=== PATIENT | male | born 1960 | race Caucasian/White ===

== ENCOUNTER 2016-05-25 21:46 | Emergency (ER) | payer BC, OTHER ==
[~2016-05-25] VITALS: Ht 172.7 cm; Wt 70.0 kg
[~2016-05-25 21:46] MED LIST: AMLO5TAB2 PO; ESCI20TA PO
[2016-05-25 21:53] VITALS: BP 169/102; PULSE 87; RESP 18; TEMP 98; O2SAT 95
--- NOTE | 2016-05-25 22:02 | PD ---
HPI Chief Complaint: Alcohol/Drug Intoxication Time Seen by Provider: 21:59 Travel History International Travel<30 days: No Contact w/Intl Traveler<30days: No Traveled to known affect area: No History of Present Illness HPI 56-year-old male with a history of hypertension and alcohol abuse presents to the emergency department under Cuevas's act for alcohol intoxication. The precinct police captain reports that he was called by bystanders as the patient was very intoxicated, no evidence of trauma, ambulating on his own. The patient admits to drinking alcohol today. He denies any recent injuries or falls. He denies any complaints at this time. He denies drug use. Denies any fever, chills, nausea, vomiting, chest pain, shortness of breath, abdominal pain, headache, lightheadedness, dizziness. No other complaints. PFSH Past Medical History Asthma: No Blood Disorders: No Anxiety: Yes Depression: Yes Heart Rhythm Problems: No Cancer: No Cardiac Catheterization: No Cardiovascular Problems: Yes High Cholesterol: Yes Chemotherapy: No Chest Pain: Yes Congestive Heart Failure: No COPD: No Cerebrovascular Accident: No Diabetes: No Diminished Hearing: No Endocrine: No Gastrointestinal Disorders: Yes GERD: No Genitourinary: No Headaches: No Hiatal Hernia: Yes Heparin Induced Thrombocytopen: No Hypertension: Yes Immune Disorder: No Implanted Vascular Access Dvce: No Musculoskeletal: Yes (RIGHT HIP PAIN) Neurologic: No Psychiatric: Yes Reproductive: No Respiratory: No Immunizations Current: Yes Migraines: No Radiation Therapy: No Seizures: No Sleep Apnea: No Thyroid Disease: No Ulcer: No Influenza Vaccination: No Past Surgical History Abdominal Surgery: Yes (HERNIA REPAIR ) Cardiac Surgery: No Coronary Artery Bypass Graft: No Ear Surgery: No Endocrine Surgery: No Eye Surgery: No Genitourinary Surgery: No Gynecologic Surgery: No Neurologic Surgery: No Oral Surgery: No Thoracic Surgery: No Other Surgery: Yes (HERNIA REPAIR) Social History Alcohol Use: Yes (BINGE DRINKER) Tobacco Use: Yes (1 PPD) Substance Use: No Allergies-Medications (Allergen,Severity, Reaction): Coded Allergies: Lisinopril (Verified Allergy, Severe, Wheezing, 05/25/16) Reported Meds & Prescriptions Reported Meds & Active Scripts Active Amlodipine (Amlodipine Besylate) 5 Mg Tab 5 Mg PO DAILY Escitalopram (Escitalopram Oxalate) 20 Mg Tab 20 Mg PO DAILY Review of Systems Except as stated in HPI: all other systems reviewed are Neg Physical Exam Narrative GENERAL: Well-nourished and well-developed male patient in no acute distress who does appear intoxicated, smells of EtOH. SKIN: Warm and dry. HEAD: Normocephalic and atraumatic. EYES: No injection, drainage, or hyphema noted. PERRLA. EOMI. ENT: No nasal drainage noted. Oropharynx is clear. NECK: Supple and the trachea is midline. CARDIOVASCULAR: Regular rate and rhythm. RESPIRATORY: Breath sounds are equal bilaterally with no accessory muscle use, wheezing, rhonchi, or crackles. GASTROINTESTINAL: Abdomen is soft, non-tender, and nondistended. MUSCULOSKELETAL: No obvious deformities, swelling, cyanosis, or ecchymosis is present throughout the upper and lower extremities. Patient has full range of motion without any signs of neurovascular compromise. Strength 5/5 upper and lower extremities equal bilaterally. NEUROLOGICAL: Awake, alert, and oriented. Normal speech and gait. Cranial nerves are grossly intact. Data Data Last Documented VS Vital Signs Date Time Temp Pulse Resp B/P Pulse Ox O2 Delivery O2 Flow Rate FiO2 05/25/16 21:53 98.0 87 18 169/102 95 MDM Medical Decision Making Medical Screen Exam Complete: Yes Emergency Medical Condition: Yes Differential Diagnosis Alcohol intoxication versus alcohol abuse versus medical clearance Narrative Course 56-year-old male presents to the emergency department under Cuevas's act for alcohol intoxication. Patient is afebrile, vital signs are stable. Physical exam is unremarkable. Patient does appear to be intoxicated but he is awake, alert and answering questions appropriately. No evidence of any injury and the patient has no complaints. The patient has been to our facility multiple times in the past for alcohol intoxication. He'll be monitored here in the emergency department now at sleep off the alcohol. Once he is found to be clinically sober he can be discharged. Diagnosis Primary Impression: Alcohol intoxication Qualified Code: F10.120 - Alcohol intoxication, uncomplicated Referrals: [facility] Patient Instructions: Alcohol Intoxication (ED), General Instructions Additional Instructions: Decrease your alcohol intake. Follow-up with your Primary Care Physician. Return to the ED for any acute worsening of symptoms. Med/Other Pt SpecificInfo: No Change to Meds Disposition: 01 DISCHARGE HOME Condition: Stable Leslie Michelle May 25, 2016 22:02
== END 2016-05-26 06:24 | disposition home or self-care (01) ==
LOC: NEPA 21:46
DX: F10.120 Alcohol abuse with intoxication, uncomplicated (principal); I10 Essential (primary) hypertension; E78.00 Pure hypercholesterolemia, unspecified; F17.200 Nicotine dependence, unspecified, uncomplicated; Z86.79 Personal history of other diseases of the circulatory system; Z87.19 Personal history of other diseases of the digestive system; Z87.39 Personal history of other diseases of the musculoskeletal system and connective tissue; Z86.59 Personal history of other mental and behavioral disorders
CPT/HCPCS: 99284

== ENCOUNTER 2016-06-01 07:59 | Inpatient (IN) | payer SELFPAY ==
[~2016-06-01] VITALS: Ht 180.3 cm; Wt 88.1 kg
[2016-06-01] VITALS (14 sets, daily range): BP systolic 104–173; BP diastolic 72–102; PULSE 102–147; RESP 18–22; TEMP 97.8–98; O2SAT 93–98
[2016-06-01] MEDS ORDERED: LORazepam 2 MG/ML VIAL ONE (08:07)
--- NOTE | 2016-06-01 08:09 | PD ---
HPI Chief Complaint: Cardiac Complaint Time Seen by Provider: 08:06 Travel History International Travel<30 days: No Contact w/Intl Traveler<30days: No Traveled to known affect area: No History of Present Illness HPI This is a 56-year-old male who presents to the emergency department with a history of alcoholism who stopped drinking 2 days ago and comes in this morning with severe shaking, anxiety, and feeling like he is in withdrawals. His symptoms have been constant and getting worse this morning. He also reports that he has epigastric abdominal pain that started 2 days ago prompting him to stop drinking associated with some dry heaving, moderate severity, worse with eating and drinking. He also says he fell 2 days ago and thinks he may have a concussion. PFSH Past Medical History Asthma: No Blood Disorders: No Anxiety: Yes Depression: Yes Heart Rhythm Problems: No Cancer: No Cardiac Catheterization: No Cardiovascular Problems: Yes High Cholesterol: Yes Chemotherapy: No Chest Pain: Yes Congestive Heart Failure: No COPD: No Cerebrovascular Accident: No Diabetes: No Diminished Hearing: No Endocrine: No Gastrointestinal Disorders: Yes GERD: No Genitourinary: No Headaches: No Hiatal Hernia: Yes Heparin Induced Thrombocytopen: No Hypertension: Yes Immune Disorder: No Implanted Vascular Access Dvce: No Musculoskeletal: Yes (RIGHT HIP PAIN) Neurologic: No Psychiatric: Yes Reproductive: No Respiratory: No Immunizations Current: Yes Migraines: No Radiation Therapy: No Seizures: No Sleep Apnea: No Thyroid Disease: No Ulcer: No Past Surgical History Abdominal Surgery: Yes (HERNIA REPAIR ) Cardiac Surgery: No Coronary Artery Bypass Graft: No Ear Surgery: No Endocrine Surgery: No Eye Surgery: No Genitourinary Surgery: No Gynecologic Surgery: No Neurologic Surgery: No Oral Surgery: No Thoracic Surgery: No Other Surgery: Yes (HERNIA REPAIR) Social History Alcohol Use: Yes (BINGE DRINKER) Tobacco Use: Yes (1 PPD) Substance Use: No Allergies-Medications (Allergen,Severity, Reaction): Coded Allergies: Lisinopril (Verified Allergy, Severe, Wheezing, 06/01/16) Reported Meds & Prescriptions Reported Meds & Active Scripts Active Amlodipine (Amlodipine Besylate) 5 Mg Tab 5 Mg PO DAILY Review of Systems Except as stated in HPI: all other systems reviewed are Neg Physical Exam Narrative GENERAL: Unwell-appearing, anxious SKIN: Diaphoretic HEAD: Atraumatic. Normocephalic. EYES: Pupils equal and round. No injection or drainage. ENT: Moist mucous membranes NECK: Trachea midline. CARDIOVASCULAR: Tachycardic. No murmur appreciated. RESPIRATORY: Clear to auscultation. Breath sounds equal bilaterally. GASTROINTESTINAL: Abdomen soft, tender to palpation in the epigastrium with guarding. MUSCULOSKELETAL: No obvious deformities. NEUROLOGICAL: Awake and alert. No obvious cranial nerve deficits. Moving all extremities. Tremulous. PSYCHIATRIC: Appropriate mood and affect; insight and judgment normal. Data Data Last Documented VS Vital Signs Date Time Temp Pulse Resp B/P Pulse Ox O2 Delivery O2 Flow Rate FiO2 06/01/16 09:13 140 20 151/85 93 Nasal Cannula 2 06/01/16 08:03 97.8 Orders Electrocardiogram (06/01/16 08:06) Complete Blood Count With Diff (06/01/16 08:06) Comprehensive Metabolic Panel (06/01/16 08:06) Troponin I (06/01/16 08:06) Chest, Single Ap (06/01/16 08:06) Ecg Monitoring (06/01/16 08:06) Bilateral Bp Monitoring (06/01/16 08:06) Iv Access Insert/Monitor (06/01/16 08:06) Oximetry (06/01/16 08:06) Oxygen Administration (06/01/16 08:06) Sodium Chloride 0.9% Flush (Ns Flush) (06/01/16 08:15) Ct Brain W/O Iv Contrast(Rout) (06/01/16 ) Lorazepam Inj (Ativan Inj) (06/01/16 08:15) Lorazepam Inj (Ativan Inj) (06/01/16 08:07) Diltiazem Inj (Cardizem Inj) (06/01/16 08:30) Lipase (06/01/16 08:19) Diltiazem Inj (Cardizem Inj) (06/01/16 08:45) Vital Signs (Adult) Q15MX4,Q4H (06/01/16 08:35) Plant Maintenance Manager / Telemetry IZZY.Q8H (06/01/16 08:35) Cardiac Rhythm IZZY.Q8H (06/01/16 08:35) ^ Notify Dr: Other (06/01/16 08:35) Diltiazem Inj (Cardizem Inj) (06/01/16 08:45) Admit To Inpatient (06/01/16 ) Vital Signs (Adult) Q4H (06/01/16 09:38) Activity Oob Ad Leena (06/01/16 09:38) Bedside Glucose IZZY.AC&HS (06/01/16 09:38) Intake + Output IZZY.QSHIFT (06/01/16 09:38) Neuro Checks Q4H (06/01/16 09:38) Alcohol Withdrawal Asmt-Ciwa Q4HX18 (06/01/16 09:38) ^ Seizure Precautions (06/01/16 09:38) Plant Maintenance Manager / Telemetry IZZY.Q8H (06/01/16 09:38) Diet Regular Basic (06/01/16 Breakfast) Sodium Chloride 0.9% Flush (Ns Flush) (06/01/16 09:45) Sodium Chloride 0.9% Flush (Ns Flush) (06/01/16 21:00) Folic Acid (Folate) (06/02/16 09:00) Thiamine (Vit B1) (Vitamin B1) (06/02/16 09:00) Multivitamins-Minerals Therap (Theragran (06/02/16 09:00) Ondansetron Inj (Zofran Inj) (06/01/16 09:45) Pantoprazole (Protonix) (06/02/16 09:00) Clonidine (Catapres) (06/01/16 14:00) Clonidine (Catapres) (06/01/16 09:45) Consult Cm-Etoh Abuse Dc Plan (06/01/16 ) Flumazenil Inj (Romazicon Inj) (06/01/16 09:45) Lorazepam (Ativan) (06/01/16 09:45) Lorazepam Inj (Ativan Inj) (06/01/16 09:45) Lorazepam (Ativan) (06/01/16 09:45) Lorazepam Inj (Ativan Inj) (06/01/16 09:45) Lorazepam Inj (Ativan Inj) (06/01/16 09:45) Lorazepam Inj (Ativan Inj) (06/01/16 09:45) Scd Bilateral/Knee High IZZY.BID (06/01/16 09:38) Inpatient Certification (06/01/16 ) Echo 2d Comp W/Dopp(Routine) (06/01/16 ) Vital Signs (Adult) Q15MX4,Q4H (06/01/16 09:38) Cardiac Rhythm IZZY.Q8H (06/01/16 09:38) ^ Notify Dr: Other (06/01/16 09:38) Diltiazem Inj (Cardizem Inj) (06/01/16 11:00) Al-Mag Hy-Si 40-40-4 Mg/Ml Liq (Mag-Al P (06/01/16 09:45) Admit Order (Ed Use Only) (06/01/16 09:51) Enoxaparin Inj (Lovenox Inj) (06/01/16 11:00) Labs Laboratory Tests Test 06/01/16 08:23 White Blood Count 10.3 TH/MM3 Red Blood Count 4.52 MIL/MM3 Hemoglobin 14.7 GM/DL Hematocrit 41.7 % Mean Corpuscular Volume 92.1 FL Mean Corpuscular Hemoglobin 32.6 PG Mean Corpuscular Hemoglobin 35.4 % Concent Red Cell Distribution Width 14.9 % Platelet Count 170 TH/MM3 Mean Platelet Volume 9.0 FL Neutrophils (%) (Auto) 85.1 % Lymphocytes (%) (Auto) 8.8 % Monocytes (%) (Auto) 6.0 % Eosinophils (%) (Auto) 0.0 % Basophils (%) (Auto) 0.1 % Neutrophils # (Auto) 8.7 TH/MM3 Lymphocytes # (Auto) 0.9 TH/MM3 Monocytes # (Auto) 0.6 TH/MM3 Eosinophils # (Auto) 0.0 TH/MM3 Basophils # (Auto) 0.0 TH/MM3 CBC Comment DIFF FINAL Differential Comment Sodium Level 131 MEQ/L Potassium Level 3.7 MEQ/L Chloride Level 86 MEQ/L Carbon Dioxide Level 27.6 MEQ/L Anion Gap 17 MEQ/L Blood Urea Nitrogen 16 MG/DL Creatinine 1.19 MG/DL Estimat Glomerular Filtration 64 ML/MIN Rate Random Glucose 168 MG/DL Calcium Level 9.3 MG/DL Total Bilirubin 1.9 MG/DL Aspartate Amino Transf 110 U/L (AST/SGOT) Alanine Aminotransferase 63 U/L (ALT/SGPT) Alkaline Phosphatase 57 U/L Troponin I 0.04 NG/ML Total Protein 7.9 GM/DL Albumin 4.5 GM/DL Lipase 95 U/L MDM Medical Decision Making Medical Screen Exam Complete: Yes Emergency Medical Condition: Yes Interpretation(s) Afebrile, tachycardic, normotensive No leukocytosis Hypokalemia Troponin is 0.04 Lipase is 95 EKG: Atrial fibrillation with rapid ventricular Differential Diagnosis Acute alcohol withdrawal, delirium tremens, atrial fibrillation with RVR, intracranial hemorrhage, electrolyte abnormality Narrative Course This is a 56-year-old male who presents to the emergency department with signs and symptoms of acute alcohol withdrawal. He is in atrial fibrillation with RVR upon arrival. He was placed on a monitor and an IV was established. He was given 2 boluses of IV diltiazem and started on a diltiazem infusion. He was also given 4 mg of IV Ativan for acute alcohol withdrawal. Labs are obtained which were all reassuring. CT of the head demonstrates no intracranial hemorrhage. I think the patient can be admitted for continued rate control and treatment of acute alcohol withdrawal. Critical Care Narrative Aggregate critical care time was 40 minutes. Time to perform other separately billable procedures was not included in the critical care time. My time did not include minutes spent treating any other patients simultaneously or on activities that did not directly contribute to the patient's treatment. The services I provided to this patient were to treat and/or prevent clinically significant deterioration that could result in: Disability, I provided critical care services requiring my management, as noted below: Chart data review, documentation time, medication orders and management, vital sign assessments/reviewing monitor data, ordering and reviewing lab tests, ordering and interpreting/reviewing x-rays and diagnostic studies, care of the patient and discussion of the patient with the admitting physicians. Physician Communication Physician Communication Discussed with Dr. Saldana Diagnosis Primary Impression: Alcohol withdrawal Qualified Code: F10.230 - Alcohol withdrawal, uncomplicated Additional Impression: Atrial fibrillation with RVR Admitting Information Admitting Physician Requests: Admit Marissa Doe MD Jun 01, 2016 08:09
[2016-06-01] MEDS ORDERED: SODIUM CHLORIDE 0.9% FLUSH 5 ML FLUSH IVF PRN (08:15)
[2016-06-01] MEDS ORDERED: LORazepam 2 MG/ML VIAL IV PUSH ONE (08:15)
--- NOTE | 2016-06-01 08:21 | RADRPT ---
EXAM DATE/TIME: 06/01/2016 08:17 [facility] COMPARISON: CHEST SINGLE AP, March 24, 2016, 11:11. INDICATIONS : Chest pain. MEDICAL HISTORY : Hypertension. SURGICAL HISTORY : None. ENCOUNTER: Subsequent ACUITY: 1 day PAIN SCORE: 6/10 LOCATION: Bilateral chest FINDINGS: A single view of the chest demonstrates the lungs to be symmetrically aerated without evidence of mas s, infiltrate or effusion. The cardiomediastinal contours are unremarkable. Osseous structures are intact. CONCLUSION: No acute disease. Ras Ortiz MD on June 01, 2016 at 8:19 Board Certified Radiologist. This report was verified electronically.
[2016-06-01] MEDS ORDERED: DILTIAZEM HCL 25 MG/5 ML VIAL IV ONE ×2 (08:30→08:45)
[2016-06-01 08:37] LABS: AUTOMATED NEUTROPHIL # 8.7 TH/MM3 (1.8-7.7); BASOPHIL % 0.1 % (0.0-2.0); HEMATOCRIT 41.7 % (39.0-51.0); HEMO FLAGS DIFF FINAL; LYMPH % 8.8 % (9.0-44.0); LYMPHOCYTE # 0.9 TH/MM3 (1.0-4.8); MEAN CELL VOLUME 92.1 FL (80.0-100.0); MEAN CORPUSCULAR HEMOGLOBIN 32.6 PG (27.0-34.0); MEAN CORPUSCULAR HGB CONC 35.4 % (32.0-36.0); NEUT % 85.1 % (16.0-70.0); PLATELET COUNT 170 TH/MM3 (150-450); RED BLOOD COUNT 4.52 MIL/MM3 (4.50-5.90); RED CELL DISTRIBUTION WIDTH 14.9 % (11.6-17.2); WHITE BLOOD COUNT 10.3 TH/MM3 (4.0-11.0)
[2016-06-01] MEDS ORDERED: DILTIAZEM INJ 125 MG in SODIUM CHLORIDE 0.9% INJ 100 ML IV SCH (08:45)
[2016-06-01 08:57] LABS: ANION GAP 17 MEQ/L (5-15); AST (GOT) 110 U/L (15-37); BICARBONATE 27.6 MEQ/L (21.0-32.0); BLOOD UREA NITROGEN 16 MG/DL (7-18); CHLORIDE 86 MEQ/L (98-107); GLOMERULAR FILTRATION RATE 64 ML/MIN (>89); POTASSIUM 3.7 MEQ/L (3.5-5.1); SODIUM (NA) 131 MEQ/L (136-145)
[2016-06-01 09:01] LABS: ALKALINE PHOSPHATASE 57 U/L (45-117); ALT (GPT) 63 U/L (12-78); TOTAL BILIRUBIN ADULT 1.9 MG/DL (0.2-1.0)
--- NOTE | 2016-06-01 09:06 | RADRPT ---
EXAM DATE/TIME: 06/01/2016 08:41 [facility] COMPARISON: CT BRAIN W/O CONTRAST, July 27, 2015, 7:42. INDICATIONS : Trauma, fall two days ago. RADIATION DOSE: 38.95 CTDIvol (mGy) MEDICAL HISTORY : Hypertension. Cardiovascular disease SURGICAL HISTORY : None. ENCOUNTER: Initial ACUITY: 1 day PAIN SCALE: 0/10 LOCATION: cranial TECHNIQUE: Multiple contiguous axial images were obtained of the head. Using automated exposure control and adj ustment of the mA and/or kV according to patient size, radiation dose was kept as low as reasonably a chievable to obtain optimal diagnostic quality images. FINDINGS: CEREBRUM: The ventricles are normal for age. Chronic ischemic changes left frontal periventricular white matter . No evidence of midline shift, mass lesion, hemorrhage or acute infarction. No extra-axial fluid c ollections are seen. POSTERIOR FOSSA: The cerebellum and brainstem are intact. The 4th ventricle is midline. The cerebellopontine angle i s unremarkable. EXTRACRANIAL: The visualized portion of the orbits is intact. SKULL: The calvaria is intact. No evidence of skull fracture. CONCLUSION: No acute intracranial disease. Ras Ortiz MD on June 01, 2016 at 9:03 Board Certified Radiologist. This report was verified electronically.
[2016-06-01] MEDS ORDERED: cloNIDine HCL 0.1 MG TAB PO PRN (09:45)
[2016-06-01] MEDS ORDERED: LORazepam 2 MG TAB PO PRN (09:45)
[2016-06-01] MEDS ORDERED: LORazepam 2 MG/ML VIAL IV PUSH PRN ×4 (09:45)
[2016-06-01] MEDS ORDERED: FLUMAZENIL 0.5 MG/5 ML VIAL IV PUSH PRN (09:45)
[2016-06-01] MEDS ORDERED: SODIUM CHLORIDE 0.9% FLUSH 5 ML FLUSH IV FLUSH PRN (09:45)
[2016-06-01] MEDS ORDERED: ALUMINUM/MAGNESIUM/SIMETH 30 ML CUP PO PRN (09:45)
[2016-06-01] MEDS ORDERED: ONDANSETRON HCL 4 MG/2 ML VIAL IV PRN (09:45)
[2016-06-01] MEDS ORDERED: ENOXAPARIN SODIUM 80 MG/0.8 ML SYRINGE SQ SCH (11:00)
[2016-06-01] MEDS ORDERED: cloNIDine HCL 0.1 MG TAB PO SCH ×2 (14:00→21:00)
--- NOTE | 2016-06-01 16:38 | HHI.HP ---
[facility] Service [facility] Primary Care Physician Adrianne Carrasquillo MD Admission Diagnosis atrial fibrillation with rvr, alcohol withdrawl Diagnoses: Chief Complaint: I don't feel well. I can't walk straight. Travel History International Travel<30 Days: No Contact w/Intl Traveler <30 Da: No Traveled to Known Affected Are: No History of Present Illness 56-year-old white male with a history of alcohol dependence came in the emergency room after he confessed to stop drinking 3 days ago. He states that he was walking down the street and fell extremely unsteady and continues to be nauseated and therefore came to emergency for evaluation. He reports having black stools yesterday. He reports a history of epigastric discomfort after he drinks alcohol and this was the reason he is trying to cut down and stop drinking. He reports some mild chest discomfort with some palpitations all however has not had any associated shortness of breath with these episodes. He reports he is currently chest pain-free. He denies any previous history of heart problems or arrhythmias. Review of Systems Constitutional: DENIES: Fatigue, Fever, Chills, Change in appetite Endocrine: DENIES: Heat/cold intolerance Eyes: DENIES: Blurred vision, Eye pain, Vision loss Ears, nose, mouth, throat: DENIES: Hearing loss, Nasal discharge, Throat pain, Ear Pain, Sinus Pain Respiratory: DENIES: Cough, Shortness of breath Cardiovascular: COMPLAINS OF: Chest pain, Palpitations, DENIES: Dyspnea on Exertion, Lower Extremity Edema Gastrointestinal: COMPLAINS OF: Black stools, Nausea, DENIES: Abdominal pain, Bloody stools, Constipation, Diarrhea, Vomiting Musculoskeletal: DENIES: Joint pain, Muscle aches, Stiffness Integumentary: DENIES: Rash Hematologic/lymphatic: DENIES: Bruising, Lymphadenopathy Immunologic/allergic: DENIES: Eczema Neurologic: DENIES: Headache, Localized weakness, Paresthesias Psychiatric: DENIES: Anxiety, Depression, Suicidal Ideation Past Family Social History Past Medical History Alcohol dependence Past Surgical History Right inguinal hernia repair Reported Medications He currently states that he is not taking any medications. Allergies: Coded Allergies: Lisinopril (Verified Allergy, Severe, Wheezing, 06/01/16) Family History His mother of lung cancer Social History Was drinking up to 1 gallon of vodka on a daily basis, stopped 2 days ago, smoked 1 pack cigarettes Physical Exam Vital Signs Vital Signs Date Time Temp Pulse Resp B/P Pulse Ox O2 Delivery O2 Flow Rate FiO2 06/01/16 15:46 119 20 104/72 Nasal Cannula 2 06/01/16 14:01 117 20 148/78 93 Room Air 06/01/16 12:33 113 20 129/77 Nasal Cannula 2 06/01/16 11:30 126 20 135/81 94 Nasal Cannula 2 06/01/16 10:03 120 19 135/90 95 Nasal Cannula 2 06/01/16 09:56 114 20 138/89 Nasal Cannula 2 06/01/16 09:13 140 20 151/85 93 Nasal Cannula 2 06/01/16 08:17 95 Nasal Cannula 2 06/01/16 08:17 20 95 Nasal Cannula 2 06/01/16 08:17 173/102 151/85 06/01/16 08:05 147 22 96 06/01/16 08:03 97.8 147 22 173/102 96 Physical Exam GENERAL: This is a well-nourished, well-developed patient, in no apparent distress. SKIN: No rashes, ecchymoses or lesions. Cool and dry. HEAD: Atraumatic. Normocephalic. No temporal or scalp tenderness. EYES: Pupils equal round and reactive. Extraocular motions intact. No scleral icterus. No injection or drainage. ENT: Nose without bleeding, purulent drainage or septal hematoma. Throat without erythema, tonsillar hypertrophy or exudate. Uvula midline. Airway patent. NECK: Trachea midline. No JVD or lymphadenopathy. Supple, nontender, no meningeal signs. CARDIOVASCULAR: Regular rate and rhythm without murmurs, gallops, or rubs. RESPIRATORY: Clear to auscultation. Breath sounds equal bilaterally. No wheezes , rales, or rhonchi. GASTROINTESTINAL: Abdomen soft, non-tender, nondistended. No hepato-splenomegaly , or palpable masses. No guarding. MUSCULOSKELETAL: Extremities without clubbing, cyanosis, or edema. No joint tenderness, effusion, or edema noted. No calf tenderness. Negative Homans sign bilaterally. NEUROLOGICAL: Awake and alert. Cranial nerves II through XII intact. Motor and sensory grossly within normal limits. Five out of 5 muscle strength in all muscle groups. Normal speech. Laboratory Laboratory Tests Test 06/01/16 08:23 White Blood Count 10.3 Red Blood Count 4.52 Hemoglobin 14.7 Hematocrit 41.7 Mean Corpuscular Volume 92.1 Mean Corpuscular Hemoglobin 32.6 Mean Corpuscular Hemoglobin 35.4 Concent Red Cell Distribution Width 14.9 Platelet Count 170 Mean Platelet Volume 9.0 Neutrophils (%) (Auto) 85.1 Lymphocytes (%) (Auto) 8.8 Monocytes (%) (Auto) 6.0 Eosinophils (%) (Auto) 0.0 Basophils (%) (Auto) 0.1 Neutrophils # (Auto) 8.7 Lymphocytes # (Auto) 0.9 Monocytes # (Auto) 0.6 Eosinophils # (Auto) 0.0 Basophils # (Auto) 0.0 CBC Comment DIFF FINAL Differential Comment Sodium Level 131 Potassium Level 3.7 Chloride Level 86 Carbon Dioxide Level 27.6 Anion Gap 17 Blood Urea Nitrogen 16 Creatinine 1.19 Estimat Glomerular Filtration 64 Rate Random Glucose 168 Calcium Level 9.3 Total Bilirubin 1.9 Aspartate Amino Transf 110 (AST/SGOT) Alanine Aminotransferase 63 (ALT/SGPT) Alkaline Phosphatase 57 Troponin I 0.04 Total Protein 7.9 Albumin 4.5 Lipase 95 Result Diagram: 06/01/16 0823 06/01/16 0823 Imaging Last Impressions Chest X-Ray 06/01/16 0806 Signed Impressions: Service Date/Time: May 08:17 - CONCLUSION: No acute disease. Ras Ortiz MD Head CT 06/01/16 0000 Signed Impressions: Service Date/Time: May 08:41 - CONCLUSION: No acute intracranial disease. Ras Ortiz MD Course EKG showed atrial fibrillation with rapid ventricular rate of 148 Assessment and Plan Problem List: (1) Atrial fibrillation with RVR ICD Code: I48.91 Status: Acute (2) Alcohol withdrawal ICD Code: F10.239 Status: Acute Assessment and Plan 1. New onset atrial fibrillation with rapid ventricular rate likely exacerbated by alcohol withdrawal symptoms. This time patient is currently on a IV Cardizem drip for rate control. Check a 2-D echo and serial enzymes. Patient did have a recent nuclear stress test Apr 2015 which was negative. Hold anticoagulation due to his history of tarry black stools. We'll also start metoprolol twice a day 2. Acute alcohol withdrawal with perceptual disturbance with a history alcohol dependence-[facility] protocol initiated; patient will need to have follow-up was to her treatment [facility] upon discharge. Continue on benzodiazepine. 3. History of black tarry stoolsstart PPI while ruling out underlying GI bleed , hemoglobin stable., Hemoccult stools 4. DVT prophylaxisbilateral SCDs, holding anticoagulation due to history of black stools Physician Certification 2 Midnight Certification Type: Admission for Inpatient Services Order for Inpatient Services The services are ordered in accordance with Medicare regulations or non- Medicare payer requirements, as applicable. In the case of services not specified as inpatient-only, they are appropriately provided as inpatient services in accordance with the 2-midnight benchmark. Estimated LOS (days): 3 days is the estimated time the patient will need to remain in the hospital, assuming treatment plan goals are met and no additional complications. Post-Hospital Plan: Home Problem Qualifiers (1) Alcohol withdrawal: Qualified Code: F10.232 - Alcohol withdrawal, with perceptual disturbance Margoth Saldana MD Jun 01, 2016 16:38
[2016-06-01 18:59] LABS: CKMB 13.1 NG/ML (0.5-3.6)
--- NOTE | 2016-06-01 19:03 | EC ---
Study Study Date:06/01/2016 STUDY CONCLUSIONS SUMMARY LEFT VENTRICLE: The cavity size was normal. Wall thickness was normal. Systolic function was normal. The estimated ejection fraction was in the range of 55% to 60%. Wall motion was normal; there were no regional wall motion abnormalities. If LV function is below 40, please consider prescribing an ACEI or ARB or document rationale for non-use. PROCEDURE DATA STUDY STATUS: Elective. Procedure: Transthoracic echocardiography. Image quality was good. Scanning was performed from the parasternal, apical, and subcostal acoustic windows. Study completion: The patient tolerated the procedure well. Transthoracic echocardiography. M-mode, complete 2D, complete spectral Doppler, and color Doppler. Patient status: Inpatient. CARDIAC ANATOMY LEFT VENTRICLE: The cavity size was normal. Wall thickness was normal. Systolic function was normal. The estimated ejection fraction was in the range of 55% to 60%. Wall motion was normal; there were no regional wall motion abnormalities. AORTIC VALVE: Trileaflet; normal thickness leaflets. Doppler: Transvalvular velocity was within the normal range. There was no stenosis. No regurgitation. AORTA: Aortic root: The aortic root was normal in size. MITRAL VALVE: Structurally normal valve. Doppler: Transvalvular velocity was within the normal range. There was no evidence for stenosis. No regurgitation. Peak gradient: 2mm Hg (D). LEFT ATRIUM: The atrium was normal in size. RIGHT VENTRICLE: The cavity size was normal. Wall thickness was normal. PULMONIC VALVE: Doppler: Transvalvular velocity was within the normal range. There was no evidence for stenosis. No regurgitation. TRICUSPID VALVE: Structurally normal valve. Doppler: Transvalvular velocity was within the normal range. No regurgitation. PULMONARY ARTERY: The main pulmonary artery was normal-sized. Systolic pressure was within the normal range. RIGHT ATRIUM: The atrium was normal in size. PERICARDIUM: There was no pericardial effusion. SYSTEMIC VEINS: Inferior vena cava: The vessel was normal in size. BASIC MEASUREMENTS ADULT Normal Left ventricle LV internal dimension, ED, chordal level, 51.1 mm 43-52 PLAX LV internal dimension, ES, chordal level, 36.5 mm 23-38 PLAX Fractional shortening, chordal level, PLAX *29 % >29 LV posterior wall thickness, ED 7.15 mm IVS/LVPW ratio, ED *1.85 <1.3 Ventricular septum Septal thickness, ED 13.2 mm Aortic valve Leaflet separation *28 mm 15-26 Left atrium Anterior-posterior dimension 37 mm Right ventricle RV internal dimension, ED, PLAX 28.1 mm 19-38 BASIC MEASUREMENTS ADULT Normal Aortic valve Leaflet separation *28 mm 15-26 Aorta Root diameter, ED *43 mm 20-37 DOPPLER MEASUREMENTS ADULT Normal Main pulmonary artery Pressure, S 23 mm Hg =30 Mitral valve Peak E-wave velocity 74 cm/s Peak gradient, D 2 mm Hg Tricuspid valve Regurgitant peak velocity 174 cm/s Peak RV-RA gradient, S 12 mm Hg Maximal regurgitant velocity 174 cm/s Systemic veins Estimated CVP 5 mm Hg Right ventricle RV pressure, S 23 mm Hg <30 LEGEND: Mean values are shown as u=mean value. Asterisk (*) mendez values outside specified normal range. Prepared and signed by Cosme Marroquin [id number]
[2016-06-01] MEDS ORDERED: METOPROLOL TARTRATE 25 MG TAB PO SCH (21:00)
[2016-06-01] MEDS: SODIUM CHLORIDE 0.9% FLUSH 5 ML FLUSH IV FLUSH SCH (21:00)
[2016-06-02] VITALS (29 sets, daily range): BP systolic 102–122; BP diastolic 64–73; PULSE 88–118; RESP 18–20; TEMP 98–98.6; O2SAT 96–98
[2016-06-02] MEDS: LORazepam 1 MG TAB PO PRN ×3 (01:21→12:30)
[2016-06-02 02:32] LABS: HEMATOCRIT 39.5 % (39.0-51.0)
[2016-06-02] MEDS: DILTIAZEM INJ 125 MG in SODIUM CHLORIDE 0.9% INJ 100 ML IV SCH (06:06)
--- NOTE | 2016-06-02 09:38 | HHI.PR ---
Subjective Remarks States that he is less anxious. No further abdominal pain. He denies any palpitations, chest pain nor any shortness of breath. Objective Vitals Vital Signs Date Time Temp Pulse Resp B/P Pulse Ox O2 Delivery O2 Flow Rate FiO2 06/02/16 08:00 114 06/02/16 08:00 98.5 107 20 122/73 97 06/02/16 07:00 114 06/02/16 06:00 110 06/02/16 05:00 114 06/02/16 05:00 98.4 95 18 105/67 98 06/02/16 04:00 112 06/02/16 03:00 106 06/02/16 02:00 104 06/02/16 01:00 104 06/02/16 00:20 98.0 95 18 105/64 97 06/02/16 00:00 88 06/01/16 23:00 102 06/01/16 22:00 106 06/01/16 21:00 110 06/01/16 20:35 98.0 118 18 119/87 98 06/01/16 19:13 115 20 122/74 98 Nasal Cannula 2 06/01/16 15:46 119 20 104/72 Nasal Cannula 2 06/01/16 14:01 117 20 148/78 93 Room Air 06/01/16 12:33 113 20 129/77 Nasal Cannula 2 06/01/16 11:30 126 20 135/81 94 Nasal Cannula 2 06/01/16 10:03 120 19 135/90 95 Nasal Cannula 2 06/01/16 09:56 114 20 138/89 Nasal Cannula 2 I/O 06/01/16 06/01/16 06/01/16 06/02/16 06/02/16 06/02/16 07:00 15:00 23:00 07:00 15:00 23:00 Intake Total 720 ml 100 ml Output Total 300 ml 200 ml Balance 420 ml -100 ml Intake Oral 720 ml 100 ml Output Urine Total 300 ml 200 ml # Voids 1 Result Diagram: 06/02/16 0151 06/01/16 0823 Other Results Item Value Date Time Total Creatine Kinase 1132 U/L H 06/02/16 0151 Total Creatine Kinase 1590 U/L H 06/01/16 1740 Troponin I 0.04 NG/ML 06/01/16 1740 Troponin I 0.02 NG/ML 06/02/16 0151 Objective Remarks GENERAL: This is a well-nourished, well-developed patient, in no apparent distress. CARDIOVASCULAR: Irregular rate and rhythm RESPIRATORY: Clear to auscultation. Breath sounds equal bilaterally. No wheezes , rales, or rhonchi. GASTROINTESTINAL: Abdomen soft, non-tender, nondistended. Normal active bowel sounds MUSCULOSKELETAL: Extremities without clubbing, cyanosis, or edema. NEURO: Alert & Oriented x 3 to person, place, time. Moves all ext x4 A/P Problem List: (1) Atrial fibrillation with RVR ICD Code: I48.91 Status: Acute (2) Alcohol withdrawal ICD Code: F10.239 Status: Acute Assessment and Plan 1. New onset atrial fibrillation with rapid ventricular rate likely exacerbated by alcohol withdrawal symptoms. Patient currently is on a IV Cardizem drip for rate control. 2-D echo shows normal EF and serial enzymes are negative. Patient did have a recent nuclear stress test Apr 2015 which was negative. Hold anticoagulation due to his history of tarry black stools, hemoglobin has remained stable overnight. Increase metoprolol dosing twice a day and attempt to wean off Cardizem drip. 2. Acute alcohol withdrawal with perceptual disturbance with a history alcohol dependence-responding well to [facility] withdrawal assessment protocol ; patient will need to have follow-up with [facility] upon discharge. Continue on benzodiazepine. Consult physical therapy to evaluate gait and balance 3. History of black tarry stoolsstart PPI while ruling out underlying GI bleed , hemoglobin stable., Hemoccult stools pending 4. DVT prophylaxisbilateral SCDs, holding anticoagulation due to history of black stools Discharge Planning Discharge to home when clinically stable with follow-up with outpatient alcohol rehabilitation Problem Qualifiers (1) Alcohol withdrawal: Qualified Code: F10.232 - Alcohol withdrawal, with perceptual disturbance Margoth Saldana MD Jun 02, 2016 09:38
[2016-06-02] MEDS: PANTOPRAZOLE SOD 40 MG DELAYED RELEASE TAB PO SCH (09:53)
[2016-06-02] MEDS: THIAMINE HCL 100 MG TAB PO SCH (09:53)
[2016-06-02] MEDS: SODIUM CHLORIDE 0.9% FLUSH 5 ML FLUSH IV FLUSH SCH ×2 (09:53→21:00)
[2016-06-02] MEDS: MULTIVITAMINS/MINERALS THERAPEUTIC TAB PO SCH (09:53)
[2016-06-02] MEDS: FOLIC ACID 1 MG TAB PO SCH (09:53)
--- NOTE | 2016-06-02 23:45 | EKG ---
Date Performed: 06/01/2016 Time Performed: 08:05:24 PTAGE: 56 years EKG: ATRIAL FIBRILLATION WITH RAPID VENTRICULAR RESPONSE ABNORMAL RHYTHM ECG INTERPRETATION BASE D ON A DEFAULT AGE OF 42 YEARS PREVIOUS TRACING : 03/24/2016 10.46 DOCTOR: Ria Brown Interpretating Date/Time 06/02/2016 23:42:51
[2016-06-02] MEDS: METOPROLOL TARTRATE 50 MG TAB PO SCH (23:54)
[2016-06-03] VITALS (27 sets, daily range): BP systolic 96–119; BP diastolic 50–75; PULSE 63–122; RESP 14–18; TEMP 97.6–97.9; O2SAT 93–97
[2016-06-03] MEDS: DILTIAZEM INJ 125 MG in SODIUM CHLORIDE 0.9% INJ 100 ML IV SCH ×3 (04:12→21:09)
--- NOTE | 2016-06-03 08:51 | HHI.PR ---
Subjective Remarks in no acute distress. denies chest pain or sob. however still feels weak. Objective Vitals Vital Signs Date Time Temp Pulse Resp B/P Pulse Ox O2 Delivery O2 Flow Rate FiO2 06/03/16 05:00 64 06/03/16 04:34 97.8 65 16 96/50 95 06/03/16 04:00 63 06/03/16 03:00 64 06/03/16 02:00 74 06/03/16 01:00 76 06/03/16 00:00 89 06/02/16 23:49 98.1 98 18 112/70 96 06/02/16 23:00 88 06/02/16 22:00 100 06/02/16 21:00 94 06/02/16 20:00 106 06/02/16 20:00 98.6 91 20 103/72 96 06/02/16 19:00 99 06/02/16 18:00 118 06/02/16 17:45 98.5 118 20 114/72 06/02/16 17:00 105 06/02/16 16:00 93 06/02/16 15:00 112 06/02/16 14:00 103 06/02/16 13:45 98.0 110 20 102/70 06/02/16 13:00 114 06/02/16 12:00 110 06/02/16 11:00 112 06/02/16 10:00 110 06/02/16 09:45 110 20 118/68 06/02/16 09:00 116 I/O 06/02/16 06/02/16 06/02/16 06/03/16 06/03/16 06/03/16 07:00 15:00 23:00 07:00 15:00 23:00 Intake Total 720 ml 1180 ml 675 ml Output Total 300 ml 200 ml Balance 420 ml 980 ml 675 ml Intake Oral 720 ml 1180 ml 480 ml IV Total 195 ml Output Urine Total 300 ml 200 ml # Voids 4 3 # Bowel Movements 1 0 Result Diagram: 06/02/16 0151 06/01/16 0823 Imaging Last Impressions Chest X-Ray 06/01/16 0806 Signed Impressions: Service Date/Time: May 08:17 - CONCLUSION: No acute disease. Ras Ortiz MD Head CT 06/01/16 0000 Signed Impressions: Service Date/Time: May 08:41 - CONCLUSION: No acute intracranial disease. Ras Ortiz MD Objective Remarks GENERAL: in no apparent distress. CARDIOVASCULAR:irregular rhythm without murmurs, gallops, or rubs. RESPIRATORY: Clear to auscultation. Breath sounds equal bilaterally. No wheezes , rales, or rhonchi. GASTROINTESTINAL: Abdomen soft, non-tender, nondistended. Normal, active bowel sounds MUSCULOSKELETAL: Extremities without clubbing, cyanosis, or edema. NEURO: Alert & Oriented x4 to person, place, time, situation. Moves all ext x4 Procedures none Medications and IVs Current Medications IV Flush (NS Flush) 2 ml UNSCH PRN IVF FLUSH AFTER USING IV ACCESS; Start at 08:15; Stop 06/01/16 at 10:13; Status DC Lorazepam (Ativan Inj) 4 mg ONCE ONCE IV PUSH Last administered on 06/01/16 08 :15; Start 06/01/16 at 08:15; Stop 06/01/16 at 08:16; Status DC Lorazepam (Ativan Inj) 4 mg STK-MED ONCE .ROUTE ; Start 06/01/16 at 08:07; Stop 06/01/16 at 08:08; Status DC Diltiazem HCl (Cardizem Inj) 15 mg ONCE ONCE IV Last administered on 06/01/16 08:27; Start 06/01/16 at 08:30; Stop 06/01/16 at 08:31; Status DC Diltiazem HCl 20 mg 20 mg ONCE ONCE IV Last administered on 06/01/16 09:09; Start 06/01/16 at 08:45; Stop 06/01/16 at 08:46; Status DC Diltiazem HCl/ Sodium Chloride (Cardizem Inj/NS Inj) 125 ml @ 0 mls/hr TITRATE IV Last administered on 06/01/16 09:10; Start 06/01/16 at 08:45; Stop 06/01/16 at 10:16; Status DC IV Flush (NS Flush) 2 ml UNSCH PRN IV FLUSH FLUSH AFTER USING IV ACCESS; Start 06/01/16 at 09:45 IV Flush (NS Flush) 2 ml BID IV FLUSH Last administered on 06/02/16 09:53; Start 06/01/16 at 21:00 Folic Acid (Folate) 1 mg DAILY PO Last administered on 06/02/16 09:53; Start at 09:00; Stop 06/07/16 at 08:59 Thiamine HCl (Vitamin B1) 100 mg DAILY PO Last administered on 06/02/16 09:53; Start 06/02/16 at 09:00 Multivitamins/ Minerals Therapeutic (Theragran M Tab) 1 tab DAILY PO Last administered on 06/02/16 09:53; Start 06/02/16 at 09:00; Stop 06/07/16 at 08:59 Ondansetron HCl (Zofran Inj) 4 mg Q6H PRN IV NAUSEA OR VOMITING; Start 06/01/16 at 09:45 Pantoprazole Sodium (Protonix) 40 mg DAILY PO Last administered on 06/02/16 09: 53; Start 06/02/16 at 09:00 Clonidine (Catapres) 0.1 mg Q8HR PO Last administered on 06/01/16 14:07; Start 06/01/16 at 14:00; Stop 06/01/16 at 16:24; Status DC Clonidine (Catapres) 0.1 mg Q6H PRN PO SEE LABEL COMMENTS; Start 06/01/16 at 09: 45 Flumazenil (Romazicon Inj) 0.2 mg Q1M PRN IV PUSH SEE LABEL COMMENTS; Start 06/01/16 at 09:45 Lorazepam (Ativan) 1 mg Q4H PRN PO CIWA 8 - 10 Last administered on 06/02/16 12 :30; Start 06/01/16 at 09:45 Lorazepam (Ativan Inj) 1 mg Q4H PRN IV PUSH CIWA 8 - 10; Start 06/01/16 at 09:45 Lorazepam (Ativan) 2 mg Q2H PRN PO CIWA 11-14; Start 06/01/16 at 09:45 Lorazepam (Ativan Inj) 2 mg Q2H PRN IV PUSH CIWA 11-14; Start 06/01/16 at 09:45 Lorazepam (Ativan Inj) 2 mg Q1H PRN IV PUSH CIWA 15-20; Start 06/01/16 at 09:45 Lorazepam (Ativan Inj) 2 mg Q15M PRN IV PUSH CIWA > 20; Start 06/01/16 at 09:45 Enoxaparin Sodium 80 mg 80 mg Q12H SQ Last administered on 06/01/16 12:35; Start 06/01/16 at 11:00; Stop 06/01/16 at 16:23; Status DC Diltiazem HCl/ Sodium Chloride (Cardizem Inj/NS Inj) 125 ml @ 0 mls/hr TITRATE IV Last administered on 06/03/16 04:12; Start 06/01/16 at 11:00 Al Hydrox/Mg Hydrox/Simethicone (Mag-Al Plus Susp Liq) 30 ml Q6H PRN PO DYSPEPSIA OR HEARTBURN; Start 06/01/16 at 09:45 Clonidine (Catapres) 0.1 mg BID PO ; Start 06/01/16 at 21:00; Status Hold Metoprolol Tartrate (Lopressor) 25 mg Q12HR PO Last administered on 06/01/16 21 :28; Start 06/01/16 at 21:00; Stop 06/02/16 at 09:21; Status DC Metoprolol Tartrate (Lopressor) 50 mg Q12HR PO Last administered on 06/02/16 23 :54; Start 06/02/16 at 21:00 A/P Assessment and Plan A/P 1. New onset atrial fibrillation with rapid ventricular rate likely exacerbated by alcohol withdrawal symptoms. Patient currently is on a IV Cardizem drip for rate control. 2-D echo shows normal EF and serial enzymes are negative. Patient did have a recent nuclear stress test Apr 2015 which was negative. Hold anticoagulation due to his history of tarry black stools,and history of alcohol abuse and falls. hemoglobin has remained stable overnight. continue metoprolol dosing twice a day and attempt to wean off Cardizem drip. 2. Acute alcohol withdrawal with perceptual disturbance with a history alcohol dependence-responding well to [facility] clinical [place] withdrawal assessment protocol ; patient will need to have follow-up with [facility] upon discharge. Continue on benzodiazepine. evaluated by PT who recommended rehab. 3. History of black tarry stoolscontinue PPI while ruling out underlying GI bleed, hemoglobin stable., Hemoccult stools pending 4.rhabdo- CPK trending down- will monitor the levels. Discharge Planning possible discharge in am if stable. case management consulted for dc planning- Isaiah Jernigan MD Jun 03, 2016 08:51
[2016-06-03] MEDS ORDERED: VITA100T2 PO (08:53)
[2016-06-03] MEDS ORDERED: METO-309 PO (08:53)
[2016-06-03] MEDS ORDERED: THERM PO (08:53)
[2016-06-03] MEDS ORDERED: PANT40TA3 PO (08:53)
[2016-06-03] MEDS ORDERED: FOLI1TAB4 PO (08:53)
[2016-06-03] MEDS: SODIUM CHLORIDE 0.9% FLUSH 5 ML FLUSH IV FLUSH SCH ×2 (09:00→21:09)
[2016-06-03] MEDS: THIAMINE HCL 100 MG TAB PO SCH (09:04)
[2016-06-03] MEDS: FOLIC ACID 1 MG TAB PO SCH (09:04)
[2016-06-03] MEDS: METOPROLOL TARTRATE 50 MG TAB PO SCH ×2 (09:05→21:08)
[2016-06-03] MEDS: PANTOPRAZOLE SOD 40 MG DELAYED RELEASE TAB PO SCH (09:05)
[2016-06-03] MEDS: MULTIVITAMINS/MINERALS THERAPEUTIC TAB PO SCH (09:05)
[2016-06-03 12:25] LABS: HEMATOCRIT 37.1 % (39.0-51.0)
[2016-06-03] MEDS: DILTIAZEM HCL 30 MG TAB PO SCH (21:09)
[2016-06-03] MEDS: LORazepam 1 MG TAB PO PRN (21:09)
[2016-06-04] VITALS (28 sets, daily range): BP systolic 84–129; BP diastolic 59–79; PULSE 58–108; RESP 12–18; TEMP 97.9–98.5; O2SAT 95–97
[2016-06-04 05:22] LABS: HEMATOCRIT 34.9 % (39.0-51.0)
--- NOTE | 2016-06-04 09:04 | HHI.PR ---
Subjective Remarks in no acute distress. denies chest pain or sob. says that he feels stronger today. d/w the RN. Objective Vitals Vital Signs Date Time Temp Pulse Resp B/P Pulse Ox O2 Delivery O2 Flow Rate FiO2 06/04/16 07:00 75 17 118/74 95 06/04/16 07:00 62 06/04/16 06:07 61 06/04/16 05:16 60 14 108/59 97 06/04/16 05:00 58 06/04/16 04:45 97.9 62 14 84/60 97 06/04/16 04:01 66 06/04/16 04:00 68 06/04/16 03:00 72 06/04/16 02:00 71 06/04/16 01:07 98.5 71 12 104/67 97 06/04/16 01:00 71 06/04/16 00:00 81 06/03/16 23:00 94 06/03/16 22:00 84 06/03/16 21:12 91 113/70 95 06/03/16 21:00 84 06/03/16 20:00 91 06/03/16 20:00 86 14 117/75 97 06/03/16 19:41 Room Air 06/03/16 19:00 112 06/03/16 18:00 122 06/03/16 17:00 119 06/03/16 16:26 97.9 101 16 119/69 97 06/03/16 16:00 114 06/03/16 15:00 101 06/03/16 14:00 85 06/03/16 13:00 88 06/03/16 12:00 74 06/03/16 11:00 77 06/03/16 11:00 97.9 87 18 112/74 93 06/03/16 10:00 76 06/03/16 10:00 Room Air I/O 06/03/16 06/03/16 06/03/16 06/04/16 06/04/16 06/04/16 07:00 15:00 23:00 07:00 15:00 23:00 Intake Total 675 ml 1968 ml 865 ml Output Total 200 ml 450 ml Balance 675 ml 1768 ml 415 ml Intake Oral 480 ml 1920 ml 720 ml IV Total 195 ml 48 ml 145 ml Output Urine Total 200 ml 450 ml # Voids 3 3 # Bowel Movements 0 3 0 Result Diagram: 06/04/16 0404 06/01/16 0823 Imaging Last Impressions Chest X-Ray 06/01/16 0806 Signed Impressions: Service Date/Time: May 08:17 - CONCLUSION: No acute disease. Ras Ortiz MD Head CT 06/01/16 0000 Signed Impressions: Service Date/Time: May 08:41 - CONCLUSION: No acute intracranial disease. Ras Ortiz MD Objective Remarks GENERAL: in no apparent distress. CARDIOVASCULAR:irregular rhythm without murmurs, gallops, or rubs. RESPIRATORY: Clear to auscultation. Breath sounds equal bilaterally. No wheezes , rales, or rhonchi. GASTROINTESTINAL: Abdomen soft, non-tender, nondistended. Normal, active bowel sounds MUSCULOSKELETAL: Extremities without clubbing, cyanosis, or edema. NEURO: Alert & Oriented x4 to person, place, time, situation. Moves all ext x4 Procedures none Medications and IVs Current Medications IV Flush (NS Flush) 2 ml UNSCH PRN IVF FLUSH AFTER USING IV ACCESS; Start at 08:15; Stop 06/01/16 at 10:13; Status DC Lorazepam (Ativan Inj) 4 mg ONCE ONCE IV PUSH Last administered on 06/01/16 08 :15; Start 06/01/16 at 08:15; Stop 06/01/16 at 08:16; Status DC Lorazepam (Ativan Inj) 4 mg STK-MED ONCE .ROUTE ; Start 06/01/16 at 08:07; Stop 06/01/16 at 08:08; Status DC Diltiazem HCl (Cardizem Inj) 15 mg ONCE ONCE IV Last administered on 06/01/16 08:27; Start 06/01/16 at 08:30; Stop 06/01/16 at 08:31; Status DC Diltiazem HCl 20 mg 20 mg ONCE ONCE IV Last administered on 06/01/16 09:09; Start 06/01/16 at 08:45; Stop 06/01/16 at 08:46; Status DC Diltiazem HCl/ Sodium Chloride (Cardizem Inj/NS Inj) 125 ml @ 0 mls/hr TITRATE IV Last administered on 06/01/16 09:10; Start 06/01/16 at 08:45; Stop 06/01/16 at 10:16; Status DC IV Flush (NS Flush) 2 ml UNSCH PRN IV FLUSH FLUSH AFTER USING IV ACCESS; Start 06/01/16 at 09:45 IV Flush (NS Flush) 2 ml BID IV FLUSH Last administered on 06/03/16 21:09; Start 06/01/16 at 21:00 Folic Acid (Folate) 1 mg DAILY PO Last administered on 06/03/16 09:04; Start at 09:00; Stop 06/07/16 at 08:59 Thiamine HCl (Vitamin B1) 100 mg DAILY PO Last administered on 06/03/16 09:04; Start 06/02/16 at 09:00 Multivitamins/ Minerals Therapeutic (Theragran M Tab) 1 tab DAILY PO Last administered on 06/03/16 09:05; Start 06/02/16 at 09:00; Stop 06/07/16 at 08:59 Ondansetron HCl (Zofran Inj) 4 mg Q6H PRN IV NAUSEA OR VOMITING; Start 06/01/16 at 09:45 Pantoprazole Sodium (Protonix) 40 mg DAILY PO Last administered on 06/03/16 09: 05; Start 06/02/16 at 09:00 Clonidine (Catapres) 0.1 mg Q8HR PO Last administered on 06/01/16 14:07; Start 06/01/16 at 14:00; Stop 06/01/16 at 16:24; Status DC Clonidine (Catapres) 0.1 mg Q6H PRN PO SEE LABEL COMMENTS; Start 06/01/16 at 09: 45 Flumazenil (Romazicon Inj) 0.2 mg Q1M PRN IV PUSH SEE LABEL COMMENTS; Start 06/01/16 at 09:45 Lorazepam (Ativan) 1 mg Q4H PRN PO CIWA 8 - 10 Last administered on 06/03/16 21 :09; Start 06/01/16 at 09:45 Lorazepam (Ativan Inj) 1 mg Q4H PRN IV PUSH CIWA 8 - 10; Start 06/01/16 at 09:45 Lorazepam (Ativan) 2 mg Q2H PRN PO CIWA 11-14; Start 06/01/16 at 09:45 Lorazepam (Ativan Inj) 2 mg Q2H PRN IV PUSH CIWA 11-14; Start 06/01/16 at 09:45 Lorazepam (Ativan Inj) 2 mg Q1H PRN IV PUSH CIWA 15-20; Start 06/01/16 at 09:45 Lorazepam (Ativan Inj) 2 mg Q15M PRN IV PUSH CIWA > 20; Start 06/01/16 at 09:45 Enoxaparin Sodium 80 mg 80 mg Q12H SQ Last administered on 06/01/16 12:35; Start 06/01/16 at 11:00; Stop 06/01/16 at 16:23; Status DC Diltiazem HCl/ Sodium Chloride (Cardizem Inj/NS Inj) 125 ml @ 0 mls/hr TITRATE IV Last administered on 06/03/16 21:09; Start 06/01/16 at 11:00 Al Hydrox/Mg Hydrox/Simethicone (Mag-Al Plus Susp Liq) 30 ml Q6H PRN PO DYSPEPSIA OR HEARTBURN; Start 06/01/16 at 09:45 Clonidine (Catapres) 0.1 mg BID PO ; Start 06/01/16 at 21:00; Status Hold Metoprolol Tartrate (Lopressor) 25 mg Q12HR PO Last administered on 06/01/16 21 :28; Start 06/01/16 at 21:00; Stop 06/02/16 at 09:21; Status DC Metoprolol Tartrate (Lopressor) 50 mg Q12HR PO Last administered on 06/03/16 21 :08; Start 06/02/16 at 21:00 Diltiazem HCl (Cardizem) 30 mg QID PO Last administered on 06/03/16 21:09; Start 06/03/16 at 21:00 A/P Assessment and Plan A/P 1. New onset atrial fibrillation with rapid ventricular rate likely exacerbated by alcohol withdrawal symptoms. Patient currently is on a IV Cardizem drip for rate control. 2-D echo shows normal EF and serial enzymes are negative. Patient did have a recent nuclear stress test Apr 2015 which was negative. Hold anticoagulation due to his history of tarry black stools, history of alcohol abuse and falls. continue metoprolol dosing twice a day- started on PO cardizem- will stop the Cardizem drip and monitor. will add aspirin if H/H remains stable. 2. Acute alcohol withdrawal with perceptual disturbance with a history alcohol dependence-responding well to [facility] clinical [place] withdrawal assessment protocol ; patient will need to have follow-up with [facility] upon discharge. Continue on benzodiazepine. evaluated by PT who recommended rehab. 3. History of black tarry stoolshowever stool negative for blood. continue PPI - hemoglobin stable. 4.rhabdo- CPK trending down- will monitor the levels. Discharge Planning possible discharge in am if stable. case management consulted for dc planning- Isaiah Jernigan MD Jun 04, 2016 09:04
[2016-06-04] MEDS: THIAMINE HCL 100 MG TAB PO SCH (09:28)
[2016-06-04] MEDS: MULTIVITAMINS/MINERALS THERAPEUTIC TAB PO SCH (09:28)
[2016-06-04] MEDS: PANTOPRAZOLE SOD 40 MG DELAYED RELEASE TAB PO SCH (09:28)
[2016-06-04] MEDS: FOLIC ACID 1 MG TAB PO SCH (09:28)
[2016-06-04] MEDS: METOPROLOL TARTRATE 50 MG TAB PO SCH ×2 (09:29→21:36)
[2016-06-04] MEDS: SODIUM CHLORIDE 0.9% FLUSH 5 ML FLUSH IV FLUSH SCH ×2 (09:29→21:36)
[2016-06-04] MEDS: DILTIAZEM HCL 30 MG TAB PO SCH ×4 (09:31→21:36)
[2016-06-05] VITALS (25 sets, daily range): BP systolic 97–147; BP diastolic 50–99; PULSE 74–130; RESP 12–18; TEMP 97.3–99; O2SAT 95–97
[2016-06-05 04:26] LABS: HEMATOCRIT 37.2 % (39.0-51.0)
[2016-06-05] MEDS: PANTOPRAZOLE SOD 40 MG DELAYED RELEASE TAB PO SCH (09:28)
[2016-06-05] MEDS: FOLIC ACID 1 MG TAB PO SCH (09:28)
[2016-06-05] MEDS: DILTIAZEM HCL 30 MG TAB PO SCH ×4 (09:28→21:11)
[2016-06-05] MEDS: MULTIVITAMINS/MINERALS THERAPEUTIC TAB PO SCH (09:28)
[2016-06-05] MEDS: THIAMINE HCL 100 MG TAB PO SCH (09:29)
[2016-06-05] MEDS: SODIUM CHLORIDE 0.9% FLUSH 5 ML FLUSH IV FLUSH SCH ×2 (09:29→21:12)
[2016-06-05] MEDS: METOPROLOL TARTRATE 50 MG TAB PO SCH ×2 (09:29→21:12)
--- NOTE | 2016-06-05 09:47 | HHI.PR ---
Subjective Remarks in no acute distress. no chest pain or sob. still tachycardic. d/w the RN and no acute issues over night. Objective Vitals Vital Signs Date Time Temp Pulse Resp B/P Pulse Ox O2 Delivery O2 Flow Rate FiO2 06/05/16 08:00 80 06/05/16 07:00 97.8 80 18 107/88 95 06/05/16 07:00 95 Room Air 06/05/16 07:00 118 06/05/16 05:00 84 06/05/16 04:59 97.6 85 14 106/79 95 06/05/16 04:00 87 06/05/16 03:00 82 06/05/16 02:00 94 06/05/16 01:00 96 06/05/16 00:50 89 12 97/57 96 06/05/16 00:00 99 06/04/16 23:00 108 06/04/16 22:00 88 06/04/16 21:00 90 06/04/16 20:00 98.3 102 14 129/79 95 06/04/16 20:00 89 06/04/16 19:32 76 06/04/16 19:32 95 Room Air 06/04/16 18:11 93 06/04/16 17:00 78 06/04/16 16:00 72 06/04/16 15:00 98.1 73 17 117/79 96 06/04/16 15:00 72 06/04/16 14:00 77 06/04/16 13:00 65 06/04/16 12:00 96 06/04/16 11:00 98.0 78 18 107/78 95 06/04/16 11:00 96 06/04/16 10:00 92 I/O 06/04/16 06/04/16 06/04/16 06/05/16 06/05/16 06/05/16 07:00 15:00 23:00 07:00 15:00 23:00 Intake Total 865 ml 900 ml 240 ml Output Total 450 ml Balance 415 ml 900 ml 240 ml Intake Oral 720 ml 900 ml 240 ml IV Total 145 ml 0 ml Output Urine Total 450 ml # Voids 7 3 # Bowel Movements 0 1 0 Result Diagram: 06/05/16 0338 06/01/16 0823 Imaging Last Impressions Chest X-Ray 06/01/16 0806 Signed Impressions: Service Date/Time: May 08:17 - CONCLUSION: No acute disease. Ras Ortiz MD Head CT 06/01/16 0000 Signed Impressions: Service Date/Time: May 08:41 - CONCLUSION: No acute intracranial disease. Ras Ortiz MD Objective Remarks GENERAL: in no apparent distress. CARDIOVASCULAR:irregular rhythm without murmurs, gallops, or rubs. RESPIRATORY: Clear to auscultation. Breath sounds equal bilaterally. No wheezes , rales, or rhonchi. GASTROINTESTINAL: Abdomen soft, non-tender, nondistended. Normal, active bowel sounds MUSCULOSKELETAL: Extremities without clubbing, cyanosis, or edema. NEURO: Alert & Oriented x4 to person, place, time, situation. Moves all ext x4 Procedures none Medications and IVs Current Medications IV Flush (NS Flush) 2 ml UNSCH PRN IVF FLUSH AFTER USING IV ACCESS; Start at 08:15; Stop 06/01/16 at 10:13; Status DC Lorazepam (Ativan Inj) 4 mg ONCE ONCE IV PUSH Last administered on 06/01/16 08 :15; Start 06/01/16 at 08:15; Stop 06/01/16 at 08:16; Status DC Lorazepam (Ativan Inj) 4 mg STK-MED ONCE .ROUTE ; Start 06/01/16 at 08:07; Stop 06/01/16 at 08:08; Status DC Diltiazem HCl (Cardizem Inj) 15 mg ONCE ONCE IV Last administered on 06/01/16 08:27; Start 06/01/16 at 08:30; Stop 06/01/16 at 08:31; Status DC Diltiazem HCl 20 mg 20 mg ONCE ONCE IV Last administered on 06/01/16 09:09; Start 06/01/16 at 08:45; Stop 06/01/16 at 08:46; Status DC Diltiazem HCl/ Sodium Chloride (Cardizem Inj/NS Inj) 125 ml @ 0 mls/hr TITRATE IV Last administered on 06/01/16 09:10; Start 06/01/16 at 08:45; Stop 06/01/16 at 10:16; Status DC IV Flush (NS Flush) 2 ml UNSCH PRN IV FLUSH FLUSH AFTER USING IV ACCESS; Start 06/01/16 at 09:45 IV Flush (NS Flush) 2 ml BID IV FLUSH Last administered on 06/04/16 21:36; Start 06/01/16 at 21:00 Folic Acid (Folate) 1 mg DAILY PO Last administered on 06/04/16 09:28; Start at 09:00; Stop 06/07/16 at 08:59 Thiamine HCl (Vitamin B1) 100 mg DAILY PO Last administered on 06/04/16 09:28; Start 06/02/16 at 09:00 Multivitamins/ Minerals Therapeutic (Theragran M Tab) 1 tab DAILY PO Last administered on 06/04/16 09:28; Start 06/02/16 at 09:00; Stop 06/07/16 at 08:59 Ondansetron HCl (Zofran Inj) 4 mg Q6H PRN IV NAUSEA OR VOMITING; Start 06/01/16 at 09:45 Pantoprazole Sodium (Protonix) 40 mg DAILY PO Last administered on 06/04/16 09: 28; Start 06/02/16 at 09:00 Clonidine (Catapres) 0.1 mg Q8HR PO Last administered on 06/01/16 14:07; Start 06/01/16 at 14:00; Stop 06/01/16 at 16:24; Status DC Clonidine (Catapres) 0.1 mg Q6H PRN PO SEE LABEL COMMENTS; Start 06/01/16 at 09: 45 Flumazenil (Romazicon Inj) 0.2 mg Q1M PRN IV PUSH SEE LABEL COMMENTS; Start 06/01/16 at 09:45 Lorazepam (Ativan) 1 mg Q4H PRN PO CIWA 8 - 10 Last administered on 06/03/16 21 :09; Start 06/01/16 at 09:45 Lorazepam (Ativan Inj) 1 mg Q4H PRN IV PUSH CIWA 8 - 10; Start 06/01/16 at 09:45 Lorazepam (Ativan) 2 mg Q2H PRN PO CIWA 11-14; Start 06/01/16 at 09:45 Lorazepam (Ativan Inj) 2 mg Q2H PRN IV PUSH CIWA 11-14; Start 06/01/16 at 09:45 Lorazepam (Ativan Inj) 2 mg Q1H PRN IV PUSH CIWA 15-20; Start 06/01/16 at 09:45 Lorazepam (Ativan Inj) 2 mg Q15M PRN IV PUSH CIWA > 20; Start 06/01/16 at 09:45 Enoxaparin Sodium 80 mg 80 mg Q12H SQ Last administered on 06/01/16 12:35; Start 06/01/16 at 11:00; Stop 06/01/16 at 16:23; Status DC Diltiazem HCl/ Sodium Chloride (Cardizem Inj/NS Inj) 125 ml @ 0 mls/hr TITRATE IV Last administered on 06/03/16 21:09; Start 06/01/16 at 11:00; Status Hold Al Hydrox/Mg Hydrox/Simethicone (Mag-Al Plus Susp Liq) 30 ml Q6H PRN PO DYSPEPSIA OR HEARTBURN; Start 06/01/16 at 09:45 Clonidine (Catapres) 0.1 mg BID PO ; Start 06/01/16 at 21:00; Status Hold Metoprolol Tartrate (Lopressor) 25 mg Q12HR PO Last administered on 06/01/16 21 :28; Start 06/01/16 at 21:00; Stop 06/02/16 at 09:21; Status DC Metoprolol Tartrate (Lopressor) 50 mg Q12HR PO Last administered on 06/04/16 21 :36; Start 06/02/16 at 21:00 Diltiazem HCl (Cardizem) 30 mg QID PO Last administered on 06/04/16 21:36; Start 06/03/16 at 21:00 A/P Assessment and Plan A/P 1. New onset atrial fibrillation with rapid ventricular rate likely exacerbated by alcohol withdrawal symptoms. still tachycardic. 2-D echo shows normal EF and serial enzymes are negative. Patient did have a recent nuclear stress test Apr 2015 which was negative. increase metoprolol- continue cardizem. no anticoagulation due to his history of tarry black stools, history of alcohol abuse and falls. 2. Acute alcohol withdrawal with perceptual disturbance with a history alcohol dependence-responding well to [facility] clinical [place] withdrawal assessment protocol ; patient will need to have follow-up with [facility] upon discharge. Continue on benzodiazepine. evaluated by PT who recommended rehab. 3. History of black tarry stoolshowever stool negative for blood. continue PPI - hemoglobin stable. 4.rhabdo- CPK trending down- will monitor the levels. Discharge Planning discharge in am if HR controlled. case management consulted for dc planning- Isaiah Jernigan MD Jun 05, 2016 09:47
[2016-06-05] MEDS ORDERED: PILL SPLITTER OTHER PRN (10:00)
[2016-06-05] MEDS ORDERED: TEMAZEPAM 7.5 MG CAP PO ONE (21:30)
[2016-06-06] VITALS (27 sets, daily range): BP systolic 103–120; BP diastolic 62–84; PULSE 80–140; RESP 16–18; TEMP 97.9–98.3; O2SAT 96–98
[2016-06-06] MEDS: DILTIAZEM HCL 30 MG TAB PO SCH ×4 (08:33→20:50)
[2016-06-06] MEDS: PANTOPRAZOLE SOD 40 MG DELAYED RELEASE TAB PO SCH (08:33)
[2016-06-06] MEDS: MULTIVITAMINS/MINERALS THERAPEUTIC TAB PO SCH (08:33)
[2016-06-06] MEDS: FOLIC ACID 1 MG TAB PO SCH (08:34)
[2016-06-06] MEDS: METOPROLOL TARTRATE 50 MG TAB PO SCH ×2 (08:34→20:50)
[2016-06-06] MEDS: SODIUM CHLORIDE 0.9% FLUSH 5 ML FLUSH IV FLUSH SCH ×2 (08:34→20:50)
[2016-06-06] MEDS: THIAMINE HCL 100 MG TAB PO SCH (08:36)
--- NOTE | 2016-06-06 09:07 | HHI.PR ---
Subjective Remarks in no acute distress. with no chest pain or sob. HR still in 120's at rest. d/w the RN. Objective Vitals Vital Signs Date Time Temp Pulse Resp B/P Pulse Ox O2 Delivery O2 Flow Rate FiO2 06/06/16 08:00 Room Air 06/06/16 08:00 89 06/06/16 07:30 81 17 120/77 98 06/06/16 07:00 80 06/06/16 06:03 92 06/06/16 05:05 99 06/06/16 04:04 82 06/06/16 03:01 98.3 96 18 119/72 97 06/06/16 03:01 82 06/06/16 02:00 81 06/06/16 01:00 82 06/06/16 00:01 85 06/05/16 23:01 85 06/05/16 23:01 99.0 85 18 136/78 97 06/05/16 22:02 92 06/05/16 21:20 99 06/05/16 20:01 97 06/05/16 19:16 97 Room Air 06/05/16 19:01 112 06/05/16 19:01 97.8 83 18 147/99 97 06/05/16 18:00 105 06/05/16 17:00 96 06/05/16 16:00 82 06/05/16 15:00 97.6 97 18 126/50 95 06/05/16 15:00 74 06/05/16 14:00 88 06/05/16 13:00 114 06/05/16 12:00 114 06/05/16 11:00 118 06/05/16 11:00 97.3 95 18 126/82 95 06/05/16 10:00 128 I/O 06/05/16 06/05/16 06/05/16 06/06/16 06/06/16 06/06/16 07:00 15:00 23:00 07:00 15:00 23:00 Intake Total 240 ml 1020 ml 240 ml Balance 240 ml 1020 ml 240 ml Intake Oral 240 ml 1020 ml 240 ml IV Total 0 ml # Voids 3 4 2 # Bowel Movements 0 2 0 Result Diagram: 06/05/16 0338 Imaging Last Impressions Chest X-Ray 06/01/16805 Signed Impressions: Service Date/Time: May 08:17 - CONCLUSION: No acute disease. Ras Ortiz MD Head CT 06/01/16 0000 Signed Impressions: Service Date/Time: May 08:41 - CONCLUSION: No acute intracranial disease. Ras Ortiz MD Objective Remarks GENERAL: in no apparent distress. CARDIOVASCULAR:irregular rhythm without murmurs, gallops, or rubs. RESPIRATORY: Clear to auscultation. Breath sounds equal bilaterally. No wheezes , rales, or rhonchi. GASTROINTESTINAL: Abdomen soft, non-tender, nondistended. Normal, active bowel sounds MUSCULOSKELETAL: Extremities without clubbing, cyanosis, or edema. NEURO: Alert & Oriented x4 to person, place, time, situation. Moves all ext x4 Procedures none Medications and IVs Current Medications IV Flush (NS Flush) 2 ml UNSCH PRN IVF FLUSH AFTER USING IV ACCESS; Start at 08:15; Stop 06/01/16 at 10:13; Status DC Lorazepam (Ativan Inj) 4 mg ONCE ONCE IV PUSH Last administered on 06/01/16 08 :15; Start 06/01/16 at 08:15; Stop 06/01/16 at 08:16; Status DC Lorazepam (Ativan Inj) 4 mg STK-MED ONCE .ROUTE ; Start 06/01/16 at 08:07; Stop 06/01/16 at 08:08; Status DC Diltiazem HCl (Cardizem Inj) 15 mg ONCE ONCE IV Last administered on 06/01/16 08:27; Start 06/01/16 at 08:30; Stop 06/01/16 at 08:31; Status DC Diltiazem HCl 20 mg 20 mg ONCE ONCE IV Last administered on 06/01/16 09:09; Start 06/01/16 at 08:45; Stop 06/01/16 at 08:46; Status DC Diltiazem HCl/ Sodium Chloride (Cardizem Inj/NS Inj) 125 ml @ 0 mls/hr TITRATE IV Last administered on 06/01/16 09:10; Start 06/01/16 at 08:45; Stop 06/01/16 at 10:16; Status DC IV Flush (NS Flush) 2 ml UNSCH PRN IV FLUSH FLUSH AFTER USING IV ACCESS; Start 06/01/16 at 09:45 IV Flush (NS Flush) 2 ml BID IV FLUSH Last administered on 06/06/16 08:34; Start 06/01/16 at 21:00 Folic Acid (Folate) 1 mg DAILY PO Last administered on 06/06/16 08:34; Start at 09:00; Stop 06/07/16 at 08:59 Thiamine HCl (Vitamin B1) 100 mg DAILY PO Last administered on 06/06/16 08:36; Start 06/02/16 at 09:00 Multivitamins/ Minerals Therapeutic (Theragran M Tab) 1 tab DAILY PO Last administered on 06/06/16 08:33; Start 06/02/16 at 09:00; Stop 06/07/16 at 08:59 Ondansetron HCl (Zofran Inj) 4 mg Q6H PRN IV NAUSEA OR VOMITING; Start 06/01/16 at 09:45 Pantoprazole Sodium (Protonix) 40 mg DAILY PO Last administered on 06/06/16 08: 33; Start 06/02/16 at 09:00 Clonidine (Catapres) 0.1 mg Q8HR PO Last administered on 06/01/16 14:07; Start 06/01/16 at 14:00; Stop 06/01/16 at 16:24; Status DC Clonidine (Catapres) 0.1 mg Q6H PRN PO SEE LABEL COMMENTS; Start 06/01/16 at 09: 45 Flumazenil (Romazicon Inj) 0.2 mg Q1M PRN IV PUSH SEE LABEL COMMENTS; Start 06/01/16 at 09:45 Lorazepam (Ativan) 1 mg Q4H PRN PO CIWA 8 - 10 Last administered on 06/03/16 21 :09; Start 06/01/16 at 09:45 Lorazepam (Ativan Inj) 1 mg Q4H PRN IV PUSH CIWA 8 - 10; Start 06/01/16 at 09:45 Lorazepam (Ativan) 2 mg Q2H PRN PO CIWA 11-14; Start 06/01/16 at 09:45 Lorazepam (Ativan Inj) 2 mg Q2H PRN IV PUSH CIWA 11-14; Start 06/01/16 at 09:45 Lorazepam (Ativan Inj) 2 mg Q1H PRN IV PUSH CIWA 15-20; Start 06/01/16 at 09:45 Lorazepam (Ativan Inj) 2 mg Q15M PRN IV PUSH CIWA > 20; Start 06/01/16 at 09:45 Enoxaparin Sodium 80 mg 80 mg Q12H SQ Last administered on 06/01/16 12:35; Start 06/01/16 at 11:00; Stop 06/01/16 at 16:23; Status DC Diltiazem HCl/ Sodium Chloride (Cardizem Inj/NS Inj) 125 ml @ 0 mls/hr TITRATE IV Last administered on 06/03/16 21:09; Start 06/01/16 at 11:00; Status Hold Al Hydrox/Mg Hydrox/Simethicone (Mag-Al Plus Susp Liq) 30 ml Q6H PRN PO DYSPEPSIA OR HEARTBURN; Start 06/01/16 at 09:45 Clonidine (Catapres) 0.1 mg BID PO ; Start 06/01/16 at 21:00; Status Hold Metoprolol Tartrate (Lopressor) 25 mg Q12HR PO Last administered on 06/01/16 21 :28; Start 06/01/16 at 21:00; Stop 06/02/16 at 09:21; Status DC Metoprolol Tartrate (Lopressor) 50 mg Q12HR PO Last administered on 06/05/16 09 :29; Start 06/02/16 at 21:00; Stop 06/05/16 at 09:46; Status DC Diltiazem HCl (Cardizem) 30 mg QID PO Last administered on 06/06/16 08:33; Start 06/03/16 at 21:00 Metoprolol Tartrate (Lopressor) 75 mg Q12HR PO Last administered on 06/06/16 08 :34; Start 06/05/16 at 21:00 Miscellaneous (Pill Splitter) 1 ea UNSCH PRN OTHER SEE LABEL COMMENTS; Start at 10:00 Temazepam (Restoril) 7.5 mg ONCE ONCE PO Last administered on 06/05/16 21:46; Start 06/05/16 at 21:30; Stop 06/05/16 at 21:31; Status DC A/P Assessment and Plan A/P 1. New onset atrial fibrillation with rapid ventricular rate likely exacerbated by alcohol withdrawal symptoms. still tachycardic. 2-D echo shows normal EF and serial enzymes are negative. Patient did have a recent nuclear stress test Apr 2015 which was negative. continue metoprolol and cardizem- will consult cardiology. no anticoagulation due to his history of tarry black stools, history of alcohol abuse and falls. 2. Acute alcohol withdrawal with perceptual disturbance with a history alcohol dependence-responding well to [facility] withdrawal assessment protocol ; patient will need to have follow-up with [facility] upon discharge. Continue on benzodiazepine. evaluated by PT who recommended rehab. 3. History of black tarry stoolshowever stool negative for blood. continue PPI - hemoglobin stable. 4.rhabdo- CPK trending down- will monitor the levels. Discharge Planning awaiting cardiology evaluation. Isaiah Jernigan MD Jun 06, 2016 09:07
[2016-06-06] MEDS ORDERED: METOPROLOL TARTRATE 25 MG TAB PO ONE (09:15)
--- NOTE | 2016-06-06 17:05 | MB ---
cc: MIRIAM GARZON DATE OF CONSULTATION 06/06/16 1960 REASON FOR CONSULTATION Atrial fibrillation with RVR HISTORY OF PRESENT ILLNESS 56-year-old male with past medical history significant for alcohol dependence and hypertension that presented to the emergency department for evaluation of unsteadiness and nausea. He was further admitted for alcohol withdrawal. On admission, he did report some mild chest discomfort on palpitation. He was found to be in atrial fibrillation. Cardiology has been consulted for further management and evaluation. He denies chest pain, shortness of breath, PND, palpitations, diaphoresis, orthopnea, leg edema, nausea, vomiting, diarrhea, fevers, chills or weight loss. PAST MEDICAL HISTORY Alcohol dependence. PAST SURGICAL HISTORY Right inguinal hernia MEDICATIONS Home none. ALLERGIES LISINOPRIL FAMILY HISTORY Mother of lung cancer. SOCIAL HISTORY He drinks vodka daily, stopped two days ago. He is also a smoker. REVIEW OF SYSTEMS Negative except for what is mentioned in HPI. PHYSICAL EXAMINATION Vital signs are respiratory rate 17, heart rate 97, blood pressure 110/84, O2 sat 98% on room air. GENERAL: He is awake, alert, oriented times three in no acute distress. NECK: No JVD, no carotid bruits. HEART: Irregularly irregular. No murmurs, rubs or gallops appreciated. LUNGS: Clear to auscultation bilaterally. EXTREMITIES: No cyanosis or edema. Pulses throughout. ABDOMEN: Soft, nontender, nondistended. Positive bowel sounds. LABORATORY DATA CBC - hemoglobin of 13, hematocrit 37, platelet count 170. Chemistries - sodium 131, potassium 3.7, BUN 16, creatinine 1.1, troponin 0.04, 0.04 and 0.02, lipase 95. IMAGING STUDIES Head CT unremarkable. Chest x-ray unremarkable. CARDIOLOGY STUDIES shelter monitor shows atrial fibrillation with adequate ventricular response. Echocardiogram showing a preserved LV systolic function with an estimated ejection fraction of 60% and no wall motion abnormalities. He also had a recent nuclear stress test done in April 2015 which was unremarkable. ASSESSMENT/PLAN 56-year-old male with cardiac risk factors that include tobacco abuse and hypertension, found to be in afib with RVR in the setting alcohol withdrawal. Currently on CIWA protocol, hemodynamically stable afebrile and chest pain free. Recent negative ischemic cardiac work up. Cardizem drip is off, now on Cardizem by mouth and beta-blockers. Oral anticoagulation on hold given history of black tarry stools. Hemoglobin has remained stable. His CHADS2 score is 1, thus Aspirin 325 mg of is recommended for oral anticoagulation if no contraindications. Recommendations: 1. Continue rate control with PO beta-blockers and calcium channel blockers. 2. Continue the CIWA per protocol. 3. Start Aspirin 325mg PO daily 4. Encourage ambulation, alcohol and smoking cessation. Thank you for the opportunity to participate in the care of this patient. We will be available on a p.r.n. basis for any further questions or concerns. Sign off MD AUSTIN Liang/ /3:30 PM /4:46 PM EM
[2016-06-07] VITALS (8 sets, daily range): BP systolic 122–137; BP diastolic 76–93; PULSE 84–105; RESP 16–17; TEMP 97.6–98.3; O2SAT 96–97
[2016-06-07] MEDS: PANTOPRAZOLE SOD 40 MG DELAYED RELEASE TAB PO SCH (08:06)
[2016-06-07] MEDS: THIAMINE HCL 100 MG TAB PO SCH (08:06)
[2016-06-07] MEDS: DILTIAZEM HCL 30 MG TAB PO SCH (08:10)
[2016-06-07] MEDS: METOPROLOL TARTRATE 50 MG TAB PO SCH (08:10)
[2016-06-07] MEDS: SODIUM CHLORIDE 0.9% FLUSH 5 ML FLUSH IV FLUSH SCH (08:10)
[2016-06-07] MEDS ORDERED: METO-309 PO (08:23)
[2016-06-07] MEDS ORDERED: CARD120C4 PO (08:23)
[2016-06-07] MEDS ORDERED: ASPI325T33 PO (08:23)
--- NOTE | 2016-06-07 08:24 | HHI.DCPOC ---
Discharge Care Plan Diagnosis: (1) Atrial fibrillation with RVR Additional Problems irregular heart beat. Goals to Promote Your Health * To prevent worsening of your condition and complications * To maintain your health at the optimal level Directions to Meet Your Goals Take your medications as prescribed Follow your dietary instruction Follow activity as directed Keep your appointments as scheduled Take your immunizations and boosters as scheduled If your symptoms worsen call your PCP, if no PCP go to Urgent Care Center or Emergency Room Smoking is Dangerous to Your Health. Avoid second hand smoke Call the 24-hour hour crisis hotline for domestic abuse at Isaiah Jernigan MD Jun 07, 2016 08:24
--- NOTE | 2016-06-07 08:32 | HHI.PR ---
Subjective Remarks resting comfortably with no distress. denies chest pain or sob. no new complaints and wants to go home. d/w the RN and no acute issues over night. Objective Vitals Vital Signs Date Time Temp Pulse Resp B/P Pulse Ox O2 Delivery O2 Flow Rate FiO2 06/07/16 07:00 102 06/07/16 06:00 85 06/07/16 04:00 98.3 90 16 137/93 97 06/07/16 04:00 90 06/07/16 02:00 86 06/07/16 00:00 98.1 97 16 122/76 97 06/07/16 00:00 92 06/06/16 22:00 85 06/06/16 20:00 98 Room Air 06/06/16 20:00 98.0 91 16 114/79 98 06/06/16 20:00 91 06/06/16 18:00 96 06/06/16 17:00 98 06/06/16 16:07 85 06/06/16 15:12 97.9 97 17 110/84 98 06/06/16 15:00 89 06/06/16 14:00 100 06/06/16 13:00 83 06/06/16 12:00 81 06/06/16 11:00 95 16 103/72 96 06/06/16 11:00 91 06/06/16 10:30 100 06/06/16 10:00 90 06/06/16 09:50 109/62 06/06/16 09:10 136 06/06/16 09:00 103 I/O 06/06/16 06/06/16 06/06/16 06/07/16 06/07/16 06/07/16 07:00 15:00 23:00 07:00 15:00 23:00 Intake Total 240 ml 800 ml 240 ml Balance 240 ml 800 ml 240 ml Intake Oral 240 ml 800 ml 240 ml # Voids 2 6 2 # Bowel Movements 0 1 0 Result Diagram: 06/05/16 0338 Imaging Last Impressions Chest X-Ray 06/01/16 0806 Signed Impressions: Service Date/Time: May 08:17 - CONCLUSION: No acute disease. Ras Ortiz MD Head CT 06/01/16 0000 Signed Impressions: Service Date/Time: May 08:41 - CONCLUSION: No acute intracranial disease. Ras Ortiz MD Objective Remarks GENERAL: in no apparent distress. CARDIOVASCULAR:irregular rhythm without murmurs, gallops, or rubs. RESPIRATORY: Clear to auscultation. Breath sounds equal bilaterally. No wheezes , rales, or rhonchi. GASTROINTESTINAL: Abdomen soft, non-tender, nondistended. Normal, active bowel sounds MUSCULOSKELETAL: Extremities without clubbing, cyanosis, or edema. NEURO: Alert & Oriented x4 to person, place, time, situation. Moves all ext x4 Procedures none Medications and IVs Current Medications IV Flush (NS Flush) 2 ml UNSCH PRN IVF FLUSH AFTER USING IV ACCESS; Start at 08:15; Stop 06/01/16 at 10:13; Status DC Lorazepam (Ativan Inj) 4 mg ONCE ONCE IV PUSH Last administered on 06/01/16 08 :15; Start 06/01/16 at 08:15; Stop 06/01/16 at 08:16; Status DC Lorazepam (Ativan Inj) 4 mg STK-MED ONCE .ROUTE ; Start 06/01/16 at 08:07; Stop 06/01/16 at 08:08; Status DC Diltiazem HCl (Cardizem Inj) 15 mg ONCE ONCE IV Last administered on 06/01/16 08:27; Start 06/01/16 at 08:30; Stop 06/01/16 at 08:31; Status DC Diltiazem HCl 20 mg 20 mg ONCE ONCE IV Last administered on 06/01/16 09:09; Start 06/01/16 at 08:45; Stop 06/01/16 at 08:46; Status DC Diltiazem HCl/ Sodium Chloride (Cardizem Inj/NS Inj) 125 ml @ 0 mls/hr TITRATE IV Last administered on 06/01/16 09:10; Start 06/01/16 at 08:45; Stop 06/01/16 at 10:16; Status DC IV Flush (NS Flush) 2 ml UNSCH PRN IV FLUSH FLUSH AFTER USING IV ACCESS; Start 06/01/16 at 09:45 IV Flush (NS Flush) 2 ml BID IV FLUSH Last administered on 06/07/16 08:10; Start 06/01/16 at 21:00 Folic Acid (Folate) 1 mg DAILY PO Last administered on 06/06/16 08:34; Start at 09:00; Stop 06/07/16 at 08:59 Thiamine HCl (Vitamin B1) 100 mg DAILY PO Last administered on 06/07/16 08:06; Start 06/02/16 at 09:00 Multivitamins/ Minerals Therapeutic (Theragran M Tab) 1 tab DAILY PO Last administered on 06/06/16 08:33; Start 06/02/16 at 09:00; Stop 06/07/16 at 08:59 Ondansetron HCl (Zofran Inj) 4 mg Q6H PRN IV NAUSEA OR VOMITING; Start 06/01/16 at 09:45 Pantoprazole Sodium (Protonix) 40 mg DAILY PO Last administered on 06/07/16 08: 06; Start 06/02/16 at 09:00 Clonidine (Catapres) 0.1 mg Q8HR PO Last administered on 06/01/16 14:07; Start 06/01/16 at 14:00; Stop 06/01/16 at 16:24; Status DC Clonidine (Catapres) 0.1 mg Q6H PRN PO SEE LABEL COMMENTS; Start 06/01/16 at 09: 45 Flumazenil (Romazicon Inj) 0.2 mg Q1M PRN IV PUSH SEE LABEL COMMENTS; Start 06/01/16 at 09:45 Lorazepam (Ativan) 1 mg Q4H PRN PO CIWA 8 - 10 Last administered on 06/03/16 21 :09; Start 06/01/16 at 09:45 Lorazepam (Ativan Inj) 1 mg Q4H PRN IV PUSH CIWA 8 - 10; Start 06/01/16 at 09:45 Lorazepam (Ativan) 2 mg Q2H PRN PO CIWA 11-14; Start 06/01/16 at 09:45 Lorazepam (Ativan Inj) 2 mg Q2H PRN IV PUSH CIWA 11-14; Start 06/01/16 at 09:45 Lorazepam (Ativan Inj) 2 mg Q1H PRN IV PUSH CIWA 15-20; Start 06/01/16 at 09:45 Lorazepam (Ativan Inj) 2 mg Q15M PRN IV PUSH CIWA > 20; Start 06/01/16 at 09:45 Enoxaparin Sodium 80 mg 80 mg Q12H SQ Last administered on 06/01/16 12:35; Start 06/01/16 at 11:00; Stop 06/01/16 at 16:23; Status DC Diltiazem HCl/ Sodium Chloride (Cardizem Inj/NS Inj) 125 ml @ 0 mls/hr TITRATE IV Last administered on 06/03/16 21:09; Start 06/01/16 at 11:00; Status Hold Al Hydrox/Mg Hydrox/Simethicone (Mag-Al Plus Susp Liq) 30 ml Q6H PRN PO DYSPEPSIA OR HEARTBURN; Start 06/01/16 at 09:45 Clonidine (Catapres) 0.1 mg BID PO ; Start 06/01/16 at 21:00; Status Hold Metoprolol Tartrate (Lopressor) 25 mg Q12HR PO Last administered on 06/01/16 21 :28; Start 06/01/16 at 21:00; Stop 06/02/16 at 09:21; Status DC Metoprolol Tartrate (Lopressor) 50 mg Q12HR PO Last administered on 06/05/16 09 :29; Start 06/02/16 at 21:00; Stop 06/05/16 at 09:46; Status DC Diltiazem HCl (Cardizem) 30 mg QID PO Last administered on 06/07/16 08:10; Start 06/03/16 at 21:00 Metoprolol Tartrate (Lopressor) 75 mg Q12HR PO Last administered on 06/07/16 08 :10; Start 06/05/16 at 21:00 Miscellaneous (Pill Splitter) 1 ea UNSCH PRN OTHER SEE LABEL COMMENTS; Start at 10:00 Temazepam (Restoril) 7.5 mg ONCE ONCE PO Last administered on 06/05/16 21:46; Start 06/05/16 at 21:30; Stop 06/05/16 at 21:31; Status DC Metoprolol Tartrate (Lopressor) 25 mg ONCE ONCE PO Last administered on 09:47; Start 06/06/16 at 09:15; Stop 06/06/16 at 09:19; Status DC A/P Assessment and Plan A/P 1. New onset atrial fibrillation with rapid ventricular rate likely exacerbated by alcohol withdrawal symptoms. HR controlled. 2-D echo shows normal EF and serial enzymes are negative. Patient did have a recent nuclear stress test Apr 2015 which was negative. continue metoprolol and cardizem- added aspirin- cardiology consult appreciated. no anticoagulation due to his history of tarry black stools, history of alcohol abuse and falls. 2. Acute alcohol withdrawal with perceptual disturbance with a history alcohol dependence; patient will need to have follow-up with [facility] upon discharge. evaluated by PT. 3. History of black tarry stoolshowever stool negative for blood. continue PPI - hemoglobin stable. 4.rhabdo- CPK trended down- Discharge Planning dc home today. see med list. advised to stop drinking. f/u with pcp. d/w the patient and RN. Isaiah Jernigan MD Jun 07, 2016 08:32
--- NOTE | 2016-06-07 08:33 | HHI.DS ---
Discharge Summary Admission Date Jun 01, 2016 at 09:53 Discharge Date: Jun 07, 2016 Admitting Diagnosis atrial fibrillation with rvr, alcohol withdrawl (1) Atrial fibrillation with RVR ICD Code: I48.91 Diagnosis: Principal (2) Alcohol withdrawal ICD Code: F10.239 Diagnosis: Principal Procedures none Brief History - From Admission 56-year-old white male with a history of alcohol dependence came in the emergency room after he confessed to stop drinking 3 days ago. He states that he was walking down the street and fell extremely unsteady and continues to be nauseated and therefore came to emergency for evaluation. He reports having black stools yesterday. He reports a history of epigastric discomfort after he drinks alcohol and this was the reason he is trying to cut down and stop drinking. He reports some mild chest discomfort with some palpitations all however has not had any associated shortness of breath with these episodes. He reports he is currently chest pain-free. He denies any previous history of heart problems or arrhythmias. CBC/BMP: 06/05/16 0338 Significant Findings Laboratory Tests Test 06/05/16 03:38 Hematocrit 37.2 % (39.0-51.0) Imaging Last Impressions Chest X-Ray 06/01/16 0806 Signed Impressions: Service Date/Time: May 08:17 - CONCLUSION: No acute disease. Ras Ortiz MD Head CT 06/01/16 0000 Signed Impressions: Service Date/Time: May 08:41 - CONCLUSION: No acute intracranial disease. Ras Ortiz MD PE at Discharge GENERAL: in no apparent distress. CARDIOVASCULAR:irregular rhythm without murmurs, gallops, or rubs. RESPIRATORY: Clear to auscultation. Breath sounds equal bilaterally. No wheezes , rales, or rhonchi. GASTROINTESTINAL: Abdomen soft, non-tender, nondistended. Normal, active bowel sounds MUSCULOSKELETAL: Extremities without clubbing, cyanosis, or edema. NEURO: Alert & Oriented x4 to person, place, time, situation. Moves all ext x4 Hospital Course 1. New onset atrial fibrillation with rapid ventricular rate likely exacerbated by alcohol withdrawal symptoms. HR controlled. 2-D echo shows normal EF and serial enzymes are negative. Patient did have a recent nuclear stress test Apr 2015 which was negative. continue metoprolol and cardizem- added aspirin- cardiology consult appreciated. no anticoagulation due to his history of tarry black stools, history of alcohol abuse and falls. 2. Acute alcohol withdrawal with perceptual disturbance with a history alcohol dependence; patient will need to have follow-up with [facility] upon discharge. evaluated by PT. 3. History of black tarry stoolshowever stool negative for blood. continue PPI - hemoglobin stable. 4.rhabdo- CPK trended down- Pt Condition on Discharge: Good Discharge Disposition: Discharge Home Discharge Time: <= 30 minutes Discharge Instructions DIET: Follow Instructions for: Heart Healthy Diet Activities you can perform: Regular-No Restrictions Follow up Referrals: PCP Follow-up New Medications: Aspirin DR (Aspirin EC) 325 Mg Tabdr 325 MG PO DAILY a-fib Days 30 Ref 0 TAB Diltiazem CD 24 HR (Cardizem CD 24 HR) 120 Mg Caper 120 MG PO DAILY a-fib Days 30 Ref 0 CAP Folic Acid (Folate) 1 Mg Tab 1 MG PO DAILY vitamin Days 30 Ref 0 TAB Metoprolol Tartrate (Lopressor) 50 Mg Tab 75 MG PO Q12HR a-fib Days 30 Ref 0 TAB Multiple Vitamins W/ Minerals (Thera M Plus) 1 Tab 1 TAB PO DAILY vitamin Days 30 Ref 0 TAB Pantoprazole (Pantoprazole) 40 Mg Tab 40 MG PO DAILY ppi Days 30 Ref 0 TAB Thiamine (Vitamin B-1) 100 Mg Tab 100 MG PO DAILY vitamin Days 30 Ref 0 TAB Discontinued Medications: Amlodipine (Amlodipine) 5 Mg Tab 5 MG PO DAILY Blood Pressure Management #30 Ref 0 TAB Isaiah Jernigan MD Jun 07, 2016 08:33
== END 2016-06-07 09:44 | disposition home or self-care (01) | DRG 897 ==
LOC: NEPE 07:59 → NEDA 09:53 → NEDH 16:44 → HCIN 20:37
PROVIDERS: ADMIT Internal Medicine; ATTEND Internal Medicine
DX: F10.232 Alcohol dependence with withdrawal with perceptual disturbance (principal); I48.91 Unspecified atrial fibrillation; I10 Essential (primary) hypertension; F17.210 Nicotine dependence, cigarettes, uncomplicated
CPT/HCPCS: 70450; 71010; 80053; 82272; 82550; 82552; 82948; 83690; 84484; 85014; 85018; 85025; 93005; 93306; 96365; 96375; 96376; J1650; J2060

== ENCOUNTER 2016-07-09 08:08 | Emergency (ER) | payer SELFPAY ==
[~2016-07-09] VITALS: Ht 180.3 cm; Wt 85.0 kg
[~2016-07-09 08:08] MED LIST changes: -AMLO5TAB2 PO; +ASPI325T33 PO; +CARD120C4 PO; -ESCI20TA PO; +FOLI1TAB4 PO; +METO-309 PO; +PANT40TA3 PO; +THERM PO; +VITA100T2 PO
[2016-07-09 08:16] VITALS: BP 149/87; PULSE 108; RESP 18; TEMP 98.1; O2SAT 96
[2016-07-09] MEDS: SODIUM CHLOR 0.9% 1000 ML INJ 1,000 ML IV ONE (08:45)
--- NOTE | 2016-07-09 08:50 | PD ---
HPI Chief Complaint: General Weakness Time Seen by Provider: 08:19 Travel History International Travel<30 days: No Contact w/Intl Traveler<30days: No Traveled to known affect area: No History of Present Illness HPI The patient was seen and examined in the presence of the nurse. This patient is brought in by paramedics. He is a alcoholic man who was kicked out of his house 5 days ago. He's been sleeping outside since. He can't really formulate a chief complaint. He denies alcohol use today. He denies drug use. He was drinking yesterday evening. He just doesn't feel well. He has some general malaise. When pressed for chief complaint, he relates that he has pain in his hands and feet. No acute injury. He denies acute neurologic change. He denies headache or head injury. He is taking aspirin a day for a recently discovered A. fib. PFSH Past Medical History Asthma: No Blood Disorders: No Anxiety: Yes Depression: Yes Heart Rhythm Problems: No Cancer: No Cardiac Catheterization: No Cardiovascular Problems: Yes High Cholesterol: Yes Chemotherapy: No Chest Pain: Yes Congestive Heart Failure: No COPD: No Cerebrovascular Accident: No Diabetes: No Diminished Hearing: No Endocrine: No Gastrointestinal Disorders: Yes GERD: No Genitourinary: No Headaches: No Hiatal Hernia: Yes Heparin Induced Thrombocytopen: No Hypertension: Yes Immune Disorder: No Implanted Vascular Access Dvce: No Musculoskeletal: Yes (RIGHT HIP PAIN) Neurologic: No Psychiatric: Yes Reproductive: No Respiratory: No Immunizations Current: Yes Migraines: No Radiation Therapy: No Seizures: Yes Sleep Apnea: No Thyroid Disease: No Ulcer: No Past Surgical History Abdominal Surgery: Yes (HERNIA REPAIR ) Cardiac Surgery: No Coronary Artery Bypass Graft: No Ear Surgery: No Endocrine Surgery: No Eye Surgery: No Genitourinary Surgery: No Gynecologic Surgery: No Neurologic Surgery: No Oral Surgery: No Thoracic Surgery: No Other Surgery: Yes (HERNIA REPAIR) Social History Alcohol Use: Yes Tobacco Use: Yes Substance Use: No Allergies-Medications (Allergen,Severity, Reaction): Coded Allergies: Lisinopril (Verified Allergy, Severe, Wheezing, 07/09/16) Reported Meds & Prescriptions Reported Meds & Active Scripts Active Cardizem CD 24 HR (Diltiazem CD 24 HR) 120 Mg Caper 120 Mg PO DAILY 30 Days Aspirin EC (Aspirin) 325 Mg Tabdr 325 Mg PO DAILY 30 Days Lopressor (Metoprolol Tartrate) 50 Mg Tab 75 Mg PO Q12HR 30 Days Vitamin B-1 (Thiamine HCl) 100 Mg Tab 100 Mg PO DAILY 30 Days Pantoprazole (Pantoprazole Sodium) 40 Mg Tab 40 Mg PO DAILY 30 Days Thera M Plus (Multivitamins/Minerals Therapeutic) 1 Tab 1 Tab PO DAILY 30 Days Folate (Folic Acid) 1 Mg Tab 1 Mg PO DAILY 30 Days Review of Systems General / Constitutional: No: Fever Eyes: No: Visual changes HENT: No: Headaches Cardiovascular: No: Chest Pain or Discomfort Respiratory: No: Shortness of Breath Gastrointestinal: No: Abdominal Pain Genitourinary: No: Dysuria Musculoskeletal: Positive: Weakness, Pain Skin: No Rash Neurologic: Positive: Weakness Psychiatric: Positive: Substance Abuse, No: Depression Endocrine: No: Polydipsia Hematologic/Lymphatic: No: Easy Bruising Physical Exam Narrative GENERAL: Disheveled well-developed patient in no apparent distress. SKIN: Focused skin assessment reveals no rash and nodules. Skin is Warm and dry. HEAD: Atraumatic. Normocephalic. EYES: Pupils equal and round. No scleral icterus. No injection or drainage. ENT: No nasal bleeding or discharge. Mucous membranes pink and moist. NECK: Trachea midline. No JVD. CARDIOVASCULAR: Regular rate and rhythm. No murmur appreciated. RESPIRATORY: No accessory muscle use. Clear to auscultation. Breath sounds equal bilaterally. GASTROINTESTINAL: Abdomen soft, non-tender, nondistended. Hepatic and splenic margins not palpable. MUSCULOSKELETAL: No obvious deformities. No clubbing. No cyanosis. No edema. NEUROLOGICAL: Awake and alert. No obvious cranial nerve deficits. Motor grossly within normal limits. Normal speech. PSYCHIATRIC: Appropriate mood and affect; insight and judgment poor. Data Data Last Documented VS Vital Signs Date Time Temp Pulse Resp B/P Pulse Ox O2 Delivery O2 Flow Rate FiO2 07/09/16 08:20 96 Room Air 07/09/16 08:16 98.1 108 18 149/87 Orders Electrocardiogram (07/09/16 ) Basic Metabolic Panel (Bmp) (07/09/16 08:41) Complete Blood Count With Diff (07/09/16 08:41) Ckmb (Isoenzyme) Profile (07/09/16 08:41) Troponin I (07/09/16 08:41) Ecg Monitoring (07/09/16 08:41) Iv Access Insert/Monitor (07/09/16 08:41) Oximetry (07/09/16 08:41) Sodium Chloride 0.9% Flush (Ns Flush) (07/09/16 08:45) Sodium Chlor 0.9% 1000 Ml Inj (Ns 1000 M (07/09/16 08:45) Chlordiazepoxide (Librium) (07/09/16 08:45) Alcohol (Ethanol) (07/09/16 08:41) CKMB (07/09/16 08:48) CKMB% (07/09/16 08:48) Labs Laboratory Tests Test 07/09/16 08:48 White Blood Count 12.7 TH/MM3 Red Blood Count 4.90 MIL/MM3 Hemoglobin 15.8 GM/DL Hematocrit 45.0 % Mean Corpuscular Volume 91.7 FL Mean Corpuscular Hemoglobin 32.1 PG Mean Corpuscular Hemoglobin 35.0 % Concent Red Cell Distribution Width 15.3 % Platelet Count 145 TH/MM3 Mean Platelet Volume 8.7 FL Neutrophils (%) (Auto) 88.2 % Lymphocytes (%) (Auto) 7.0 % Monocytes (%) (Auto) 4.2 % Eosinophils (%) (Auto) 0.1 % Basophils (%) (Auto) 0.5 % Neutrophils # (Auto) 11.2 TH/MM3 Lymphocytes # (Auto) 0.9 TH/MM3 Monocytes # (Auto) 0.5 TH/MM3 Eosinophils # (Auto) 0.0 TH/MM3 Basophils # (Auto) 0.1 TH/MM3 CBC Comment AUTO DIFF Differential Comment AUTO DIFF CONFIRMED Platelet Estimate LOW Platelet Morphology Comment NORMAL Sodium Level 133 MEQ/L Potassium Level 3.9 MEQ/L Chloride Level 92 MEQ/L Carbon Dioxide Level 28.1 MEQ/L Anion Gap 13 MEQ/L Blood Urea Nitrogen 14 MG/DL Creatinine 0.89 MG/DL Estimat Glomerular Filtration 89 ML/MIN Rate Random Glucose 111 MG/DL Calcium Level 8.9 MG/DL Total Creatine Kinase 315 U/L Creatine Kinase MB 5.0 NG/ML Creatine Kinase MB % 1.6 % Troponin I LESS THAN 0.02 NG/ML Ethyl Alcohol Level 243 MG/DL MDM Medical Decision Making Medical Screen Exam Complete: Yes Emergency Medical Condition: Yes Medical Record Reviewed: Yes Differential Diagnosis General malaise, malingering, alcohol withdrawal, dehydration Narrative Course I have reviewed the patient's electronic medical record. Reviewed his recent admission from May 2016 and [facility] weaver evaluation for new onset A. fib IV placed CBC shows only minor abnormalities Metabolic profile reasonably normal Alcohol is elevated at 243, acutely intoxicated I reviewed his EKG which shows sinus tachycardia at 108 without ectopy Extended cardiac monitoring reveals sinus rhythm without ectopy CK MB percent is normal Troponin is normal I gave him a dose of Librium. He is not in withdrawal but seems a bit anxious. Patient is acutely intoxicated. I believe his worse problem is his alcoholism. He continually ignores it minimizes that and I think until he addresses it he will not feel well. He is stable for outpatient family physician follow-up and I recommended he make use of [facility] alcohol rehabilitation services I don't see any evidence of emergent condition here. Diagnosis Primary Impression: Alcohol intoxication Qualified Code: F10.120 - Alcohol intoxication, uncomplicated Additional Impression: Generalized weakness Additional Instructions: Follow-up with family physician Use [facility] alcohol rehabilitation services Med/Other Pt SpecificInfo: Other Disposition: 01 DISCHARGE HOME Condition: Stable Agustín Dowell MD Jul 09, 2016 08:50
[2016-07-09 09:00] LABS: AUTOMATED NEUTROPHIL # 11.2 TH/MM3 (1.8-7.7); BASOPHIL # 0.1 TH/MM3 (0-0.2); BASOPHIL % 0.5 % (0.0-2.0); EOSINOPHIL % 0.1 % (0.0-4.0); LYMPHOCYTE # 0.9 TH/MM3 (1.0-4.8); MEAN CELL VOLUME 91.7 FL (80.0-100.0); MEAN CORPUSCULAR HEMOGLOBIN 32.1 PG (27.0-34.0); MONO % 4.2 % (0.0-8.0); NEUT % 88.2 % (16.0-70.0); PLATELET COUNT 145 TH/MM3 (150-450); RED CELL DISTRIBUTION WIDTH 15.3 % (11.6-17.2); WHITE BLOOD COUNT 12.7 TH/MM3 (4.0-11.0)
[2016-07-09 09:03] LABS: HEMO FLAGS AUTO DIFF
[2016-07-09] MEDS: SODIUM CHLORIDE 0.9% FLUSH 10 ML FLUSH IVF PRN (09:03)
[2016-07-09] MEDS: chlordiazePOXIDE 25 MG CAP PO PRN (09:04)
[2016-07-09 09:14] LABS: ANION GAP 13 MEQ/L (5-15); BICARBONATE 28.1 MEQ/L (21.0-32.0); BLOOD UREA NITROGEN 14 MG/DL (7-18); CHLORIDE 92 MEQ/L (98-107); GLOMERULAR FILTRATION RATE 89 ML/MIN (>89); POTASSIUM 3.9 MEQ/L (3.5-5.1); SODIUM (NA) 133 MEQ/L (136-145)
[2016-07-09 09:18] LABS: CREATINE KINASE 315 U/L (39-308)
[2016-07-09 09:33] LABS: PLATELET ESTIMATE SMEAR LOW (NORMAL); PLATELET MORPHOLOGY NORMAL (NORMAL); SCAN/DIFF AUTO DIFF CONFIRMED
[2016-07-09 09:42] VITALS: BP 154/95; PULSE 88; RESP 18; O2SAT 95; O2SAT 96
--- NOTE | 2016-07-10 14:21 | EKG ---
Date Performed: 07/09/2016 Time Performed: 08:39:03 PTAGE: 56 years EKG: SINUS TACHYCARDIA WITH SHORT RI INTERVAL POSSIBLE LEFT ATRIAL ENLARGEMENT SEPTAL MYOCARDIAL INFARCTION Since the prior tracing, the atrial fibrillation has resolved. ABNORMAL ECG PREVIOUS TRACING : 06/01/2016 08.05 DOCTOR: China Guillen Interpretating Date/Time 07/10/2016 14:21:05
== END 2016-07-09 10:05 | disposition home or self-care (01) ==
LOC: NEPE 08:08
DX: F10.120 Alcohol abuse with intoxication, uncomplicated (principal); R53.1 Weakness; I48.91 Unspecified atrial fibrillation; R00.0 Tachycardia, unspecified; I10 Essential (primary) hypertension; R56.9 Unspecified convulsions; F32.9 Major depressive disorder, single episode, unspecified; F41.9 Anxiety disorder, unspecified; Z72.0 Tobacco use
CPT/HCPCS: 80048; 80307; 82550; 82552; 84484; 85025; 93005; 96360; 99284; J7030

== ENCOUNTER 2016-07-17 21:57 | Emergency (ER) | payer SELFPAY ==
[~2016-07-17] VITALS: Ht 180.3 cm; Wt 85.0 kg
[2016-07-17 22:45] VITALS: BP 93/62; PULSE 104; RESP 16; TEMP 96.7; O2SAT 96
[2016-07-17 23:00] VITALS: BP 129/78; PULSE 99; RESP 16; O2SAT 95
[2016-07-17] MEDS ORDERED: SODIUM CHLOR 0.9% 1000 ML INJ 1,000 ML IV SCH (23:27)
[2016-07-17] MEDS ORDERED: SODIUM CHLORIDE 0.9% FLUSH 10 ML FLUSH IVF PRN (23:30)
[2016-07-17] MEDS ORDERED: SODIUM CHLOR 0.9% 1000 ML INJ 1,000 ML IV ONE (23:30)
[2016-07-18] VITALS: BP 136/79; PULSE 102; RESP 16; O2SAT 95
[2016-07-18 00:07] LABS: AUTOMATED NEUTROPHIL # 6.8 TH/MM3 (1.8-7.7); BASOPHIL % 0.3 % (0.0-2.0); HEMATOCRIT 35.4 % (39.0-51.0); LYMPH % 15.6 % (9.0-44.0); LYMPHOCYTE # 1.4 TH/MM3 (1.0-4.8); MEAN CELL VOLUME 92.1 FL (80.0-100.0); MEAN CORPUSCULAR HEMOGLOBIN 31.9 PG (27.0-34.0); MEAN CORPUSCULAR HGB CONC 34.6 % (32.0-36.0); MONO % 9.8 % (0.0-8.0); NEUT % 74.3 % (16.0-70.0); PLATELET COUNT 84 TH/MM3 (150-450); RED BLOOD COUNT 3.84 MIL/MM3 (4.50-5.90); RED CELL DISTRIBUTION WIDTH 15.9 % (11.6-17.2); WHITE BLOOD COUNT 9.2 TH/MM3 (4.0-11.0)
[2016-07-18 00:10] LABS: HEMO FLAGS AUTO DIFF
[2016-07-18 00:37] LABS: POTASSIUM 3.6 MEQ/L (3.5-5.1)
[2016-07-18 00:55] LABS: CKMB 10.3 NG/ML (0.5-3.6)
[2016-07-18 01:00] VITALS: BP 129/77; PULSE 100; RESP 16; O2SAT 95
--- NOTE | 2016-07-18 01:06 | PD ---
HPI Chief Complaint: Pain: Acute or Chronic Time Seen by Provider: 22:09 Travel History International Travel<30 days: No Contact w/Intl Traveler<30days: No Traveled to known affect area: No History of Present Illness HPI The patient's 56. He suffers of alcoholism. He was found outside of a [employer] restaurant. He offers various complaints that seem to evolve throughout the interview including total body pain, left arm paresthesias, rash in the groin, testicular pain, inability to walk, homelessness. He states he did not drink today. He states he has nowhere to go. EMS reports essentially the same history of present illness. PFSH Past Medical History Asthma: No Blood Disorders: No Anxiety: Yes Depression: Yes Heart Rhythm Problems: No Cancer: No Cardiac Catheterization: No Cardiovascular Problems: Yes High Cholesterol: Yes Chemotherapy: No Chest Pain: Yes Congestive Heart Failure: No COPD: No Cerebrovascular Accident: No Diabetes: No Diminished Hearing: No Endocrine: No Gastrointestinal Disorders: Yes GERD: No Genitourinary: No Headaches: No Hiatal Hernia: Yes Heparin Induced Thrombocytopen: No Hypertension: Yes Immune Disorder: No Implanted Vascular Access Dvce: No Musculoskeletal: Yes (RIGHT HIP PAIN) Neurologic: No Psychiatric: Yes Reproductive: No Respiratory: No Immunizations Current: Yes Migraines: No Radiation Therapy: No Seizures: Yes Sleep Apnea: No Thyroid Disease: No Ulcer: No Tetanus Vaccination: > 5 Years Influenza Vaccination: Yes Past Surgical History Abdominal Surgery: Yes (HERNIA REPAIR ) Cardiac Surgery: No Coronary Artery Bypass Graft: No Ear Surgery: No Endocrine Surgery: No Eye Surgery: No Genitourinary Surgery: No Gynecologic Surgery: No Neurologic Surgery: No Oral Surgery: No Thoracic Surgery: No Other Surgery: Yes (HERNIA REPAIR) Social History Alcohol Use: Yes Tobacco Use: Yes Substance Use: No Allergies-Medications (Allergen,Severity, Reaction): Coded Allergies: Lisinopril (Verified Allergy, Severe, Wheezing, 07/17/16) Reported Meds & Prescriptions Reported Meds & Active Scripts Active Cardizem CD 24 HR (Diltiazem CD 24 HR) 120 Mg Caper 120 Mg PO DAILY 30 Days Aspirin EC (Aspirin) 325 Mg Tabdr 325 Mg PO DAILY 30 Days Lopressor (Metoprolol Tartrate) 50 Mg Tab 75 Mg PO Q12HR 30 Days Vitamin B-1 (Thiamine HCl) 100 Mg Tab 100 Mg PO DAILY 30 Days Pantoprazole (Pantoprazole Sodium) 40 Mg Tab 40 Mg PO DAILY 30 Days Thera M Plus (Multivitamins/Minerals Therapeutic) 1 Tab 1 Tab PO DAILY 30 Days Folate (Folic Acid) 1 Mg Tab 1 Mg PO DAILY 30 Days Review of Systems Except as stated in HPI: all other systems reviewed are Neg Physical Exam Narrative GENERAL: 56-year-old male well-nourished well-developed quite disheveled odor of alcohol urine and stool SKIN: Focused skin assessment warm/dry. There is stool in the patient's groin as well as urine with a well-demarcated rash in the area. HEAD: Atraumatic. Normocephalic. EYES: Pupils equal and round. No scleral icterus. No injection or drainage. ENT: No nasal bleeding or discharge. Mucous membranes pink and moist. NECK: Trachea midline. No JVD. CARDIOVASCULAR: Regular rate and rhythm. No murmur appreciated. RESPIRATORY: No accessory muscle use. Clear to auscultation. Breath sounds equal bilaterally. GASTROINTESTINAL: Abdomen soft, non-tender, nondistended. Hepatic and splenic margins not palpable. MUSCULOSKELETAL: No obvious deformities. No clubbing. No cyanosis. No edema. The patient is ambulatory. NEUROLOGICAL: Awake and alert. No obvious cranial nerve deficits. Motor grossly within normal limits. Normal speech. PSYCHIATRIC: Appropriate mood and affect; insight and judgment normal. Data Data Last Documented VS Vital Signs Date Time Temp Pulse Resp B/P Pulse Ox O2 Delivery O2 Flow Rate FiO2 07/18/16 01:00 100 16 129/77 95 Room Air 07/17/16 22:45 96.7 Vital signs reviewed Orders Basic Metabolic Panel (Bmp) (07/17/16 23:27) Complete Blood Count With Diff (07/17/16 23:27) Blood Glucose (07/17/16 23:27) Ecg Monitoring (07/17/16 23:27) Iv Access Insert/Monitor (07/17/16 23:27) Oximetry (07/17/16 23:27) Sodium Chloride 0.9% Flush (Ns Flush) (07/17/16 23:30) Sodium Chlor 0.9% 1000 Ml Inj (Ns 1000 M (07/17/16 23:27) Drug Screen, Random Urine (07/17/16 23:27) Alcohol (Ethanol) (07/17/16 23:27) Creatine Kinase (Cpk) (07/17/16 23:27) Sodium Chlor 0.9% 1000 Ml Inj (Ns 1000 M (07/17/16 23:30) CKMB (07/17/16 23:40) CKMB% (07/17/16 23:40) Labs Laboratory Tests Test 07/17/16 23:40 White Blood Count 9.2 TH/MM3 Red Blood Count 3.84 MIL/MM3 Hemoglobin 12.3 GM/DL Hematocrit 35.4 % Mean Corpuscular Volume 92.1 FL Mean Corpuscular Hemoglobin 31.9 PG Mean Corpuscular Hemoglobin 34.6 % Concent Red Cell Distribution Width 15.9 % Platelet Count 84 TH/MM3 Mean Platelet Volume 8.9 FL Neutrophils (%) (Auto) 74.3 % Lymphocytes (%) (Auto) 15.6 % Monocytes (%) (Auto) 9.8 % Eosinophils (%) (Auto) 0.0 % Basophils (%) (Auto) 0.3 % Neutrophils # (Auto) 6.8 TH/MM3 Lymphocytes # (Auto) 1.4 TH/MM3 Monocytes # (Auto) 0.9 TH/MM3 Eosinophils # (Auto) 0.0 TH/MM3 Basophils # (Auto) 0.0 TH/MM3 CBC Comment AUTO DIFF Differential Comment AUTO DIFF CONFIRMED Platelet Estimate LOW Platelet Morphology Comment NORMAL Sodium Level 132 MEQ/L Potassium Level 3.6 MEQ/L Chloride Level 90 MEQ/L Carbon Dioxide Level 31.0 MEQ/L Anion Gap 11 MEQ/L Blood Urea Nitrogen 7 MG/DL Creatinine 0.67 MG/DL Estimat Glomerular Filtration 124 ML/MIN Rate Random Glucose 95 MG/DL Calcium Level 7.7 MG/DL Total Creatine Kinase 866 U/L Creatine Kinase MB 10.3 NG/ML Creatine Kinase MB % 1.2 % Ethyl Alcohol Level 296 MG/DL MDM Medical Decision Making Medical Screen Exam Complete: Yes Emergency Medical Condition: Yes Differential Diagnosis Alcohol intoxication, dermatitis, electrolyte imbalance, dehydration Narrative Course The patient arrives with a litany of complaints which evolved during the course of the history of present illness. The patient can walk which has been observed by the nurses and the examiner. In any case based on the workup tonight there is no indication for admission. The patient had no difficulty eating 8 serving of samoan fries and a quesadilla and drinking Gatorade. CBC & BMP Diagram 07/17/16 23:40 Alcohol level 200s He received 2 L of saline. Diagnosis Primary Impression: Rash Additional Impressions: Alcohol intoxication Qualified Code: F10.120 - Alcohol intoxication, uncomplicated Total body pain Referrals: [facility] days Additional Instructions: You have a choice when it comes to health care, and we are glad that you chose [facility]. Hopefully, we have met your expectations on today's visit. You are welcome to return to [facility] at any time, as we are committed to meeting the health care needs of our community. Med/Other Pt SpecificInfo: Med Stopped Disposition: DISCHARGE HOME Condition: Stable Phill Castaneda MD Jul 18, 2016 01:06
[2016-07-18 01:17] LABS: PLATELET ESTIMATE SMEAR LOW (NORMAL); PLATELET MORPHOLOGY NORMAL (NORMAL); SCAN/DIFF AUTO DIFF CONFIRMED
== END 2016-07-18 06:07 | disposition home or self-care (01) ==
LOC: NEPD 21:57
DX: R21 Rash and other nonspecific skin eruption (principal); F10.229 Alcohol dependence with intoxication, unspecified; R52 Pain, unspecified; I10 Essential (primary) hypertension; F41.8 Other specified anxiety disorders; Y90.8 Blood alcohol level of 240 mg/100 ml or more; Z59.0 Homelessness
CPT/HCPCS: 80048; 80307; 82550; 82552; 85025; 99283; J7030

== ENCOUNTER 2016-07-20 12:35 | Inpatient (IN) | payer SELFPAY ==
[~2016-07-20] VITALS: Ht 180.3 cm; Wt 91.1 kg
[2016-07-20 12:47] VITALS: BP 123/71; PULSE 92; RESP 16; TEMP 98.8; O2SAT 92
[2016-07-20 13:21] LABS: AUTOMATED NEUTROPHIL # 4.3 TH/MM3 (1.8-7.7); BASOPHIL % 0.4 % (0.0-2.0); EOSINOPHIL % 0.5 % (0.0-4.0); HEMATOCRIT 33.8 % (39.0-51.0); HEMO FLAGS DIFF FINAL; LYMPH % 16.6 % (9.0-44.0); LYMPHOCYTE # 0.9 TH/MM3 (1.0-4.8); MEAN CELL VOLUME 92.7 FL (80.0-100.0); MEAN CORPUSCULAR HEMOGLOBIN 32.4 PG (27.0-34.0); MONO % 7.6 % (0.0-8.0); NEUT % 74.9 % (16.0-70.0); PLATELET COUNT 110 TH/MM3 (150-450); RED BLOOD COUNT 3.64 MIL/MM3 (4.50-5.90); WHITE BLOOD COUNT 5.7 TH/MM3 (4.0-11.0)
[2016-07-20 13:26] LABS: APTT (PATIENT) 25.7 SEC (24.3-30.1); INTERNATIONAL NORMALIZED RATIO 0.9 RATIO; PROTHROMBIN TIME - PATIENT 10.1 SEC (9.8-11.6)
--- NOTE | 2016-07-20 13:27 | RADRPT ---
EXAM DATE/TIME: 07/20/2016 13:17 [facility] COMPARISON: CHEST SINGLE AP, June 01, 2016, 8:17. INDICATIONS : Chest pain. MEDICAL HISTORY : Hypertension. Smoker. SURGICAL HISTORY : None. ENCOUNTER: Initial ACUITY: 2 days PAIN SCORE: 10/10 LOCATION: Bilateral chest FINDINGS: The heart is stable. The pulmonary vascular pattern is normal. The lungs are clear. Degenerative c hanges and scoliosis of the thoracic spine are noted. CONCLUSION: 1. No acute cardiopulmonary disease. 2. Degenerative changes and scoliosis of the thoracic spine. Moises Mcintyre MD on July 20, 2016 at 13:22 Board Certified Radiologist. This report was verified electronically.
[2016-07-20] MEDS ORDERED: CLINDAMYCIN INJ 900 MG in SODIUM CHLORIDE 0.9% INJ 100 ML IV ONE (13:30)
[2016-07-20] MEDS ORDERED: SODIUM CHLORIDE 0.9% FLUSH 10 ML FLUSH IVF PRN (13:30)
[2016-07-20] MEDS ORDERED: SODIUM CHLOR 0.9% 1000 ML INJ 1,000 ML IV ONE ×3 (13:30→14:28)
[2016-07-20 13:42] LABS: BICARBONATE 28.5 MEQ/L (21.0-32.0); MAGNESIUM 1.4 MG/DL (1.5-2.5)
--- NOTE | 2016-07-20 13:43 | PD ---
HPI Chief Complaint: Chest Pain Time Seen by Provider: 13:42 Travel History International Travel<30 days: No Contact w/Intl Traveler<30days: No Traveled to known affect area: No History of Present Illness HPI 56-year-old male brought into the emergency department via EMS with complaints of chest pain, generalized body aches, and sores on the right hip. Patient has long-standing history of EtOH abuse and appears intoxicated. Patient states his last drink was 2 days ago. Patient denies fever, chills, but is very thirsty. Patient states he hasn't eaten in 10 days. Patient is allergic to lisinopril. PFSH Past Medical History Asthma: No Blood Disorders: No Anxiety: Yes Depression: Yes Heart Rhythm Problems: No Cancer: No Cardiac Catheterization: No Cardiovascular Problems: Yes High Cholesterol: Yes Chemotherapy: No Chest Pain: Yes Congestive Heart Failure: No COPD: No Cerebrovascular Accident: No Diabetes: No Diminished Hearing: No Endocrine: No Gastrointestinal Disorders: Yes GERD: No Genitourinary: No Headaches: No Hiatal Hernia: Yes Heparin Induced Thrombocytopen: No Hypertension: Yes Immune Disorder: No Implanted Vascular Access Dvce: No Musculoskeletal: Yes (RIGHT HIP PAIN) Neurologic: No Psychiatric: Yes Reproductive: No Respiratory: No Immunizations Current: Yes Migraines: No Radiation Therapy: No Seizures: Yes Sleep Apnea: No Thyroid Disease: No Ulcer: No Past Surgical History Abdominal Surgery: Yes (HERNIA REPAIR ) Cardiac Surgery: No Coronary Artery Bypass Graft: No Ear Surgery: No Endocrine Surgery: No Eye Surgery: No Genitourinary Surgery: No Gynecologic Surgery: No Neurologic Surgery: No Oral Surgery: No Thoracic Surgery: No Other Surgery: Yes (HERNIA REPAIR) Social History Alcohol Use: Yes Tobacco Use: Yes Substance Use: No Allergies-Medications (Allergen,Severity, Reaction): Coded Allergies: Lisinopril (Verified Allergy, Severe, Wheezing, 07/20/16) Reported Meds & Prescriptions Reported Meds & Active Scripts Active Cardizem CD 24 HR (Diltiazem CD 24 HR) 120 Mg Caper 120 Mg PO DAILY 30 Days Aspirin EC (Aspirin) 325 Mg Tabdr 325 Mg PO DAILY 30 Days Lopressor (Metoprolol Tartrate) 50 Mg Tab 75 Mg PO Q12HR 30 Days Vitamin B-1 (Thiamine HCl) 100 Mg Tab 100 Mg PO DAILY 30 Days Pantoprazole (Pantoprazole Sodium) 40 Mg Tab 40 Mg PO DAILY 30 Days Thera M Plus (Multivitamins/Minerals Therapeutic) 1 Tab 1 Tab PO DAILY 30 Days Folate (Folic Acid) 1 Mg Tab 1 Mg PO DAILY 30 Days Review of Systems Except as stated in HPI: all other systems reviewed are Neg General / Constitutional: No: Fever Eyes: No: Visual changes HENT: No: Headaches Cardiovascular: Positive: Chest Pain or Discomfort Respiratory: No: Shortness of Breath Gastrointestinal: Positive: Nausea, Abdominal Pain, No: Vomiting, Diarrhea Genitourinary: No: Dysuria Musculoskeletal: Positive: Myalgias, No: Pain Skin: Positive Lesions (see history present illness.), No Rash Neurologic: No: Weakness Psychiatric: No: Depression Endocrine: No: Polydipsia Hematologic/Lymphatic: No: Easy Bruising Physical Exam Narrative GENERAL: Patient appears in no acute distress. SKIN: Warm and dry. Normal color. Poor turgor with tenting present. Patient has a superficial pressure sore to the right lateral hip, as well as a superficial coccygeal pressure sore. Patient has generalized erythema to the perineum obvious sign of deep cellulitis or abscess. Wound culture is obtained from the right hip. HEAD: Atraumatic. Normocephalic. EYES: Pupils equal and round. No scleral icterus. No injection or drainage. ENT: No nasal bleeding or discharge. Mucous membranes pink and dry. Pharynx is normal. Airway is patent. NECK: Trachea midline. No JVD. No murmurs gallops or rubs. CARDIOVASCULAR: Regular rate and rhythm. RESPIRATORY: No accessory muscle use. Clear to auscultation. Breath sounds equal bilaterally. GASTROINTESTINAL: Abdomen soft, non-tender, nondistended. Hepatic and splenic margins not palpable. MUSCULOSKELETAL: Extremities without clubbing, cyanosis, or edema. No obvious deformities. NEUROLOGICAL: Awake and alert. No obvious cranial nerve deficits. Motor grossly within normal limits. Five out of 5 muscle strength in the arms and legs. Normal speech. PSYCHIATRIC: Appropriate mood and affect; insight and judgment normal. Data Data Last Documented VS Vital Signs Date Time Temp Pulse Resp B/P Pulse Ox O2 Delivery O2 Flow Rate FiO2 07/20/16 15:28 93 18 139/81 96 Room Air 07/20/16 12:47 98.8 Orders Electrocardiogram (07/20/16 12:49) Basic Metabolic Panel (Bmp) (07/20/16 12:49) Ckmb (Isoenzyme) Profile (07/20/16 12:49) Complete Blood Count With Diff (07/20/16 12:49) Magnesium (Mg) (07/20/16 12:49) Prothrombin Time / Inr (Pt) (07/20/16 12:49) Act Partial Throm Time (Ptt) (07/20/16 12:49) Troponin I (07/20/16 12:49) Lipase (07/20/16 12:49) Chest, Single Ap (07/20/16 12:49) Ecg Monitoring (07/20/16 12:49) Iv Access Insert/Monitor (07/20/16 12:49) Oximetry (07/20/16 12:49) Oxygen Administration (07/20/16 12:49) Blood Culture (07/20/16 13:28) Wound Culture And Gram Stain (07/20/16 13:28) Wound Care (07/20/16 13:28) Sodium Chloride 0.9% Flush (Ns Flush) (07/20/16 13:30) Clindamycin Inj (Cleocin Inj) (07/20/16 13:30) Lactic Acid (07/20/16 13:28) Sodium Chlor 0.9% 1000 Ml Inj (Ns 1000 M (07/20/16 13:30) Drug Screen, Random Urine (07/20/16 13:41) Alcohol (Ethanol) (07/20/16 13:41) CKMB (07/20/16 12:55) CKMB% (07/20/16 12:55) Protein Corrected Calcium(Pcc) (07/20/16 12:55) Aspirin Chew (Aspirin Chew) (07/20/16 14:00) Nitroglycerin 2% Oint (Nitroglycerin 2% (07/20/16 14:00) Piperacil-Tazo 4.5 Gm Premix (Zosyn 4.5 (07/20/16 14:30) Vancomycin Inj (Vancomycin Inj) (07/20/16 14:30) Sodium Chlor 0.9% 1000 Ml Inj (Ns 1000 M (07/20/16 14:28) Sodium Chlor 0.9% 1000 Ml Inj (Ns 1000 M (07/20/16 14:28) Sodium Chlor 0.9% 1000 Ml Inj (Ns 1000 M (07/20/16 14:28) Potassium Chloride (Kcl) (07/20/16 14:45) Diet Heart Healthy (07/20/16 Dinner) Vital Signs (Adult) IZZY.Q4H (07/20/16 15:32) Troponin I (07/20/16 19:00) Troponin I (07/21/16 01:00) Sodium Chlor 0.9% 1000 Ml Inj (Ns 1000 M (07/20/16 15:45) Complete Blood Count With Diff (07/21/16 06:00) Basic Metabolic Panel (Bmp) (07/21/16 06:00) Lactic Acid (07/20/16 19:00) Magnesium Oxide (Mag-Ox) (07/20/16 15:45) Potassium Chloride (Kcl) (07/20/16 15:45) Scd Bilateral/Knee High IZZY.QSHIFT (07/20/16 15:32) Aspirin Ec (Ecotrin Ec) (07/21/16 09:00) Diltiazem Cd (Cardizem Cd) (07/21/16 09:00) Folic Acid (Folate) (07/21/16 09:00) Metoprolol Tartrate (Lopressor) (07/20/16 21:00) Multivitamins-Minerals Therap (Theragran (07/21/16 09:00) Pantoprazole (Protonix) (07/21/16 09:00) (Nf) Thiamine (Vitamin B-1) (07/21/16 09:00) Labs Laboratory Tests Test 07/20/16 07/20/16 12:55 13:40 White Blood Count 5.7 TH/MM3 Red Blood Count 3.64 MIL/MM3 Hemoglobin 11.8 GM/DL Hematocrit 33.8 % Mean Corpuscular Volume 92.7 FL Mean Corpuscular Hemoglobin 32.4 PG Mean Corpuscular Hemoglobin 35.0 % Concent Red Cell Distribution Width 16.0 % Platelet Count 110 TH/MM3 Mean Platelet Volume 8.1 FL Neutrophils (%) (Auto) 74.9 % Lymphocytes (%) (Auto) 16.6 % Monocytes (%) (Auto) 7.6 % Eosinophils (%) (Auto) 0.5 % Basophils (%) (Auto) 0.4 % Neutrophils # (Auto) 4.3 TH/MM3 Lymphocytes # (Auto) 0.9 TH/MM3 Monocytes # (Auto) 0.4 TH/MM3 Eosinophils # (Auto) 0.0 TH/MM3 Basophils # (Auto) 0.0 TH/MM3 CBC Comment DIFF FINAL Differential Comment Prothrombin Time 10.1 SEC Prothromb Time International 0.9 RATIO Ratio Activated Partial 25.7 SEC Thromboplast Time Sodium Level 142 MEQ/L Potassium Level 3.0 MEQ/L Chloride Level 100 MEQ/L Carbon Dioxide Level 28.5 MEQ/L Anion Gap 14 MEQ/L Blood Urea Nitrogen 14 MG/DL Creatinine 0.65 MG/DL Estimat Glomerular Filtration 128 ML/MIN Rate Random Glucose 78 MG/DL Calcium Level 7.3 MG/DL Protein Corrected Calcium 8.0 MG/DL Magnesium Level 1.4 MG/DL Total Creatine Kinase 424 U/L Creatine Kinase MB 3.5 NG/ML Creatine Kinase MB % 0.8 % Troponin I 0.06 NG/ML Total Protein 5.8 GM/DL Lipase 146 U/L Ethyl Alcohol Level 323 MG/DL Lactic Acid Level 4.2 mmol/L [facility] Medical Decision Making Medical Screen Exam Complete: Yes Emergency Medical Condition: Yes Medical Record Reviewed: Yes Differential Diagnosis Chest pain. Cardiac syndrome. Dehydration. EtOH withdrawal. Skin with cellulitis. Narrative Course Patient appears in mild distress. Patient appears intoxicated. Labs ordered including CBC, CMP, cardiac panel, urine analysis, urine drug screen, serum EtOH. Lipase. EKG and chest x-ray are ordered. Chest x-ray shows no acute cardiopulmonary results. Patient is seen in the ambulance call and troponin is noted to be elevated at 0.06. Charge nurse is notified for medical bed placement. Patient is given 324 mg aspirin by mouth as well as 1 is 2% nitroglycerin topical paste. IV access is obtained patient is given normal saline bolus of 1000 mL's IV. CBC is unremarkable except mild anemia with a hemoglobin 11.8. CMP is positive for lactic acid of 4.2. Potassium 3.0. Calcium 7.3, corrected to 8.0. Magnesium 1.4. Total deepa kinases 424. Troponin is elevated 0.06. Serum alcohol is 323. Antibiotics orally including 4.5 g Zosyn IV as well as 1000 mg vancomycin IV. Patient is ordered 3 L normal saline bolus per sepsis protocol. Patient will be given 40 mEq potassium by mouth. Patient is still awaiting medical bed placement. Patient was moved to [place] [id number]. Call was placed to the hospitalist and the patient was discussed with Dr. Alvarado who agreed to admit the patient. Diagnosis Primary Impression: Elevated troponin Additional Impressions: Elevated lactic acid level Elevated ETOH level Qualified Code: Y90.8 - Blood alcohol level of 240 mg/100 ml or more Admitting Information Admitting Physician Requests: Admit Condition: Stable Dionte Pratt Jul 20, 2016 13:43
[2016-07-20] MEDS ORDERED: ASPIRIN 81 MG CHEW TAB CHEW ONE (14:00)
[2016-07-20] MEDS ORDERED: NITROGLYCERIN 2% OINT 1 GM PACKET TOPICAL ONE (14:00)
[2016-07-20 14:07] LABS: CKMB 3.5 NG/ML (0.5-3.6)
[2016-07-20] MEDS ORDERED: SODIUM CHLOR 0.9% 1000 ML INJ 400 ML IV ONE (14:28)
[2016-07-20] MEDS ORDERED: PIPERACIL-TAZO 4.5 GM PREMIX 100 ML IV ONE (14:30)
[2016-07-20] MEDS ORDERED: VANCOMYCIN INJ 1,000 MG in SODIUM CHLOR 0.9% 250 ML INJ 250 ML IV ONE (14:30)
[2016-07-20] MEDS ORDERED: POTASSIUM CHLORIDE 20 MEQ CONTROLLED RELEASE TAB PO ONE ×2 (14:45→16:00)
[2016-07-20 15:28] VITALS: BP 139/81; PULSE 93; PULSE 96; RESP 18; RESP 20; O2SAT 96; O2SAT 98
[2016-07-20] MEDS: SODIUM CHLOR 0.9% 1000 ML INJ 1,000 ML IV SCH (15:45)
[2016-07-20] MEDS ORDERED: FLUMAZENIL 0.5 MG/5 ML VIAL IV PUSH PRN (16:00)
[2016-07-20] MEDS ORDERED: LORazepam 2 MG TAB PO PRN (16:00)
[2016-07-20] MEDS ORDERED: LORazepam 2 MG/ML VIAL IV PUSH PRN ×4 (16:00)
--- NOTE | 2016-07-20 16:11 | HHI.HP ---
[facility] No Primary Care Physician Admission Diagnosis Elevated Lactic Acid/Elevated Troponin Diagnoses: (1) Total body pain Diagnosis: Principal Chief Complaint: ' my body aches'. Travel History International Travel<30 Days: No Contact w/Intl Traveler <30 Da: No Traveled to Known Affected Are: No History of Present Illness patient is a 56 y/o homeless male, who presented to ER with generalized bodyache. he says that he drinks a bottle of Vodka every week and the last drink was three days ago. he's complaining of generalized body ache. he says that he saw some blood in the urine. a rash noted was on the groin area and lower abdomen which he says that he probably noticed a few days ago but not sure how it happened.otherwise he's not a good historian. Review of Systems ROS Limitations: Poor Historian bodyache. Past Family Social History Past Medical History hypertension Past Surgical History hernia repair Reported Medications not compliant with medications and says that he's been off his meds for at least a few weeks. Allergies: Coded Allergies: Lisinopril (Verified Allergy, Severe, Wheezing, 07/20/16) Active Ordered Medications Current Medications Sodium Chloride 2 ml 2 ml UNSCH PRN IVF FLUSH AFTER USING IV ACCESS; Start at 13:30 Clindamycin Phosphate 900 mg/ Sodium Chloride 106 ml @ 200 mls/hr ONCE ONCE IV ; Start 07/20/16 at 13:30; Stop 07/20/16 at 14:32; Status DC Sodium Chloride (NS 1000 ml Inj) 1,000 ml @ 999 mls/hr BOLUS ONCE IV Last administered on 07/20/16 14:12; Start 07/20/16 at 13:30; Stop 07/20/16 at 14:30 ; Status DC Aspirin (Aspirin Chew) 324 mg ONCE ONCE CHEW Last administered on 07/20/16 14 :06; Start 07/20/16 at 14:00; Stop 07/20/16 at 14:01; Status DC Nitroglycerin 1 inch 1 inch ONCE ONCE TOPICAL Last administered on 4/20/17at 14:12; Start 07/20/16 at 14:00; Stop 07/20/16 at 14:01; Status DC Piperacillin Sod/ Tazobactam Sod 100 ml @ 200 mls/hr ONCE ONCE IV ; Start at 14:30; Stop 07/20/16 at 14:59; Status DC Vancomycin HCl 1000 mg/Sodium Chloride 250 ml @ 250 mls/hr ONCE ONCE IV ; Start 07/20/16 at 14:30; Stop 07/20/16 at 15:29; Status DC Sodium Chloride 1,000 ml @ 1,000 mls/hr Q1H ONCE IV ; Start 07/20/16 at 14:28; Stop 07/20/16 at 15:27; Status DC Sodium Chloride 1,000 ml @ 1,000 mls/hr Q1H ONCE IV ; Start 07/20/16 at 14:28; Stop 07/20/16 at 15:27; Status DC Sodium Chloride (NS 1000 ml Inj) 400 ml @ 1,000 mls/hr Q24M ONCE IV ; Start at 14:28; Stop 07/20/16 at 14:51; Status DC Potassium Chloride 40 meq 40 meq ONCE ONCE PO ; Start 07/20/16 at 14:45; Stop 07/20/16 at 14:46; Status DC Sodium Chloride (NS 1000 ml Inj) 1,000 ml @ 100 mls/hr Q10H IV ; Start at 15:45 Magnesium Oxide (Mag-Ox) 400 mg Q12HR PO ; Start 07/20/16 at 16:00 Potassium Chloride (KCl) 40 meq ONCE ONCE PO ; Start 07/20/16 at 16:00; Stop at 16:01 Aspirin (Ecotrin Ec) 325 mg DAILY PO ; Start 07/21/16 at 09:00 Diltiazem HCl (Cardizem Cd) 120 mg DAILY PO ; Start 07/21/16 at 09:00 Folic Acid (Folate) 1 mg DAILY PO ; Start 07/21/16 at 09:00 Metoprolol Tartrate (Lopressor) 75 mg Q12HR PO ; Start 07/20/16 at 21:00 Multivitamins/ Minerals Therapeutic (Theragran M Tab) 1 tab DAILY PO ; Start at 09:00 Pantoprazole Sodium (Protonix) 40 mg DAILY PO ; Start 07/21/16 at 09:00 Thiamine HCl (Vitamin B1) 100 mg DAILY PO ; Start 07/21/16 at 09:00 Social History smokes a pack a day- drinks a bottle of Vodka weekly. Physical Exam Vital Signs Vital Signs Date Time Temp Pulse Resp B/P Pulse Ox O2 Delivery O2 Flow Rate FiO2 07/20/16 15:28 93 18 139/81 96 Room Air 07/20/16 15:28 96 20 139/81 98 Room Air 07/20/16 15:28 98 Room Air 07/20/16 12:47 98.8 92 16 123/71 92 Physical Exam GENERAL: in no apparent distress. SKIN: erythema noted over the groins and lower abdomen HEAD: Atraumatic. Normocephalic. No temporal or scalp tenderness. EYES: Pupils equal round and reactive. Extraocular motions intact. No scleral icterus. No injection or drainage. ENT: Nose without bleeding, purulent drainage or septal hematoma. Throat without erythema, tonsillar hypertrophy or exudate. Uvula midline. Airway patent. NECK: Trachea midline. No JVD or lymphadenopathy. Supple, nontender, no meningeal signs. CARDIOVASCULAR: Regular rate and rhythm without murmurs, gallops, or rubs. RESPIRATORY: Clear to auscultation. Breath sounds equal bilaterally. No wheezes , rales, or rhonchi. GASTROINTESTINAL: Abdomen soft, non-tender, nondistended. No hepato-splenomegaly , or palpable masses. No guarding. MUSCULOSKELETAL: Extremities without clubbing, cyanosis, or edema. No joint tenderness, effusion, or edema noted. No calf tenderness. Negative Homans sign bilaterally. NEUROLOGICAL: Awake and alert. Cranial nerves II through XII intact. Motor and sensory grossly within normal limits. Five out of 5 muscle strength in all muscle groups. Normal speech. Laboratory Laboratory Tests Test 07/20/16 07/20/16 12:55 13:40 White Blood Count 5.7 Red Blood Count 3.64 Hemoglobin 11.8 Hematocrit 33.8 Mean Corpuscular Volume 92.7 Mean Corpuscular Hemoglobin 32.4 Mean Corpuscular Hemoglobin 35.0 Concent Red Cell Distribution Width 16.0 Platelet Count 110 Mean Platelet Volume 8.1 Neutrophils (%) (Auto) 74.9 Lymphocytes (%) (Auto) 16.6 Monocytes (%) (Auto) 7.6 Eosinophils (%) (Auto) 0.5 Basophils (%) (Auto) 0.4 Neutrophils # (Auto) 4.3 Lymphocytes # (Auto) 0.9 Monocytes # (Auto) 0.4 Eosinophils # (Auto) 0.0 Basophils # (Auto) 0.0 CBC Comment DIFF FINAL Differential Comment Prothrombin Time 10.1 Prothromb Time International 0.9 Ratio Activated Partial 25.7 Thromboplast Time Sodium Level 142 Potassium Level 3.0 Chloride Level 100 Carbon Dioxide Level 28.5 Anion Gap 14 Blood Urea Nitrogen 14 Creatinine 0.65 Estimat Glomerular Filtration 128 Rate Random Glucose 78 Calcium Level 7.3 Protein Corrected Calcium 8.0 Magnesium Level 1.4 Total Creatine Kinase 424 Creatine Kinase MB 3.5 Creatine Kinase MB % 0.8 Troponin I 0.06 Total Protein 5.8 Lipase 146 Ethyl Alcohol Level 323 Lactic Acid Level 4.2 Date/Time Procedure Status Source Growth 07/20/16 13:40 Aerobic Blood Culture Received Blood Peripheral Pending 07/20/16 13:40 Anaerobic Blood Culture Received Blood Peripheral Pending 07/20/16 13:33 Gram Stain - Final Resulted Wound Hip 07/20/16 13:33 Wound Culture Resulted Wound Hip Pending Result Diagram: 07/20/16 1255 07/20/16 1255 Imaging CXR; no acute disease EKG; sinus rhythm with no acute ST-T changes Assessment and Plan Assessment and Plan A/P - alcohol intoxication start supportive care with IV fluid- thiamine, multivitamins- watch for withdrawal -cellulitis of the lower abdomen/ groin continue with IV antibiotic and topical antifungals- and monitor the response -lactic acidosis- due to alcohol- will monitor- repeat the levels. -minimal elevation of troponin- EKG with no acute changes; continue aspirin and BB-trend the cardiac enzymes -reported hematuria; will check the UA -hypertension; not-compliant with meds- resumed his BP meds- will monitor and adjust the regimen as needed -hypokalemia/ hypomagnesemia; will replace and monitor -DVT prophylaxis with SCD's -case management will be consulted for dc planning/ needs. Discussed Condition With ER, the patient and RN. Physician Certification 2 Midnight Certification Type: Admission for Inpatient Services Order for Inpatient Services The services are ordered in accordance with Medicare regulations or non- Medicare payer requirements, as applicable. In the case of services not specified as inpatient-only, they are appropriately provided as inpatient services in accordance with the 2-midnight benchmark. Estimated LOS (days): 2 days is the estimated time the patient will need to remain in the hospital, assuming treatment plan goals are met and no additional complications. Post-Hospital Plan: Not yet determined Isaiah Jernigan MD Jul 20, 2016 16:11
[2016-07-20] MEDS: MAGNESIUM OXIDE 400 MG TAB PO SCH ×2 (16:33→22:06)
[2016-07-20 18:06] VITALS: BP 155/81; PULSE 108; RESP 20; TEMP 97.2; O2SAT 91
[2016-07-20 21:20] VITALS: BP 166/95; PULSE 108; RESP 18; TEMP 98.9; O2SAT 93
[2016-07-20] MEDS: CLOTRIMAZOLE 1% CREAM 15 GM TOPICAL SCH ×2 (22:00→22:23)
[2016-07-20] MEDS: CLINDAMYCIN INJ 600 MG in SODIUM CHLORIDE 0.9% INJ 100 ML IV SCH (22:07)
[2016-07-20] MEDS: METOPROLOL TARTRATE 50 MG TAB PO SCH (22:07)
[2016-07-21] VITALS (7 sets, daily range): BP systolic 144–165; BP diastolic 81–105; PULSE 76–95; RESP 16–20; TEMP 97.4–99; O2SAT 93–97
[2016-07-21] MEDS: SODIUM CHLOR 0.9% 1000 ML INJ 1,000 ML IV SCH ×3 (01:37→20:55)
[2016-07-21 02:15] LABS: POTASSIUM 3.7 MEQ/L (3.5-5.1)
[2016-07-21 02:29] LABS: CALCIUM-PROTEIN CORRECTED 8.5 MG/DL (8.5-10.1)
[2016-07-21] MEDS: CLINDAMYCIN INJ 600 MG in SODIUM CHLORIDE 0.9% INJ 100 ML IV SCH (03:47)
[2016-07-21] MEDS: CLOTRIMAZOLE 1% CREAM 15 GM TOPICAL SCH ×2 (05:26→15:10)
[2016-07-21 06:48] LABS: MAGNESIUM 1.1 MG/DL (1.5-2.5)
[2016-07-21] MEDS: MAGNESIUM OXIDE 400 MG TAB PO SCH ×2 (09:36→20:47)
[2016-07-21] MEDS: ASPIRIN EC 325 MG TABEC PO SCH (09:37)
[2016-07-21] MEDS: FOLIC ACID 1 MG TAB PO SCH (09:37)
[2016-07-21] MEDS: MULTIVITAMINS/MINERALS THERAPEUTIC TAB PO SCH (09:37)
[2016-07-21] MEDS: DILTIAZEM-CD 120 MG CAP ER PO SCH (09:37)
[2016-07-21] MEDS: METOPROLOL TARTRATE 50 MG TAB PO SCH ×2 (09:38→20:47)
[2016-07-21] MEDS: PANTOPRAZOLE SOD 40 MG DELAYED RELEASE TAB PO SCH (09:38)
[2016-07-21] MEDS: THIAMINE HCL 100 MG TAB PO SCH (09:38)
[2016-07-21 09:44] LABS: AUTOMATED NEUTROPHIL # 3.9 TH/MM3 (1.8-7.7); BASOPHIL % 0.2 % (0.0-2.0); EOSINOPHIL # 0.1 TH/MM3 (0-0.4); EOSINOPHIL % 1.1 % (0.0-4.0); HEMATOCRIT 32.5 % (39.0-51.0); HEMO FLAGS DIFF FINAL; LYMPH % 11.5 % (9.0-44.0); LYMPHOCYTE # 0.6 TH/MM3 (1.0-4.8); MEAN CELL VOLUME 92.6 FL (80.0-100.0); MEAN CORPUSCULAR HEMOGLOBIN 31.4 PG (27.0-34.0); MONO % 11.8 % (0.0-8.0); NEUT % 75.4 % (16.0-70.0); PLATELET COUNT 100 TH/MM3 (150-450); RED BLOOD COUNT 3.51 MIL/MM3 (4.50-5.90); WHITE BLOOD COUNT 5.2 TH/MM3 (4.0-11.0)
--- NOTE | 2016-07-21 12:03 | HHI.PR ---
Subjective Remarks resting comfortably with no distress. feels better today. still with some hand tremors. no fever. Objective Vitals Vital Signs Date Time Temp Pulse Resp B/P Pulse Ox O2 Delivery O2 Flow Rate FiO2 07/21/16 08:00 99.0 85 20 161/101 93 07/21/16 04:06 97.4 84 16 162/98 96 07/21/16 00:20 98.3 95 18 165/95 96 07/20/16 21:20 98.9 108 18 166/95 93 07/20/16 18:06 97.2 108 20 155/81 91 07/20/16 15:28 93 18 139/81 96 Room Air 07/20/16 15:28 96 20 139/81 98 Room Air 07/20/16 15:28 98 Room Air 07/20/16 12:47 98.8 92 16 123/71 92 I/O 07/20/16 07/20/16 07/20/16 07/21/16 07/21/16 07/21/16 07:00 15:00 23:00 07:00 15:00 23:00 # Voids 3 # Bowel Movements 2 Result Diagram: 07/21/16 0926 07/21/16 0112 Imaging Last Impressions Chest X-Ray 07/20/16 1249 Signed Impressions: Service Date/Time: July 13:17 - CONCLUSION: 1. No acute cardiopulmonary disease. 2. Degenerative changes and scoliosis of the thoracic spine. Moises Mcintyre MD Objective Remarks GENERAL: This is a well-nourished, well-developed patient, in no apparent distress. CARDIOVASCULAR: Regular rate and regular rhythm without murmurs, gallops, or rubs. RESPIRATORY: Clear to auscultation. Breath sounds equal bilaterally. No wheezes , rales, or rhonchi. GASTROINTESTINAL: Abdomen soft, non-tender, nondistended. Normal, active bowel sounds MUSCULOSKELETAL: Extremities without clubbing, cyanosis, or edema. NEURO: Alert & Oriented x4 to person, place, time, situation. Moves all ext x4 skin; rash noted on the lower abdomen and on the groins Medications and IVs Current Medications Sodium Chloride 2 ml 2 ml UNSCH PRN IVF FLUSH AFTER USING IV ACCESS; Start at 13:30 Clindamycin Phosphate 900 mg/ Sodium Chloride 106 ml @ 200 mls/hr ONCE ONCE IV ; Start 07/20/16 at 13:30; Stop 07/20/16 at 14:32; Status DC Sodium Chloride (NS 1000 ml Inj) 1,000 ml @ 999 mls/hr BOLUS ONCE IV Last administered on 07/20/16 14:12; Start 07/20/16 at 13:30; Stop 07/20/16 at 14:30 ; Status DC Aspirin (Aspirin Chew) 324 mg ONCE ONCE CHEW Last administered on 07/20/16 14 :06; Start 07/20/16 at 14:00; Stop 07/20/16 at 14:01; Status DC Nitroglycerin 1 inch 1 inch ONCE ONCE TOPICAL Last administered on 07/20/16 14:12; Start 07/20/16 at 14:00; Stop 07/20/16 at 14:01; Status DC Piperacillin Sod/ Tazobactam Sod 100 ml @ 200 mls/hr ONCE ONCE IV ; Start at 14:30; Stop 07/20/16 at 14:59; Status DC Vancomycin HCl 1000 mg/Sodium Chloride 250 ml @ 250 mls/hr ONCE ONCE IV Last administered on 07/20/16 16:17; Start 07/20/16 at 14:30; Stop 07/20/16 at 15:29 ; Status DC Sodium Chloride 1,000 ml @ 1,000 mls/hr Q1H ONCE IV Last administered on 16:15; Start 07/20/16 at 14:28; Stop 07/20/16 at 15:27; Status DC Sodium Chloride 1,000 ml @ 1,000 mls/hr Q1H ONCE IV Last administered on 16:15; Start 07/20/16 at 14:28; Stop 07/20/16 at 15:27; Status DC Sodium Chloride (NS 1000 ml Inj) 400 ml @ 1,000 mls/hr Q24M ONCE IV Last administered on 07/20/16 16:16; Start 07/20/16 at 14:28; Stop 07/20/16 at 14:51 ; Status DC Potassium Chloride 40 meq 40 meq ONCE ONCE PO Last administered on 07/20/16 16:32; Start 07/20/16 at 14:45; Stop 07/20/16 at 14:46; Status DC Sodium Chloride (NS 1000 ml Inj) 1,000 ml @ 100 mls/hr Q10H IV Last administered on 07/20/16 15:45; Start 07/20/16 at 15:45 Magnesium Oxide (Mag-Ox) 400 mg Q12HR PO Last administered on 07/21/16 09:36; Start 07/20/16 at 16:00 Potassium Chloride (KCl) 40 meq ONCE ONCE PO ; Start 07/20/16 at 16:00; Stop at 16:01; Status DC Aspirin (Ecotrin Ec) 325 mg DAILY PO Last administered on 07/21/16 09:37; Start 07/21/16 at 09:00 Diltiazem HCl (Cardizem Cd) 120 mg DAILY PO Last administered on 07/21/16 09: 37; Start 07/21/16 at 09:00 Folic Acid (Folate) 1 mg DAILY PO Last administered on 07/21/16 09:37; Start 07/21/16 at 09:00 Metoprolol Tartrate (Lopressor) 75 mg Q12HR PO Last administered on 07/21/16 09:38; Start 07/20/16 at 21:00 Multivitamins/ Minerals Therapeutic (Theragran M Tab) 1 tab DAILY PO Last administered on 07/21/16 09:37; Start 07/21/16 at 09:00 Pantoprazole Sodium (Protonix) 40 mg DAILY PO Last administered on 07/21/16 09 :38; Start 07/21/16 at 09:00 Thiamine HCl (Vitamin B1) 100 mg DAILY PO Last administered on 07/21/16 09:38 ; Start 07/21/16 at 09:00 Flumazenil (Romazicon Inj) 0.2 mg Q1M PRN IV PUSH SEE LABEL COMMENTS; Start at 16:00 Lorazepam (Ativan) 1 mg Q4H PRN PO CIWA 8 - 10; Start 07/20/16 at 16:00 Lorazepam (Ativan Inj) 1 mg Q4H PRN IV PUSH CIWA 8 - 10 Last administered on 16:53; Start 07/20/16 at 16:00 Lorazepam (Ativan) 2 mg Q2H PRN PO CIWA 11-14; Start 07/20/16 at 16:00 Lorazepam (Ativan Inj) 2 mg Q2H PRN IV PUSH CIWA 11-14; Start 07/20/16 at 16:00 Lorazepam (Ativan Inj) 2 mg Q1H PRN IV PUSH CIWA 15-20; Start 07/20/16 at 16:00 Lorazepam 2 mg 2 mg Q15M PRN IV PUSH CIWA > 20; Start 07/20/16 at 16:00 Clindamycin Phosphate/Sodium Chloride (Cleocin Inj/NS Inj) 104 ml @ 208 mls/hr Q8H IV Last administered on 07/21/16 03:47; Start 07/20/16 at 20:00 Clotrimazole (Lotrimin 1% Cream) 1 applic Q8HR TOPICAL Last administered on 05:26; Start 07/20/16 at 17:00 A/P Assessment and Plan A/P - alcohol intoxication continue supportive care with IV fluid- thiamine, multivitamins- watch for withdrawal -cellulitis of the lower abdomen/ groin continue with IV antibiotic and topical antifungals- and monitor the response -lactic acidosis- due to alcohol-resolved. -minimal elevation of troponin with stable trend- and EKG with no acute changes ; continue aspirin and BB- -reported hematuria; UA pending. -hypertension; not-compliant with meds- resumed his BP meds- will monitor and adjust the regimen as needed -hypokalemia; replaced - hypomagnesemia; will replace and monitor -DVT prophylaxis with SCD's -case management consulted for dc planning/ needs. Isaiah Jernigan MD Jul 21, 2016 12:03
[2016-07-21] MEDS ORDERED: Vancomycin Consult Pharmacy 1 EA OTHER SCH (12:15)
[2016-07-21] MEDS ORDERED: MAGNESIUM SULFATE 1 GM PREMIX 100 ML IV ONE (12:15)
[2016-07-21] MEDS: VANCOMYCIN 1,000 MG/NS 250 ML IV SCH ×4 (15:07→20:47)
--- NOTE | 2016-07-21 19:59 | EKG ---
Date Performed: 07/20/2016 Time Performed: 12:55:06 PTAGE: 56 years EKG: Sinus rhythm Loss of R wave in V2, most likely due to lead placement Compared to prior tracing no significant dirk nge ABNORMAL ECG PREVIOUS TRACING : 07/09/2016 08.39 DOCTOR: Ty Larsen Interpretating Date/Time 07/21/2016 19:59:37
[2016-07-22 00:53] VITALS: BP 152/93; PULSE 76; RESP 17; TEMP 98.2; O2SAT 99
[2016-07-22] MEDS: CLOTRIMAZOLE 1% CREAM 15 GM TOPICAL SCH ×4 (02:09→20:41)
[2016-07-22 04:49] VITALS: BP 155/95; PULSE 69; RESP 17; TEMP 98.7; O2SAT 97
[2016-07-22] MEDS: VANCOMYCIN 1,000 MG/NS 250 ML IV SCH ×6 (04:50→20:40)
[2016-07-22] MEDS: LORazepam 1 MG TAB PO PRN (04:50)
[2016-07-22] MEDS: SODIUM CHLOR 0.9% 1000 ML INJ 1,000 ML IV SCH ×3 (07:45→17:45)
[2016-07-22 08:00] VITALS: BP 149/91; PULSE 69; RESP 16; TEMP 98.1; O2SAT 97
[2016-07-22] MEDS: MAGNESIUM OXIDE 400 MG TAB PO SCH ×2 (08:24→20:40)
[2016-07-22] MEDS: FOLIC ACID 1 MG TAB PO SCH (08:24)
[2016-07-22] MEDS: DILTIAZEM-CD 120 MG CAP ER PO SCH (08:24)
[2016-07-22] MEDS: METOPROLOL TARTRATE 50 MG TAB PO SCH ×2 (08:24→20:40)
[2016-07-22] MEDS: PANTOPRAZOLE SOD 40 MG DELAYED RELEASE TAB PO SCH (08:24)
[2016-07-22] MEDS: THIAMINE HCL 100 MG TAB PO SCH (08:24)
[2016-07-22] MEDS: ASPIRIN EC 325 MG TABEC PO SCH (08:24)
[2016-07-22] MEDS: MULTIVITAMINS/MINERALS THERAPEUTIC TAB PO SCH (08:24)
--- NOTE | 2016-07-22 10:29 | HHI.PR ---
Subjective Remarks resting comfortably with no distress. still with some hand tremors but it's improving. complaining of generalized weakness. Objective Vitals Vital Signs Date Time Temp Pulse Resp B/P Pulse Ox O2 Delivery O2 Flow Rate FiO2 07/22/16 08:00 98.1 69 16 149/91 97 07/22/16 04:49 98.7 69 17 155/95 97 07/22/16 00:53 98.2 76 17 152/93 99 07/21/16 21:00 97.8 85 17 165/105 97 07/21/16 18:43 81 20 144/81 07/21/16 16:00 98.8 78 20 156/100 95 07/21/16 12:41 98.6 76 20 146/89 95 I/O 07/21/16 07/21/16 07/21/16 07/22/16 07/22/16 07/22/16 07:00 15:00 23:00 07:00 15:00 23:00 Intake Total 480 ml 600 ml Output Total 800 ml 300 ml 1750 ml Balance -320 ml -300 ml -1150 ml Intake Oral 480 ml 600 ml Output Urine Total 800 ml 300 ml 1750 ml # Voids 4 # Bowel Movements 4 Result Diagram: 07/21/16 0926 07/21/16 0112 Imaging Last Impressions Chest X-Ray 07/20/16 1249 Signed Impressions: Service Date/Time: July 13:17 - CONCLUSION: 1. No acute cardiopulmonary disease. 2. Degenerative changes and scoliosis of the thoracic spine. Moises Mcintyre MD Objective Remarks GENERAL: This is a well-nourished, well-developed patient, in no apparent distress. CARDIOVASCULAR: Regular rate and regular rhythm without murmurs, gallops, or rubs. RESPIRATORY: Clear to auscultation. Breath sounds equal bilaterally. No wheezes , rales, or rhonchi. GASTROINTESTINAL: Abdomen soft, non-tender, nondistended. Normal, active bowel sounds MUSCULOSKELETAL: Extremities without clubbing, cyanosis, or edema. NEURO: Alert & Oriented x4 to person, place, time, situation. Moves all ext x4 skin; rash on the lower abdomen and on the groins is improving. Procedures none Medications and IVs Current Medications Sodium Chloride 2 ml 2 ml UNSCH PRN IVF FLUSH AFTER USING IV ACCESS; Start at 13:30 Clindamycin Phosphate 900 mg/ Sodium Chloride 106 ml @ 200 mls/hr ONCE ONCE IV ; Start 07/20/16 at 13:30; Stop 07/20/16 at 14:32; Status DC Sodium Chloride (NS 1000 ml Inj) 1,000 ml @ 999 mls/hr BOLUS ONCE IV Last administered on 07/20/16 14:12; Start 07/20/16 at 13:30; Stop 07/20/16 at 14:30 ; Status DC Aspirin (Aspirin Chew) 324 mg ONCE ONCE CHEW Last administered on 07/20/16 14 :06; Start 07/20/16 at 14:00; Stop 07/20/16 at 14:01; Status DC Nitroglycerin 1 inch 1 inch ONCE ONCE TOPICAL Last administered on 07/20/16 14:12; Start 07/20/16 at 14:00; Stop 07/20/16 at 14:01; Status DC Piperacillin Sod/ Tazobactam Sod 100 ml @ 200 mls/hr ONCE ONCE IV ; Start at 14:30; Stop 07/20/16 at 14:59; Status DC Vancomycin HCl 1000 mg/Sodium Chloride 250 ml @ 250 mls/hr ONCE ONCE IV Last administered on 07/20/16 16:17; Start 07/20/16 at 14:30; Stop 07/20/16 at 15:29 ; Status DC Sodium Chloride 1,000 ml @ 1,000 mls/hr Q1H ONCE IV Last administered on 16:15; Start 07/20/16 at 14:28; Stop 07/20/16 at 15:27; Status DC Sodium Chloride 1,000 ml @ 1,000 mls/hr Q1H ONCE IV Last administered on 16:15; Start 07/20/16 at 14:28; Stop 07/20/16 at 15:27; Status DC Sodium Chloride (NS 1000 ml Inj) 400 ml @ 1,000 mls/hr Q24M ONCE IV Last administered on 07/20/16 16:16; Start 07/20/16 at 14:28; Stop 07/20/16 at 14:51 ; Status DC Potassium Chloride 40 meq 40 meq ONCE ONCE PO Last administered on 07/20/16 16:32; Start 07/20/16 at 14:45; Stop 07/20/16 at 14:46; Status DC Sodium Chloride (NS 1000 ml Inj) 1,000 ml @ 100 mls/hr Q10H IV Last administered on 07/22/16 07:45; Start 07/20/16 at 15:45 Magnesium Oxide (Mag-Ox) 400 mg Q12HR PO Last administered on 07/21/16 09:36; Start 07/20/16 at 16:00; Stop 07/21/16 at 12:08; Status DC Potassium Chloride (KCl) 40 meq ONCE ONCE PO ; Start 07/20/16 at 16:00; Stop at 16:01; Status DC Aspirin (Ecotrin Ec) 325 mg DAILY PO Last administered on 07/22/16 08:24; Start 07/21/16 at 09:00 Diltiazem HCl (Cardizem Cd) 120 mg DAILY PO Last administered on 07/22/16 08: 24; Start 07/21/16 at 09:00 Folic Acid (Folate) 1 mg DAILY PO Last administered on 07/22/16 08:24; Start 07/21/16 at 09:00 Metoprolol Tartrate (Lopressor) 75 mg Q12HR PO Last administered on 07/22/16 08:24; Start 07/20/16 at 21:00 Multivitamins/ Minerals Therapeutic (Theragran M Tab) 1 tab DAILY PO Last administered on 07/22/16 08:24; Start 07/21/16 at 09:00 Pantoprazole Sodium (Protonix) 40 mg DAILY PO Last administered on 07/22/16 08 :24; Start 07/21/16 at 09:00 Thiamine HCl (Vitamin B1) 100 mg DAILY PO Last administered on 07/22/16 08:24 ; Start 07/21/16 at 09:00 Flumazenil (Romazicon Inj) 0.2 mg Q1M PRN IV PUSH SEE LABEL COMMENTS; Start at 16:00 Lorazepam (Ativan) 1 mg Q4H PRN PO CIWA 8 - 10 Last administered on 07/22/16 04:50; Start 07/20/16 at 16:00 Lorazepam (Ativan Inj) 1 mg Q4H PRN IV PUSH CIWA 8 - 10 Last administered on 16:53; Start 07/20/16 at 16:00 Lorazepam (Ativan) 2 mg Q2H PRN PO CIWA 11-14; Start 07/20/16 at 16:00 Lorazepam (Ativan Inj) 2 mg Q2H PRN IV PUSH CIWA 11-14; Start 07/20/16 at 16:00 Lorazepam (Ativan Inj) 2 mg Q1H PRN IV PUSH CIWA 15-20 Last administered on 02:12; Start 07/20/16 at 16:00 Lorazepam 2 mg 2 mg Q15M PRN IV PUSH CIWA > 20; Start 07/20/16 at 16:00 Clindamycin Phosphate/Sodium Chloride (Cleocin Inj/NS Inj) 104 ml @ 208 mls/hr Q8H IV Last administered on 07/21/16 03:47; Start 07/20/16 at 20:00; Stop at 12:06; Status DC Clotrimazole 1 applic 1 applic Q8HR TOPICAL Last administered on 07/22/16 05: 17; Start 07/20/16 at 17:00 Magnesium Sulfate/ Dextrose (Magnesium Sulfate 1 Gm Premix) 100 ml @ 100 mls/ hr ONCE ONCE IV Last administered on 07/21/16 13:07; Start 07/21/16 at 12:15 ; Stop 07/21/16 at 13:14; Status DC Magnesium Oxide 400 mg 400 mg Q12HR PO Last administered on 07/22/16 08:24; Start 07/21/16 at 21:00 Pharmacy Profile Note 0 ml @ 0 mls/hr UNSCH OTHER ; Start 07/21/16 at 12:15 Vancomycin HCl/ Sodium Chloride (Vancomycin Inj/ NS 250 ml Inj) 250 ml @ 250 mls/hr Q8H IV Last administered on 07/22/16 04:50; Start 07/21/16 at 13:00 Miscellaneous Information SPECIFIC LAB TO BE ... ONCE ONCE .XX ; Start 07/22 at 12:45; Stop 07/22/16 at 12:46 A/P Assessment and Plan A/P - alcohol intoxication-resolved continue supportive care with IV fluid- thiamine, multivitamins- watch for withdrawal -cellulitis of the lower abdomen/ groin- improving continue with IV antibiotic and topical antifungals-continue to monitor. -lactic acidosis- due to alcohol-resolved. -minimal elevation of troponin with stable trend- and EKG with no acute changes ; continue aspirin and BB- -reported hematuria; UA pending. -hypertension; not-compliant with meds- resumed his BP meds- will monitor and adjust the regimen as needed -hypokalemia; replaced - hypomagnesemia; will replace and monitor -DVT prophylaxis with SCD's -case management consulted for dc planning/ needs. Discharge Planning possible discharge within the next 24-48 hrs if stable. Isaiah Jernigan MD Jul 22, 2016 10:29
[2016-07-22] MEDS ORDERED: MAGNESIUM SULFATE 1 GM PREMIX 100 ML IV ONE (10:30)
[2016-07-22 12:00] VITALS: BP 161/99; PULSE 76; RESP 18; TEMP 96.9; O2SAT 96
[2016-07-22] MEDS ORDERED: PHARMACY ORDERED LAB ONE (12:45)
[2016-07-22 16:00] VITALS: BP 154/94; PULSE 68; RESP 16; TEMP 97.9; O2SAT 98
[2016-07-22 20:00] VITALS: BP 149/88; PULSE 65; RESP 18; TEMP 98.3; O2SAT 98
[2016-07-22] MEDS ORDERED: PILL SPLITTER OTHER PRN (22:45)
[2016-07-22] MEDS: diphenhydrAMINE HCL 50 MG CAP PO PRN (23:51)
[2016-07-23] VITALS: BP 144/88; PULSE 67; RESP 18; TEMP 98.2; O2SAT 95
[2016-07-23] MEDS: SODIUM CHLOR 0.9% 1000 ML INJ 1,000 ML IV SCH ×3 (03:45→23:45)
[2016-07-23 04:00] VITALS: BP 147/95; PULSE 62; RESP 18; TEMP 98; O2SAT 94
[2016-07-23] MEDS: CLOTRIMAZOLE 1% CREAM 15 GM TOPICAL SCH ×3 (06:00→21:33)
[2016-07-23] MEDS: VANCOMYCIN 1,000 MG/NS 250 ML IV SCH ×4 (06:32→18:41)
[2016-07-23 08:00] VITALS: BP 172/100; PULSE 63; RESP 18; TEMP 98.1; O2SAT 96
[2016-07-23] MEDS: DILTIAZEM-CD 120 MG CAP ER PO SCH (09:42)
[2016-07-23] MEDS: ASPIRIN EC 325 MG TABEC PO SCH (09:42)
[2016-07-23] MEDS: MAGNESIUM OXIDE 400 MG TAB PO SCH ×2 (09:43→21:33)
[2016-07-23] MEDS: FOLIC ACID 1 MG TAB PO SCH (09:43)
[2016-07-23] MEDS: METOPROLOL TARTRATE 50 MG TAB PO SCH (09:43)
[2016-07-23] MEDS: PANTOPRAZOLE SOD 40 MG DELAYED RELEASE TAB PO SCH (09:43)
[2016-07-23] MEDS: THIAMINE HCL 100 MG TAB PO SCH (09:43)
[2016-07-23] MEDS: MULTIVITAMINS/MINERALS THERAPEUTIC TAB PO SCH (09:43)
--- NOTE | 2016-07-23 09:56 | HHI.PR ---
Subjective Remarks resting comfortably with no distress. no fever. his ' shaking and tremors' is better. Objective Vitals Vital Signs Date Time Temp Pulse Resp B/P Pulse Ox O2 Delivery O2 Flow Rate FiO2 07/23/16 08:00 98.1 63 18 172/100 96 07/23/16 04:00 98.0 62 18 147/95 94 07/23/16 00:00 98.2 67 18 144/88 95 07/22/16 20:00 98.3 65 18 149/88 98 07/22/16 16:00 97.9 68 16 154/94 98 07/22/16 12:00 96.9 76 18 161/99 96 I/O 07/22/16 07/22/16 07/22/16 07/23/16 07/23/16 07/23/16 07:00 15:00 23:00 07:00 15:00 23:00 Intake Total 600 ml 480 ml 360 ml 360 ml Output Total 1750 ml 600 ml 200 ml 975 ml Balance -1150 ml -120 ml 160 ml -615 ml Intake Oral 600 ml 480 ml 360 ml 360 ml Output Urine Total 1750 ml 600 ml 200 ml 975 ml # Voids 3 Result Diagram: 07/21/16 0926 07/21/16 0112 Imaging Last Impressions Chest X-Ray 07/20/16 1249 Signed Impressions: Service Date/Time: July 13:17 - CONCLUSION: 1. No acute cardiopulmonary disease. 2. Degenerative changes and scoliosis of the thoracic spine. Moises Mcintyre MD Objective Remarks GENERAL: This is a well-nourished, well-developed patient, in no apparent distress. CARDIOVASCULAR: Regular rate and regular rhythm without murmurs, gallops, or rubs. RESPIRATORY: Clear to auscultation. Breath sounds equal bilaterally. No wheezes , rales, or rhonchi. GASTROINTESTINAL: Abdomen soft, non-tender, nondistended. Normal, active bowel sounds MUSCULOSKELETAL: Extremities without clubbing, cyanosis, or edema. NEURO: Alert & Oriented x4 to person, place, time, situation. Moves all ext x4 skin; rash on the lower abdomen and on the groins is improving. Procedures none Medications and IVs Current Medications Sodium Chloride 2 ml 2 ml UNSCH PRN IVF FLUSH AFTER USING IV ACCESS; Start at 13:30 Clindamycin Phosphate 900 mg/ Sodium Chloride 106 ml @ 200 mls/hr ONCE ONCE IV ; Start 07/20/16 at 13:30; Stop 07/20/16 at 14:32; Status DC Sodium Chloride (NS 1000 ml Inj) 1,000 ml @ 999 mls/hr BOLUS ONCE IV Last administered on 07/20/16 14:12; Start 07/20/16 at 13:30; Stop 07/20/16 at 14:30 ; Status DC Aspirin (Aspirin Chew) 324 mg ONCE ONCE CHEW Last administered on 07/20/16 14 :06; Start 07/20/16 at 14:00; Stop 07/20/16 at 14:01; Status DC Nitroglycerin 1 inch 1 inch ONCE ONCE TOPICAL Last administered on 07/20/16 14:12; Start 07/20/16 at 14:00; Stop 07/20/16 at 14:01; Status DC Piperacillin Sod/ Tazobactam Sod 100 ml @ 200 mls/hr ONCE ONCE IV ; Start at 14:30; Stop 07/20/16 at 14:59; Status DC Vancomycin HCl 1000 mg/Sodium Chloride 250 ml @ 250 mls/hr ONCE ONCE IV Last administered on 07/20/16 16:17; Start 07/20/16 at 14:30; Stop 07/20/16 at 15:29 ; Status DC Sodium Chloride 1,000 ml @ 1,000 mls/hr Q1H ONCE IV Last administered on 16:15; Start 07/20/16 at 14:28; Stop 07/20/16 at 15:27; Status DC Sodium Chloride 1,000 ml @ 1,000 mls/hr Q1H ONCE IV Last administered on 16:15; Start 07/20/16 at 14:28; Stop 07/20/16 at 15:27; Status DC Sodium Chloride (NS 1000 ml Inj) 400 ml @ 1,000 mls/hr Q24M ONCE IV Last administered on 07/20/16 16:16; Start 07/20/16 at 14:28; Stop 07/20/16 at 14:51 ; Status DC Potassium Chloride 40 meq 40 meq ONCE ONCE PO Last administered on 07/20/16 16:32; Start 07/20/16 at 14:45; Stop 07/20/16 at 14:46; Status DC Sodium Chloride (NS 1000 ml Inj) 1,000 ml @ 100 mls/hr Q10H IV Last administered on 07/23/16 03:45; Start 07/20/16 at 15:45 Magnesium Oxide (Mag-Ox) 400 mg Q12HR PO Last administered on 07/21/16 09:36; Start 07/20/16 at 16:00; Stop 07/21/16 at 12:08; Status DC Potassium Chloride (KCl) 40 meq ONCE ONCE PO ; Start 07/20/16 at 16:00; Stop at 16:01; Status DC Aspirin (Ecotrin Ec) 325 mg DAILY PO Last administered on 07/23/16 09:42; Start 07/21/16 at 09:00 Diltiazem HCl (Cardizem Cd) 120 mg DAILY PO Last administered on 07/23/16 09: 42; Start 07/21/16 at 09:00 Folic Acid (Folate) 1 mg DAILY PO Last administered on 07/23/16 09:43; Start 07/21/16 at 09:00 Metoprolol Tartrate (Lopressor) 75 mg Q12HR PO Last administered on 07/23/16 09:43; Start 07/20/16 at 21:00 Multivitamins/ Minerals Therapeutic (Theragran M Tab) 1 tab DAILY PO Last administered on 07/23/16 09:43; Start 07/21/16 at 09:00 Pantoprazole Sodium (Protonix) 40 mg DAILY PO Last administered on 07/23/16 09 :43; Start 07/21/16 at 09:00 Thiamine HCl (Vitamin B1) 100 mg DAILY PO Last administered on 07/23/16 09:43 ; Start 07/21/16 at 09:00 Flumazenil (Romazicon Inj) 0.2 mg Q1M PRN IV PUSH SEE LABEL COMMENTS; Start at 16:00 Lorazepam (Ativan) 1 mg Q4H PRN PO CIWA 8 - 10 Last administered on 07/22/16 04:50; Start 07/20/16 at 16:00 Lorazepam (Ativan Inj) 1 mg Q4H PRN IV PUSH CIWA 8 - 10 Last administered on 16:53; Start 07/20/16 at 16:00 Lorazepam (Ativan) 2 mg Q2H PRN PO CIWA 11-14; Start 07/20/16 at 16:00 Lorazepam (Ativan Inj) 2 mg Q2H PRN IV PUSH CIWA 11-14; Start 07/20/16 at 16:00 Lorazepam (Ativan Inj) 2 mg Q1H PRN IV PUSH CIWA 15-20 Last administered on 02:12; Start 07/20/16 at 16:00 Lorazepam 2 mg 2 mg Q15M PRN IV PUSH CIWA > 20; Start 07/20/16 at 16:00 Clindamycin Phosphate/Sodium Chloride (Cleocin Inj/NS Inj) 104 ml @ 208 mls/hr Q8H IV Last administered on 07/21/16 03:47; Start 07/20/16 at 20:00; Stop at 12:06; Status DC Clotrimazole 1 applic 1 applic Q8HR TOPICAL Last administered on 07/23/16 06: 00; Start 07/20/16 at 17:00 Magnesium Sulfate/ Dextrose (Magnesium Sulfate 1 Gm Premix) 100 ml @ 100 mls/ hr ONCE ONCE IV Last administered on 07/21/16 13:07; Start 07/21/16 at 12:15 ; Stop 07/21/16 at 13:14; Status DC Magnesium Oxide 400 mg 400 mg Q12HR PO Last administered on 07/23/16 09:43; Start 07/21/16 at 21:00 Pharmacy Profile Note 0 ml @ 0 mls/hr UNSCH OTHER ; Start 07/21/16 at 12:15 Vancomycin HCl/ Sodium Chloride (Vancomycin Inj/ NS 250 ml Inj) 250 ml @ 250 mls/hr Q8H IV Last administered on 07/23/16 06:32; Start 07/21/16 at 13:00 Miscellaneous Information SPECIFIC LAB TO BE ... ONCE ONCE .XX Last administered on 07/22/16 12:45; Start 07/22/16 at 12:45; Stop 07/22/16 at 12:46 ; Status DC Magnesium Sulfate/ Dextrose (Magnesium Sulfate 1 Gm Premix) 100 ml @ 100 mls/ hr ONCE ONCE IV Last administered on 07/22/16 11:31; Start 07/22/16 at 10:30 ; Stop 07/22/16 at 11:29; Status DC Miscellaneous Information SPECIFIC LAB TO BE ... ONCE ONCE .XX ; Start 07/23 at 12:45; Stop 07/23/16 at 12:46 Diphenhydramine HCl (Benadryl) 50 mg HS PRN PO INSOMNIA Last administered on 23:51; Start 07/22/16 at 22:45 Miscellaneous (Pill Splitter) 1 ea UNSCH PRN OTHER SEE LABEL COMMENTS; Start at 22:45 A/P Problem List: (1) Total body pain ICD Code: R52 Status: Acute Assessment and Plan A/P - alcohol intoxication-resolved continue supportive care with IV fluid- thiamine, multivitamins- watch for withdrawal -cellulitis of the lower abdomen/ groin- improving continue with IV antibiotic and topical antifungals-continue to monitor. -lactic acidosis- due to alcohol-resolved. -minimal elevation of troponin with stable trend- and EKG with no acute changes ; continue aspirin and BB-stress test tomorrow. -hypertension;not optimally controlled- not-compliant with meds- resumed his BP meds- one dose of procardia today.will monitor and adjust the regimen as needed -hypokalemia; replaced - hypomagnesemia; will replace and monitor -DVT prophylaxis with SCD's -case management consulted for dc planning/ needs. Discharge Planning dc tomorrow if stress test is negative. Isaiah Jernigan MD Jul 23, 2016 09:56
[2016-07-23] MEDS ORDERED: CLIN1CAP6 PO (09:57)
[2016-07-23] MEDS ORDERED: METO-309 PO (09:57)
[2016-07-23] MEDS ORDERED: VITA100T2 PO (09:57)
[2016-07-23] MEDS ORDERED: ASPI325T33 PO (09:57)
[2016-07-23] MEDS ORDERED: CARD120C4 PO (09:57)
[2016-07-23] MEDS ORDERED: PANT40TA3 PO (09:57)
[2016-07-23] MEDS ORDERED: THERM PO (09:57)
[2016-07-23] MEDS ORDERED: FOLI1TAB4 PO (09:57)
[2016-07-23] MEDS ORDERED: ASPI81CH CHEW (09:58)
[2016-07-23] MEDS ORDERED: ASPI81TA11 PO (10:00)
[2016-07-23] MEDS ORDERED: NIFEdipine 30 MG SUSTAINED RELEASE TAB PO ONE (10:15)
[2016-07-23 12:00] VITALS: BP 170/98; PULSE 59; RESP 20; TEMP 98.1; O2SAT 96
[2016-07-23] MEDS: MAGNESIUM SULFATE 1 GM PREMIX 100 ML IV SCH ×2 (12:20→12:33)
[2016-07-23] MEDS ORDERED: PHARMACY ORDERED LAB ONE (12:45)
[2016-07-23 16:00] VITALS: BP 154/90; PULSE 63; RESP 18; TEMP 97.9; O2SAT 98
[2016-07-23 16:57] LABS: MAGNESIUM 1.5 MG/DL (1.5-2.5); VANCOMYCIN TROUGH 7.9 MCG/ML (5.0-10.0)
[2016-07-23 20:00] VITALS: BP 136/90; PULSE 82; RESP 18; TEMP 98.6; O2SAT 95
[2016-07-23] MEDS ORDERED: ZOLPIDEM TARTRATE 5 MG TAB PO ONE (21:15)
[2016-07-24] VITALS: BP 130/73; PULSE 63; RESP 18; TEMP 97.8; O2SAT 97
[2016-07-24 04:00] VITALS: BP 143/73; PULSE 72; RESP 18; TEMP 97.5; O2SAT 95
[2016-07-24] MEDS: CLOTRIMAZOLE 1% CREAM 15 GM TOPICAL SCH ×3 (04:09→21:45)
[2016-07-24] MEDS: LORazepam 1 MG TAB PO PRN (04:09)
[2016-07-24] MEDS: VANCOMYCIN 1,000 MG/NS 250 ML IV SCH ×4 (04:09→12:00)
[2016-07-24 09:11] VITALS: BP 155/91; PULSE 66; RESP 18; TEMP 97.6; O2SAT 92
[2016-07-24] MEDS: SODIUM CHLOR 0.9% 1000 ML INJ 1,000 ML IV SCH ×2 (09:45→19:45)
--- NOTE | 2016-07-24 10:43 | HHI.DCPOC ---
Discharge Care Plan Diagnosis: (1) Total body pain (2) Alcohol abuse Your Health Problems Are: Anxiety Chest Pain Goals to Promote Your Health * To prevent worsening of your condition and complications * To maintain your health at the optimal level Directions to Meet Your Goals Take your medications as prescribed Follow your dietary instruction Follow activity as directed Keep your appointments as scheduled Take your immunizations and boosters as scheduled If your symptoms worsen call your PCP, if no PCP go to Urgent Care Center or Emergency Room Smoking is Dangerous to Your Health. Avoid second hand smoke Call the 24-hour hour crisis hotline for domestic abuse at Isaiah Jernigan MD Jul 24, 2016 10:43
--- NOTE | 2016-07-24 10:43 | HHI.PR ---
Subjective Remarks resting comfortably with no distress. no fever. awaiting stress test. Objective Vitals Vital Signs Date Time Temp Pulse Resp B/P Pulse Ox O2 Delivery O2 Flow Rate FiO2 07/24/16 09:11 97.6 66 18 155/91 92 07/24/16 04:00 97.5 72 18 143/73 95 07/24/16 00:00 97.8 63 18 130/73 97 07/23/16 20:00 98.6 82 18 136/90 95 07/23/16 16:00 97.9 63 18 154/90 98 07/23/16 12:00 98.1 59 20 170/98 96 I/O 07/23/16 07/23/16 07/23/16 07/24/16 07/24/16 07/24/16 07:00 15:00 23:00 07:00 15:00 23:00 Intake Total 360 ml 480 ml 600 ml 600 ml Output Total 975 ml 750 ml 250 ml 4100 ml Balance -615 ml -270 ml 350 ml -3500 ml Intake Oral 360 ml 480 ml 600 ml 600 ml Output Urine Total 975 ml 750 ml 250 ml 4100 ml Result Diagram: 07/21/16 0926 07/21/16 0112 Imaging Last Impressions Chest X-Ray 07/20/16 1249 Signed Impressions: Service Date/Time: July 13:17 - CONCLUSION: 1. No acute cardiopulmonary disease. 2. Degenerative changes and scoliosis of the thoracic spine. Moises Mcintyre MD Objective Remarks GENERAL: This is a well-nourished, well-developed patient, in no apparent distress. CARDIOVASCULAR: Regular rate and regular rhythm without murmurs, gallops, or rubs. RESPIRATORY: Clear to auscultation. Breath sounds equal bilaterally. No wheezes , rales, or rhonchi. GASTROINTESTINAL: Abdomen soft, non-tender, nondistended. Normal, active bowel sounds MUSCULOSKELETAL: Extremities without clubbing, cyanosis, or edema. NEURO: Alert & Oriented x4 to person, place, time, situation. Moves all ext x4 skin; rash on the lower abdomen and on the groins is improving. Procedures none Medications and IVs Current Medications Sodium Chloride 2 ml 2 ml UNSCH PRN IVF FLUSH AFTER USING IV ACCESS; Start at 13:30 Clindamycin Phosphate 900 mg/ Sodium Chloride 106 ml @ 200 mls/hr ONCE ONCE IV ; Start 07/20/16 at 13:30; Stop 07/20/16 at 14:32; Status DC Sodium Chloride (NS 1000 ml Inj) 1,000 ml @ 999 mls/hr BOLUS ONCE IV Last administered on 07/20/16 14:12; Start 07/20/16 at 13:30; Stop 07/20/16 at 14:30 ; Status DC Aspirin (Aspirin Chew) 324 mg ONCE ONCE CHEW Last administered on 07/20/16 14 :06; Start 07/20/16 at 14:00; Stop 07/20/16 at 14:01; Status DC Nitroglycerin 1 inch 1 inch ONCE ONCE TOPICAL Last administered on 07/20/16 14:12; Start 07/20/16 at 14:00; Stop 07/20/16 at 14:01; Status DC Piperacillin Sod/ Tazobactam Sod 100 ml @ 200 mls/hr ONCE ONCE IV ; Start at 14:30; Stop 07/20/16 at 14:59; Status DC Vancomycin HCl 1000 mg/Sodium Chloride 250 ml @ 250 mls/hr ONCE ONCE IV Last administered on 07/20/16 16:17; Start 07/20/16 at 14:30; Stop 07/20/16 at 15:29 ; Status DC Sodium Chloride 1,000 ml @ 1,000 mls/hr Q1H ONCE IV Last administered on 16:15; Start 07/20/16 at 14:28; Stop 07/20/16 at 15:27; Status DC Sodium Chloride 1,000 ml @ 1,000 mls/hr Q1H ONCE IV Last administered on 16:15; Start 07/20/16 at 14:28; Stop 07/20/16 at 15:27; Status DC Sodium Chloride (NS 1000 ml Inj) 400 ml @ 1,000 mls/hr Q24M ONCE IV Last administered on 07/20/16 16:16; Start 07/20/16 at 14:28; Stop 07/20/16 at 14:51 ; Status DC Potassium Chloride 40 meq 40 meq ONCE ONCE PO Last administered on 07/20/16 16:32; Start 07/20/16 at 14:45; Stop 07/20/16 at 14:46; Status DC Sodium Chloride (NS 1000 ml Inj) 1,000 ml @ 100 mls/hr Q10H IV Last administered on 07/23/16 12:23; Start 07/20/16 at 15:45 Magnesium Oxide (Mag-Ox) 400 mg Q12HR PO Last administered on 07/21/16 09:36; Start 07/20/16 at 16:00; Stop 07/21/16 at 12:08; Status DC Potassium Chloride (KCl) 40 meq ONCE ONCE PO ; Start 07/20/16 at 16:00; Stop at 16:01; Status DC Aspirin (Ecotrin Ec) 325 mg DAILY PO Last administered on 07/23/16 09:42; Start 07/21/16 at 09:00 Diltiazem HCl (Cardizem Cd) 120 mg DAILY PO Last administered on 07/23/16 09: 42; Start 07/21/16 at 09:00 Folic Acid (Folate) 1 mg DAILY PO Last administered on 07/23/16 09:43; Start 07/21/16 at 09:00 Metoprolol Tartrate (Lopressor) 75 mg Q12HR PO Last administered on 07/23/16 09:43; Start 07/20/16 at 21:00; Status Hold Multivitamins/ Minerals Therapeutic (Theragran M Tab) 1 tab DAILY PO Last administered on 07/23/16 09:43; Start 07/21/16 at 09:00 Pantoprazole Sodium (Protonix) 40 mg DAILY PO Last administered on 07/23/16 09 :43; Start 07/21/16 at 09:00 Thiamine HCl (Vitamin B1) 100 mg DAILY PO Last administered on 07/23/16 09:43 ; Start 07/21/16 at 09:00 Flumazenil (Romazicon Inj) 0.2 mg Q1M PRN IV PUSH SEE LABEL COMMENTS; Start at 16:00 Lorazepam (Ativan) 1 mg Q4H PRN PO CIWA 8 - 10 Last administered on 07/24/16 04:09; Start 07/20/16 at 16:00 Lorazepam (Ativan Inj) 1 mg Q4H PRN IV PUSH CIWA 8 - 10 Last administered on 16:53; Start 07/20/16 at 16:00 Lorazepam (Ativan) 2 mg Q2H PRN PO CIWA 11-14; Start 07/20/16 at 16:00 Lorazepam (Ativan Inj) 2 mg Q2H PRN IV PUSH CIWA 11-14; Start 07/20/16 at 16:00 Lorazepam (Ativan Inj) 2 mg Q1H PRN IV PUSH CIWA 15-20 Last administered on 02:12; Start 07/20/16 at 16:00 Lorazepam 2 mg 2 mg Q15M PRN IV PUSH CIWA > 20; Start 07/20/16 at 16:00 Clindamycin Phosphate/Sodium Chloride (Cleocin Inj/NS Inj) 104 ml @ 208 mls/hr Q8H IV Last administered on 07/21/16 03:47; Start 07/20/16 at 20:00; Stop at 12:06; Status DC Clotrimazole 1 applic 1 applic Q8HR TOPICAL Last administered on 07/24/16 04: 09; Start 07/20/16 at 17:00 Magnesium Sulfate/ Dextrose (Magnesium Sulfate 1 Gm Premix) 100 ml @ 100 mls/ hr ONCE ONCE IV Last administered on 07/21/16 13:07; Start 07/21/16 at 12:15 ; Stop 07/21/16 at 13:14; Status DC Magnesium Oxide 400 mg 400 mg Q12HR PO Last administered on 07/23/16 21:33; Start 07/21/16 at 21:00 Pharmacy Profile Note 0 ml @ 0 mls/hr UNSCH OTHER ; Start 07/21/16 at 12:15 Vancomycin HCl/ Sodium Chloride (Vancomycin Inj/ NS 250 ml Inj) 250 ml @ 250 mls/hr Q8H IV Last administered on 07/23/16 18:41; Start 07/21/16 at 13:00; Stop 07/23/16 at 18:50; Status DC Miscellaneous Information SPECIFIC LAB TO BE PATRICIA... ONCE ONCE .XX Last administered on 07/22/16 12:45; Start 07/22/16 at 12:45; Stop 07/22/16 at 12:46 ; Status DC Magnesium Sulfate/ Dextrose (Magnesium Sulfate 1 Gm Premix) 100 ml @ 100 mls/ hr ONCE ONCE IV Last administered on 07/22/16 11:31; Start 07/22/16 at 10:30 ; Stop 07/22/16 at 11:29; Status DC Miscellaneous Information SPECIFIC LAB TO BE PATRICIA... ONCE ONCE .XX ; Start 07/23 at 12:45; Stop 07/23/16 at 12:46; Status DC Diphenhydramine HCl (Benadryl) 50 mg HS PRN PO INSOMNIA Last administered on 23:51; Start 07/22/16 at 22:45 Miscellaneous 1 ea 1 ea UNSCH PRN OTHER SEE LABEL COMMENTS; Start 07/22/16 at 22:45 Magnesium Sulfate/ Dextrose (Magnesium Sulfate 1 Gm Premix) 100 ml @ 100 mls/ hr Q1H IV Last administered on 07/23/16 12:33; Start 07/23/16 at 10:00; Stop 07/23/16 at 11:59; Status DC Nifedipine 30 mg 30 mg ONCE ONCE PO Last administered on 07/23/16 12:19; Start 07/23/16 at 10:15; Stop 07/23/16 at 10:16; Status DC Vancomycin HCl/ Sodium Chloride (Vancomycin Inj/ NS 250 ml Inj) 250 ml @ 250 mls/hr Q8H IV Last administered on 07/24/16 04:09; Start 07/24/16 at 04:00 Miscellaneous Information SPECIFIC LAB TO BE PATRICIA... ONCE ONCE .XX ; Start 07/24 at 19:45; Stop 07/24/16 at 19:46 Zolpidem Tartrate (Ambien) 5 mg NOW ONCE PO Last administered on 07/23/16 21: 33; Start 07/23/16 at 21:15; Stop 07/23/16 at 21:16; Status DC A/P Assessment and Plan A/P - alcohol intoxication-resolved continue supportive care; - thiamine, multivitamins- watch for withdrawal -cellulitis of the lower abdomen/ groin-much improved will switch to po antibiotics upon discharge--continue to monitor. -lactic acidosis- due to alcohol-resolved. -minimal elevation of troponin with stable trend- and EKG with no acute changes ; continue aspirin and BB-stress test today. -hypertension;overall better controlled- not-compliant with meds- resumed his BP meds-f/u as outpatient. -hypokalemia; replaced - hypomagnesemia; replaced. -DVT prophylaxis with SCD's -case management consulted for dc planning/ needs. Discharge Planning dc home later today if stress test is negative. see med list. counselled on drinking cessation. d/w the patient and RN. Isaiah Jernigan MD Jul 24, 2016 10:43
--- NOTE | 2016-07-24 10:52 | HHI.DS ---
Discharge Summary Admission Date Jul 20, 2016 at 15:39 Discharge Date: Jul 24, 2016 Admitting Diagnosis Elevated Lactic Acid/Elevated Troponin (1) Total body pain ICD Code: R52 Diagnosis: Principal (2) Alcohol abuse ICD Code: F10.10 Diagnosis: Principal (3) Elevated troponin ICD Code: R74.8 Diagnosis: Principal (4) Cellulitis ICD Code: L03.90 Diagnosis: Principal Procedures none Brief History - From Admission patient is a 56 y/o homeless male, who presented to ER with generalized bodyache. he says that he drinks a bottle of Vodka every week and the last drink was three days ago. he's complaining of generalized body ache. he says that he saw some blood in the urine. a rash noted was on the groin area and lower abdomen which he says that he probably noticed a few days ago but not sure how it happened.otherwise he's not a good historian. CBC/BMP: 07/21/16 0926 07/24/16 0945 Significant Findings Laboratory Tests Test 07/22/16 07/23/16 07/24/16 07:32 05:34 09:45 Magnesium Level 1.3 MG/DL 1.2 MG/DL (1.5-2.5) (1.5-2.5) Creatinine 0.50 MG/DL (0.60-1.30) Imaging Last Impressions Chest X-Ray 07/20/16 1249 Signed Impressions: Service Date/Time: July 13:17 - CONCLUSION: 1. No acute cardiopulmonary disease. 2. Degenerative changes and scoliosis of the thoracic spine. Moises Mcintyre MD PE at Discharge GENERAL: This is a well-nourished, well-developed patient, in no apparent distress. CARDIOVASCULAR: Regular rate and regular rhythm without murmurs, gallops, or rubs. RESPIRATORY: Clear to auscultation. Breath sounds equal bilaterally. No wheezes , rales, or rhonchi. GASTROINTESTINAL: Abdomen soft, non-tender, nondistended. Normal, active bowel sounds MUSCULOSKELETAL: Extremities without clubbing, cyanosis, or edema. NEURO: Alert & Oriented x4 to person, place, time, situation. Moves all ext x4 skin; rash on the lower abdomen and on the groins is improving. Hospital Course - alcohol intoxication-resolved continue supportive care; - thiamine, multivitamins- watch for withdrawal -cellulitis of the lower abdomen/ groin-much improved will switch to po antibiotics upon discharge--continue to monitor. -lactic acidosis- due to alcohol-resolved. -minimal elevation of troponin with stable trend- and EKG with no acute changes ; continue aspirin and BB-stress test today. -hypertension;overall better controlled- not-compliant with meds- resumed his BP meds-f/u as outpatient. -hypokalemia; replaced - hypomagnesemia; replaced. -DVT prophylaxis with SCD's -case management consulted for dc planning/ needs. Pt Condition on Discharge: Good Discharge Disposition: Discharge Home Discharge Time: <= 30 minutes Discharge Instructions DIET: Follow Instructions for: Heart Healthy Diet Activities you can perform: Regular-No Restrictions Follow up Referrals: PCP Follow-up New Medications: Aspirin DR (Aspirin EC) 81 Mg Tabdr 162 MG PO DAILY antiplatelet Days 30 Ref 0 TAB Clindamycin (Clindamycin) 300 Mg Cap 300 MG PO Q6H Infection Days 7 Ref 0 CAP Continued Medications: Diltiazem CD 24 HR (Cardizem CD 24 HR) 120 Mg Caper 120 MG PO DAILY a-fib Days 30 Ref 0 CAP (This prescription has been renewed) Folic Acid (Folate) 1 Mg Tab 1 MG PO DAILY vitamin Days 30 Ref 0 TAB (This prescription has been renewed) Metoprolol Tartrate (Lopressor) 50 Mg Tab 75 MG PO Q12HR a-fib Days 30 Ref 0 TAB (This prescription has been renewed) Multiple Vitamins W/ Minerals (Thera M Plus) 1 Tab 1 TAB PO DAILY vitamin Days 30 Ref 0 TAB (This prescription has been renewed) Pantoprazole (Pantoprazole) 40 Mg Tab 40 MG PO DAILY ppi Days 30 Ref 0 TAB (This prescription has been renewed) Thiamine (Vitamin B-1) 100 Mg Tab 100 MG PO DAILY vitamin Days 30 Ref 0 TAB (This prescription has been renewed) Isaiah Jernigan MD Jul 24, 2016 10:52
[2016-07-24] MEDS ORDERED: REGADENOSON INJ 0.4 MG/5 ML SYR ONE (11:36)
[2016-07-24] MEDS: MAGNESIUM OXIDE 400 MG TAB PO SCH ×2 (12:51→21:45)
[2016-07-24] MEDS: THIAMINE HCL 100 MG TAB PO SCH (12:51)
[2016-07-24] MEDS: ASPIRIN EC 325 MG TABEC PO SCH (12:51)
[2016-07-24] MEDS: MULTIVITAMINS/MINERALS THERAPEUTIC TAB PO SCH (12:51)
[2016-07-24] MEDS: PANTOPRAZOLE SOD 40 MG DELAYED RELEASE TAB PO SCH (12:51)
[2016-07-24] MEDS: DILTIAZEM-CD 120 MG CAP ER PO SCH (12:52)
[2016-07-24] MEDS: FOLIC ACID 1 MG TAB PO SCH (12:52)
--- NOTE | 2016-07-24 13:30 | RADRPT ---
EXAM DATE/TIME: 07/24/2016 11:05 [facility] COMPARISON: MYOCARDIAL PERF PHARM SPECT, GATED W/EF, April 11, 2015, 12:29. INDICATIONS : Angina. DOSE: 27.3 mCi Tc99m Myoview at stress. 8.4 mCi Tc99m Myoview at rest. 0.4 mg Lexiscan STRESS SYMPTOMS: Dizziness and tired. EJECTION FRACTION: 54% MEDICAL HISTORY : Hypercholesterolemia. Hypertension. SURGICAL HISTORY : Inguinal hernia repair. ENCOUNTER: Initial ACUITY: 1 day PAIN SCALE: 3/10 LOCATION: Bilateral chest TECHNIQUE: The patient underwent pharmacologic stress with infusion of prescribed dose. Continuous ECG tracing was monitored during stress. Gated SPECT imaging was performed after stress and conventional SPECT i maging was performed at rest. The examination was performed on a SPECT/CT scanner, both attenuation and non-corrected datasets were reviewed. FINDINGS: DISTRIBUTION: The maximum perfused segment at stress is in the anterolateral wall. PERFUSION STUDY: The pattern of perfusion at stress shows fixed diminished perfusion to the apex with no reversibility . GATED STUDY: There is intact wall motion and thickening without hypokinetic or dyskinetic segments. CONCLUSION: 1. 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 2. No ischemia. 3. Preserved wall motion throughout with estimated ejection fraction of 54%. RISK CATEGORY: Low (<1% Annual Mortality Rate) Jose Luis Orellana MD on July 24, 2016 at 13:26 Board Certified Radiologist. This report was verified electronically.
[2016-07-24 13:34] VITALS: BP 165/88; PULSE 71; RESP 17; TEMP 96.4; O2SAT 98
[2016-07-24 16:58] VITALS: BP 145/79; PULSE 68; RESP 18; TEMP 97; O2SAT 93
[2016-07-24] MEDS ORDERED: PHARMACY ORDERED LAB ONE (19:45)
[2016-07-24 21:23] VITALS: BP 156/92; PULSE 82; RESP 20; TEMP 97.1; O2SAT 97
[2016-07-24] MEDS: diphenhydrAMINE HCL 50 MG CAP PO PRN (21:56)
[2016-07-25 01:07] VITALS: BP 153/75; PULSE 66; RESP 22; TEMP 98.3; O2SAT 96
[2016-07-25] MEDS: CLINDAMYCIN 150 MG CAP PO SCH ×2 (01:36→06:01)
[2016-07-25] MEDS: SODIUM CHLOR 0.9% 1000 ML INJ 1,000 ML IV SCH (04:43)
[2016-07-25 05:50] VITALS: BP 140/87; PULSE 65; RESP 21; TEMP 97.5; O2SAT 97
[2016-07-25] MEDS: CLOTRIMAZOLE 1% CREAM 15 GM TOPICAL SCH (06:02)
--- NOTE | 2016-07-25 08:04 | HHI.PR ---
Subjective Remarks is ready to be discharged. no new complaints. Objective Vitals Vital Signs Date Time Temp Pulse Resp B/P Pulse Ox O2 Delivery O2 Flow Rate FiO2 07/25/16 05:50 97.5 65 21 140/87 97 07/25/16 01:07 98.3 66 22 153/75 96 07/24/16 21:23 97.1 82 20 156/92 97 07/24/16 16:58 97.0 68 18 145/79 93 07/24/16 13:34 96.4 71 17 165/88 98 07/24/16 09:11 97.6 66 18 155/91 92 I/O 07/24/16 07/24/16 07/24/16 07/25/16 07/25/16 07/25/16 07:00 15:00 23:00 07:00 15:00 23:00 Intake Total 600 ml 480 ml Output Total 4100 ml 300 ml Balance -3500 ml -300 ml 480 ml Intake Oral 600 ml 480 ml Output Urine Total 4100 ml 300 ml # Voids 2 Result Diagram: 07/21/16 0926 07/24/16 0945 Imaging Last Impressions Myocardial Perfusion Scan Nuc Med 07/24/16 0600 Signed Impressions: Service Date/Time: Sunday, July 24, 2016 11:05 - CONCLUSION: 1. 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 2. No ischemia. 3. Preserved wall motion throughout with estimated ejection fraction of 54%%. RISK CATEGORY : Low (<1%% Annual Mortality Rate) Jose Luis Orellana MD Chest X-Ray 07/20/16 1249 Signed Impressions: Service Date/Time: July 13:17 - CONCLUSION: 1. No acute cardiopulmonary disease. 2. Degenerative changes and scoliosis of the thoracic spine. Moises Mcintyre MD Objective Remarks GENERAL: This is a well-nourished, well-developed patient, in no apparent distress. CARDIOVASCULAR: Regular rate and regular rhythm without murmurs, gallops, or rubs. RESPIRATORY: Clear to auscultation. Breath sounds equal bilaterally. No wheezes , rales, or rhonchi. GASTROINTESTINAL: Abdomen soft, non-tender, nondistended. Normal, active bowel sounds MUSCULOSKELETAL: Extremities without clubbing, cyanosis, or edema. NEURO: Alert & Oriented x4 to person, place, time, situation. Moves all ext x4 skin; rash on the lower abdomen and on the groins has almost resolved. Procedures none Medications and IVs Current Medications Sodium Chloride 2 ml 2 ml UNSCH PRN IVF FLUSH AFTER USING IV ACCESS; Start at 13:30 Clindamycin Phosphate 900 mg/ Sodium Chloride 106 ml @ 200 mls/hr ONCE ONCE IV ; Start 07/20/16 at 13:30; Stop 07/20/16 at 14:32; Status DC Sodium Chloride (NS 1000 ml Inj) 1,000 ml @ 999 mls/hr BOLUS ONCE IV Last administered on 07/20/16 14:12; Start 07/20/16 at 13:30; Stop 07/20/16 at 14:30 ; Status DC Aspirin (Aspirin Chew) 324 mg ONCE ONCE CHEW Last administered on 07/20/16 14 :06; Start 07/20/16 at 14:00; Stop 07/20/16 at 14:01; Status DC Nitroglycerin 1 inch 1 inch ONCE ONCE TOPICAL Last administered on 07/20/16 14:12; Start 07/20/16 at 14:00; Stop 07/20/16 at 14:01; Status DC Piperacillin Sod/ Tazobactam Sod 100 ml @ 200 mls/hr ONCE ONCE IV ; Start at 14:30; Stop 07/20/16 at 14:59; Status DC Vancomycin HCl 1000 mg/Sodium Chloride 250 ml @ 250 mls/hr ONCE ONCE IV Last administered on 07/20/16 16:17; Start 07/20/16 at 14:30; Stop 07/20/16 at 15:29 ; Status DC Sodium Chloride 1,000 ml @ 1,000 mls/hr Q1H ONCE IV Last administered on 16:15; Start 07/20/16 at 14:28; Stop 07/20/16 at 15:27; Status DC Sodium Chloride 1,000 ml @ 1,000 mls/hr Q1H ONCE IV Last administered on 16:15; Start 07/20/16 at 14:28; Stop 07/20/16 at 15:27; Status DC Sodium Chloride (NS 1000 ml Inj) 400 ml @ 1,000 mls/hr Q24M ONCE IV Last administered on 07/20/16 16:16; Start 07/20/16 at 14:28; Stop 07/20/16 at 14:51 ; Status DC Potassium Chloride 40 meq 40 meq ONCE ONCE PO Last administered on 07/20/16 16:32; Start 07/20/16 at 14:45; Stop 07/20/16 at 14:46; Status DC Sodium Chloride (NS 1000 ml Inj) 1,000 ml @ 100 mls/hr Q10H IV Last administered on 07/24/16 19:45; Start 07/20/16 at 15:45 Magnesium Oxide (Mag-Ox) 400 mg Q12HR PO Last administered on 07/21/16 09:36; Start 07/20/16 at 16:00; Stop 07/21/16 at 12:08; Status DC Potassium Chloride (KCl) 40 meq ONCE ONCE PO ; Start 07/20/16 at 16:00; Stop at 16:01; Status DC Aspirin (Ecotrin Ec) 325 mg DAILY PO Last administered on 07/24/16 12:51; Start 07/21/16 at 09:00 Diltiazem HCl (Cardizem Cd) 120 mg DAILY PO Last administered on 07/24/16 12: 52; Start 07/21/16 at 09:00 Folic Acid (Folate) 1 mg DAILY PO Last administered on 07/24/16 12:52; Start 07/21/16 at 09:00 Metoprolol Tartrate (Lopressor) 75 mg Q12HR PO Last administered on 07/23/16 09:43; Start 07/20/16 at 21:00; Status Hold Multivitamins/ Minerals Therapeutic (Theragran M Tab) 1 tab DAILY PO Last administered on 07/24/16 12:51; Start 07/21/16 at 09:00 Pantoprazole Sodium (Protonix) 40 mg DAILY PO Last administered on 07/24/16 12 :51; Start 07/21/16 at 09:00 Thiamine HCl (Vitamin B1) 100 mg DAILY PO Last administered on 07/24/16 12:51 ; Start 07/21/16 at 09:00 Flumazenil (Romazicon Inj) 0.2 mg Q1M PRN IV PUSH SEE LABEL COMMENTS; Start at 16:00 Lorazepam (Ativan) 1 mg Q4H PRN PO CIWA 8 - 10 Last administered on 07/24/16 04:09; Start 07/20/16 at 16:00 Lorazepam (Ativan Inj) 1 mg Q4H PRN IV PUSH CIWA 8 - 10 Last administered on 16:53; Start 07/20/16 at 16:00 Lorazepam (Ativan) 2 mg Q2H PRN PO CIWA 11-14; Start 07/20/16 at 16:00 Lorazepam (Ativan Inj) 2 mg Q2H PRN IV PUSH CIWA 11-14; Start 07/20/16 at 16:00 Lorazepam (Ativan Inj) 2 mg Q1H PRN IV PUSH CIWA 15-20 Last administered on 02:12; Start 07/20/16 at 16:00 Lorazepam 2 mg 2 mg Q15M PRN IV PUSH CIWA > 20; Start 07/20/16 at 16:00 Clindamycin Phosphate/Sodium Chloride (Cleocin Inj/NS Inj) 104 ml @ 208 mls/hr Q8H IV Last administered on 07/21/16 03:47; Start 07/20/16 at 20:00; Stop at 12:06; Status DC Clotrimazole 1 applic 1 applic Q8HR TOPICAL Last administered on 07/25/16 06: 02; Start 07/20/16 at 17:00 Magnesium Sulfate/ Dextrose (Magnesium Sulfate 1 Gm Premix) 100 ml @ 100 mls/ hr ONCE ONCE IV Last administered on 07/21/16 13:07; Start 07/21/16 at 12:15 ; Stop 07/21/16 at 13:14; Status DC Magnesium Oxide 400 mg 400 mg Q12HR PO Last administered on 07/24/16 21:45; Start 07/21/16 at 21:00 Pharmacy Profile Note 0 ml @ 0 mls/hr UNSCH OTHER ; Start 07/21/16 at 12:15; Stop 07/24/16 at 21:12; Status DC Vancomycin HCl/ Sodium Chloride (Vancomycin Inj/ NS 250 ml Inj) 250 ml @ 250 mls/hr Q8H IV Last administered on 07/23/16 18:41; Start 07/21/16 at 13:00; Stop 07/23/16 at 18:50; Status DC Miscellaneous Information SPECIFIC LAB TO BE PATRICIA... ONCE ONCE .XX Last administered on 07/22/16 12:45; Start 07/22/16 at 12:45; Stop 07/22/16 at 12:46 ; Status DC Magnesium Sulfate/ Dextrose (Magnesium Sulfate 1 Gm Premix) 100 ml @ 100 mls/ hr ONCE ONCE IV Last administered on 07/22/16 11:31; Start 07/22/16 at 10:30 ; Stop 07/22/16 at 11:29; Status DC Miscellaneous Information SPECIFIC LAB TO BE PATRICIA... ONCE ONCE .XX ; Start 07/23 at 12:45; Stop 07/23/16 at 12:46; Status DC Diphenhydramine HCl (Benadryl) 50 mg HS PRN PO INSOMNIA Last administered on 21:56; Start 07/22/16 at 22:45 Miscellaneous 1 ea 1 ea UNSCH PRN OTHER SEE LABEL COMMENTS; Start 07/22/16 at 22:45 Magnesium Sulfate/ Dextrose (Magnesium Sulfate 1 Gm Premix) 100 ml @ 100 mls/ hr Q1H IV Last administered on 07/23/16 12:33; Start 07/23/16 at 10:00; Stop 07/23/16 at 11:59; Status DC Nifedipine 30 mg 30 mg ONCE ONCE PO Last administered on 07/23/16 12:19; Start 07/23/16 at 10:15; Stop 07/23/16 at 10:16; Status DC Vancomycin HCl/ Sodium Chloride (Vancomycin Inj/ NS 250 ml Inj) 250 ml @ 250 mls/hr Q8H IV Last administered on 07/24/16 04:09; Start 07/24/16 at 04:00; Stop 07/24/16 at 21:13; Status DC Miscellaneous Information SPECIFIC LAB TO BE PATRICIA... ONCE ONCE .XX Last administered on 07/24/16 20:10; Start 07/24/16 at 19:45; Stop 07/24/16 at 19:46 ; Status DC Zolpidem Tartrate (Ambien) 5 mg NOW ONCE PO Last administered on 07/23/16 21: 33; Start 07/23/16 at 21:15; Stop 07/23/16 at 21:16; Status DC Regadenoson (Lexiscan Inj) 0.4 mg STK-MED ONCE .ROUTE Last administered on 07/24 11:36; Start 07/24/16 at 11:36; Stop 07/24/16 at 11:37; Status DC Clindamycin HCl (Cleocin) 300 mg Q6HR PO Last administered on 07/25/16 06:01; Start 07/25/16 at 00:00 A/P Assessment and Plan A/P - alcohol intoxication-resolved continue supportive care; - thiamine, multivitamins- -cellulitis of the lower abdomen/ groin-much improved switched to po antibiotics upon discharge- -lactic acidosis- due to alcohol-resolved. -minimal elevation of troponin with stable trend- and EKG with no acute changes ; continue aspirin and BB- stress test with no ischemia. -hypertension;overall better controlled- not-compliant with meds- resumed his BP meds-f/u as outpatient. -hypokalemia; replaced - hypomagnesemia; replaced. -DVT prophylaxis with SCD's -case management consulted for dc planning/ needs. Discharge Planning dc home today. see med list. counselled on drinking cessation. d/w the patient. Isaiah Jernigan MD Jul 25, 2016 08:04
[2016-07-25] MEDS: THIAMINE HCL 100 MG TAB PO SCH (08:32)
[2016-07-25] MEDS: MULTIVITAMINS/MINERALS THERAPEUTIC TAB PO SCH (08:33)
[2016-07-25] MEDS: FOLIC ACID 1 MG TAB PO SCH (08:33)
[2016-07-25] MEDS: ASPIRIN EC 325 MG TABEC PO SCH (08:33)
[2016-07-25] MEDS: DILTIAZEM-CD 120 MG CAP ER PO SCH (08:33)
[2016-07-25] MEDS: MAGNESIUM OXIDE 400 MG TAB PO SCH (08:33)
[2016-07-25] MEDS: PANTOPRAZOLE SOD 40 MG DELAYED RELEASE TAB PO SCH (08:33)
== END 2016-07-25 09:35 | disposition home or self-care (01) | DRG 897 ==
LOC: NEPE 12:35 → NEDA 15:39 → N05A 17:56
PROVIDERS: ADMIT Internal Medicine; ATTEND Internal Medicine
DX: F10.129 Alcohol abuse with intoxication, unspecified (principal); E87.2 Acidosis; L03.311 Cellulitis of abdominal wall; R74.8 Abnormal levels of other serum enzymes; I10 Essential (primary) hypertension; D64.9 Anemia, unspecified; Y90.8 Blood alcohol level of 240 mg/100 ml or more; K44.9 Diaphragmatic hernia without obstruction or gangrene; E78.00 Pure hypercholesterolemia, unspecified; F41.9 Anxiety disorder, unspecified; F32.9 Major depressive disorder, single episode, unspecified; Z88.8 Allergy status to other drugs, medicaments and biological substances; R21 Rash and other nonspecific skin eruption; Z91.14 Patient's other noncompliance with medication regimen; F17.210 Nicotine dependence, cigarettes, uncomplicated; Z59.0 Homelessness; R31.9 Hematuria, unspecified; E83.42 Hypomagnesemia; E87.6 Hypokalemia; R25.1 Tremor, unspecified
CPT/HCPCS: 71010; 78452; 80048; 80202; 80307; 82550; 82552; 82565; 83605; 83690; 83735; 84155; 84484; 85025; 85610; 85730; 86403; 87040; 87070; 93005; 93017; 96360; A9502; J2060; J2785; J3370; J3475; J7030; J7050; Q0163

== ENCOUNTER 2016-09-01 13:32 | Inpatient (IN) | payer SELFPAY ==
[~2016-09-01] VITALS: Ht 180.3 cm; Wt 82.9 kg
[~2016-09-01 13:32] MED LIST changes: -ASPI325T33 PO; +ASPI81TA11 PO; +CLIN1CAP6 PO
[2016-09-01 13:39] VITALS: BP 113/69; PULSE 96; RESP 18; TEMP 97.5; O2SAT 100
[2016-09-01] MEDS ORDERED: SODIUM CHLOR 0.9% 1000 ML INJ 1,000 ML IV SCH ×2 (13:53→14:43)
--- NOTE | 2016-09-01 13:56 | PD ---
HPI Chief Complaint: Chest Pain Time Seen by Provider: 13:56 Travel History International Travel<30 days: No Contact w/Intl Traveler<30days: No Traveled to known affect area: No History of Present Illness HPI 56-year-old male with a history of alcohol abuse, hypertension is brought to the emergency department by EMS for evaluation of chest pain. Per EMS report the patient's landlord knocked on his door to try to get reddened pain from the patient today. When the patient did not answer a called the police department for a little person check. When they found the patient in his apartment he was noted to be on the floor covered in feces and urine. Unknown down time. The patient seems intoxicated and is a poor historian. The patient admits to drinking alcohol "like a fish." He states that he smoked crack cocaine a few days ago for the first time. He denies any IV drug use, denies any history of IV drug use. He states that he was having chest pain earlier. He also complains of some intermittent abdominal pain. He denies any nausea, vomiting, shortness of breath, difficulty breathing, lightheadedness, dizziness. He complains of generalized weakness. No other complaints. PFSH Past Medical History Asthma: No Blood Disorders: No Anxiety: Yes Depression: Yes Heart Rhythm Problems: No Cancer: No Cardiac Catheterization: No Cardiovascular Problems: Yes High Cholesterol: Yes Chemotherapy: No Chest Pain: Yes Congestive Heart Failure: No COPD: No Cerebrovascular Accident: No Diabetes: No Diminished Hearing: No Endocrine: No Gastrointestinal Disorders: Yes GERD: No Genitourinary: No Headaches: No Hiatal Hernia: Yes Heparin Induced Thrombocytopen: No Hypertension: Yes Immune Disorder: No Implanted Vascular Access Dvce: No Musculoskeletal: Yes (RIGHT HIP PAIN) Neurologic: No Psychiatric: Yes Reproductive: No Respiratory: No Immunizations Current: Yes Migraines: No Radiation Therapy: No Seizures: Yes Sleep Apnea: No Thyroid Disease: No Ulcer: No Past Surgical History Abdominal Surgery: Yes (HERNIA REPAIR ) Cardiac Surgery: No Coronary Artery Bypass Graft: No Ear Surgery: No Endocrine Surgery: No Eye Surgery: No Genitourinary Surgery: No Gynecologic Surgery: No Neurologic Surgery: No Oral Surgery: No Thoracic Surgery: No Other Surgery: Yes (HERNIA REPAIR) Social History Alcohol Use: Yes Tobacco Use: Yes Substance Use: Yes Allergies-Medications (Allergen,Severity, Reaction): Coded Allergies: Lisinopril (Verified Allergy, Severe, Wheezing, 09/01/16) Reported Meds & Prescriptions Reported Meds & Active Scripts Active Aspirin EC (Aspirin) 81 Mg Tabdr 162 Mg PO DAILY 30 Days Clindamycin (Clindamycin HCl) 300 Mg Cap 300 Mg PO Q6H 7 Days Cardizem CD 24 HR (Diltiazem CD 24 HR) 120 Mg Caper 120 Mg PO DAILY 30 Days Lopressor (Metoprolol Tartrate) 50 Mg Tab 75 Mg PO Q12HR 30 Days Vitamin B-1 (Thiamine HCl) 100 Mg Tab 100 Mg PO DAILY 30 Days Pantoprazole (Pantoprazole Sodium) 40 Mg Tab 40 Mg PO DAILY 30 Days Thera M Plus (Multivitamins/Minerals Therapeutic) 1 Tab 1 Tab PO DAILY 30 Days Folate (Folic Acid) 1 Mg Tab 1 Mg PO DAILY 30 Days Review of Systems ROS Limitations: Poor Historian Except as stated in HPI: all other systems reviewed are Neg Physical Exam Exam Limitations: Poor Historian Narrative GENERAL: Well-nourished and well-developed male patient in no acute distress. Covered in light brown feces. SKIN: Warm and dry. HEAD: Normocephalic and atraumatic. No bony point tenderness or crepitus noted throughout the sinuses. EYES: No injection, drainage, or hyphema noted. PERRLA. EOMI. ENT: No nasal drainage noted. Oropharynx is clear. NECK: Supple and the trachea is midline. CARDIOVASCULAR: Regular rate and rhythm. RESPIRATORY: Breath sounds are equal bilaterally with no accessory muscle use, wheezing, rhonchi, or crackles. GASTROINTESTINAL: Abdomen is soft, non-tender, and nondistended. No rebound tenderness or guarding. MUSCULOSKELETAL: No obvious deformities, swelling, cyanosis, or ecchymosis is present throughout the upper and lower extremities. Patient has full range of motion without any signs of neurovascular compromise. NEUROLOGICAL: Awake, alert, and oriented. Normal speech. Cranial nerves are grossly intact. Data Data Last Documented VS Vital Signs Date Time Temp Pulse Resp B/P Pulse Ox O2 Delivery O2 Flow Rate FiO2 09/01/16 14:01 100 09/01/16 13:39 97.5 96 18 113/69 Orders Electrocardiogram (09/01/16 13:53) Complete Blood Count With Diff (09/01/16 13:53) Comprehensive Metabolic Panel (09/01/16 13:53) Creatine Kinase (Cpk) (09/01/16 13:53) Prothrombin Time / Inr (Pt) (09/01/16 13:53) Act Partial Throm Time (Ptt) (09/01/16 13:53) Troponin I (09/01/16 13:53) Urinalysis - C+S If Indicated (09/01/16 13:53) Lactic Acid Sepsis Protocol (09/01/16 13:53) Chest, Single Ap (09/01/16 13:53) Ct Brain W/O Iv Contrast(Rout) (09/01/16 13:53) Blood Glucose (09/01/16 13:53) Ecg Monitoring (09/01/16 13:53) Iv Access Insert/Monitor (09/01/16 13:53) Oximetry (09/01/16 13:53) Sodium Chloride 0.9% Flush (Ns Flush) (09/01/16 14:00) Sodium Chlor 0.9% 1000 Ml Inj (Ns 1000 M (09/01/16 13:53) Alcohol (Ethanol) (09/01/16 13:53) Drug Screen, Random Urine (09/01/16 13:53) Diet Regular Basic (09/01/16 Dinner) Sodium Chlor 0.9% 1000 Ml Inj (Ns 1000 M (09/01/16 14:43) CKMB (09/01/16 14:00) CKMB% (09/01/16 14:00) Potassium Chloride Eff (K-Lyte Cl Eff) (09/01/16 15:00) Admit Order (Ed Use Only) (09/01/16 16:17) Labs Laboratory Tests Test 09/01/16 14:00 White Blood Count 4.1 TH/MM3 Red Blood Count 3.56 MIL/MM3 Hemoglobin 11.7 GM/DL Hematocrit 33.2 % Mean Corpuscular Volume 93.2 FL Mean Corpuscular Hemoglobin 32.9 PG Mean Corpuscular Hemoglobin 35.2 % Concent Red Cell Distribution Width 18.9 % Platelet Count 97 TH/MM3 Mean Platelet Volume 8.6 FL Neutrophils (%) (Auto) 69.6 % Lymphocytes (%) (Auto) 15.0 % Monocytes (%) (Auto) 15.1 % Eosinophils (%) (Auto) 0.0 % Basophils (%) (Auto) 0.3 % Neutrophils # (Auto) 2.9 TH/MM3 Lymphocytes # (Auto) 0.6 TH/MM3 Monocytes # (Auto) 0.6 TH/MM3 Eosinophils # (Auto) 0.0 TH/MM3 Basophils # (Auto) 0.0 TH/MM3 CBC Comment AUTO DIFF Prothrombin Time 10.1 SEC Prothromb Time International 0.9 RATIO Ratio Activated Partial 25.9 SEC Thromboplast Time Sodium Level 131 MEQ/L Potassium Level 2.7 MEQ/L Chloride Level 87 MEQ/L Carbon Dioxide Level 33.0 MEQ/L Anion Gap 11 MEQ/L Blood Urea Nitrogen 8 MG/DL Creatinine 0.71 MG/DL Estimat Glomerular Filtration 116 ML/MIN Rate Random Glucose 127 MG/DL Lactic Acid Level 6.9 mmol/L Calcium Level 8.0 MG/DL Total Bilirubin 0.5 MG/DL Aspartate Amino Transf 219 U/L (AST/SGOT) Alanine Aminotransferase 137 U/L (ALT/SGPT) Alkaline Phosphatase 125 U/L Total Creatine Kinase 459 U/L Creatine Kinase MB 5.5 NG/ML Creatine Kinase MB % 1.2 % Troponin I LESS THAN 0.02 NG/ML Total Protein 5.9 GM/DL Albumin 2.9 GM/DL Ethyl Alcohol Level 375 MG/DL [facility] Medical Decision Making Medical Screen Exam Complete: Yes Emergency Medical Condition: Yes Differential Diagnosis Dehydration versus rhabdomyolysis versus electrolyte abnormality versus alcohol intoxication versus alcohol abuse versus other Narrative Course 56-year-old male with a history of alcohol abuse is brought to the emergency department for evaluation of chest pain after being found down in his apartment. Patient is afebrile, vital signs are stable. IV access is obtained , labs were drawn and sent. Patient is placed on cardiac telemetry and pulse oximetry monitoring. He is administered IV fluids. EKG shows sinus rhythm with no acute ST elevations or depressions. CBC shows mild anemia with a hemoglobin of 11.7, hematocrit 33.2. He also has low platelets of 97. This consistent with previous lab values. Likely secondary to alcohol abuse. CMP shows hyponatremia with a sodium of 131, hypokalemia with potassium of 2.7, elevated LFTs. CPK is 459. Troponin is less 0.02. Lactic acid is elevated at 6.9. EtOH is 375. Head CT is negative for any acute abnormalities. Labs show dehydration with hypokalemia and lactic acidosis. The patient's alcohol is also quite elevated at 375. He has remained slightly tachycardic but vitals have been stable. He is intoxicated but asking to eat food and drink water. I discussed the case with my attending physician and we agree he will need to be observed and given IV hydration with potassium repletion. I discussed the case with my attending physician Dr. Castaneda who is aware of the patients history, physical examination findings, and treatment plan. Physician Communication Physician Communication I spoke with Dr. Michelle [facility] who agrees to accept the patient under his service. Diagnosis Primary Impression: Lactic acidosis Additional Impressions: Hypokalemia Alcohol intoxication Qualified Code: F10.920 - Alcohol intoxication, uncomplicated Dehydration Admitting Information Admitting Physician Requests: Observation Leslie Michelle Sep 01, 2016 13:56
[2016-09-01] MEDS ORDERED: SODIUM CHLORIDE 0.9% FLUSH 5 ML FLUSH IV FLUSH PRN (14:00)
[2016-09-01 14:01] VITALS: O2SAT 100
[2016-09-01 14:30] LABS: AUTOMATED NEUTROPHIL # 2.9 TH/MM3 (1.8-7.7); BASOPHIL % 0.3 % (0.0-2.0); HEMATOCRIT 33.2 % (39.0-51.0); LYMPHOCYTE # 0.6 TH/MM3 (1.0-4.8); MEAN CELL VOLUME 93.2 FL (80.0-100.0); MEAN CORPUSCULAR HEMOGLOBIN 32.9 PG (27.0-34.0); MEAN CORPUSCULAR HGB CONC 35.2 % (32.0-36.0); MONO % 15.1 % (0.0-8.0); NEUT % 69.6 % (16.0-70.0); PLATELET COUNT 97 TH/MM3 (150-450); RED BLOOD COUNT 3.56 MIL/MM3 (4.50-5.90); RED CELL DISTRIBUTION WIDTH 18.9 % (11.6-17.2); WHITE BLOOD COUNT 4.1 TH/MM3 (4.0-11.0)
[2016-09-01 14:35] LABS: HEMO FLAGS AUTO DIFF
[2016-09-01 14:39] LABS: APTT (PATIENT) 25.9 SEC (24.3-30.1); INTERNATIONAL NORMALIZED RATIO 0.9 RATIO; PROTHROMBIN TIME - PATIENT 10.1 SEC (9.8-11.6)
[2016-09-01 14:43] LABS: ALKALINE PHOSPHATASE 125 U/L (45-117); ALT (GPT) 137 U/L (12-78); ANION GAP 11 MEQ/L (5-15); AST (GOT) 219 U/L (15-37); BLOOD UREA NITROGEN 8 MG/DL (7-18); CHLORIDE 87 MEQ/L (98-107); CREATINE KINASE 459 U/L (39-308); GLOMERULAR FILTRATION RATE 116 ML/MIN (>89); SODIUM (NA) 131 MEQ/L (136-145); TOTAL BILIRUBIN ADULT 0.5 MG/DL (0.2-1.0)
[2016-09-01 14:45] LABS: POTASSIUM 2.7 MEQ/L (3.5-5.1)
--- NOTE | 2016-09-01 14:49 | RADRPT ---
EXAM DATE/TIME: 09/01/2016 14:05 [facility] COMPARISON: CHEST SINGLE AP, July 20, 2016, 13:17. INDICATIONS : Syncope/ Cough. Pt is a 1 ppd smoker. MEDICAL HISTORY : Hypertension. SURGICAL HISTORY : None. ENCOUNTER: Initial ACUITY: 1 day PAIN SCORE: 0/10 LOCATION: Bilateral chest FINDINGS: Single AP view of the chest. The lungs are clear. Cardiomediastinal silhouette within normal limits. No evidence of pleural effusion or pneumothorax. CONCLUSION: No acute cardiopulmonary disease identified. Vick Mota MD on September 01, 2016 at 14:47 Board Certified Radiologist. This report was verified electronically.
[2016-09-01] MEDS ORDERED: POTASSIUM CHLORIDE 25 MEQ EFFERVESCENT TAB PO ONE (15:00)
[2016-09-01 15:10] LABS: CKMB 5.5 NG/ML (0.5-3.6)
--- NOTE | 2016-09-01 15:56 | RADRPT ---
EXAM DATE/TIME: 09/01/2016 15:36 [facility] COMPARISON: CT BRAIN W/O CONTRAST, June 01, 2016, 8:41. INDICATIONS : Altered mental status. RADIATION DOSE: 38.78 CTDIvol (mGy) MEDICAL HISTORY : Seizures. Cardiovascular disease Hypertension. SURGICAL HISTORY : None. ENCOUNTER: Initial ACUITY: 1 day PAIN SCALE: 6/10 LOCATION: Bilateral cranial TECHNIQUE: Multiple contiguous axial images were obtained of the head. Using automated exposure control and adj ustment of the mA and/or kV according to patient size, radiation dose was kept as low as reasonably a chievable to obtain optimal diagnostic quality images. FINDINGS: CEREBRUM: The ventricles are normal for age. No evidence of midline shift, mass lesion, hemorrhage or acute in farction. No extra-axial fluid collections are seen. POSTERIOR FOSSA: The cerebellum and brainstem are intact. The 4th ventricle is midline. The cerebellopontine angle i s unremarkable. EXTRACRANIAL: The visualized portion of the orbits is intact. SKULL: The calvaria is intact. No evidence of skull fracture. CONCLUSION: No acute disease. Wilson Batista MD FACR on September 01, 2016 at 15:50 Board Certified Radiologist. This report was verified electronically.
[2016-09-01 16:18] LABS: LACTIC ACID GHOST NOT REPORTABLE
[2016-09-01 16:24] LABS: PLATELET ESTIMATE SMEAR LOW (NORMAL); PLATELET MORPHOLOGY NORMAL (NORMAL); SCAN/DIFF AUTO DIFF CONFIRMED; TARGET CELLS 1+ (NORMAL)
[2016-09-01] MEDS ORDERED: BISACODYL 10 MG SUPP RECTAL PRN (16:30)
[2016-09-01] MEDS ORDERED: SENNOSIDES 8.6 MG TAB PO PRN (16:30)
[2016-09-01] MEDS ORDERED: ONDANSETRON HCL 4 MG/2 ML VIAL IVP PRN (16:30)
[2016-09-01] MEDS ORDERED: SODIUM CHLORIDE 0.9% FLUSH 10 ML FLUSH IV FLUSH PRN (16:30)
[2016-09-01] MEDS ORDERED: LACTULOSE SYRUP 20 GM/30 ML CUP PO PRN (16:30)
[2016-09-01] MEDS ORDERED: NALOXONE HCL 0.4 MG/ML AMP IV PRN (16:30)
[2016-09-01] MEDS ORDERED: MAGNESIUM HYDROXIDE SUSP 30 ML CUP PO PRN (16:30)
[2016-09-01] MEDS ORDERED: VITA100T54 PO (16:55)
[2016-09-01 16:57] LABS: BACTERIA, URINE FEW /hpf; BLOOD, URINE SMALL (NEG); COMMENT (UR) CATH-CULTURE IND; CULTURE IF INDICATED CATH CULTURE IND; GLUCOSE,URINE 150 mg/dL (NEG); KETONE, URINE NEG (NEG); MUCUS URINE FEW /lpf (OCC); NITRITE,URINE NEG (NEG); SQUAMOUS EPITHELIAL CELL URINE 1 /hpf (0-5); URINE COLOR YELLOW (YELLW/STRAW)
[2016-09-01 16:59] LABS: AMPHETAMINE, URINE NEG (NEG); BARBITURATES, URINE NEG (NEG); COCAINE, URINE NEG (NEG)
[2016-09-01] MEDS ORDERED: ENOXAPARIN SODIUM 40 MG/0.4 ML SYRINGE SQ SCH (17:00)
--- NOTE | 2016-09-01 17:01 | HHI.HP ---
[facility] Service [place] [facility] Primary Care Physician No Primary Care Physician Admission Diagnosis Lactic Acidosis, Hypokalemia, Alcohol Intoxication, Dehydration Diagnoses: (1) Dehydration Diagnosis: Principal (2) Lactic acidosis Diagnosis: Principal (3) Hypokalemia Diagnosis: Principal (4) Elevated troponin Diagnosis: Principal (5) Alcohol abuse Diagnosis: Principal Travel History International Travel<30 Days: No Contact w/Intl Traveler <30 Da: No Traveled to Known Affected Are: No History of Present Illness Mr. Funk is 56-year-old male. He was found unconscious by police. She is a known alcoholic and has been his hospital before. He admits to me that he took crack cocaine about 4-5 days ago and has been on a drinking binge since. He has not been drinking liquids. He is found to be severely dehydrated. Metabolic disturbances including hypokalemia, severe lactic acidosis, dehydration, and elevated LFTs. She has hypertension at baseline but does not take any treatments for this. She also admits to smoking. He has just finished eating and is not having nausea or vomiting. No other complaints. He does not complain of chest pain when I visited him. Presently he has alcohol intoxication and this limits history somewhat. Review of Systems Constitutional: DENIES: Fatigue, Fever, Chills Eyes: DENIES: Blurred vision, Diplopia Ears, nose, mouth, throat: DENIES: Hearing loss, Vertigo Respiratory: DENIES: Cough, Wheezing, Shortness of breath Cardiovascular: DENIES: Chest pain, Palpitations, Syncope Gastrointestinal: DENIES: Abdominal pain, Black stools, Bloody stools Genitourinary: DENIES: Urinary frequency Musculoskeletal: DENIES: Joint pain, Muscle aches Integumentary: DENIES: Abnormal pigmentation Hematologic/lymphatic: DENIES: Bruising Immunologic/allergic: DENIES: Eczema Neurologic: DENIES: Abnormal gait Psychiatric: DENIES: Anxiety Past Family Social History Past Medical History Hypertension Alcoholism Past Surgical History Hernia surgery Reported Medications Reported Meds & Active Scripts Active Aspirin EC (Aspirin) 81 Mg Tabdr 162 Mg PO DAILY 30 Days Clindamycin (Clindamycin HCl) 300 Mg Cap 300 Mg PO Q6H 7 Days Cardizem CD 24 HR (Diltiazem CD 24 HR) 120 Mg Caper 120 Mg PO DAILY 30 Days Lopressor (Metoprolol Tartrate) 50 Mg Tab 75 Mg PO Q12HR 30 Days Vitamin B-1 (Thiamine HCl) 100 Mg Tab 100 Mg PO DAILY 30 Days Pantoprazole (Pantoprazole Sodium) 40 Mg Tab 40 Mg PO DAILY 30 Days Thera M Plus (Multivitamins/Minerals Therapeutic) 1 Tab 1 Tab PO DAILY 30 Days Folate (Folic Acid) 1 Mg Tab 1 Mg PO DAILY 30 Days Allergies: Coded Allergies: Lisinopril (Verified Allergy, Severe, Wheezing, 09/01/16) Family History Multiple sclerosis and mother Lung cancer and mother Social History Nicotine dependence, 1 pack per day or more Alcohol abuse Drug abuse (recent crack cocaine) Patient is homeless Physical Exam Vital Signs Vital Signs Date Time Temp Pulse Resp B/P Pulse Ox O2 Delivery O2 Flow Rate FiO2 09/01/16 14:01 100 09/01/16 13:39 97.5 96 18 113/69 100 Physical Exam GENERAL: NAD, A&Ox3, patient disheveled and dirty SKIN: Warm and dry. Dry skin, dry mucous membranes. HEAD: Normocephalic. EYES: No scleral icterus. No injection or drainage. NECK: Supple, trachea midline. No JVD or lymphadenopathy. CARDIOVASCULAR: Regular rate and rhythm without murmurs, gallops, or rubs. RESPIRATORY: Breath sounds equal bilaterally. No accessory muscle use. GASTROINTESTINAL: Abdomen soft, non-tender, nondistended. MUSCULOSKELETAL: No cyanosis, or edema. Laboratory Laboratory Tests Test 09/01/16 14:00 White Blood Count 4.1 Red Blood Count 3.56 Hemoglobin 11.7 Hematocrit 33.2 Mean Corpuscular Volume 93.2 Mean Corpuscular Hemoglobin 32.9 Mean Corpuscular Hemoglobin 35.2 Concent Red Cell Distribution Width 18.9 Platelet Count 97 Mean Platelet Volume 8.6 Neutrophils (%) (Auto) 69.6 Lymphocytes (%) (Auto) 15.0 Monocytes (%) (Auto) 15.1 Eosinophils (%) (Auto) 0.0 Basophils (%) (Auto) 0.3 Neutrophils # (Auto) 2.9 Lymphocytes # (Auto) 0.6 Monocytes # (Auto) 0.6 Eosinophils # (Auto) 0.0 Basophils # (Auto) 0.0 CBC Comment AUTO DIFF Differential Comment AUTO DIFF CONFIRMED Platelet Estimate LOW Platelet Morphology Comment NORMAL Target Cells 1+ Prothrombin Time 10.1 Prothromb Time International 0.9 Ratio Activated Partial 25.9 Thromboplast Time Sodium Level 131 Potassium Level 2.7 Chloride Level 87 Carbon Dioxide Level 33.0 Anion Gap 11 Blood Urea Nitrogen 8 Creatinine 0.71 Estimat Glomerular Filtration 116 Rate Random Glucose 127 Lactic Acid Level 6.9 Calcium Level 8.0 Total Bilirubin 0.5 Aspartate Amino Transf 219 (AST/SGOT) Alanine Aminotransferase 137 (ALT/SGPT) Alkaline Phosphatase 125 Total Creatine Kinase 459 Creatine Kinase MB 5.5 Creatine Kinase MB % 1.2 Troponin I LESS THAN 0.02 Total Protein 5.9 Albumin 2.9 Ethyl Alcohol Level 375 Result Diagram: 09/01/16 1400 09/01/16 1400 Imaging Last Impressions Head CT 09/01/16 1353 Signed Impressions: Service Date/Time: Thursday, September 01, 2016 15:36 - CONCLUSION: No acute disease. Wilson Batista MD FACR Chest X-Ray 09/01/16 1353 Signed Impressions: Service Date/Time: Thursday, September 01, 2016 14:05 - CONCLUSION: No acute cardiopulmonary disease identified. Vick Mota MD Assessment and Plan Problem List: (1) Alcohol abuse ICD Code: F10.10 Status: Chronic (2) Elevated troponin ICD Code: R74.8 Status: Acute (3) Hypokalemia ICD Code: E87.6 Status: Acute (4) Lactic acidosis ICD Code: E87.2 Status: Acute (5) Dehydration ICD Code: E86.0 Status: Acute Assessment and Plan Assessment and plan 56-year-old male admitted with severe dehydration secondary to alcohol abuse and lost consciousness. Severe dehydration IV fluid replacement Follow clinically for improvement of dehydration Hypokalemia Replace potassium Monitor on telemetry Severe lactic acidosis This is related to alcohol abuse Monitor lactic acid level IV hydration Alcoholism Alcohol intoxication Avoid alcohol and future Monitor for delirium tremens Folic acid THIAMINE IV hydration Nicotine dependence NicoDerm next Hypertension This may worsen once fluid balance is reestablished When necessary clonidine Global weakness This is secondary to alcohol abuse We'll obtain physical therapy evaluation in a.m. next DVT prophylaxis Phill Macias MD Sep 01, 2016 5:01 pm
[2016-09-01] MEDS ORDERED: THIAMINE HCL 100 MG TAB PO ONE (17:30)
[2016-09-01] MEDS ORDERED: FOLIC ACID 1 MG TAB PO ONE (17:30)
[2016-09-01 17:42] VITALS: BP 138/85; PULSE 103; RESP 19; TEMP 98.1; O2SAT 93
[2016-09-01] MEDS: REMOVE OLD PATCH T-DERMAL SCH (18:31)
[2016-09-01] MEDS: NICOTINE 21 MG/24 HR PATCH T-DERMAL SCH (18:34)
[2016-09-01 19:29] VITALS: BP 150/89; PULSE 115; RESP 20; TEMP 98.6; O2SAT 91
[2016-09-01] MEDS ORDERED: FLUMAZENIL 0.5 MG/5 ML VIAL IV PUSH PRN (19:45)
[2016-09-01] MEDS ORDERED: LORazepam 2 MG/ML VIAL IV PUSH PRN ×3 (19:45)
[2016-09-01] MEDS ORDERED: ACETAMINOPHEN 325 MG TAB PO PRN (19:45)
[2016-09-01] MEDS ORDERED: HALOPERIDOL LACTATE 5 MG/ML AMP IM PRN (19:45)
[2016-09-01] MEDS: SODIUM CHLORIDE 0.9% FLUSH 10 ML FLUSH IV FLUSH SCH (20:13)
[2016-09-01] MEDS: DOCUSATE SODIUM 50 MG/SENNA 8.6 MG TAB PO SCH (20:13)
[2016-09-01 21:15] LABS: POTASSIUM 3.1 MEQ/L (3.5-5.1)
[2016-09-01 21:53] VITALS: BP 154/89; PULSE 125; RESP 18; O2SAT 97
[2016-09-01] MEDS: SODIUM CHLOR 0.9% 1000 ML INJ 1,000 ML IV SCH ×2 (21:59→23:40)
[2016-09-01] MEDS: LORazepam 1 MG TAB PO PRN ×2 (22:00→23:48)
[2016-09-02] VITALS (11 sets, daily range): BP systolic 137–188; BP diastolic 79–110; PULSE 60–120; RESP 18–20; TEMP 97.9–98.9; O2SAT 92–94
[2016-09-02 03:22] LABS: AUTOMATED NEUTROPHIL # 4.1 TH/MM3 (1.8-7.7); BASOPHIL % 0.5 % (0.0-2.0); LYMPH % 10.2 % (9.0-44.0); LYMPHOCYTE # 0.5 TH/MM3 (1.0-4.8); MEAN CELL VOLUME 93.8 FL (80.0-100.0); MEAN CORPUSCULAR HEMOGLOBIN 32.3 PG (27.0-34.0); MEAN CORPUSCULAR HGB CONC 34.4 % (32.0-36.0); NEUT % 80.3 % (16.0-70.0); PLATELET COUNT 76 TH/MM3 (150-450); RED BLOOD COUNT 3.41 MIL/MM3 (4.50-5.90); RED CELL DISTRIBUTION WIDTH 18.4 % (11.6-17.2); WHITE BLOOD COUNT 5.1 TH/MM3 (4.0-11.0)
[2016-09-02 03:23] LABS: HEMO FLAGS DIFF FINAL
[2016-09-02] MEDS: LORazepam 2 MG TAB PO PRN ×3 (03:29→07:58)
[2016-09-02 03:33] LABS: ALT (GPT) 141 U/L (12-78); ANION GAP 6 MEQ/L (5-15); AST (GOT) 279 U/L (15-37); BICARBONATE 35.7 MEQ/L (21.0-32.0); BLOOD UREA NITROGEN 10 MG/DL (7-18); CHLORIDE 88 MEQ/L (98-107); GLOMERULAR FILTRATION RATE 109 ML/MIN (>89); SODIUM (NA) 130 MEQ/L (136-145)
[2016-09-02 03:36] LABS: ALKALINE PHOSPHATASE 153 U/L (45-117); TOTAL BILIRUBIN ADULT 0.9 MG/DL (0.2-1.0)
[2016-09-02] MEDS: cloNIDine HCL 0.1 MG TAB PO PRN (05:30)
[2016-09-02] MEDS: SODIUM CHLOR 0.9% 1000 ML INJ 1,000 ML IV SCH ×3 (06:20→19:40)
[2016-09-02] MEDS ORDERED: POTASSIUM CHLORIDE 20 MEQ CONTROLLED RELEASE TAB PO ONE (07:30)
[2016-09-02] MEDS: FOLIC ACID 1 MG TAB PO SCH (07:58)
[2016-09-02] MEDS: THIAMINE HCL 100 MG TAB PO SCH (07:58)
[2016-09-02] MEDS: DOCUSATE SODIUM 50 MG/SENNA 8.6 MG TAB PO SCH ×2 (07:58→23:37)
[2016-09-02] MEDS: NICOTINE 21 MG/24 HR PATCH T-DERMAL SCH (07:59)
[2016-09-02] MEDS: SODIUM CHLORIDE 0.9% FLUSH 10 ML FLUSH IV FLUSH SCH ×2 (07:59→23:39)
[2016-09-02] MEDS: REMOVE OLD PATCH T-DERMAL SCH (07:59)
[2016-09-02] MEDS ORDERED: PILL SPLITTER OTHER PRN (10:15)
[2016-09-02] MEDS: MAGNESIUM SULFATE 1 GM PREMIX 100 ML IV SCH ×4 (10:27→15:33)
[2016-09-02] MEDS: METOPROLOL TARTRATE 50 MG TAB PO SCH ×2 (10:30→23:38)
--- NOTE | 2016-09-02 10:38 | HHI.PR ---
Subjective Remarks Follow-up for alcohol intoxication and dehydration. The patient states that today he is having problems walking and feels unsteady when he worked with PT today. He has numbness in all of his fingers, chronic. The patient has been on a drinking binge lately and has drank 2 bottles of liquor and 2 suitcases that beer. He has not really eaten anything recently. He states that he has been having diarrhea, for episodes per day. He states that he might have felt feverish overnight. He has not tried eating yet, but does want to try, although he is worried he will tolerate it. He denies any abdominal pain or vomiting. He verbalizes understanding that he knows these symptoms are ultimately caused by alcohol. Objective Vitals Vital Signs Date Time Temp Pulse Resp B/P Pulse Ox O2 Delivery O2 Flow Rate FiO2 09/02/16 09:26 91 09/02/16 07:44 98.4 112 20 177/110 94 09/02/16 04:53 97.9 112 20 188/109 92 09/02/16 04:30 120 09/02/16 00:34 97.9 115 20 166/85 93 09/01/16 21:53 125 18 154/89 97 09/01/16 19:29 98.6 115 20 150/89 91 09/01/16 17:42 98.1 103 19 138/85 93 09/01/16 14:01 100 09/01/16 13:39 97.5 96 18 113/69 100 Result Diagram: 09/02/16 0244 09/02/16 0248 Imaging Last Impressions Head CT 09/01/16 1353 Signed Impressions: Service Date/Time: Thursday, September 01, 2016 15:36 - CONCLUSION: No acute disease. Wilson Batista MD FACR Chest X-Ray 09/01/16 1355 Signed Impressions: Service Date/Time: Thursday, September 01, 2016 14:05 - CONCLUSION: No acute cardiopulmonary disease identified. Vick Mota MD Objective Remarks GENERAL: Well-developed well-nourished. In no acute distress. SKIN: Warm and dry. A few small well-healed scabs on the upper and lower extremities. HEENT: Normocephalic. Pupils equal and round. Mucous membranes pink and moist. CARDIOVASCULAR: Regular rate and rhythm. No murmur appreciated. RESPIRATORY: No accessory muscle use. Clear to auscultation. Breath sounds equal bilaterally. GASTROINTESTINAL: Abdomen soft, non-tender, nondistended. Bowel sounds x4. MUSCULOSKELETAL: No obvious deformities. No clubbing or cyanosis. No edema. NEUROLOGICAL: Awake and alert. No focal neurological deficits. Moves upper and lower extremities spontaneously. Normal speech. Mildly tremulous. A/P Problem List: (1) Alcohol abuse ICD Code: F10.10 Status: Chronic (2) Hypokalemia ICD Code: E87.6 Status: Acute (3) Lactic acidosis ICD Code: E87.2 Status: Acute (4) Dehydration ICD Code: E86.0 Status: Acute Assessment and Plan 56-year-old male admitted with severe dehydration secondary to alcohol abuse and lost consciousness. Severe dehydration with lactic acidosis: Secondary to alcohol abuse Reviewed: Lactic acid 4.9. Hyponatremia, hypochloremia, hypokalemia, hypomagnesemia. Elevated bicarbonate. IV fluid replacement Follow-up labs. 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
[2016-09-02] MEDS: LORazepam 2 MG/ML VIAL IV PUSH PRN (14:10)
--- NOTE | 2016-09-02 14:48 | EKG ---
Date Performed: 09/01/2016 Time Performed: 14:12:19 PTAGE: 56 years EKG: Sinus rhythm Poor initial anterior forces which may be of normal variant Otherwise within normal limits Compared to prior tracing no significant change ABNORMAL ECG PREVIOUS TRACING : 07/20/2016 12.55 DOCTOR: Alverto Wiggins Interpretating Date/Time 09/02/2016 14:47:01
[2016-09-02 15:10] LABS: C. DIFF EPI 027 PRESUMPTIVE NEGATIVE (NEGATIVE)
[2016-09-02 15:37] LABS: C. DIFF TOXIN PCR POSITIVE (NEGATIVE)
[2016-09-02 15:42] LABS: POTASSIUM 3.7 MEQ/L (3.5-5.1)
[2016-09-03] VITALS (8 sets, daily range): BP systolic 126–159; BP diastolic 79–98; PULSE 59–92; RESP 18–21; TEMP 97–98.6; O2SAT 93–96
[2016-09-03] MEDS ORDERED: MISCELLANEOUS NURSING INFORMATION ONE ×2 (01:45→10:00)
[2016-09-03] MEDS: SODIUM CHLOR 0.9% 1000 ML INJ 1,000 ML IV SCH ×3 (02:20→16:35)
[2016-09-03] MEDS: SODIUM CHLORIDE 0.9% FLUSH 10 ML FLUSH IV FLUSH SCH ×2 (07:54→21:22)
[2016-09-03] MEDS: THIAMINE HCL 100 MG TAB PO SCH (08:01)
[2016-09-03] MEDS: PANTOPRAZOLE SOD 40 MG DELAYED RELEASE TAB PO SCH (08:02)
[2016-09-03] MEDS: METOPROLOL TARTRATE 50 MG TAB PO SCH ×2 (08:02→21:22)
[2016-09-03] MEDS: FOLIC ACID 1 MG TAB PO SCH (08:02)
[2016-09-03] MEDS: DILTIAZEM-CD 120 MG CAP ER PO SCH (08:02)
[2016-09-03] MEDS: NICOTINE 21 MG/24 HR PATCH T-DERMAL SCH (08:03)
[2016-09-03] MEDS: DOCUSATE SODIUM 50 MG/SENNA 8.6 MG TAB PO SCH (08:03)
[2016-09-03] MEDS: REMOVE OLD PATCH T-DERMAL SCH (08:07)
[2016-09-03 08:53] LABS: BICARBONATE 34.2 MEQ/L (21.0-32.0); CALCIUM-PROTEIN CORRECTED 8.4 MG/DL (8.5-10.1); MAGNESIUM 1.4 MG/DL (1.5-2.5); POTASSIUM 3.3 MEQ/L (3.5-5.1); TOTAL BILIRUBIN ADULT 0.5 MG/DL (0.2-1.0)
[2016-09-03] MEDS: LORazepam 2 MG/ML VIAL IV PUSH PRN ×3 (10:00→17:51)
[2016-09-03] MEDS ORDERED: POTASSIUM CHLORIDE 20 MEQ CONTROLLED RELEASE TAB PO ONE (11:15)
[2016-09-03] MEDS ORDERED: POTASSIUM PHOSPHATE MONOBASIC 500 MG TAB PO ONE (11:15)
[2016-09-03] MEDS ORDERED: CALCIUM CARBONATE 500 MG CHEWABLE TAB CHEW ONE (11:15)
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
[2016-09-03] MEDS: LACTOBACILLUS ACIDOPHILUS TAB PO SCH ×2 (11:42→17:51)
[2016-09-03] MEDS: MAGNESIUM SULFATE 1 GM PREMIX 100 ML IV SCH ×2 (11:43→14:33)
[2016-09-03] MEDS: metroNIDAZOLE 500 MG TAB PO SCH ×2 (14:33→21:21)
[2016-09-03] MEDS: LORazepam 2 MG TAB PO PRN (21:21)
[2016-09-04] VITALS (8 sets, daily range): BP systolic 146–165; BP diastolic 89–104; PULSE 77–83; RESP 18–20; TEMP 97–98.4; O2SAT 92–98
[2016-09-04] MEDS: LORazepam 1 MG TAB PO PRN (00:06)
[2016-09-04] MEDS: metroNIDAZOLE 500 MG TAB PO SCH ×3 (05:50→21:01)
[2016-09-04] MEDS: SODIUM CHLOR 0.9% 1000 ML INJ 1,000 ML IV SCH ×2 (05:51→13:55)
[2016-09-04 06:56] LABS: AUTOMATED NEUTROPHIL # 3.4 TH/MM3 (1.8-7.7); BASOPHIL % 0.5 % (0.0-2.0); EOSINOPHIL # 0.1 TH/MM3 (0-0.4); EOSINOPHIL % 1.5 % (0.0-4.0); HEMATOCRIT 30.9 % (39.0-51.0); LYMPH % 16.4 % (9.0-44.0); LYMPHOCYTE # 0.8 TH/MM3 (1.0-4.8); MEAN CELL VOLUME 95.3 FL (80.0-100.0); MEAN CORPUSCULAR HEMOGLOBIN 33.1 PG (27.0-34.0); MEAN CORPUSCULAR HGB CONC 34.7 % (32.0-36.0); MONO % 9.1 % (0.0-8.0); NEUT % 72.5 % (16.0-70.0); PLATELET COUNT 90 TH/MM3 (150-450); RED BLOOD COUNT 3.24 MIL/MM3 (4.50-5.90); RED CELL DISTRIBUTION WIDTH 19.3 % (11.6-17.2); WHITE BLOOD COUNT 4.7 TH/MM3 (4.0-11.0)
[2016-09-04 07:03] LABS: HEMO FLAGS AUTO DIFF
[2016-09-04 07:14] LABS: ALT (GPT) 149 U/L (12-78); ANION GAP 7 MEQ/L (5-15); AST (GOT) 194 U/L (15-37); BICARBONATE 27.9 MEQ/L (21.0-32.0); BLOOD UREA NITROGEN 11 MG/DL (7-18); CHLORIDE 102 MEQ/L (98-107); GLOMERULAR FILTRATION RATE 107 ML/MIN (>89); MAGNESIUM 1.3 MG/DL (1.5-2.5); POTASSIUM 3.6 MEQ/L (3.5-5.1); SODIUM (NA) 137 MEQ/L (136-145)
[2016-09-04 07:16] LABS: ALKALINE PHOSPHATASE 117 U/L (45-117); TOTAL BILIRUBIN ADULT 0.3 MG/DL (0.2-1.0)
[2016-09-04 08:48] LABS: PLATELET ESTIMATE SMEAR LOW (NORMAL); PLATELET MORPHOLOGY NORMAL (NORMAL)
[2016-09-04 08:52] LABS: SCAN/DIFF AUTO DIFF CONFIRMED
[2016-09-04] MEDS: SODIUM CHLORIDE 0.9% FLUSH 10 ML FLUSH IV FLUSH SCH ×2 (09:00→21:00)
[2016-09-04] MEDS: NICOTINE 21 MG/24 HR PATCH T-DERMAL SCH (09:17)
[2016-09-04] MEDS: FOLIC ACID 1 MG TAB PO SCH (09:18)
[2016-09-04] MEDS: PANTOPRAZOLE SOD 40 MG DELAYED RELEASE TAB PO SCH (09:19)
[2016-09-04] MEDS: LACTOBACILLUS ACIDOPHILUS TAB PO SCH ×3 (09:19→18:11)
[2016-09-04] MEDS: DILTIAZEM-CD 120 MG CAP ER PO SCH (09:19)
[2016-09-04] MEDS: THIAMINE HCL 100 MG TAB PO SCH (09:19)
[2016-09-04] MEDS: METOPROLOL TARTRATE 50 MG TAB PO SCH ×2 (09:29→21:00)
[2016-09-04] MEDS: REMOVE OLD PATCH T-DERMAL SCH (09:33)
--- NOTE | 2016-09-04 14:05 | HHI.PR ---
Subjective Remarks Patient states he feels better, denies cp/sob states diarrhea is improving denies fevers or chills denies cough denies nausea, vomiting or abdominal pain. c/o numbness in hands and feet. Objective Vitals Vital Signs Date Time Temp Pulse Resp B/P Pulse Ox O2 Delivery O2 Flow Rate FiO2 09/04/16 12:00 97.4 83 20 165/104 98 09/04/16 08:00 98.2 83 20 153/102 92 09/04/16 04:00 98.4 77 20 155/98 95 09/04/16 00:00 97.0 79 20 146/89 96 09/03/16 20:15 92 09/03/16 20:00 97.5 87 21 153/95 95 09/03/16 16:00 97.0 80 20 153/85 94 I/O 09/03/16 09/03/16 09/03/16 09/04/16 09/04/16 09/04/16 07:00 15:00 23:00 07:00 15:00 23:00 Intake Total 680 ml 960 ml 3519 ml 1920 ml Output Total 250 ml 850 ml Balance 680 ml 960 ml 3269 ml 1070 ml Intake Oral 680 ml 960 ml 960 ml 720 ml IV Total 2559 ml 1200 ml Output Urine Total 250 ml 850 ml # Voids 2 2 2 1 # Bowel Movements 2 1 1 1 Result Diagram: 09/04/16 0614 09/04/16 0614 Imaging Last Impressions Head CT 09/01/16 1353 Signed Impressions: Service Date/Time: Thursday, September 01, 2016 15:36 - CONCLUSION: No acute disease. Wilson Batista MD FACR Chest X-Ray 09/01/16 0801 Signed Impressions: Service Date/Time: Thursday, September 01, 2016 14:05 - CONCLUSION: No acute cardiopulmonary disease identified. Vick Mota MD Objective Remarks GENERAL: Well-developed well-nourished. In no acute distress. SKIN: Warm and dry. A few small well-healed scabs on the upper and lower extremities. HEENT: Normocephalic. Pupils equal and round. Mucous membranes pink and moist. CARDIOVASCULAR: Regular rate and rhythm. No murmur appreciated. RESPIRATORY: No accessory muscle use. Clear to auscultation. Breath sounds equal bilaterally. GASTROINTESTINAL: Abdomen soft, non-tender, nondistended. Bowel sounds x4. MUSCULOSKELETAL: No obvious deformities. No clubbing or cyanosis. No edema. NEUROLOGICAL: Awake and alert. No focal neurological deficits. Moves upper and lower extremities spontaneously. Normal speech. Mildly tremulous. PSYCH: Patient is awake and alert to place and person. Moves all extremities. Medications and IVs Current Medications Medications (Trade) Dose Ordered Sig/Guillermo Route Start Time Stop Time Status Last Admin (NS 1000 ml Inj) 1,000 ml @ 100 mls/hr Q10H IV 09/01/16 17:00 09/04/16 05:51 (NS Flush) 2 ml UNSCH PRN IV FLUSH 09/01/16 16:30 (NS Flush) 2 ml BID IV FLUSH 09/01/16 21:00 09/02/16 23:39 (Zofran Inj) 4 mg Q6H PRN IVP 09/01/16 16:30 09/02/16 08:04 (Narcan Inj) 0.4 mg UNSCH PRN IV 09/01/16 16:30 (Milk Of Magnesia Liq) 30 ml Q12H PRN PO 09/01/16 16:30 (Senokot) 17.2 mg Q12H PRN PO 09/01/16 16:30 (Dulcolax Supp) 10 mg DAILY PRN RECTAL 09/01/16 16:30 (Lactulose Liq) 30 ml DAILY PRN PO 09/01/16 16:30 (Habitrol 21 Mg Patch.24 Hr) 1 patch DAILY T-DERMAL 09/01/16 17:00 09/04/16 09:17 Miscellaneous Information 1 DAILY T-DERMAL 09/01/16 17:00 09/04/16 09:33 (Folate) 1 mg DAILY PO 09/02/16 09:00 09/04/16 09:18 (Vitamin B1) 100 mg DAILY PO 09/02/16 09:00 09/04/16 09:19 (Catapres) 0.1 mg Q6H PRN PO 09/01/16 17:00 09/02/16 05:30 (Romazicon Inj) 0.2 mg Q1M PRN IV PUSH 09/01/16 19:45 (Ativan) 1 mg Q4H PRN PO 09/01/16 19:45 09/04/16 00:06 (Ativan Inj) 1 mg Q4H PRN IV PUSH 09/01/16 19:45 (Ativan) 2 mg Q2H PRN PO 09/01/16 19:45 09/04/16 14:11 (Ativan Inj) 2 mg Q2H PRN IV PUSH 09/01/16 19:45 09/03/16 17:51 (Ativan Inj) 2 mg Q1H PRN IV PUSH 09/01/16 19:45 09/01/16 20:31 (Ativan Inj) 2 mg Q15M PRN IV PUSH 09/01/16 19:45 (Haldol Inj) 2 mg Q15M PRN IM 09/01/16 19:45 (Tylenol) 650 mg Q4H PRN PO 09/01/16 19:45 (Cardizem Cd) 120 mg DAILY PO 09/03/16 09:00 09/04/16 09:19 (Lopressor) 75 mg Q12HR PO 09/02/16 11:00 09/04/16 09:29 (Protonix) 40 mg DAILY PO 09/03/16 09:00 09/04/16 09:19 (Pill Splitter) 1 ea UNSCH PRN OTHER 09/02/16 10:15 (Flagyl) 500 mg Q8HR PO 09/03/16 14:00 09/04/16 14:11 (Librium) 10 mg TID PO 09/03/16 13:00 09/04/16 14:11 (Lactinex) 1 tab TID PO 09/03/16 13:00 09/04/16 14:11 A/P Problem List: (1) Alcohol withdrawal ICD Code: F10.239 Status: Acute Plan: Patient still has some tremors. Patient still requiring IV Ativan. Continue CIWA protocol with Ativan when necessary. (2) Alcohol abuse ICD Code: F10.10 Status: Chronic Plan: Advised Cessation. Continue Thiamine and folic acid. (3) Hypokalemia ICD Code: E87.6 Status: Resolved Plan: Potassium level now normal. Likely low secondary to nutritional deficiency secondary to alcohol abuse. Clarisa to monitor BMP and replace as needed. (4) Lactic acidosis ICD Code: E87.2 Status: Resolved Plan: Patient initially with very elevated lactic acidosis with lactic acid of 6.9. Resolved after fluid administration. Lactic acidosis thought to be secondary to severe dehydration due to alcohol abuse alcohol withdrawal as well as diarrhea. (5) Dehydration ICD Code: E86.0 Status: Resolved Plan: Resolved after IV fluid administration. DC IV fluids. Encourage oral intake. (6) Hypomagnesemia ICD Code: E83.42 Status: Acute Plan: Due for nutritional state secondary to alcohol abuse. I will replace IV and continue oral replacement with magnesium hydroxide. Continue to monitor BMP and magnesium. (7) Transaminitis ICD Code: R74.0 Status: Acute Plan: Transaminitis slowly improving and trending down. Suspect elevated secondary to alcohol abuse. Continue to monitor LFTs. Will check hepatitis profile and a liver ultrasound. (8) Hypophosphatemia ICD Code: E83.39 Status: Acute Plan: Also secondary to nutritional deficiency as above. Will start on Neutra- Phos and continue to monitor phosphorus. (9) C. difficile diarrhea ICD Code: A04.7 Status: Acute Plan: There are improving. Continue Flagyl and Lactinex. (10) Uncontrolled hypertension ICD Code: I10 Status: Acute Plan: Solid blood pressure up to the 160s. The patient currently on [place] and Toprol tartrate 75 mg every 12 hours orally. I will start the patient on Cardura 2 mg po daily. We'll place on clonidine when necessary. Assessment and Plan Gi prophylaxis: Continue PPI and Lactinex DVT prophylaxis: Add Lovenox SQ. Discharge Planning Dc pending clinical improvement of etoh withdrawal as well as C diff diarrhea. Problem Qualifiers (1) Alcohol withdrawal: Qualified Code: F10.230 - Alcohol withdrawal, uncomplicated Valdemar Banuelos MD Sep 04, 2016 14:05
[2016-09-04] MEDS: LORazepam 2 MG TAB PO PRN ×2 (14:11→16:30)
[2016-09-04] MEDS: DOXAZOSIN MESYLATE 2 MG TAB PO SCH (16:45)
[2016-09-04] MEDS: MAGNESIUM SULFATE 1 GM PREMIX 100 ML IV SCH ×2 (17:30→18:11)
[2016-09-04] MEDS ORDERED: MAGNESIUM SULFATE 1 GM PREMIX 100 ML IV ONE (21:00)
[2016-09-04] MEDS: POTASSIUM PHOSPHATE/SODIUM PHOSPHATE 250 MG TAB PO SCH (21:01)
[2016-09-05] VITALS (8 sets, daily range): BP systolic 92–170; BP diastolic 54–103; PULSE 69–90; RESP 16–20; TEMP 97–98.1; O2SAT 93–96
[2016-09-05] MEDS: POTASSIUM PHOSPHATE/SODIUM PHOSPHATE 250 MG TAB PO SCH ×3 (05:48→21:12)
[2016-09-05] MEDS: cloNIDine HCL 0.1 MG TAB PO PRN (05:48)
[2016-09-05] MEDS: metroNIDAZOLE 500 MG TAB PO SCH ×3 (05:48→21:12)
[2016-09-05 07:03] LABS: AUTOMATED NEUTROPHIL # 3.6 TH/MM3 (1.8-7.7); BASOPHIL # 0.1 TH/MM3 (0-0.2); BASOPHIL % 1.5 % (0.0-2.0); EOSINOPHIL # 0.1 TH/MM3 (0-0.4); EOSINOPHIL % 1.2 % (0.0-4.0); HEMATOCRIT 32.9 % (39.0-51.0); HEMO FLAGS DIFF FINAL; LYMPH % 17.3 % (9.0-44.0); LYMPHOCYTE # 0.9 TH/MM3 (1.0-4.8); MEAN CELL VOLUME 95.6 FL (80.0-100.0); MEAN CORPUSCULAR HEMOGLOBIN 32.3 PG (27.0-34.0); MEAN CORPUSCULAR HGB CONC 33.8 % (32.0-36.0); MONO % 13.1 % (0.0-8.0); NEUT % 66.9 % (16.0-70.0); PLATELET COUNT 113 TH/MM3 (150-450); RED BLOOD COUNT 3.44 MIL/MM3 (4.50-5.90); RED CELL DISTRIBUTION WIDTH 19.6 % (11.6-17.2); WHITE BLOOD COUNT 5.4 TH/MM3 (4.0-11.0)
[2016-09-05 07:35] LABS: ALT (GPT) 154 U/L (12-78); ANION GAP 5 MEQ/L (5-15); AST (GOT) 155 U/L (15-37); BICARBONATE 30.6 MEQ/L (21.0-32.0); BLOOD UREA NITROGEN 10 MG/DL (7-18); CHLORIDE 101 MEQ/L (98-107); GLOMERULAR FILTRATION RATE 159 ML/MIN (>89); MAGNESIUM 1.3 MG/DL (1.5-2.5); POTASSIUM 3.4 MEQ/L (3.5-5.1); SODIUM (NA) 137 MEQ/L (136-145)
[2016-09-05 07:37] LABS: ALKALINE PHOSPHATASE 102 U/L (45-117); TOTAL BILIRUBIN ADULT 0.4 MG/DL (0.2-1.0)
[2016-09-05] MEDS: REMOVE OLD PATCH T-DERMAL SCH (09:00)
[2016-09-05] MEDS: DOXAZOSIN MESYLATE 2 MG TAB PO SCH (09:36)
[2016-09-05] MEDS: FOLIC ACID 1 MG TAB PO SCH (09:36)
[2016-09-05] MEDS: LACTOBACILLUS ACIDOPHILUS TAB PO SCH ×3 (09:36→18:30)
[2016-09-05] MEDS: DILTIAZEM-CD 120 MG CAP ER PO SCH (09:36)
[2016-09-05] MEDS: THIAMINE HCL 100 MG TAB PO SCH (09:36)
[2016-09-05] MEDS: SODIUM CHLORIDE 0.9% FLUSH 10 ML FLUSH IV FLUSH SCH ×2 (09:38→21:13)
[2016-09-05] MEDS: METOPROLOL TARTRATE 50 MG TAB PO SCH ×2 (09:39→21:13)
[2016-09-05] MEDS: NICOTINE 21 MG/24 HR PATCH T-DERMAL SCH (09:40)
[2016-09-05] MEDS: PANTOPRAZOLE SOD 40 MG DELAYED RELEASE TAB PO SCH (09:43)
[2016-09-05] MEDS ORDERED: DOXAZOSIN MESYLATE 2 MG TAB PO ONE (10:00)
[2016-09-05] MEDS ORDERED: LORazepam 2 MG/ML VIAL IV PUSH ONE (11:00)
[2016-09-05] MEDS ORDERED: NITROGLYCERIN 0.4 MG SL 25 TABS/BTL SL PRN (11:00)
[2016-09-05] MEDS ORDERED: POTASSIUM CHLORIDE 10 MEQ CONTROLLED RELEASE TAB PO ONE (11:00)
--- NOTE | 2016-09-05 12:22 | RADRPT ---
EXAM DATE/TIME: 09/05/2016 11:13 [facility] COMPARISON: US ABDOMEN - COMPLETE, April 12, 2015, 8:41. INDICATIONS : Increased lab values. MEDICAL HISTORY : Hypertension. Blurred vision. Shaking. Seizures. Dizziness. Back problems. Ulcers. Binge drinking . Previous falls. Clostridium difficile. SURGICAL HISTORY : None. ENCOUNTER: Subsequent ACUITY: 2 weeks PAIN SCORE: 6/10 LOCATION: Bilateral abdomen. MEASUREMENTS: LIVER: 17.8 cm length COMMON DUCT: 5 mm RIGHT KIDNEY: 11.8 x 6.3 x 7.1 cm SPLEEN: 10.4 cm length FINDINGS: LIVER: Homogeneous but coarse echotexture without focal lesion or ductal dilatation. Hepatopedal flow seen the portal vein.. COMMON DUCT: No intraluminal mass or stone visualized. GALLBLADDER: There is gallbladder wall thickening measuring up to 3 mm. A solitary 5 mm calcified stone demonstra te shadowing. No pericholecystic fluid. Negative sonographic Kingsley's sign. PANCREAS: The visualized portions are within normal limits. RIGHT KIDNEY: No hydronephrosis, stone or mass. Simple cyst midpole measuring 3.0 x 2.7 cm.. SPLEEN: No focal lesion. CONCLUSION: 1. Hepatomegaly with coarse echotexture without focal lesion. 2. Gallstone and diffuse gallbladder wall thickening. Jac Gilmore MD on September 05, 2016 at 12:17 Board Certified Radiologist. This report was verified electronically.
[2016-09-05 12:41] LABS: CREATINE KINASE 90 U/L (39-308)
[2016-09-05] MEDS: MAGNESIUM SULFATE 1 GM PREMIX 100 ML IV SCH ×2 (13:30→21:13)
[2016-09-05] MEDS: MULTIVITAMINS/MINERALS THERAPEUTIC TAB PO SCH (13:32)
[2016-09-05] MEDS: ASPIRIN 325 MG TAB PO SCH (13:32)
--- NOTE | 2016-09-05 17:02 | HHI.PR ---
Subjective Remarks Deferred entry, patient seen earlier at 10:55 AM. Patient complaining of chest pain across his chest. Denies shortness of breath. K low Objective Vitals Vital Signs Date Time Temp Pulse Resp B/P Pulse Ox O2 Delivery O2 Flow Rate FiO2 09/05/16 16:47 97.0 85 18 92/54 94 09/05/16 12:44 97.7 69 20 144/93 93 09/05/16 10:00 90 09/05/16 08:10 98.1 76 19 170/99 95 09/05/16 04:00 97.5 77 18 166/103 95 09/05/16 00:00 97.2 72 18 159/100 96 09/04/16 20:35 97.5 80 18 161/95 95 09/04/16 20:00 78 I/O 09/04/16 09/04/16 09/04/16 09/05/16 09/05/16 09/05/16 07:00 15:00 23:00 07:00 15:00 23:00 Intake Total 1920 ml 600 ml 480 ml 240 ml 450 ml Output Total 850 ml 600 ml Balance 1070 ml 0 ml 480 ml 240 ml 450 ml Intake Oral 720 ml 600 ml 480 ml 240 ml 450 ml IV Total 1200 ml Output Urine Total 850 ml 600 ml # Voids 1 4 3 4 # Bowel Movements 1 1 Result Diagram: 09/05/16 0651 09/05/16 0651 Imaging Last Impressions Liver Ultrasound 09/05/16 0600 Signed Impressions: Service Date/Time: Monday, September 05, 2016 11:13 - CONCLUSION: 1. Hepatomegaly with coarse echotexture without focal lesion. 2. Gallstone and diffuse gallbladder wall thickening. Jac Gilmore MD Head CT 09/01/16 1516 Signed Impressions: Service Date/Time: Thursday, September 01, 2016 15:36 - CONCLUSION: No acute disease. Wilson Batista MD FACR Chest X-Ray 09/01/16 3717 Signed Impressions: Service Date/Time: Thursday, September 01, 2016 14:05 - CONCLUSION: No acute cardiopulmonary disease identified. Vick Mota MD Objective Remarks GENERAL: Well-developed well-nourished. In no acute distress. SKIN: Warm and dry. A few small well-healed scabs on the upper and lower extremities. HEENT: Normocephalic. Pupils equal and round. Mucous membranes pink and moist. CARDIOVASCULAR: Regular rate and rhythm. No murmur appreciated. RESPIRATORY: No accessory muscle use. Clear to auscultation. Breath sounds equal bilaterally. GASTROINTESTINAL: Abdomen soft, non-tender, nondistended. Bowel sounds x4. MUSCULOSKELETAL: No obvious deformities. No clubbing or cyanosis. No edema. NEUROLOGICAL: Awake and alert. No focal neurological deficits. Moves upper and lower extremities spontaneously. Normal speech. Mildly tremulous. PSYCH: Patient is awake and alert to place and person. Moves all extremities. Medications and IVs Current Medications Medications (Trade) Dose Ordered Sig/Guillermo Route Start Time Stop Time Status Last Admin (NS Flush) 2 ml UNSCH PRN IV FLUSH 09/01/16 16:30 (NS Flush) 2 ml BID IV FLUSH 09/01/16 21:00 09/05/16 09:38 (Zofran Inj) 4 mg Q6H PRN IVP 09/01/16 16:30 09/02/16 08:04 (Narcan Inj) 0.4 mg UNSCH PRN IV 09/01/16 16:30 (Milk Of Magnesia Liq) 30 ml Q12H PRN PO 09/01/16 16:30 (Senokot) 17.2 mg Q12H PRN PO 09/01/16 16:30 (Dulcolax Supp) 10 mg DAILY PRN RECTAL 09/01/16 16:30 (Lactulose Liq) 30 ml DAILY PRN PO 09/01/16 16:30 (Habitrol 21 Mg Patch.24 Hr) 1 patch DAILY T-DERMAL 09/01/16 17:00 09/05/16 09:40 Miscellaneous Information 1 DAILY T-DERMAL 09/01/16 17:00 09/05/16 09:00 (Folate) 1 mg DAILY PO 09/02/16 09:00 09/05/16 09:36 (Vitamin B1) 100 mg DAILY PO 09/02/16 09:00 09/05/16 09:36 (Catapres) 0.1 mg Q6H PRN PO 09/01/16 17:00 09/05/16 05:48 (Romazicon Inj) 0.2 mg Q1M PRN IV PUSH 09/01/16 19:45 (Ativan) 1 mg Q4H PRN PO 09/01/16 19:45 09/04/16 00:06 (Ativan Inj) 1 mg Q4H PRN IV PUSH 09/01/16 19:45 (Ativan) 2 mg Q2H PRN PO 09/01/16 19:45 09/04/16 16:30 (Ativan Inj) 2 mg Q2H PRN IV PUSH 09/01/16 19:45 09/03/16 17:51 (Ativan Inj) 2 mg Q1H PRN IV PUSH 09/01/16 19:45 09/01/16 20:31 (Ativan Inj) 2 mg Q15M PRN IV PUSH 09/01/16 19:45 (Haldol Inj) 2 mg Q15M PRN IM 09/01/16 19:45 (Tylenol) 650 mg Q4H PRN PO 09/01/16 19:45 (Cardizem Cd) 120 mg DAILY PO 09/03/16 09:00 09/05/16 09:36 (Lopressor) 75 mg Q12HR PO 09/02/16 11:00 09/05/16 09:39 (Protonix) 40 mg DAILY PO 09/03/16 09:00 09/05/16 09:43 (Pill Splitter) 1 ea UNSCH PRN OTHER 09/02/16 10:15 (Flagyl) 500 mg Q8HR PO 09/03/16 14:00 09/05/16 13:14 (Librium) 10 mg TID PO 09/03/16 13:00 09/05/16 13:14 (Lactinex) 1 tab TID PO 09/03/16 13:00 09/05/16 13:14 (K-Phos Neutral) 250 mg Q8HR PO 09/04/16 22:00 09/05/16 13:14 (Cardura) 2 mg DAILY PO 09/04/16 16:45 09/05/16 09:36 (Cardura) 4 mg DAILY PO 09/06/16 09:00 (Nitrostat Sl) 0.4 mg Q5M PRN SL 09/05/16 11:00 (Aspirin) 325 mg DAILY PO 09/05/16 11:15 09/05/16 13:32 (Theragran M Tab) 1 tab DAILY PO 09/05/16 11:15 09/05/16 13:32 Urinary Catheter: No Vascular Central Line Catheter: No A/P Problem List: (1) Alcohol withdrawal ICD Code: F10.239 Status: Acute Plan: Patient still has some tremors. Continue CIWA protocol with Ativan when necessary. Reason is not quite as much Ativan as previous days. (2) Alcohol abuse ICD Code: F10.10 Status: Chronic Plan: Advised Cessation. Continue Thiamine and folic acid. (3) Hypokalemia ICD Code: E87.6 Status: Resolved Plan: Potassium level now normal. Likely low secondary to nutritional deficiency secondary to alcohol abuse. Clarisa to monitor BMP and replace as needed. (4) Lactic acidosis ICD Code: E87.2 Status: Resolved Plan: Patient initially with very elevated lactic acidosis with lactic acid of 6.9. Resolved after fluid administration. Lactic acidosis thought to be secondary to severe dehydration due to alcohol abuse alcohol withdrawal as well as diarrhea. (5) Dehydration ICD Code: E86.0 Status: Resolved Plan: Resolved after IV fluid administration. DC IV fluids. Encourage oral intake. (6) Hypomagnesemia ICD Code: E83.42 Status: Acute Plan: Due for nutritional state secondary to alcohol abuse. I will replace IV and continue oral replacement with magnesium hydroxide. Continue to monitor BMP and magnesium. (7) Transaminitis ICD Code: R74.0 Status: Acute Plan: Transaminitis slowly improving and trending down. Suspect elevated secondary to alcohol abuse. Continue to monitor LFTs. Will check hepatitis profile and a liver ultrasound. (8) Hypophosphatemia ICD Code: E83.39 Status: Acute Plan: Also secondary to nutritional deficiency as above. Continue K phos. Continue to monitor phosphorus levels. (9) C. difficile diarrhea ICD Code: A04.7 Status: Acute Plan: Improving. Continue Flagyl and Lactinex. (10) Uncontrolled hypertension ICD Code: I10 Status: Acute Plan: Solid blood pressure up to the 160s. The patient currently on [place] and Toprol tartrate 75 mg every 12 hours orally. Continue Cardura 2 mg by mouth daily. BP is slightly improved. (11) Chest pain ICD Code: R07.9 Status: Acute Plan: Check a stat EKG and trend cardiac enzymes. (12) Hypokalemia ICD Code: E87.6 Status: Acute Plan: Repeat orally and continue to monitor BMP. (13) Hypomagnesemia ICD Code: E83.42 Status: Acute Plan: Repeat with IV monitored sulfate. Especially after patient had positive on telemetry. (14) Sinus pause ICD Code: I45.5 Status: Acute Plan: RN showed to me strip of telemetry which showed a possible. I will check echocardiogram, repeat electrolytes. I will replete potassium to a level of more than 4 and magnesium to a level more than 2. Continue to monitor on telemetry. Check 2-D echocardiogram. Assessment and Plan Gi prophylaxis: Continue PPI and Lactinex DVT prophylaxis: Add Lovenox SQ. Discharge Planning Dc pending clinical improvement of etoh withdrawal as well as C diff diarrhea. Problem Qualifiers (1) Alcohol withdrawal: Qualified Code: F10.230 - Alcohol withdrawal, uncomplicated (2) Chest pain: Qualified Code: R07.9 - Chest pain, unspecified type Valdemar Banuelos MD Sep 05, 2016 17:02
[2016-09-05 18:03] LABS: CREATINE KINASE 72 U/L (39-308)
[2016-09-05] MEDS ORDERED: MAGNESIUM SULFATE 1 GM PREMIX 100 ML ONE (21:03)
--- NOTE | 2016-09-05 21:54 | EKG ---
Date Performed: 09/05/2016 Time Performed: 11:09:13 PTAGE: 56 years EKG: Sinus rhythm Since previous tracing, no significant change noted NORMAL ECG PREVIOUS TRACING : 09/01/2016 14.12 DOCTOR: Dennis Sanchez Interpretating Date/Time 09/05/2016 21:51:43
[2016-09-05 23:25] LABS: CREATINE KINASE 73 U/L (39-308)
[2016-09-06 00:30] VITALS: BP 132/81; PULSE 79; RESP 16; TEMP 97.6; O2SAT 95
[2016-09-06] MEDS: LORazepam 1 MG TAB PO PRN (02:13)
[2016-09-06] MEDS: metroNIDAZOLE 500 MG TAB PO SCH ×2 (05:20→14:00)
[2016-09-06] MEDS: POTASSIUM PHOSPHATE/SODIUM PHOSPHATE 250 MG TAB PO SCH ×2 (05:20→14:00)
[2016-09-06 05:30] VITALS: BP 120/73; PULSE 88; RESP 16; TEMP 98.6; O2SAT 94
[2016-09-06 08:00] VITALS: BP 134/72; PULSE 68; RESP 18; TEMP 97.1; O2SAT 98
--- NOTE | 2016-09-06 08:08 | PD.PN.STU ---
Subjective Remarks 56 year old male admitted for alcohol intoxication and withdrawal complicated by C.diff infection. Patient is feeling better today. He denies chest pain or shortness of breath. He still feels weak and tired. He has a headache. PT worked with him yesterday and was given some strengthening exercises to do. His diarrhea is improving, his stools are solid now. He denies any abdominal pain, nausea or vomiting. He has a good appetite. Objective Vitals Vital Signs Date Time Temp Pulse Resp B/P Pulse Ox O2 Delivery O2 Flow Rate FiO2 09/06/16 05:30 98.6 88 16 120/73 94 09/06/16 00:30 97.6 79 16 132/81 95 09/05/16 21:30 72 09/05/16 21:15 97.4 84 16 113/71 96 09/05/16 16:47 97.0 85 18 92/54 94 09/05/16 12:44 97.7 69 20 144/93 93 09/05/16 10:00 90 09/05/16 08:10 98.1 76 19 170/99 95 I/O 09/05/16 09/05/16 09/05/16 09/06/16 09/06/16 09/06/16 07:00 15:00 23:00 07:00 15:00 23:00 Intake Total 240 ml 450 ml Balance 240 ml 450 ml Intake Oral 240 ml 450 ml # Voids 3 4 1 # Bowel Movements 1 Result Diagram: 09/05/16 0651 09/05/16 0651 Objective Remarks GENERAL: Well-developed well-nourished. In no acute distress. SKIN: Warm and dry. A few small well-healed scabs on the upper and lower extremities. HEENT: Normocephalic. Pupils equal and round. Mucous membranes pink and moist. CARDIOVASCULAR: Regular rate and rhythm. No murmurs, rubs or gallops. RESPIRATORY: No accessory muscle use. Clear to auscultation. Breath sounds equal bilaterally. GASTROINTESTINAL: Abdomen soft, non-tender, nondistended. Bowel sounds x4. MUSCULOSKELETAL: No obvious deformities. No clubbing or cyanosis. No edema. NEUROLOGICAL: Awake and alert. No focal neurological deficits. Moves upper and lower extremities spontaneously. Normal speech. Mildly tremulous. PSYCH: Patient is awake and alert to place and person. Moves all extremities. A/P Assessment and Plan 1. Alcohol withdrawal: patient has been given Ativan consistently since arrival. Patient is doing better but still having some tremors. 2. Alcohol abuse: patient is being given thiamine and folic acid. He is a member of [employer] and has been advised to quit drinking. 3. C. Diff infection: diarrhea is improving with Metronidazole. 4. Hypomagnesemia: due to chronic alcohol abuse. He has been given IV and oral replacement. Recheck magnesium levels. 5. Hypokalemia: recheck levels, has been given oral replacement. 6. Transaminitis: liver ultrasound showed hepatomegaly without any focal lesions or ductal dilatation. Levels are still elevated but stable. 7. Hypertension: blood pressure is stable now at 120/73 Mariola Booth M3 Sep 06, 2016 08:08
[2016-09-06] MEDS: LACTOBACILLUS ACIDOPHILUS TAB PO SCH ×3 (08:17→16:47)
[2016-09-06] MEDS: DILTIAZEM-CD 120 MG CAP ER PO SCH (08:18)
[2016-09-06] MEDS: FOLIC ACID 1 MG TAB PO SCH (08:18)
[2016-09-06] MEDS: THIAMINE HCL 100 MG TAB PO SCH (08:18)
[2016-09-06] MEDS: ASPIRIN 325 MG TAB PO SCH (08:18)
[2016-09-06] MEDS: DOXAZOSIN MESYLATE 2 MG TAB PO SCH (08:18)
[2016-09-06] MEDS: METOPROLOL TARTRATE 50 MG TAB PO SCH (08:24)
[2016-09-06] MEDS: MULTIVITAMINS/MINERALS THERAPEUTIC TAB PO SCH (08:24)
[2016-09-06] MEDS: PANTOPRAZOLE SOD 40 MG DELAYED RELEASE TAB PO SCH (08:24)
[2016-09-06] MEDS: REMOVE OLD PATCH T-DERMAL SCH (08:25)
[2016-09-06] MEDS: NICOTINE 21 MG/24 HR PATCH T-DERMAL SCH (08:25)
[2016-09-06] MEDS: SODIUM CHLORIDE 0.9% FLUSH 10 ML FLUSH IV FLUSH SCH (08:26)
[2016-09-06 08:36] VITALS: PULSE 80
[2016-09-06] MEDS ORDERED: DOXAZOSIN MESYLATE 2 MG TAB PO SCH (09:00)
[2016-09-06] MEDS ORDERED: DOXAZOSIN MESYLATE 4 MG TAB PO SCH (09:00)
--- NOTE | 2016-09-06 11:32 | HHI.PR ---
Subjective Remarks Patient states still feels somewhat weak still feels unsteady on his feet but has been able to walk with PT denies further diarrhea denies cp/sob denies nausea/vomiting no fevers no furthers events on telemetry Objective Vitals Vital Signs Date Time Temp Pulse Resp B/P Pulse Ox O2 Delivery O2 Flow Rate FiO2 09/06/16 08:36 80 09/06/16 08:00 97.1 68 18 134/72 98 09/06/16 05:30 98.6 88 16 120/73 94 09/06/16 00:30 97.6 79 16 132/81 95 09/05/16 21:30 72 09/05/16 21:15 97.4 84 16 113/71 96 09/05/16 16:47 97.0 85 18 92/54 94 09/05/16 12:44 97.7 69 20 144/93 93 I/O 09/05/16 09/05/16 09/05/16 09/06/16 09/06/16 09/06/16 06:59 14:59 22:59 06:59 14:59 22:59 Intake Total 240 ml 450 ml Balance 240 ml 450 ml Intake Oral 240 ml 450 ml # Voids 3 4 1 1 # Bowel Movements 1 Result Diagram: 09/05/16 0651 09/05/16 0651 Imaging Last Impressions Liver Ultrasound 09/05/16 0600 Signed Impressions: Service Date/Time: Monday, September 05, 2016 11:13 - CONCLUSION: 1. Hepatomegaly with coarse echotexture without focal lesion. 2. Gallstone and diffuse gallbladder wall thickening. Jac Gilmore MD Head CT 09/01/16 1353 Signed Impressions: Service Date/Time: Thursday, September 01, 2016 15:36 - CONCLUSION: No acute disease. Wilson Batista MD FACR Chest X-Ray 09/01/16 1353 Signed Impressions: Service Date/Time: Thursday, September 01, 2016 14:05 - CONCLUSION: No acute cardiopulmonary disease identified. Vick Mota MD Objective Remarks GENERAL: Well-developed well-nourished. In no acute distress. SKIN: Warm and dry. A few small well-healed scabs on the upper and lower extremities. HEENT: Normocephalic. Pupils equal and round. Mucous membranes pink and moist. CARDIOVASCULAR: Regular rate and rhythm. No murmur appreciated. RESPIRATORY: No accessory muscle use. Clear to auscultation. Breath sounds equal bilaterally. GASTROINTESTINAL: Abdomen soft, non-tender, nondistended. Bowel sounds x4. MUSCULOSKELETAL: No obvious deformities. No clubbing or cyanosis. No edema. NEUROLOGICAL: Awake and alert. No focal neurological deficits. Moves upper and lower extremities spontaneously. Normal speech. No tremors. PSYCH: Patient is awake and alert to place and person. Moves all extremities. Medications and IVs Current Medications Medications (Trade) Dose Ordered Sig/Guillermo Route Start Time Stop Time Status Last Admin (NS Flush) 2 ml UNSCH PRN IV FLUSH 09/01/16 16:30 (NS Flush) 2 ml BID IV FLUSH 09/01/16 21:00 09/06/16 08:26 (Zofran Inj) 4 mg Q6H PRN IVP 09/01/16 16:30 09/02/16 08:04 (Narcan Inj) 0.4 mg UNSCH PRN IV 09/01/16 16:30 (Milk Of Magnesia Liq) 30 ml Q12H PRN PO 09/01/16 16:30 (Senokot) 17.2 mg Q12H PRN PO 09/01/16 16:30 (Dulcolax Supp) 10 mg DAILY PRN RECTAL 09/01/16 16:30 (Lactulose Liq) 30 ml DAILY PRN PO 09/01/16 16:30 (Habitrol 21 Mg Patch.24 Hr) 1 patch DAILY T-DERMAL 09/01/16 17:00 09/06/16 08:25 Miscellaneous Information 1 DAILY T-DERMAL 09/01/16 17:00 09/06/16 08:25 (Folate) 1 mg DAILY PO 09/02/16 09:00 09/06/16 08:18 (Vitamin B1) 100 mg DAILY PO 09/02/16 09:00 09/06/16 08:18 (Catapres) 0.1 mg Q6H PRN PO 09/01/16 17:00 09/05/16 05:48 (Romazicon Inj) 0.2 mg Q1M PRN IV PUSH 09/01/16 19:45 (Ativan) 1 mg Q4H PRN PO 09/01/16 19:45 09/06/16 02:13 (Ativan Inj) 1 mg Q4H PRN IV PUSH 09/01/16 19:45 (Ativan) 2 mg Q2H PRN PO 09/01/16 19:45 09/04/16 16:30 (Ativan Inj) 2 mg Q2H PRN IV PUSH 09/01/16 19:45 09/03/16 17:51 (Ativan Inj) 2 mg Q1H PRN IV PUSH 09/01/16 19:45 09/01/16 20:31 (Ativan Inj) 2 mg Q15M PRN IV PUSH 09/01/16 19:45 (Haldol Inj) 2 mg Q15M PRN IM 09/01/16 19:45 (Tylenol) 650 mg Q4H PRN PO 09/01/16 19:45 (Cardizem Cd) 120 mg DAILY PO 09/03/16 09:00 09/06/16 08:18 (Lopressor) 75 mg Q12HR PO 09/02/16 11:00 09/06/16 08:24 (Protonix) 40 mg DAILY PO 09/03/16 09:00 09/06/16 08:24 (Pill Splitter) 1 ea UNSCH PRN OTHER 09/02/16 10:15 (Flagyl) 500 mg Q8HR PO 09/03/16 14:00 09/06/16 05:20 (Librium) 10 mg TID PO 09/03/16 13:00 09/06/16 08:17 (Lactinex) 1 tab TID PO 09/03/16 13:00 09/06/16 08:17 (K-Phos Neutral) 250 mg Q8HR PO 09/04/16 22:00 09/06/16 05:20 (Cardura) 2 mg DAILY PO 09/04/16 16:45 09/06/16 08:18 (Nitrostat Sl) 0.4 mg Q5M PRN SL 09/05/16 11:00 (Aspirin) 325 mg DAILY PO 09/05/16 11:15 09/06/16 08:18 (Theragran M Tab) 1 tab DAILY PO 09/05/16 11:15 09/06/16 08:24 (Cardura) 2 mg DAILY PO 09/06/16 09:00 Urinary Catheter: No Vascular Central Line Catheter: No A/P Problem List: (1) Alcohol withdrawal ICD Code: F10.239 Status: Resolved Plan: Tremors much improved. Treated with Iv and oral Ativan as per [facility] protocol. Patient is not requiring as frequent ativan - last dose 2 AM (2) Alcohol abuse ICD Code: F10.10 Status: Chronic Plan: Advised Cessation. Continue Thiamine and folic acid. (3) Hypokalemia ICD Code: E87.6 Status: Resolved Plan: Potassium level now normal. Likely low secondary to nutritional deficiency secondary to alcohol abuse. Clarisa to monitor BMP and replace as needed. Labs pending this am (4) Lactic acidosis ICD Code: E87.2 Status: Resolved Plan: Patient initially with very elevated lactic acidosis with lactic acid of 6.9. Resolved after fluid administration. Lactic acidosis thought to be secondary to severe dehydration due to alcohol abuse alcohol withdrawal as well as diarrhea. (5) Dehydration ICD Code: E86.0 Status: Resolved Plan: Resolved after IV fluid administration. Treated w IV fluids. Encourage oral intake. (6) Hypomagnesemia ICD Code: E83.42 Status: Acute Plan: Due for nutritional state secondary to alcohol abuse. I will replace IV and continue oral replacement with magnesium hydroxide. Continue to monitor BMP and magnesium. (7) Transaminitis ICD Code: R74.0 Status: Acute Plan: Transaminitis slowly improving and trending down. Suspect elevated secondary to alcohol abuse. Continue to monitor LFTs. Liver ultrasound showed hepatomegaly with coarse echotexture. (8) Hypophosphatemia ICD Code: E83.39 Status: Acute Plan: Also secondary to nutritional deficiency as above. Continue K phos. Continue to monitor phosphorus levels. (9) C. difficile diarrhea ICD Code: A04.7 Status: Resolved Plan: Diarrhea resolved. Continue Flagyl and Lactinex for a total of total x 14 days. (10) Uncontrolled hypertension ICD Code: I10 Status: Resolved Plan: BP initially uncontrolled, much improved after patient started on Cardura 2 mg po daily. Continue metoprolol 75 mg po Q 12 hrs. Bp now stable - continue to monitor vital signs. (11) Chest pain ICD Code: R07.9 Status: Resolved Plan: Cardiac enzymes negative x3. EKG Shows sinus rythm without ST - T changes x3. EKG's reviewed personally by me. (12) Hypokalemia ICD Code: E87.6 Status: Acute Plan: K replaced orally. Labs pending this am. will follow. BMP monitored during hospital stay. (13) Hypomagnesemia ICD Code: E83.42 Status: Acute Plan: IV Magnesium sulfate administered, Monitor Magnesium. Labs pending this am. Will start on Magnesium Oxide. (14) Sinus pause ICD Code: I45.5 Status: Resolved Plan: Patient had a pause on telemetry on 09/04 - approx 4 seconds. Telemetry strip reviewed by me. Likely due to electrolyte abnormalities. IV magnesium sulfate and oral potassium chloride administered. Fu labs and replete electrolytes as needed. Goal is to have K >4 and Magnesium > 2. Echocardiogram ordered and pending. No further events on telemetry. Assessment and Plan Gi prophylaxis: Continue PPI and Lactinex DVT prophylaxis: Add Lovenox SQ. Discharge Planning Dc pending resolution of hypomagnesemia, hypokalemia, and echocardiogram result , clearance from PT for the patient to go home without home PT. Patient will likely need help with medications. Case discussed with case coordinator, RN. Problem Qualifiers (1) Alcohol withdrawal: Qualified Code: F10.230 - Alcohol withdrawal, uncomplicated (2) Chest pain: Qualified Code: R07.9 - Chest pain, unspecified type Valdemar Banuelos MD Sep 06, 2016 11:32
[2016-09-06] MEDS ORDERED: FOLI1TAB6 PO (11:45)
[2016-09-06] MEDS ORDERED: THERM PO (11:45)
[2016-09-06] MEDS ORDERED: CARD120C4 PO (11:45)
[2016-09-06] MEDS ORDERED: METR-1 PO (11:45)
[2016-09-06] MEDS ORDERED: NICO21DI25 T-DERMAL (11:45)
[2016-09-06] MEDS ORDERED: METO-309 PO (11:45)
[2016-09-06] MEDS ORDERED: VITA100T54 PO (11:45)
[2016-09-06] MEDS ORDERED: ASPI81TA11 PO (11:45)
[2016-09-06] MEDS ORDERED: PANT40TA3 PO (11:45)
[2016-09-06] MEDS ORDERED: LACT PO (11:45)
--- NOTE | 2016-09-06 11:49 | HHI.DCPOC ---
Discharge Care Plan Diagnosis: (1) Alcohol withdrawal (2) Uncontrolled hypertension (3) Sinus pause (4) C. difficile diarrhea (5) Chest pain (6) Hypomagnesemia (7) Hypokalemia (8) Transaminitis (9) Hypophosphatemia (10) Lactic acidosis (11) Hypokalemia (12) Dehydration (13) Diarrhea (14) Elevated troponin (15) Alcohol abuse Goals to Promote Your Health * To prevent worsening of your condition and complications * To maintain your health at the optimal level Directions to Meet Your Goals Take your medications as prescribed Follow your dietary instruction Follow activity as directed Keep your appointments as scheduled Take your immunizations and boosters as scheduled If your symptoms worsen call your PCP, if no PCP go to Urgent Care Center or Emergency Room Smoking is Dangerous to Your Health. Avoid second hand smoke Call the 24-hour hour crisis hotline for domestic abuse at Valdemar Banuelos MD Sep 06, 2016 11:48
[2016-09-06 12:00] VITALS: BP 139/75; PULSE 70; RESP 16; TEMP 97.8; O2SAT 97
[2016-09-06 12:11] LABS: HEMATOCRIT 29.7 % (39.0-51.0); MEAN CELL VOLUME 96.2 FL (80.0-100.0); MEAN CORPUSCULAR HEMOGLOBIN 33.3 PG (27.0-34.0); MEAN CORPUSCULAR HGB CONC 34.6 % (32.0-36.0); PLATELET COUNT 145 TH/MM3 (150-450); RED BLOOD COUNT 3.09 MIL/MM3 (4.50-5.90); RED CELL DISTRIBUTION WIDTH 20.7 % (11.6-17.2); REVIEW FLAG FINAL; WHITE BLOOD COUNT 4.9 TH/MM3 (4.0-11.0)
[2016-09-06 12:34] LABS: BICARBONATE 28.4 MEQ/L (21.0-32.0); POTASSIUM 3.6 MEQ/L (3.5-5.1)
--- NOTE | 2016-09-06 15:39 | ECHRPT ---
Indication: Bradycardia, unspecified Indication: Bradycardia, unspecified CONCLUSIONS The left ventricular systolic function is low normal with an estimated ejection fraction in the rang e of 50- 55%. M ild concentric left ventricular hypertrophy. No definite regional wall motion abnormalities are present. Normal right ventricular size. The right ventricle was not well visualized. The right atriu m is not well visualized. The interatrial septum not well visualized.Mild aortic dilatation at the level of t he sinuses of Valsalva. The aortic valve is not well visualized. Aortic valve sclerosis is present. There is tra ce tricuspid valve regurgitation. The pulmonary valve is not well visualized.The inferior vena cava was not well visualized. A prominent epicardial fat pad is present. BP: 92 / 54 HR: 85 Rhythm: Sinus MEASUREMENTS (Male / Female) Normal Values Technical Quality:Fair 2D ECHO LV Diastolic Diameter PLAX 5.4 cm 4.2 - 5.9 / 3.9 - 5.3 cm LV Systolic Diameter PLAX 4.4 cm IVS Diastolic Thickness 1.1 cm 0.6 - 1.0 / 0.6 - 0.9 cm LVPW Diastolic Thickness 1.3 cm 0.6 - 1.0 / 0.6 - 0.9 cm LV Relative Wall Thickness 0.4 LVOT Diameter 2.5 cm Aortic Root Diameter 3.8 cm LA Systolic Diameter LX 3.5 cm 3.0 - 4.0 / 2.7 - 3.8 cm M-MODE AV Cusp Separation MM 1.8 cm DOPPLER AV Peak Velocity 131.0 cm/s AV Peak Gradient 6.9 mmHg AV Mean Gradient 4.0 mmHg AV Velocity Time Integral 23.8 cm LVOT Peak Velocity 95.5 cm/s LVOT Peak Gradient 3.6 mmHg LVOT Velocity Time Integral 16.4 cm LVOT Cardiac Index 3350.6 cm/minm AV Area Cont Eq vti 3.4 cm AV Area Cont Eq pk 3.6 cm Mitral E Point Velocity 62.2 cm/s Mitral A Point Velocity 63.2 cm/s Mitral E to A Ratio 1.0 LV E' Lateral Velocity 14.4 cm/s Mitral E to LV E' Lateral Ratio 4.3 LV E' Septal Velocity 6.4 cm/s Mitral E to LV E' Septal Ratio 9.7 TR Peak Velocity 140.0 cm/s TR Peak Gradient 7.8 mmHg PV Peak Velocity 67.7 cm/s PV Peak Gradient 1.8 mmHg FINDINGS Left Ventricle Normal left ventricular size and wall thickness. The left ventricular systolic function is low andre l with an estimated ejection fraction in the range of 50-55%. Left ventricular diastolic function parameters are normal. M ild concentric left ventricular hypertrophy. No definite regional wall motion abnormalities are p resent. Right Ventricle Normal right ventricular size. The right ventricle was not well visualized. Left Atrium The left atrial size is normal. Right Atrium The right atrial size is normal. The right atrium is not well visualized. Atrial Septum The interatrial septum not well visualized. Aorta Mild aortic dilatation at the level of the sinuses of Valsalva. Mitral Valve Structurally normal mitral valve. No mitral valve stenosis or regurgitation. Aortic Valve The aortic valve is not well visualized. No aortic valve stenosis or regurgitation. Aortic valve s clerosis is present. Tricuspid Valve Structurally normal tricuspid valve. There is trace tricuspid valve regurgitation. Pulmonary Valve The pulmonary valve is not well visualized. Vessels The inferior vena cava was not well visualized Pericardium No pericardial effusion. A prominent epicardial fat pad is present. Real Leon MD (Electronically Signed) Final Date:06 September 2016 15:39
[2016-09-06 16:00] VITALS: BP 117/74; PULSE 68; RESP 18; TEMP 96.6; O2SAT 94
[2016-09-06] MEDS ORDERED: POTASSIUM CHLORIDE 10 MEQ CONTROLLED RELEASE TAB PO ONE (16:00)
[2016-09-06] MEDS ORDERED: MAGNESIUM SULFATE 1 GM PREMIX 100 ML IV SCH (16:00)
--- NOTE | 2016-09-06 16:35 | EKG ---
Date Performed: 09/05/2016 Time Performed: 22:42:18 PTAGE: 56 years EKG: Sinus rhythm NORMAL ECG PREVIOUS TRACING : 09/05/2016 17.24 Compared to prior tracing no significant change DOCTOR: Leo Castaneda Interpretating Date/Time 09/06/2016 16:35:16
--- NOTE | 2016-09-06 16:52 | HHI.DS ---
Discharge Summary Admission Date Sep 02, 2016 at 10:19 Discharge Date: Sep 06, 2016 Admitting Diagnosis Lactic Acidosis, Hypokalemia, Alcohol Intoxication, Dehydration (1) Alcohol withdrawal ICD Code: F10.239 Diagnosis: Principal (2) Alcohol abuse ICD Code: F10.10 Diagnosis: Principal (3) Hypokalemia ICD Code: E87.6 Diagnosis: Principal (4) Lactic acidosis ICD Code: E87.2 Diagnosis: Principal (5) Dehydration ICD Code: E86.0 Diagnosis: Principal (6) Hypomagnesemia ICD Code: E83.42 Diagnosis: Principal (7) Transaminitis ICD Code: R74.0 Diagnosis: Principal (8) Hypophosphatemia ICD Code: E83.39 Diagnosis: Principal (9) C. difficile diarrhea ICD Code: A04.7 Diagnosis: Principal (10) Uncontrolled hypertension ICD Code: I10 Diagnosis: Principal (11) Chest pain ICD Code: R07.9 Diagnosis: Principal (12) Sinus pause ICD Code: I45.5 Diagnosis: Principal Procedures none Brief History - From Admission Mr. Funk is 56-year-old male. He was found unconscious by police. She is a known alcoholic and has been his hospital before. He admits to me that he took crack cocaine about 4-5 days ago and has been on a drinking binge since. He has not been drinking liquids. He is found to be severely dehydrated. Metabolic disturbances including hypokalemia, severe lactic acidosis, dehydration, and elevated LFTs. She has hypertension at baseline but does not take any treatments for this. She also admits to smoking. He has just finished eating and is not having nausea or vomiting. No other complaints. He does not complain of chest pain when I visited him. Presently he has alcohol intoxication and this limits history somewhat. CBC/BMP: 09/06/16 1117 09/06/16 1117 Significant Findings Laboratory Tests Test 09/04/16 09/05/16 09/05/16 09/05/16 06:14 06:51 12:07 17:00 Red Blood Count 3.24 MIL/MM3 3.44 MIL/MM3 (4.50-5.90) (4.50-5.90) Hemoglobin 10.7 GM/DL 11.1 GM/DL (13.0-17.0) (13.0-17.0) Hematocrit 30.9 % 32.9 % (39.0-51.0) (39.0-51.0) Red Cell Distribution Width 19.3 % 19.6 % (11.6-17.2) (11.6-17.2) Platelet Count 90 TH/MM3 113 TH/MM3 (150-450) (150-450) Neutrophils (%) (Auto) 72.5 % (16.0-70.0) Monocytes (%) (Auto) 9.1 % (0.0-8.0) 13.1 % (0.0-8.0) Lymphocytes # (Auto) 0.8 TH/MM3 0.9 TH/MM3 (1.0-4.8) (1.0-4.8) Platelet Estimate LOW (NORMAL) Random Glucose 125 MG/DL (74-106) Calcium Level 7.8 MG/DL 7.9 MG/DL (8.5-10.1) (8.5-10.1) Phosphorus Level 2.0 MG/DL (2.5-4.9) Magnesium Level 1.3 MG/DL 1.3 MG/DL (1.5-2.5) (1.5-2.5) Aspartate Amino Transf 194 U/L (15-37) 155 U/L (15-37) (AST/SGOT) Alanine Aminotransferase 149 U/L (12-78) 154 U/L (12-78) (ALT/SGPT) Total Protein 5.3 GM/DL 5.6 GM/DL (6.4-8.2) (6.4-8.2) Albumin 2.4 GM/DL 2.5 GM/DL (3.4-5.0) (3.4-5.0) Potassium Level 3.4 MEQ/L (3.5-5.1) Creatinine 0.54 MG/DL (0.60-1.30) Troponin I LESS THAN 0.02 LESS THAN 0.02 NG/ML NG/ML (0.02-0.05) (0.02-0.05) Test 09/05/16 09/06/16 22:33 11:17 Troponin I LESS THAN 0.02 NG/ML (0.02-0.05) Red Blood Count 3.09 MIL/MM3 (4.50-5.90) Hemoglobin 10.3 GM/DL (13.0-17.0) Hematocrit 29.7 % (39.0-51.0) Red Cell Distribution Width 20.7 % (11.6-17.2) Platelet Count 145 TH/MM3 (150-450) Blood Urea Nitrogen 22 MG/DL (7-18) Random Glucose 111 MG/DL (74-106) Calcium Level 8.1 MG/DL (8.5-10.1) Imaging Last Impressions Liver Ultrasound 09/05/16 0600 Signed Impressions: Service Date/Time: Monday, September 05, 2016 11:13 - CONCLUSION: 1. Hepatomegaly with coarse echotexture without focal lesion. 2. Gallstone and diffuse gallbladder wall thickening. Jac Gilmore MD Head CT 09/01/16 [id number] Signed Impressions: Service Date/Time: Thursday, September 01, 2016 15:36 - CONCLUSION: No acute disease. Wilson Batista MD FACR Chest X-Ray 09/01/16 [id number] Signed Impressions: Service Date/Time: Thursday, September 01, 2016 14:05 - CONCLUSION: No acute cardiopulmonary disease identified. Vick Mota MD PE at Discharge GENERAL: Well-developed well-nourished. In no acute distress. SKIN: Warm and dry. A few small well-healed scabs on the upper and lower extremities. HEENT: Normocephalic. Pupils equal and round. Mucous membranes pink and moist. CARDIOVASCULAR: Regular rate and rhythm. No murmur appreciated. RESPIRATORY: No accessory muscle use. Clear to auscultation. Breath sounds equal bilaterally. GASTROINTESTINAL: Abdomen soft, non-tender, nondistended. Bowel sounds x4. MUSCULOSKELETAL: No obvious deformities. No clubbing or cyanosis. No edema. NEUROLOGICAL: Awake and alert. No focal neurological deficits. Moves upper and lower extremities spontaneously. Normal speech. No tremors. PSYCH: Patient is awake and alert to place and person. Moves all extremities. Pt update on day of discharge Patient denies cp/sob/ Denies hallucinations, tremors, diarrhea resolved. Hospital Course (1) Alcohol withdrawal Tremors much improved prior to DC. Treated with Iv and oral Ativan as per [facility] protocol. Patient is not requiring as frequent ativan - last dose 2 AM (2) Alcohol abuse Advised Cessation. Continue Thiamine and folic acid. (3) Hypokalemia Potassium level now normal. Likely low secondary to nutritional deficiency secondary to alcohol abuse. Clarisa to monitor BMP and replace as needed. Replaced BMP moniotred (4) Lactic acidosis Patient initially with very elevated lactic acidosis with lactic acid of 6.9. Resolved after fluid administration. Lactic acidosis thought to be secondary to severe dehydration due to alcohol abuse alcohol withdrawal as well as diarrhea. (5) Dehydration Resolved after IV fluid administration. Treated w IV fluids. Encourage oral intake. (6) Hypomagnesemia Due for nutritional state secondary to alcohol abuse. I will replace IV and continue oral replacement with magnesium hydroxide. Continue to monitor BMP and magnesium. (7) Transaminitis Transaminitis slowly improving and trending down. Suspect elevated secondary to alcohol abuse. Continue to monitor LFTs. Liver ultrasound showed hepatomegaly with coarse echotexture. (8) Hypophosphatemia Also secondary to nutritional deficiency as above. Continue K phos. Continue to monitor phosphorus levels. (9) C. difficile diarrhea Diarrhea resolved. Continue Flagyl and Lactinex for a total of total x 14 days. (10) Uncontrolled hypertension BP initially uncontrolled, much improved after patient started on Cardura 2 mg po daily. Continue metoprolol 75 mg po Q 12 hrs. Bp stable prior to DC - continue to monitor vital signs. (11) Chest pain Cardiac enzymes negative x3. EKG Shows sinus rythm without ST - T changes x3. . (12) Sinus pause Patient had a pause on telemetry on 09/04 - approx 4 seconds. Telemetry strip reviewed by me. Likely due to electrolyte abnormalities. IV magnesium sulfate and oral potassium chloride administered. Fu labs and replete electrolytes as needed. Goal is to have K >4 and Magnesium > 2. Echocardiogram ordered - Ef 50 - 55% wo regional wall motion abnormality No further events on telemetry after electrolytes replaced Gi prophylaxis: PPI and Lactinex DVT prophylaxis: Lovenox SQ. Pt Condition on Discharge: Stable Discharge Disposition: Discharge Home Discharge Time: > 30 minutes Discharge Instructions DIET: Follow Instructions for: Heart Healthy Diet Activities you can perform: Regular-No Restrictions Activities to Avoid: Prolonged Standing, Strenuous Activity Follow up Referrals: PCP Follow-up - 1 Week with Adrianne Carrasquillo MD New Medications: Folic Acid (Folic Acid) 1 Mg Tablet 1 MG PO DAILY Alcohol Detox #31 TAB Lactobacillus Acidophilus (Acidophilus/l-Sporogenes) 1 Tab Tab 1 TAB PO TID Infection #33 TAB Metoprolol Tartrate (Lopressor) 50 Mg Tab 75 MG PO Q12HR Blood Pressure Management #62 TAB Metronidazole (Flagyl) 500 Mg Tab 500 MG PO Q8HR Infection #14 TAB Nicotine (Eq Nicotine) 21 Mg/24 Hr Dis 1 PATCH T-DERMAL DAILY smoking cessation #10 PATCH Continued Medications: Aspirin DR (Aspirin EC) 81 Mg Tabdr 162 MG PO DAILY antiplatelet #31 Ref 0 TAB (This prescription has been renewed) Diltiazem CD 24 HR (Cardizem CD 24 HR) 120 Mg Caper 120 MG PO DAILY a-fib #31 Ref 0 CAP (This prescription has been renewed) Multiple Vitamins W/ Minerals (Thera M Plus) 1 Tab 1 TAB PO DAILY vitamin #31 Ref 0 TAB (This prescription has been renewed) Pantoprazole (Pantoprazole) 40 Mg Tab 40 MG PO DAILY ppi #31 Ref 0 TAB (This prescription has been renewed) Thiamine (Vitamin B-1) 100 Mg Tab 100 MG PO DAILY Nutritional Supplement #31 Ref 0 TAB (This prescription has been renewed) Discontinued Medications: Folic Acid (Folate) 1 Mg Tab 1 MG PO DAILY vitamin Days 30 Ref 0 TAB Metoprolol Tartrate (Lopressor) 50 Mg Tab 75 MG PO Q12HR a-fib Days 30 Ref 0 TAB Valdemar Banuelos MD Sep 06, 2016 16:52
--- NOTE | 2016-09-06 19:20 | EKG ---
Date Performed: 09/05/2016 Time Performed: 17:24:58 PTAGE: 56 years EKG: Sinus rhythm NORMAL ECG PREVIOUS TRACING : 09/05/2016 11.09 Compared to prior tracing no significant change DOCTOR: Leo Castaneda Interpretating Date/Time 09/06/2016 19:19:29
== END 2016-09-06 17:50 | disposition home or self-care (01) | DRG 897 ==
LOC: NEPE 13:32 → NEDA 16:19 → NEPHCDU 17:11 → OBSVTOIN 09-02 10:19 → HOCB 09-02 16:30
PROVIDERS: ADMIT Hospitalist; ATTEND Hospitalist
DX: F10.239 Alcohol dependence with withdrawal, unspecified (principal); F14.10 Cocaine abuse, uncomplicated; E87.2 Acidosis; D69.59 Other secondary thrombocytopenia; A04.7 Enterocolitis due to Clostridium difficile; E83.42 Hypomagnesemia; E83.39 Other disorders of phosphorus metabolism; F10.229 Alcohol dependence with intoxication, unspecified; I10 Essential (primary) hypertension; F32.9 Major depressive disorder, single episode, unspecified; F41.9 Anxiety disorder, unspecified; F17.210 Nicotine dependence, cigarettes, uncomplicated; D64.9 Anemia, unspecified; E86.0 Dehydration; E87.6 Hypokalemia; R74.8 Abnormal levels of other serum enzymes; Y90.8 Blood alcohol level of 240 mg/100 ml or more; R74.0 Nonspecific elevation of levels of transaminase and lactic acid dehydrogenase [LDH]; R07.9 Chest pain, unspecified; Z59.0 Homelessness
CPT/HCPCS: 70450; 71010; 76705; 80048; 80053; 80074; 80307; 81001; 82140; 82550; 82552; 82948; 83605; 83735; 84100; 84132; 84484; 85025; 85027; 85610; 85730; 87086; 87493; 87506; 93005; 93306; 96360; 96361; G0378; G8987-GP; G8988-GP; J2060; J2405; J3475; J7030

== ENCOUNTER 2016-09-10 13:02 | Emergency (ER) | payer SELFPAY ==
[~2016-09-10] VITALS: Ht 180.3 cm; Wt 82.0 kg
[~2016-09-10 13:02] MED LIST changes: -CLIN1CAP6 PO; -FOLI1TAB4 PO; +FOLI1TAB6 PO; +LACT PO; +METR-1 PO; +NICO21DI25 T-DERMAL; -VITA100T2 PO; +VITA100T54 PO
[2016-09-10 13:14] VITALS: BP 159/66; PULSE 108; RESP 20; TEMP 98.7; O2SAT 95
[2016-09-10 13:23] VITALS: RESP 20; O2SAT 98
[2016-09-10] MEDS ORDERED: LORazepam 2 MG/ML VIAL IV PUSH ONE ×2 (13:30→14:00)
--- NOTE | 2016-09-10 13:32 | PD ---
HPI Chief Complaint: Pain: Acute or Chronic Time Seen by Provider: 13:18 Travel History International Travel<30 days: No Contact w/Intl Traveler<30days: No Traveled to known affect area: No History of Present Illness HPI Diagnoses a 56-year-old gentleman with history of alcohol abuse, who presents today via EMS for weakness and mild confusion. The patient apparently called 911 because he was not feeling well. The patient states he last drank 2 days ago. He feels as though he may be going withdrawal. The patient denies any fevers, chills. He states he's having palpitations. He also reports abdominal cramps. Patient was reportedly at home and there was feces and urine throughout his house. Paramedics report there was feces all over the quispe and urine on the floor. PFSH Past Medical History Arthritis: No Asthma: No Autoimmune Disease: No Blood Disorders: No Anxiety: No Depression: No Heart Rhythm Problems: No Cancer: No Cardiac Catheterization: No Cardiovascular Problems: No High Cholesterol: No Chemotherapy: No Chest Pain: No Congestive Heart Failure: No COPD: No Cerebrovascular Accident: No Diabetes: No Diminished Hearing: No Endocrine: No Gastrointestinal Disorders: Yes GERD: No Genitourinary: No Headaches: No Hiatal Hernia: No Heparin Induced Thrombocytopen: No Hypertension: Yes (hypertensive periods in past) Immune Disorder: No Implanted Vascular Access Dvce: No Kidney Stones: No Musculoskeletal: No Neurologic: Yes (shaking probably from detox) Psychiatric: No Reproductive: No Respiratory: No Immunizations Current: Yes Migraines: No Radiation Therapy: No Renal Failure: No Seizures: Yes Sickle Cell Disease: No Sleep Apnea: No Thyroid Disease: No Ulcer: No Past Surgical History Abdominal Surgery: No AICD: No Arteriovenous Shunt: No Cardiac Surgery: No Coronary Artery Bypass Graft: No Ear Surgery: No Endocrine Surgery: No Eye Surgery: No Genitourinary Surgery: No Gynecologic Surgery: No Insulin Pump: No Joint Replacement: No Neurologic Surgery: No Oral Surgery: No Pacemaker: No Thoracic Surgery: No Other Surgery: Yes (HERNIA REPAIR) Social History Alcohol Use: Yes Tobacco Use: Yes Substance Use: Yes (various types) Allergies-Medications (Allergen,Severity, Reaction): Coded Allergies: Lisinopril (Verified Allergy, Severe, Wheezing, 09/01/16) Reported Meds & Prescriptions Reported Meds & Active Scripts Active Lopressor (Metoprolol Tartrate) 50 Mg Tab 75 Mg PO Q12HR Folic Acid 1 Mg Tablet 1 Mg PO DAILY Flagyl (Metronidazole) 500 Mg Tab 500 Mg PO Q8HR Eq Nicotine (Nicotine) 21 Mg/24 Hr Dis 1 Patch T-DERMAL DAILY Acidophilus/l-Sporogenes (Lactobacillus Acidophilus) 1 Tab Tab 1 Tab PO TID Vitamin B-1 (Thiamine HCl) 100 Mg Tab 100 Mg PO DAILY Aspirin EC (Aspirin) 81 Mg Tabdr 162 Mg PO DAILY Cardizem CD 24 HR (Diltiazem CD 24 HR) 120 Mg Caper 120 Mg PO DAILY Pantoprazole (Pantoprazole Sodium) 40 Mg Tab 40 Mg PO DAILY Thera M Plus (Multivitamins/Minerals Therapeutic) 1 Tab 1 Tab PO DAILY Review of Systems HENT: No: Headaches, Lightheadedness Cardiovascular: Positive: Palpitations, No: Chest Pain or Discomfort Respiratory: No: Cough, Shortness of Breath Gastrointestinal: Positive: Nausea, Diarrhea, No: Vomiting, Abdominal Pain Genitourinary: Positive: Incontinence (reported incontinence), No: Dysuria Musculoskeletal: No: Weakness, Pain Skin: No Rash, No Dryness Neurologic: No: Weakness, Headache, Sensory Disturbance Psychiatric: Positive: Substance Abuse Physical Exam Narrative GENERAL: Disheveled male in no acute respiratory distress. SKIN: Focused skin assessment warm/dry. HEAD: Atraumatic. Normocephalic. EYES: No scleral icterus. No injection or drainage. ENT: No nasal bleeding or discharge. Mucous membranes pink and moist. NECK: Trachea midline. No JVD. CARDIOVASCULAR: Tachycardic with no murmur appreciated. RESPIRATORY: No accessory muscle use. Clear to auscultation. Breath sounds equal bilaterally. GASTROINTESTINAL: Abdomen soft, non-tender, nondistended. No rebound or guarding. On examination patient's buttock, he had some healing scabs for which he states he had abrasions. MUSCULOSKELETAL: No obvious deformities. No clubbing. No cyanosis. No edema. NEUROLOGICAL: Awake and alert. No obvious cranial nerve deficits. Motor grossly within normal limits. Slight slurred speech. Data Data Last Documented VS Vital Signs Date Time Temp Pulse Resp B/P Pulse Ox O2 Delivery O2 Flow Rate FiO2 09/10/16 13:24 111 20 09/10/16 13:23 98 Room Air 09/10/16 13:14 98.7 159/66 Orders Complete Blood Count With Diff (09/10/16 13:20) Comprehensive Metabolic Panel (09/10/16 13:20) Lipase (09/10/16 13:20) Urinalysis - C+S If Indicated (09/10/16 13:20) Chest, Single Ap (09/10/16 13:20) Iv Access Insert/Monitor (09/10/16 13:20) Ecg Monitoring (09/10/16 13:20) Oximetry (09/10/16 13:20) Drug Screen, Random Urine (09/10/16 13:20) Alcohol (Ethanol) (09/10/16 13:20) Lorazepam Inj (Ativan Inj) (09/10/16 13:30) Lorazepam Inj (Ativan Inj) (09/10/16 14:00) Labs Laboratory Tests Test 09/10/16 13:49 White Blood Count 5.9 TH/MM3 Red Blood Count 3.36 MIL/MM3 Hemoglobin 11.2 GM/DL Hematocrit 32.2 % Mean Corpuscular Volume 95.9 FL Mean Corpuscular Hemoglobin 33.3 PG Mean Corpuscular Hemoglobin 34.7 % Concent Red Cell Distribution Width 20.8 % Platelet Count 341 TH/MM3 Mean Platelet Volume 7.3 FL Neutrophils (%) (Auto) 52.3 % Lymphocytes (%) (Auto) 26.0 % Monocytes (%) (Auto) 20.7 % Eosinophils (%) (Auto) 0.2 % Basophils (%) (Auto) 0.8 % Neutrophils # (Auto) 3.1 TH/MM3 Lymphocytes # (Auto) 1.5 TH/MM3 Monocytes # (Auto) 1.2 TH/MM3 Eosinophils # (Auto) 0.0 TH/MM3 Basophils # (Auto) 0.0 TH/MM3 CBC Comment DIFF FINAL Differential Comment Sodium Level 146 MEQ/L Potassium Level 3.9 MEQ/L Chloride Level 108 MEQ/L Carbon Dioxide Level 28.0 MEQ/L Anion Gap 10 MEQ/L Blood Urea Nitrogen 6 MG/DL Creatinine 0.78 MG/DL Estimat Glomerular Filtration 104 ML/MIN Rate Random Glucose 99 MG/DL Calcium Level 8.2 MG/DL Total Bilirubin 0.3 MG/DL Aspartate Amino Transf 74 U/L (AST/SGOT) Alanine Aminotransferase 133 U/L (ALT/SGPT) Alkaline Phosphatase 86 U/L Total Protein 6.0 GM/DL Albumin 2.9 GM/DL Lipase 128 U/L Ethyl Alcohol Level 309 MG/DL MDM Medical Decision Making Medical Screen Exam Complete: Yes Emergency Medical Condition: Yes Differential Diagnosis Acute alcohol withdrawal versus metabolic arrangement versus intoxication Narrative Course This is a 56-year-old male who is brought in by [facility] after he called for weakness and altered mental status. The patient has a history of alcohol abuse. It appeared that he was going through early withdrawal. The patient was given 2 doses of IVD Ativan. He was continuing to leave his room and wandering about the ER. He was awake and appropriate and decided to leave AGAINST MEDICAL ADVICE. The patient left AGAINST MEDICAL ADVICE. Diagnosis Primary Impression: Alcohol intoxication Additional Impression: questionable early withdrawal Disposition: 07 AGAINST MEDICAL ADVICE Condition: Stable Jose Vitale MD Sep 10, 2016 13:31
--- NOTE | 2016-09-10 13:50 | RADRPT ---
EXAM DATE/TIME: 09/10/2016 13:48 [facility] COMPARISON: CHEST SINGLE AP, September 01, 2016, 14:05. INDICATIONS : Shortness of breath. MEDICAL HISTORY : None. SURGICAL HISTORY : None. ENCOUNTER: Initial ACUITY: 1 day PAIN SCORE: 0/10 LOCATION: Bilateral chest FINDINGS: A single view of the chest demonstrates the lungs to be symmetrically aerated without evidence of mas s, infiltrate or effusion. The cardiomediastinal contours are unremarkable. Osseous structures are intact. CONCLUSION: No evidence of acute cardiopulmonary disease. Fabio Hammond MD on September 10, 2016 at 13:48 Board Certified Radiologist. This report was verified electronically.
[2016-09-10 13:59] LABS: AUTOMATED NEUTROPHIL # 3.1 TH/MM3 (1.8-7.7); BASOPHIL % 0.8 % (0.0-2.0); EOSINOPHIL % 0.2 % (0.0-4.0); HEMATOCRIT 32.2 % (39.0-51.0); HEMO FLAGS DIFF FINAL; LYMPHOCYTE # 1.5 TH/MM3 (1.0-4.8); MEAN CELL VOLUME 95.9 FL (80.0-100.0); MEAN CORPUSCULAR HEMOGLOBIN 33.3 PG (27.0-34.0); MEAN CORPUSCULAR HGB CONC 34.7 % (32.0-36.0); MONO % 20.7 % (0.0-8.0); NEUT % 52.3 % (16.0-70.0); PLATELET COUNT 341 TH/MM3 (150-450); RED BLOOD COUNT 3.36 MIL/MM3 (4.50-5.90); RED CELL DISTRIBUTION WIDTH 20.8 % (11.6-17.2); WHITE BLOOD COUNT 5.9 TH/MM3 (4.0-11.0)
[2016-09-10 14:12] LABS: ALT (GPT) 133 U/L (12-78)
[2016-09-10 14:15] LABS: ALKALINE PHOSPHATASE 86 U/L (45-117); TOTAL BILIRUBIN ADULT 0.3 MG/DL (0.2-1.0)
[2016-09-10 14:16] LABS: ANION GAP 10 MEQ/L (5-15); AST (GOT) 74 U/L (15-37); BLOOD UREA NITROGEN 6 MG/DL (7-18); CHLORIDE 108 MEQ/L (98-107); GLOMERULAR FILTRATION RATE 104 ML/MIN (>89); POTASSIUM 3.9 MEQ/L (3.5-5.1); SODIUM (NA) 146 MEQ/L (136-145)
== END 2016-09-10 16:36 | disposition left against medical advice (07) ==
LOC: NEPE 13:02
DX: F10.929 Alcohol use, unspecified with intoxication, unspecified (principal); R00.2 Palpitations; R10.9 Unspecified abdominal pain; I10 Essential (primary) hypertension; Z72.0 Tobacco use; Z87.19 Personal history of other diseases of the digestive system; Z86.69 Personal history of other diseases of the nervous system and sense organs; Z53.20 Procedure and treatment not carried out because of patient's decision for unspecified reasons
CPT/HCPCS: 71010; 80053; 83690; 85025; 96374; 96376; 99284; J2060; 80307

== ENCOUNTER 2016-09-10 16:26 | Inpatient (IN) | payer SELFPAY ==
[~2016-09-10] VITALS: Ht 180.3 cm; Wt 74.0 kg
[2016-09-10 16:38] VITALS: BP 142/81; PULSE 132; RESP 18; TEMP 99.6; O2SAT 93
[2016-09-10] MEDS ORDERED: HALOPERIDOL LACTATE 5 MG/ML AMP IM ONE (17:15)
[2016-09-10] MEDS ORDERED: SODIUM CHLOR 0.9% 1000 ML INJ 1,000 ML IV ONE (17:15)
[2016-09-10] MEDS ORDERED: LORazepam 2 MG/ML VIAL IV PUSH ONE (17:15)
--- NOTE | 2016-09-10 17:34 | PD ---
HPI Chief Complaint: Alcohol/Drug Intoxication Time Seen by Provider: 16:38 Travel History International Travel<30 days: No Contact w/Intl Traveler<30days: No Traveled to known affect area: No History of Present Illness HPI This is a 56 year-old gentleman with history of alcoholism, who was seen earlier by this physician, for possible early alcohol withdrawal and alcohol intoxication. The patient was observed leaving the room multiple times and not following the rules. He elected to leave AGAINST MEDICAL ADVICE. Apparently he walked across the street to the [employer] and laid on the floor there. He then tried to ask for money for patrons injuring in leaving the [employer]. Police were called and trespass him and called [facility] to bring him here for altered mental status. The patient is belligerent and uncooperative. He appears not much worse however the concern was that he was not safe for discharge. Patient's alcohol level was 300 previously. He's been given Ativan 2 mg and Haldol 5 mg. Repeat alcohol level was ordered. PFSH Past Medical History Arthritis: No Asthma: No Autoimmune Disease: No Blood Disorders: No Anxiety: No Depression: No Heart Rhythm Problems: No Cancer: No Cardiac Catheterization: No Cardiovascular Problems: No High Cholesterol: No Chemotherapy: No Chest Pain: No Congestive Heart Failure: No COPD: No Cerebrovascular Accident: No Diabetes: No Diminished Hearing: No Endocrine: No Gastrointestinal Disorders: Yes GERD: No Genitourinary: No Headaches: No Hiatal Hernia: No Heparin Induced Thrombocytopen: No Hypertension: Yes (hypertensive periods in past) Immune Disorder: No Implanted Vascular Access Dvce: No Kidney Stones: No Musculoskeletal: No Neurologic: Yes (shaking probably from detox) Psychiatric: No Reproductive: No Respiratory: No Immunizations Current: Yes Migraines: No Radiation Therapy: No Renal Failure: No Seizures: Yes Sickle Cell Disease: No Sleep Apnea: No Thyroid Disease: No Ulcer: No Past Surgical History Abdominal Surgery: No AICD: No Arteriovenous Shunt: No Cardiac Surgery: No Coronary Artery Bypass Graft: No Ear Surgery: No Endocrine Surgery: No Eye Surgery: No Genitourinary Surgery: No Gynecologic Surgery: No Insulin Pump: No Joint Replacement: No Neurologic Surgery: No Oral Surgery: No Pacemaker: No Thoracic Surgery: No Other Surgery: Yes (HERNIA REPAIR) Social History Alcohol Use: Yes Tobacco Use: Yes Substance Use: Yes (various types) Allergies-Medications (Allergen,Severity, Reaction): Coded Allergies: Lisinopril (Verified Allergy, Severe, Wheezing, 09/01/16) Reported Meds & Prescriptions Reported Meds & Active Scripts Active Lopressor (Metoprolol Tartrate) 50 Mg Tab 75 Mg PO Q12HR Folic Acid 1 Mg Tablet 1 Mg PO DAILY Flagyl (Metronidazole) 500 Mg Tab 500 Mg PO Q8HR Eq Nicotine (Nicotine) 21 Mg/24 Hr Dis 1 Patch T-DERMAL DAILY Acidophilus/l-Sporogenes (Lactobacillus Acidophilus) 1 Tab Tab 1 Tab PO TID Vitamin B-1 (Thiamine HCl) 100 Mg Tab 100 Mg PO DAILY Aspirin EC (Aspirin) 81 Mg Tabdr 162 Mg PO DAILY Cardizem CD 24 HR (Diltiazem CD 24 HR) 120 Mg Caper 120 Mg PO DAILY Pantoprazole (Pantoprazole Sodium) 40 Mg Tab 40 Mg PO DAILY Thera M Plus (Multivitamins/Minerals Therapeutic) 1 Tab 1 Tab PO DAILY Review of Systems HENT: No: Headaches, Neck Pain Respiratory: No: Shortness of Breath, Wheezing Gastrointestinal: No: Nausea, Vomiting, Abdominal Pain Musculoskeletal: No: Pain Skin: Positive Other (healing abrasions to his buttocks bilaterally.) Neurologic: Positive: Slurred Speech, No: Headache, Change in Mentation Physical Exam Narrative GENERAL: Disheveled male in no acute respiratory distress. SKIN: Focused skin assessment warm/dry. HEAD: Normocephalic/atraumatic. EYES: No scleral icterus. No injection or drainage. NECK: Supple, trachea midline. N CARDIOVASCULAR: Regular rate and rhythm without murmurs, gallops, or rubs. RESPIRATORY: Breath sounds equal bilaterally. No accessory muscle use. GASTROINTESTINAL: Abdomen soft, non-tender, nondistended. MUSCULOSKELETAL: No cyanosis, or edema. NEUROLOGICAL: Awake and alert. Cranial nerves II through XII intact. Motor grossly within normal limits. Five out of 5 muscle strength in all muscle groups. Slurred speech. The patient keeps calling out to nursing staff asking for food. He tried to leave the room and we put him under soft restraints. Data Data Last Documented VS Vital Signs Date Time Temp Pulse Resp B/P Pulse Ox O2 Delivery O2 Flow Rate FiO2 09/10/16 18:26 110 18 09/10/16 16:38 99.6 142/81 93 Orders Electrocardiogram (09/10/16 16:39) Alcohol (Ethanol) (09/10/16 16:39) Restraints Non-Violent IZZY.Q3H (09/10/16 16:39) Sodium Chlor 0.9% 1000 Ml Inj (Ns 1000 M (09/10/16 17:15) Lorazepam Inj (Ativan Inj) (09/10/16 17:15) Haloperidol Inj (Haldol Inj) (09/10/16 17:15) Ct Brain W/O Iv Contrast(Rout) (09/10/16 17:05) Place In Observation (09/10/16 ) Vital Signs (Adult) Q4H (09/10/16 18:06) Activity Bed Rest (09/10/16 18:06) Diet Regular Basic (09/10/16 Dinner) Sodium Chlor 0.9% 1000 Ml Inj (Ns 1000 M (09/10/16 18:06) Sodium Chloride 0.9% Flush (Ns Flush) (09/10/16 18:15) Sodium Chloride 0.9% Flush (Ns Flush) (09/10/16 21:00) Ondansetron Inj (Zofran Inj) (09/10/16 18:15) Basic Metabolic Panel (Bmp) (09/11/16 06:00) Complete Blood Count With Diff (09/11/16 06:00) Scd Bilateral/Knee High IZZY.BID (09/10/16 18:06) Naloxone Inj (Narcan Inj) (09/10/16 18:15) Docusate Sodium-Senna (Shannan-Colace) (09/10/16 21:00) Magnesium Hydroxide Liq (Milk Of Magnesi (09/10/16 18:15) Sennosides (Senokot) (09/10/16 18:15) Bisacodyl Supp (Dulcolax Supp) (09/10/16 18:15) Lactulose Liq (Lactulose Liq) (09/10/16 18:15) Alcohol (Ethanol) (09/11/16 06:00) Alcohol Withdrawal Asmt-Ciwa Q4HX18 (09/10/16 18:07) Mri Brain W/O Contrast (09/10/16 18:20) Labs Laboratory Tests Test 09/10/16 17:10 Ethyl Alcohol Level 176 MG/DL MDM Medical Decision Making Medical Screen Exam Complete: Yes Emergency Medical Condition: Yes Differential Diagnosis Metabolic derangement versus intoxication versus psychiatric issues. Narrative Course 56-year-old male history of alcohol abuse, previous lactic acidosis, who presented earlier today with complaining of withdrawal from alcohol. The patient was given 4 mg of Ativan at that time. Patient's alcohol level was 300. He elected to leave AGAINST MEDICAL ADVICE at the time appeared appropriate. He was brought in again via EMS after he was found at the [employer] landing on the floor and trying to ask patrons for money. The patient is belligerent and not cooperative. I am not Rob[place] acting him but I am chemically restraining him with Haldol and Ativan. There is a call out to the [facility] hospitalist service for admission. I believe we should allow him to be observed for 24 hours and then have our psychiatric team evaluate him. I did order a CT scan of the brain which shows questionable small subarachnoid hemorrhages. MRI is recommended. At this time the patient is not stable enough for an MRI will not cooperate. Dr. Michelle was called for admission. He will admit the patient to the service and observe overnight. He is hopeful to obtain an MRI in the morning. Diagnosis Primary Impression: ETOH abuse Additional Impressions: Uncooperative behavior questionable's small subarachnoid hemorrhages Jose Vitale MD Sep 10, 2016 17:34
--- NOTE | 2016-09-10 17:57 | RADRPT ---
EXAM DATE/TIME: 09/10/2016 17:35 [facility] COMPARISON: CT BRAIN W/O CONTRAST, September 01, 2016, 15:36. INDICATIONS : Altered mental status. ETOH. RADIATION DOSE: 56.35 CTDIvol (mGy) MEDICAL HISTORY : Non-responsive. SURGICAL HISTORY : Non-responsive. ENCOUNTER: Initial ACUITY: 1 day PAIN SCALE: Non-responsive LOCATION: cranial TECHNIQUE: Multiple contiguous axial images were obtained of the head. Using automated exposure control and adj ustment of the mA and/or kV according to patient size, radiation dose was kept as low as reasonably a chievable to obtain optimal diagnostic quality images. FINDINGS: Small areas of decreased attenuation are now seen inferiorly of both frontal lobes suggesting small a reas of infarct or encephalomalacia. These don't clearly appear acute but are definitely more conspic uous in the interim. There is also questionable associated small amount of parenchymal and subarachno id blood, especially on the left. No evidence of an acute ischemic event. No mass lesion seen. No mass effect or midline shif t. 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 I believe the increased conspicuity is related to technical factors. H owever, current study does suggest the possibility of small acute parenchymal and subarachnoid hemorr hages in the same areas, especially on the left. If there are no contraindications, multiaxial MRI of the brain with and without contrast recommended. Fabio Hammond MD on September 10, 2016 at 17:49 Board Certified Radiologist. This report was verified electronically.
[2016-09-10] MEDS ORDERED: NALOXONE HCL 0.4 MG/ML AMP IV PRN (18:15)
[2016-09-10] MEDS ORDERED: LACTULOSE SYRUP 20 GM/30 ML CUP PO PRN (18:15)
[2016-09-10] MEDS ORDERED: SODIUM CHLORIDE 0.9% FLUSH 10 ML FLUSH IV FLUSH PRN ×2 (18:15→21:30)
[2016-09-10] MEDS ORDERED: SENNOSIDES 8.6 MG TAB PO PRN (18:15)
[2016-09-10] MEDS ORDERED: BISACODYL 10 MG SUPP RECTAL PRN (18:15)
[2016-09-10] MEDS ORDERED: MAGNESIUM HYDROXIDE SUSP 30 ML CUP PO PRN (18:15)
[2016-09-10] MEDS ORDERED: ONDANSETRON HCL 4 MG/2 ML VIAL IVP PRN (18:15)
[2016-09-10] MEDS: SODIUM CHLOR 0.9% 1000 ML INJ 1,000 ML IV SCH (18:18)
[2016-09-10 20:50] VITALS: BP 178/85; PULSE 84; O2SAT 98
[2016-09-10] MEDS ORDERED: SODIUM CHLORIDE 0.9% FLUSH 10 ML FLUSH IV FLUSH SCH (21:00)
--- NOTE | 2016-09-10 21:12 | HHI.HP ---
[facility] Primary Care Physician No Primary Care Physician Admission Diagnosis alcohol intoxication, uncooperative behavior, questionable ICH Diagnoses: Travel History International Travel<30 Days: No Contact w/Intl Traveler <30 Da: No Traveled to Known Affected Are: No History of Present Illness Mr. Funk is a 56 year old male. He has a chronic problem with alcoholism and visits our ER frequently in different states of intoxication and metabolic disruption. Tonight he is brought in secondary to disruptive, uncooperative, and odd behavior. He is severely intoxicated, so that may be a cause. Metabolic disturbances are mild tonight. CT of the brain was obtained and there is some question on possible small ICH. No head trauma had been reported or known. When seen he has been sedated with Haldol for imaging. I am not able to acquire further information at the time of admit. Review of Systems ROS Limitations: Intoxication, Altered Mental Status, Unresponsive, Uncooperative Past Family Social History Past Medical History HTN Alcoholism Past Surgical History Hernia Surgery Reported Medications Reported Meds & Active Scripts Active Lopressor (Metoprolol Tartrate) 50 Mg Tab 75 Mg PO Q12HR Folic Acid 1 Mg Tablet 1 Mg PO DAILY Flagyl (Metronidazole) 500 Mg Tab 500 Mg PO Q8HR Eq Nicotine (Nicotine) 21 Mg/24 Hr Dis 1 Patch T-DERMAL DAILY Acidophilus/l-Sporogenes (Lactobacillus Acidophilus) 1 Tab Tab 1 Tab PO TID Vitamin B-1 (Thiamine HCl) 100 Mg Tab 100 Mg PO DAILY Aspirin EC (Aspirin) 81 Mg Tabdr 162 Mg PO DAILY Cardizem CD 24 HR (Diltiazem CD 24 HR) 120 Mg Caper 120 Mg PO DAILY Pantoprazole (Pantoprazole Sodium) 40 Mg Tab 40 Mg PO DAILY Thera M Plus (Multivitamins/Minerals Therapeutic) 1 Tab 1 Tab PO DAILY Allergies: Coded Allergies: Lisinopril (Verified Allergy, Severe, Wheezing, 09/01/16) Active Ordered Medications Administered Medications Medications (Trade) Dose Ordered Sig/Guillermo Route PRN Reason Start Time Stop Time Status Last Admin Dose Admin Sodium Chloride (NS 1000 ml Inj) 1,000 ml @ 150 mls/hr Q6H40M IV 6/11/17 18:06 09/10/16 18:18 Family History Multiple sclerosis and mother Lung cancer and mother Social History Nicotine dependence, 1 pack per day or more Alcohol abuse Drug abuse (recent crack cocaine) Patient is homeless Physical Exam Vital Signs Vital Signs Date Time Temp Pulse Resp B/P Pulse Ox O2 Delivery O2 Flow Rate FiO2 09/10/16 18:26 110 18 09/10/16 16:38 99.6 132 18 142/81 93 Physical Exam GENERAL: A&Ox0, NAD SKIN: Warm and dry. HEAD: Normocephalic. EYES: No scleral icterus. No injection or drainage. NECK: Supple, trachea midline. No JVD or lymphadenopathy. CARDIOVASCULAR: Regular rate and rhythm without murmurs, gallops, or rubs. RESPIRATORY: Breath sounds equal bilaterally. No accessory muscle use. GASTROINTESTINAL: Abdomen soft, non-tender, nondistended. MUSCULOSKELETAL: No cyanosis, or edema. BACK: Nontender without obvious deformity. No CVA tenderness. 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 I believe the increased conspicuity is related to technical factors. However, current study does suggest the possibility of small acute parenchymal and subarachnoid hemorrhages in the same areas, especially on the left. If there are no contraindications, multiaxial MRI of the brain with and without contrast recommended. Fabio Hammond MD Assessment and Plan Problem List: (1) Uncooperative behavior ICD Code: F91.9 Status: Acute (2) ETOH abuse ICD Code: F10.10 Status: Acute (3) Acute delirium ICD Code: R41.0 Status: Acute Assessment and Plan Assessment and Plan 56 year old male admitted with intoxication, disruptive behavior, and possible small ICH. Acute Alcohol Intoxication Acute Delirium IV Hydration Supportive Care Chemical or Physical restraints PRN to avoid patient harming himself or others Follow for resolution of intoxication Mental evaluation at that time Consider psychology consult if mental status changes become suspected to be non- alcohol toxicity related Risk for DTs Monitor for DTs Possible Small ICH Follow with neurochecks for now Avoid blood thinners Suspected to be artifact MRI to be considered when patient able to cooperate and answer pre-imaging screening questions DVT Prophylaxis SCDs Phill Michelle MD Sep 10, 2016 21:12
[2016-09-10 21:28] VITALS: BP 166/94; PULSE 108; RESP 18; TEMP 98.6; O2SAT 95
[2016-09-10] MEDS ORDERED: FLUMAZENIL 0.5 MG/5 ML VIAL IV PUSH PRN (21:30)
[2016-09-10] MEDS: LORazepam 2 MG/ML VIAL IV PUSH PRN ×3 (21:30→23:27)
[2016-09-10] MEDS ORDERED: LORazepam 2 MG TAB PO PRN (21:30)
[2016-09-10] MEDS ORDERED: LORazepam 2 MG/ML VIAL IV PUSH PRN ×3 (21:30)
[2016-09-10] MEDS: DOCUSATE SODIUM 50 MG/SENNA 8.6 MG TAB PO SCH (21:30)
[2016-09-11] MEDS: LORazepam 2 MG/ML VIAL IV PUSH PRN ×5 (00:39→13:28)
[2016-09-11] MEDS: SODIUM CHLOR 0.9% 1000 ML INJ 1,000 ML IV SCH ×2 (00:40→07:26)
[2016-09-11] MEDS: cloNIDine HCL 0.1 MG TAB PO PRN ×2 (04:50→12:03)
[2016-09-11 05:07] VITALS: BP 174/99; PULSE 94; RESP 18; TEMP 98.4; O2SAT 97
[2016-09-11 05:19] VITALS: BP 186/90
[2016-09-11 08:00] VITALS: BP 181/93; PULSE 95; RESP 18; TEMP 97; O2SAT 97
[2016-09-11] MEDS: DOCUSATE SODIUM 50 MG/SENNA 8.6 MG TAB PO SCH ×2 (09:00→21:00)
[2016-09-11] MEDS: SODIUM CHLORIDE 0.9% FLUSH 10 ML FLUSH IV FLUSH SCH ×2 (09:00→21:00)
[2016-09-11 09:06] LABS: AUTOMATED NEUTROPHIL # 3.1 TH/MM3 (1.8-7.7); BASOPHIL # 0.1 TH/MM3 (0-0.2); BASOPHIL % 1.3 % (0.0-2.0); EOSINOPHIL % 0.2 % (0.0-4.0); HEMATOCRIT 32.6 % (39.0-51.0); HEMO FLAGS DIFF FINAL; LYMPH % 16.1 % (9.0-44.0); LYMPHOCYTE # 0.8 TH/MM3 (1.0-4.8); MEAN CELL VOLUME 96.5 FL (80.0-100.0); MEAN CORPUSCULAR HEMOGLOBIN 32.4 PG (27.0-34.0); MEAN CORPUSCULAR HGB CONC 33.6 % (32.0-36.0); MONO % 20.2 % (0.0-8.0); NEUT % 62.2 % (16.0-70.0); PLATELET COUNT 281 TH/MM3 (150-450); RED BLOOD COUNT 3.38 MIL/MM3 (4.50-5.90); RED CELL DISTRIBUTION WIDTH 20.6 % (11.6-17.2)
[2016-09-11] MEDS: PANTOPRAZOLE SOD 40 MG DELAYED RELEASE TAB PO SCH (09:35)
[2016-09-11] MEDS: FOLIC ACID 1 MG TAB PO SCH (09:35)
[2016-09-11] MEDS: MULTIVITAMINS/MINERALS THERAPEUTIC TAB PO SCH (09:35)
[2016-09-11] MEDS: THIAMINE HCL 100 MG TAB PO SCH (09:35)
[2016-09-11 09:38] LABS: ANION GAP 12 MEQ/L (5-15); BICARBONATE 26.2 MEQ/L (21.0-32.0); BLOOD UREA NITROGEN 6 MG/DL (7-18); CHLORIDE 99 MEQ/L (98-107); GLOMERULAR FILTRATION RATE 152 ML/MIN (>89); POTASSIUM 3.9 MEQ/L (3.5-5.1); SODIUM (NA) 137 MEQ/L (136-145)
--- NOTE | 2016-09-11 11:42 | EKG ---
Date Performed: 09/10/2016 Time Performed: 16:58:48 PTAGE: 56 years EKG: SINUS TACHYCARDIA Since previous tracing, no significant change noted ABNORMAL RHYTHM ECG PREVIOUS TRACING : 09/05/2016 22.42 DOCTOR: Ty Larsen Interpretating Date/Time 09/11/2016 11:40:25
[2016-09-11 12:00] VITALS: BP 188/94; PULSE 65; RESP 18; TEMP 97.6; O2SAT 95
--- NOTE | 2016-09-11 13:17 | HHI.PR ---
Subjective Remarks No complaints today. No symptoms of withdrawal.. Mental status is not yet to baseline. Objective Vital Signs Date Time Temp Pulse Resp B/P Pulse Ox O2 Delivery O2 Flow Rate FiO2 09/11/16 12:00 97.6 65 18 188/94 95 09/11/16 08:00 97.0 95 18 181/93 97 09/11/16 05:19 186/90 09/11/16 05:07 98.4 94 18 174/99 97 09/10/16 21:28 98.6 108 18 166/94 95 09/10/16 20:50 84 178/85 98 Room Air 09/10/16 18:26 110 18 09/10/16 16:38 99.6 132 18 142/81 93 I/O 09/10/16 09/10/16 09/10/16 09/11/16 09/11/16 09/11/16 07:00 15:00 23:00 07:00 15:00 23:00 Intake Total 1711 ml Output Total 1950 ml Balance -239 ml Intake IV Total 1711 ml Output Urine Total 1950 ml # Voids 2 # Bowel Movements 1 Result Diagram: 09/11/16 0800 09/11/16 0800 Objective Remarks GENERAL: NAD, A&Ox1, lethargic HEAD: Normocephalic. NECK: Supple, trachea midline. No lymphadenopathy. EYES: No scleral icterus. No injection or drainage. CARDIOVASCULAR: Regular rate and rhythm without murmurs, gallops, or rubs. RESPIRATORY: Breath sounds equal bilaterally. No accessory muscle use. GASTROINTESTINAL: Abdomen soft, non-tender, nondistended. MUSCULOSKELETAL: No cyanosis, or edema. SKIN: Warm and dry. NEURO: No focal neurological deficits. Medications and IVs Administered Medications Medications (Trade) Dose Ordered Sig/Guillermo Route PRN Reason Start Time Stop Time Status Last Admin Dose Admin Sodium Chloride (NS 1000 ml Inj) 1,000 ml @ 150 mls/hr Q6H40M IV 09/10/16 18:06 09/11/16 00:40 Thiamine HCl (Vitamin B1) 100 mg DAILY PO 09/11/16 09:00 09/11/16 09:35 Folic Acid (Folate) 1 mg DAILY PO 09/11/16 09:00 09/11/16 09:35 Multivitamins/ Minerals Therapeutic (Theragran M Tab) 1 tab DAILY PO 09/11/16 09:00 09/16/16 08:59 09/11/16 09:35 Pantoprazole Sodium (Protonix) 40 mg DAILY PO 09/11/16 09:00 09/11/16 09:35 Clonidine (Catapres) 0.1 mg Q6H PRN PO SEE LABEL COMMENTS 09/10/16 21:30 09/11/16 12:03 Lorazepam (Ativan) 2 mg Q2H PRN PO CIWA 11-14 09/10/16 21:30 09/11/16 09:35 Lorazepam (Ativan Inj) 2 mg Q2H PRN IV PUSH CIWA 11-14 09/10/16 21:30 09/11/16 06:17 Lorazepam (Ativan Inj) 2 mg Q1H PRN IV PUSH CIWA 15-20 09/10/16 21:30 09/11/16 04:12 A/P Problem List: (1) Acute delirium ICD Code: R41.0 (2) Uncooperative behavior ICD Code: F91.9 (3) ETOH abuse ICD Code: F10.10 Assessment and Plan Assessment and Plan 56 year old male admitted with intoxication, disruptive behavior, and possible small ICH. Acute Alcohol Intoxication Acute Delirium IV Hydration Supportive Care Chemical or Physical restraints PRN to avoid patient harming himself or others Intoxication improved Psychiatry consult due to lingering and possible baseline psychosis. Consider psychology consult if mental status changes become suspected to be non- alcohol toxicity related Risk for DTs Monitor for DTs Possible Small ICH Follow with neurochecks for now Avoid blood thinners Suspected to be artifact MRI brain. DVT Prophylaxis SCDs Phill Michelle MD Sep 11, 2016 13:17
[2016-09-11] MEDS ORDERED: ASPIRIN 325 MG/CAFFEINE 40 MG/BUTALBITAL 50 MG CAP PO ONE (15:00)
[2016-09-11 16:00] VITALS: BP 183/83; PULSE 61; RESP 17; TEMP 97; O2SAT 96
[2016-09-11 20:00] VITALS: BP 158/86; PULSE 63; RESP 20; TEMP 98.7; O2SAT 94
[2016-09-12] VITALS (7 sets, daily range): BP systolic 110–181; BP diastolic 75–107; PULSE 67–107; RESP 18–22; TEMP 97.1–99.4; O2SAT 93–99
[2016-09-12] MEDS: LORazepam 1 MG TAB PO PRN ×2 (00:55→05:46)
[2016-09-12] MEDS: cloNIDine HCL 0.1 MG TAB PO PRN (06:25)
--- NOTE | 2016-09-12 09:31 | HHI.PR ---
Subjective Remarks Follow up delirium. Patient is currently A&Ox3, still in restraints. No active DTs noted. He denies any chest pain, sob, fever or chills. Discussed with patient the need for MRI today. Discussed with charge nurse of pending MRI, and ativan can be given prior. Objective Vitals Vital Signs Date Time Temp Pulse Resp B/P Pulse Ox O2 Delivery O2 Flow Rate FiO2 09/12/16 08:21 99.0 89 20 168/106 98 09/12/16 06:43 97.1 90 22 181/107 94 09/12/16 00:00 98.9 67 18 164/89 95 09/11/16 20:00 98.7 63 20 158/86 94 09/11/16 16:00 97.0 61 17 183/83 96 09/11/16 12:00 97.6 65 18 188/94 95 I/O 09/11/16 09/11/16 09/11/16 09/12/16 09/12/16 09/12/16 07:00 15:00 23:00 07:00 15:00 23:00 Intake Total 1711 ml 240 ml 500 ml Output Total 1950 ml 600 ml Balance -239 ml 240 ml 500 ml -600 ml Intake Oral 240 ml IV Total 1711 ml 500 ml Output Urine Total 1950 ml 600 ml # Voids 2 6 3 # Bowel Movements 1 2 0 0 Result Diagram: 09/11/16 0800 09/11/16 0800 Imaging Last Impressions Head CT 09/10/16 1705 Signed Impressions: Service Date/Time: Saturday, September 10, 2016 17:35 - CONCLUSION: Focal low attenuation areas inferiorly of both frontal lobes, 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 I believe the increased conspicuity is related to technical factors. However, current study does suggest the possibility of small acute parenchymal and subarachnoid hemorrhages in the same areas, especially on the left. If there are no contraindications, multiaxial MRI of the brain with and without contrast recommended. Fabio Hammond MD Objective Remarks GENERAL: NAD, A&Ox3, almost at baseline, still in restraints HEAD: Normocephalic. NECK: Supple, trachea midline. No lymphadenopathy. EYES: No scleral icterus. No injection or drainage. CARDIOVASCULAR: Regular rate and rhythm without murmurs, gallops, or rubs. RESPIRATORY: Breath sounds equal bilaterally. No accessory muscle use. GASTROINTESTINAL: Abdomen soft, non-tender, nondistended. MUSCULOSKELETAL: No cyanosis, or edema. SKIN: Warm and dry. NEURO: No focal neurological deficits. Medications and IVs Current Medications Medications (Trade) Dose Ordered Sig/Guillermo Route Start Time Stop Time Status Last Admin (NS 1000 ml Inj) 1,000 ml @ 150 mls/hr Q6H40M IV 09/10/16 18:06 09/11/16 00:40 (Zofran Inj) 4 mg Q6H PRN IVP 09/10/16 18:15 (Narcan Inj) 0.4 mg UNSCH PRN IV 09/10/16 18:15 (Shannan-Colace) 1 tab BID PO 09/10/16 21:00 (Milk Of Magnesia Liq) 30 ml Q12H PRN PO 09/10/16 18:15 (Senokot) 17.2 mg Q12H PRN PO 09/10/16 18:15 (Dulcolax Supp) 10 mg DAILY PRN RECTAL 09/10/16 18:15 (Lactulose Liq) 30 ml DAILY PRN PO 09/10/16 18:15 (Vitamin B1) 100 mg DAILY PO 09/11/16 09:00 09/11/16 09:35 (Folate) 1 mg DAILY PO 09/11/16 09:00 09/11/16 09:35 (Vasotec Inj) 1.25 mg Q6H PRN IV PUSH 09/10/16 21:15 (NS Flush) 2 ml UNSCH PRN IV FLUSH 09/10/16 21:30 (NS Flush) 2 ml BID IV FLUSH 09/11/16 09:00 09/11/16 21:00 (Theragran M Tab) 1 tab DAILY PO 09/11/16 09:00 09/16/16 08:59 09/11/16 09:35 (Protonix) 40 mg DAILY PO 09/11/16 09:00 09/11/16 09:35 (Catapres) 0.1 mg Q6H PRN PO 09/10/16 21:30 09/12/16 06:25 (Romazicon Inj) 0.2 mg Q1M PRN IV PUSH 09/10/16 21:30 (Ativan) 1 mg Q4H PRN PO 09/10/16 21:30 09/12/16 05:46 (Ativan Inj) 1 mg Q4H PRN IV PUSH 09/10/16 21:30 (Ativan) 2 mg Q2H PRN PO 09/10/16 21:30 09/11/16 09:35 (Ativan Inj) 2 mg Q2H PRN IV PUSH 09/10/16 21:30 09/11/16 06:17 (Ativan Inj) 2 mg Q1H PRN IV PUSH 09/10/16 21:30 09/11/16 13:28 (Ativan Inj) 2 mg Q15M PRN IV PUSH 09/10/16 21:30 A/P Problem List: (1) Uncooperative behavior ICD Code: F91.9 Status: Acute (2) ETOH abuse ICD Code: F10.10 Status: Acute (3) Acute delirium ICD Code: R41.0 Status: Acute Assessment and Plan 56 year old male admitted with intoxication, disruptive behavior, and possible small ICH. Acute Alcohol Intoxication, Intoxication improved Acute Delirium -Cont IV Hydration -Supportive Care -Chemical or Physical restraints PRN to avoid patient harming himself or others -Psychiatry consult pending due to lingering and possible baseline psychosis. Psych has seen patient and has cleared him from there standpoint, and will need to follow up outpatient for alcohol abuse Etoh abuse, Risk for DTs -Withdrawal precautions, Monitor for DTs -CIWA protocol -Seizure precautions Possible Small ICH Brain CT shows possible small acute parenchymal and subarachnoid hemorrhages, Suspected to be artifact -Neurochecks for now, will consult neurology if needed -Avoid blood thinners -MRI brain pending, Ativan to be given so it can be done today. DVT Prophylaxis: SCDs Discharge Planning Possible in 2-3 days. Sparkle Hansen Sep 12, 2016 09:31
[2016-09-12] MEDS: THIAMINE HCL 100 MG TAB PO SCH (09:38)
[2016-09-12] MEDS: DOCUSATE SODIUM 50 MG/SENNA 8.6 MG TAB PO SCH ×2 (09:38→21:14)
[2016-09-12] MEDS: MULTIVITAMINS/MINERALS THERAPEUTIC TAB PO SCH (09:38)
[2016-09-12] MEDS: SODIUM CHLOR 0.9% 1000 ML INJ 1,000 ML IV SCH ×2 (09:38→10:06)
[2016-09-12] MEDS: PANTOPRAZOLE SOD 40 MG DELAYED RELEASE TAB PO SCH (09:38)
[2016-09-12] MEDS: SODIUM CHLORIDE 0.9% FLUSH 10 ML FLUSH IV FLUSH SCH ×2 (09:38→21:14)
[2016-09-12] MEDS: FOLIC ACID 1 MG TAB PO SCH (09:38)
[2016-09-12] MEDS: LORazepam 2 MG/ML VIAL IV PUSH ONE ×2 (10:00→12:45)
[2016-09-12] MEDS ORDERED: hydrOXYzine PAMOATE 25 MG CAP PO PRN (12:30)
--- NOTE | 2016-09-12 12:30 | PD.CONS ---
Provisional Diagnosis Admission Date Sep 10, 2016 at 19:03 [place]. Brief psychotic disorder History of Present Illness Service Psychiatry Consult Requested By Pat Primary Care Physician No Primary Care Physician HPI Patient apparently admitted in a very psychotic state, having used illicit drugs. He also admits to a history of needing antipsychotic medication and receiving it from outside providers. He is much more clear and oriented at this time. He reports no psychotic symptoms but he does feel "fuzzy" because he is missing his Geodon and Vistaril. He asked this physician to prescribe these medicines for him. The patient is verbally luis f for safety and has no suicidal or homicidal ideation, plan or intent. Review of Systems Except as stated in HPI: all other systems reviewed are Neg Past Family Social History Coded Allergies: Lisinopril (Verified Allergy, Severe, Wheezing, 09/01/16) Active Scripts Metoprolol Tartrate (Lopressor)50 Mg Tab75 Mg PO Q12HR #62 TAB Prov:Valdemar Banuelos MD 09/06/16 Folic Acid 1 Mg Tablet1 Mg PO DAILY #31 TAB Prov:Valdemar Banuelos MD 09/06/16 Metronidazole (Flagyl)500 Mg [id number] Mg PO Q8HR #14 TAB Prov:Valdemar Banuelos MD 09/06/16 Nicotine (Eq Nicotine)21 Mg/24 Hr Dis1 Patch T-DERMAL DAILY #10 PATCH Prov:Valdemar Banuelos MD 09/06/16 Lactobacillus Acidophilus (Acidophilus/l-Sporogenes)1 Tab Tab1 Tab PO TID #33 TAB Prov:Valdemar Banuelos MD 09/06/16 Thiamine (Vitamin B-1)100 Mg [id number] Mg PO DAILY #31 TAB Ref 0 Prov:Valdemar Banuelos MD 09/06/[address] (Aspirin EC)81 Mg [id number] Mg PO DAILY #31 TAB Ref 0 Prov:Valdemar Banuelos MD 09/06/16 Diltiazem CD 24 HR (Cardizem CD 24 HR)120 Mg [id number] Mg PO DAILY #31 CAP Ref 0 Prov:Valdemar Banuelos MD 09/06/16 Pantoprazole 40 Mg Tab40 Mg PO DAILY #31 TAB Ref 0 Prov:Valdemar Banuelos MD 09/06/16 Multiple Vitamins W/ Minerals (Thera M Plus)1 Tab1 Tab PO DAILY #31 TAB Ref 0 Prov:Valdemar Banuelos MD 09/06/16 Discontinued Reported Medications Thiamine (Vitamin B-1)100 Mg [id number] Mg PO DAILY Ref 0 09/01/[address] (Aspirin EC)81 Mg [id number] Mg PO DAILY 30 Days Ref 0 Prov:Isaiah Jernigan MD 07/23/16 Diltiazem CD 24 HR (Cardizem CD 24 HR)120 Mg [id number] Mg PO DAILY 30 Days Ref 0 Prov:Isaiah Jernigan MD 07/23/16 Metoprolol Tartrate (Lopressor)50 Mg Tab75 Mg PO Q12HR 30 Days Ref 0 Prov:Isaiah Jernigan MD 07/23/16 Pantoprazole 40 Mg Tab40 Mg PO DAILY 30 Days Ref 0 Prov:Isaiah Jernigan MD 07/23/16 Multiple Vitamins W/ Minerals (Thera M Plus)1 Tab1 Tab PO DAILY 30 Days Ref 0 Prov:Isaiah Jernigan MD 07/23/16 Folic Acid (Folate)1 Mg Tab1 Mg PO DAILY 30 Days Ref 0 Prov:Isaiah Jernigan MD 07/23/16 Current Medications Medications (Trade) Dose Ordered Sig/Guillermo Route Start Time Stop Time Status Last Admin (Zofran Inj) 4 mg Q6H PRN IVP 09/10/16 18:15 (Narcan Inj) 0.4 mg UNSCH PRN IV 09/10/16 18:15 (Shannan-Colace) 1 tab BID PO 09/10/16 21:00 09/12/16 09:38 (Milk Of Magnesia Liq) 30 ml Q12H PRN PO 09/10/16 18:15 (Senokot) 17.2 mg Q12H PRN PO 09/10/16 18:15 (Dulcolax Supp) 10 mg DAILY PRN RECTAL 09/10/16 18:15 (Lactulose Liq) 30 ml DAILY PRN PO 09/10/16 18:15 (Vitamin B1) 100 mg DAILY PO 09/11/16 09:00 6/13/17 09:38 (Folate) 1 mg DAILY PO 09/11/16 09:00 09/12/16 09:38 (Vasotec Inj) 1.25 mg Q6H PRN IV PUSH 09/10/16 21:15 (NS Flush) 2 ml UNSCH PRN IV FLUSH 09/10/16 21:30 (NS Flush) 2 ml BID IV FLUSH 09/11/16 09:00 09/12/16 09:38 (Theragran M Tab) 1 tab DAILY PO 09/11/16 09:00 09/16/16 08:59 09/12/16 09:38 (Protonix) 40 mg DAILY PO 09/11/16 09:00 09/12/16 09:38 (Catapres) 0.1 mg Q6H PRN PO 09/10/16 21:30 09/12/16 06:25 (Romazicon Inj) 0.2 mg Q1M PRN IV PUSH 09/10/16 21:30 (Ativan) 1 mg Q4H PRN PO 09/10/16 21:30 09/12/16 05:46 (Ativan Inj) 1 mg Q4H PRN IV PUSH 09/10/16 21:30 (Ativan) 2 mg Q2H PRN PO 09/10/16 21:30 09/11/16 09:35 (Ativan Inj) 2 mg Q2H PRN IV PUSH 09/10/16 21:30 09/11/16 06:17 (Ativan Inj) 2 mg Q1H PRN IV PUSH 09/10/16 21:30 09/11/16 13:28 (Ativan Inj) 2 mg Q15M PRN IV PUSH 09/10/16 21:30 (Tylenol) 500 mg Q6H PRN PO 09/12/16 12:00 Family History Denied for mental illness, alcoholism and substance abuse. Social History Patient only employed intermittently. Has multiyear history of drug abuse. Has been treated at [facility]. Patient's Strengths (min. 2) Verbal and resilient. Physical Exam Vital Signs Vital Signs Date Time Temp Pulse Resp B/P Pulse Ox O2 Delivery O2 Flow Rate FiO2 09/12/16 09:32 123/80 09/12/16 08:21 99.0 89 20 98 09/10/16 20:50 Room Air I/O 09/11/16 09/11/16 09/12/16 08:00 16:00 00:00 Intake Total 1711 ml 240 ml 500 ml Output Total 1950 ml Balance -239 ml 240 ml 500 ml Mental Status Examination Speech: Unremarkable Orientation: x3 Memory: Unremarkable Thought Process: Organized, Goal Directed Thought Content: Unremarkable Hallucination Type: None Attention and Concentration: Good Suicidal Ideation: No Previous Suicide Attempts: No Homicidal Ideation: No Previous Homicide Attempts: No Insight: Fair Judgment: WNL Affect: Good Mood: Appropriate Motor Activity: Normal gait Assessment & Plan Problem List: (1) Brief psychotic disorder ICD Code: F23 Assessment & Plan Estimated LOS: days patient placed back on Geodon and Vistaril. He may be discharged and is not felt to be [place] act. He can follow up at [facility]. Alverto Zavala MD Sep 12, 2016 12:30
[2016-09-12] MEDS: ACETAMINOPHEN 500 MG CPLT PO PRN (12:48)
[2016-09-12] MEDS ORDERED: GADODIAMIDE PF 287 MG/ML 5 ML VIAL (for RAD MRI) IV ONE (16:55)
--- NOTE | 2016-09-12 16:58 | RADRPT ---
EXAM DATE/TIME: 09/12/2016 16:03 [facility] COMPARISON: CT BRAIN W/O CONTRAST, September 10, 2016, 17:35. INDICATIONS : Hemorrhage. CONTRAST: 15 cc Omniscan (gadodiamide) IV MEDICAL HISTORY : None. SURGICAL HISTORY : Inguinal hernia repair. ENCOUNTER: Initial ACUITY: 3 day PAIN SCORE: 0/10 LOCATION: Head TECHNIQUE: Multiplanar, multisequence MRI of the brain was performed both prior to and following the administrat ion of paramagnetic contrast. FINDINGS: CEREBRUM: Imaging through the brain parenchyma demonstrates edematous changes involving the orbital frontal por tions of both frontal lobes. There is subtle hemorrhage within this on the gradient refocused echo im ages. Findings would be most consistent with bifrontal contusion. No other areas of intraparenchymal hemorrhage are seen. No definite findings to indicate axonal shear injury are evident. There are mild edematous changes surrounding this on the T2 weighted images. The ventricles are normal in size and configuration. No hemorrhage is identified within the ventricles. WHITE MATTER: No significant signal abnormalities are seen in the white matter. POSTERIOR FOSSA: The cerebellum and brainstem are intact. The 4th ventricle is midline. The cerebellopontine angle is unremarkable. The cerebellar tonsils are normal in position. DIFFUSION IMAGING: No focal areas of restricted diffusion are seen. No evidence of acute infarction. EXTRACRANIAL: The visualized portions of the orbits and paranasal sinuses are unremarkable. POST-CONTRAST: No abnormal areas of parenchymal or dural enhancement. No evidence of blood-brain barrier breakdown. CONCLUSION: 1. There are areas of hemorrhagic bifrontal contusions. No abnormal enhancement is seen. Phill Batista MD on September 12, 2016 at 16:52 Board Certified Radiologist. This report was verified electronically.
[2016-09-12] MEDS ORDERED: ZIPRASIDONE HCL 80 MG CAP PO SCH (21:00)
[2016-09-13] MEDS: ACETAMINOPHEN 500 MG CPLT PO PRN ×2 (00:35→16:29)
[2016-09-13 08:00] VITALS: BP 144/100; PULSE 98; RESP 16; TEMP 98.1; O2SAT 95
[2016-09-13] MEDS: SODIUM CHLORIDE 0.9% FLUSH 10 ML FLUSH IV FLUSH SCH ×2 (09:00→20:15)
[2016-09-13] MEDS: DOCUSATE SODIUM 50 MG/SENNA 8.6 MG TAB PO SCH ×2 (09:13→20:15)
[2016-09-13] MEDS: FOLIC ACID 1 MG TAB PO SCH (09:13)
[2016-09-13] MEDS: PANTOPRAZOLE SOD 40 MG DELAYED RELEASE TAB PO SCH (09:13)
[2016-09-13] MEDS: MULTIVITAMINS/MINERALS THERAPEUTIC TAB PO SCH (09:13)
[2016-09-13] MEDS: THIAMINE HCL 100 MG TAB PO SCH (09:13)
[2016-09-13 12:00] VITALS: BP 132/74; PULSE 95; RESP 16; TEMP 100; O2SAT 97
--- NOTE | 2016-09-13 12:57 | HHI.PR ---
Subjective Remarks Follow up for intoxication, disruptive behavior, and small ICH. Pt reported having "an all over migraine headache...but I;ve never had a migraine headache before." Reported loss of skin on the back of his hands (left more than right). Reported feeling "shaky." Pt's RN (Keri) reported no acute issues over night or on this shift. Objective Vitals Vital Signs Date Time Temp Pulse Resp B/P Pulse Ox O2 Delivery O2 Flow Rate FiO2 09/13/16 12:00 100.0 95 16 132/74 97 09/13/16 08:00 98.1 98 16 144/100 95 09/12/16 20:15 98.8 80 20 127/79 93 09/12/16 16:15 98.2 83 20 110/75 93 I/O 09/12/16 09/12/16 09/12/16 09/13/16 09/13/16 09/13/16 07:00 15:00 23:00 07:00 15:00 23:00 Intake Total 480 ml 450 ml 400 ml Output Total 600 ml 0 ml Balance -600 ml 480 ml 450 ml 400 ml Intake Oral 480 ml 450 ml 400 ml Output Urine Total 600 ml 0 ml # Voids 1 1 1 # Bowel Movements 0 1 0 0 1 Result Diagram: 09/11/16 0800 09/11/16 0800 Imaging Last Impressions Brain MRI 09/12/16 1820 Signed Impressions: Service Date/Time: Monday, September 12, 2016 16:03 - CONCLUSION: 1. There are areas of hemorrhagic bifrontal contusions. No abnormal enhancement is seen. 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 I believe the increased conspicuity is related to technical factors. However, current study does suggest the possibility of small acute parenchymal and subarachnoid hemorrhages in the same areas, especially on the left. If there are no contraindications, multiaxial MRI of the brain with and without contrast recommended. Fabio Hammond MD Objective Remarks GENERAL: Pt encountered laying a bed, awake, NAD SKIN: Warm and dry. Sloughing noted on back of both hands, left greater than right. Skin was otherwise intact. Gauze wrap noted on right forearm. HEAD: Normocephalic. EYES: No scleral icterus. No injection or drainage. NECK: Supple, trachea midline. No lymphadenopathy. CARDIOVASCULAR: Regular rate and rhythm without murmurs, gallops, or rubs. RESPIRATORY: Breath sounds equal bilaterally. No accessory muscle use. GASTROINTESTINAL: Abdomen soft, non-tender, nondistended. MUSCULOSKELETAL: No cyanosis, or edema. NEUROLOGICAL: Cranial nerves II-XII grossly intact, muscle strength 5/5 all extremities, finer tremor noted in upper extremities. PSYCHOLOGICAL: Alert and oriented to self, evidence of short term memory impairment, pleasant and cooperative. Not evidencing overt signs of anxiety and/ or depression. Speech was clear and fluent. Medications and IVs Current Medications Medications (Trade) Dose Ordered Sig/Guillermo Route Start Time Stop Time Status Last Admin (Zofran Inj) 4 mg Q6H PRN IVP 09/10/16 18:15 (Narcan Inj) 0.4 mg UNSCH PRN IV 09/10/16 18:15 (Shannan-Colace) 1 tab BID PO 09/10/16 21:00 09/13/16 09:13 (Milk Of Magnesia Liq) 30 ml Q12H PRN PO 09/10/16 18:15 (Senokot) 17.2 mg Q12H PRN PO 09/10/16 18:15 (Dulcolax Supp) 10 mg DAILY PRN RECTAL 09/10/16 18:15 (Lactulose Liq) 30 ml DAILY PRN PO 09/10/16 18:15 (Vitamin B1) 100 mg DAILY PO 09/11/16 09:00 09/13/16 09:13 (Folate) 1 mg DAILY PO 09/11/16 09:00 09/13/16 09:13 (Vasotec Inj) 1.25 mg Q6H PRN IV PUSH 09/10/16 21:15 (NS Flush) 2 ml UNSCH PRN IV FLUSH 09/10/16 21:30 (NS Flush) 2 ml BID IV FLUSH 09/11/16 09:00 09/13/16 09:00 (Theragran M Tab) 1 tab DAILY PO 09/11/16 09:00 09/16/16 08:59 09/13/16 09:13 (Protonix) 40 mg DAILY PO 09/11/16 09:00 09/13/16 09:13 (Catapres) 0.1 mg Q6H PRN PO 09/10/16 21:30 09/12/16 06:25 (Romazicon Inj) 0.2 mg Q1M PRN IV PUSH 09/10/16 21:30 (Ativan) 1 mg Q4H PRN PO 09/10/16 21:30 09/12/16 05:46 (Ativan Inj) 1 mg Q4H PRN IV PUSH 09/10/16 21:30 (Ativan) 2 mg Q2H PRN PO 09/10/16 21:30 09/11/16 09:35 (Ativan Inj) 2 mg Q2H PRN IV PUSH 09/10/16 21:30 09/11/16 06:17 (Ativan Inj) 2 mg Q1H PRN IV PUSH 09/10/16 21:30 09/11/16 13:28 (Ativan Inj) 2 mg Q15M PRN IV PUSH 09/10/16 21:30 (Tylenol) 500 mg Q6H PRN PO 09/12/16 12:00 09/13/16 00:35 (Vistaril) 25 mg Q6H PRN PO 09/12/16 12:30 Urinary Catheter: No Vascular Central Line Catheter: No A/P Problem List: (1) Uncooperative behavior ICD Code: F91.9 Status: Acute (2) ETOH abuse ICD Code: F10.10 Status: Acute (3) Acute delirium ICD Code: R41.0 Status: Acute Assessment and Plan 56 year old male admitted with intoxication, disruptive behavior, and possible small ICH. Acute Alcohol Intoxication Acute Delirium -IV Hydration -Supportive Care -Chemical or Physical restraints PRN to avoid patient harming himself or others -Follow for resolution of intoxication -Mental evaluation at that time -Consider psychology consult if mental status changes become suspected to be non-alcohol toxicity related -Risk for DTs -Monitor for DTs -Psychiatry has seen pt, deemed him not requiring inpt services, advised pt seek services at [facility] for his alcohol abuse issues. Possible Small ICH -Follow with neurochecks for now -Avoid blood thinners -As noted above in MRI impressions.Bifrontal hemorrhagic contusions present. -Neurology consulted -PT/OT consulted DVT Prophylaxis -SCDs Discussed case with pt, pt RN (Keri), and Dr. Michelle. Discharge Planning CM continues to evaluate and address pt's needs. Sunil Guo Jr. TIM Sep 13, 2016 12:57
[2016-09-13 16:00] VITALS: BP 139/81; PULSE 86; RESP 16; TEMP 98.6; O2SAT 97
--- NOTE | 2016-09-13 16:59 | PD.CONS ---
History of Present Illness Service Neurology Consult Requested By medical Reason for Consult ich Primary Care Physician No Primary Care Physician History of Present Illness 56 year old male with recurrent admissions/er visits for etoh intoxication. he is now homeless after getting evicted by his ex-girlfriend. a ct/mri brain showed frontal bilateral ich. seen by psych. denies any sz hx. etoh 176 on admit. tells me he suffers from migraine headaches x years. would like med for it. throbbing nature with photo/phonophobia. Review of Systems ROS Limitations: 10 point negative Past Family Social History Past Medical History HTN Alcoholism Allergies: Coded Allergies: Lisinopril (Verified Allergy, Severe, Wheezing, 09/01/16) Family History Multiple sclerosis and mother Lung cancer and mother Social History Nicotine dependence, 1 pack per day or more Alcohol abuse Drug abuse (recent crack cocaine) Patient is homeless; got evicted by his ex-girlfriend he states Review of Systems All other ROS: ROS reviewed as documented in chart Past Family Social History Allergies: Coded Allergies: Lisinopril (Verified Allergy, Severe, Wheezing, 09/01/16) Active Ordered Medications Current Medications Medications (Trade) Dose Ordered Sig/Guillermo Route Start Time Stop Time Status Last Admin (Zofran Inj) 4 mg Q6H PRN IVP 09/10/16 18:15 (Narcan Inj) 0.4 mg UNSCH PRN IV 09/10/16 18:15 (Shannan-Colace) 1 tab BID PO 09/10/16 21:00 09/13/16 09:13 (Milk Of Magnesia Liq) 30 ml Q12H PRN PO 09/10/16 18:15 (Senokot) 17.2 mg Q12H PRN PO 09/10/16 18:15 (Dulcolax Supp) 10 mg DAILY PRN RECTAL 09/10/16 18:15 (Lactulose Liq) 30 ml DAILY PRN PO 09/10/16 18:15 (Vitamin B1) 100 mg DAILY PO 09/11/16 09:00 09/13/16 09:13 (Folate) 1 mg DAILY PO 09/11/16 09:00 09/13/16 09:13 (Vasotec Inj) 1.25 mg Q6H PRN IV PUSH 09/10/16 21:15 (NS Flush) 2 ml UNSCH PRN IV FLUSH 09/10/16 21:30 (NS Flush) 2 ml BID IV FLUSH 09/11/16 09:00 09/13/16 09:00 (Theragran M Tab) 1 tab DAILY PO 09/11/16 09:00 09/16/16 08:59 09/13/16 09:13 (Protonix) 40 mg DAILY PO 09/11/16 09:00 09/13/16 09:13 (Catapres) 0.1 mg Q6H PRN PO 09/10/16 21:30 09/12/16 06:25 (Romazicon Inj) 0.2 mg Q1M PRN IV PUSH 09/10/16 21:30 (Ativan) 1 mg Q4H PRN PO 09/10/16 21:30 09/12/16 05:46 (Ativan Inj) 1 mg Q4H PRN IV PUSH 09/10/16 21:30 (Ativan) 2 mg Q2H PRN PO 09/10/16 21:30 09/11/16 09:35 (Ativan Inj) 2 mg Q2H PRN IV PUSH 09/10/16 21:30 09/11/16 06:17 (Ativan Inj) 2 mg Q1H PRN IV PUSH 09/10/16 21:30 09/11/16 13:28 (Ativan Inj) 2 mg Q15M PRN IV PUSH 09/10/16 21:30 (Tylenol) 500 mg Q6H PRN PO 09/12/16 12:00 09/13/16 16:29 (Vistaril) 25 mg Q6H PRN PO 09/12/16 12:30 Exam I&O / VS 09/12/16 09/12/16 09/13/16 15:00 23:00 07:00 Intake Total 480 ml 450 ml 400 ml Output Total 0 ml Balance 480 ml 450 ml 400 ml Intake Oral 480 ml 450 ml 400 ml Output Urine Total 0 ml # Voids 1 1 # Bowel Movements 1 0 0 Vital Signs Date Time Temp Pulse Resp B/P Pulse Ox O2 Delivery O2 Flow Rate FiO2 09/13/16 16:00 98.6 86 16 139/81 97 09/13/16 12:00 100.0 95 16 132/74 97 09/13/16 08:00 98.1 98 16 144/100 95 09/12/16 20:15 98.8 80 20 127/79 93 General: Alert and Oriented, No acute distress Eye: EOMI Neurologic: Alert, Oriented, No focal defects, CN II-XII intact Psychiatric: Cooperative Exam Comments alert, ox 3, jittery, mild postural tremors, follows, eomi, vff, be to gravity , wide based gait Review/Management Diagnosis/Plan: (1) ICH (intracerebral hemorrhage) Plan: probably traumatic 2/2 etoh intoxication recs repeat ct brain w/wo contrast in 6-8 weeks check eeg no driving no further recs; call me if ? can f/u with us in 4-5 weeks (2) Elevated ETOH level (3) Alcohol abuse Problem Qualifiers (1) ICH (intracerebral hemorrhage): (2) Elevated ETOH level: Qualified Code: Y90.6 - Blood alcohol level of 120-199 mg/100 ml Eric Molina MD Sep 13, 2016 16:59
[2016-09-13] MEDS: DIVALPROEX SODIUM E.R. 500 MG TAB PO SCH (17:45)
[2016-09-13 20:00] VITALS: BP 163/92; PULSE 77; RESP 20; TEMP 98.1; O2SAT 96
[2016-09-14 04:20] VITALS: BP 120/88; PULSE 68; RESP 21; TEMP 97.1; O2SAT 97
[2016-09-14] MEDS: ACETAMINOPHEN 500 MG CPLT PO PRN ×2 (05:30→15:34)
[2016-09-14] MEDS: LORazepam 1 MG TAB PO PRN (05:30)
[2016-09-14 07:52] VITALS: BP 167/98; PULSE 71; RESP 18; TEMP 98.3; O2SAT 95
[2016-09-14] MEDS: DIVALPROEX SODIUM E.R. 500 MG TAB PO SCH (09:00)
[2016-09-14] MEDS: THIAMINE HCL 100 MG TAB PO SCH (09:00)
[2016-09-14] MEDS: FOLIC ACID 1 MG TAB PO SCH (09:00)
[2016-09-14] MEDS: MULTIVITAMINS/MINERALS THERAPEUTIC TAB PO SCH (09:00)
[2016-09-14] MEDS: DOCUSATE SODIUM 50 MG/SENNA 8.6 MG TAB PO SCH ×2 (09:00→21:00)
[2016-09-14] MEDS: PANTOPRAZOLE SOD 40 MG DELAYED RELEASE TAB PO SCH (09:00)
[2016-09-14] MEDS: SODIUM CHLORIDE 0.9% FLUSH 10 ML FLUSH IV FLUSH SCH ×2 (09:05→21:00)
--- NOTE | 2016-09-14 09:54 | HHI.PR ---
Subjective Remarks Follow up for intoxication, disruptive behavior, and small ICH. Pt reported improved headache, continues to be "all over" with less intensity. Pt stated he was not seen by neurology yet later in conversation said "the neurologist was going to get some sort of brain scan on me." Pt revisited loss of skin on the back of his hands (left more than right). Reported feeling "shaky." Stated he was "anxious" and noted it was related to being "here" and "away from my stuff." Pt's RN (Jose Luis) reported no acute issues over night or on this shift. Objective Vitals Vital Signs Date Time Temp Pulse Resp B/P Pulse Ox O2 Delivery O2 Flow Rate FiO2 09/14/16 07:52 98.3 71 18 167/98 95 09/14/16 04:20 97.1 68 21 120/88 97 09/13/16 20:00 98.1 77 20 163/92 96 09/13/16 16:00 98.6 86 16 139/81 97 09/13/16 12:00 100.0 95 16 132/74 97 I/O 09/13/16 09/13/16 09/13/16 09/14/16 09/14/16 09/14/16 07:00 15:00 23:00 07:00 15:00 23:00 Intake Total 400 ml 480 ml 900 ml 1000 ml 240 ml Output Total 900 ml 400 ml Balance 400 ml 480 ml 900 ml 100 ml -160 ml Intake Oral 400 ml 480 ml 900 ml 1000 ml 240 ml Output Urine Total 900 ml 400 ml # Voids 1 4 1 # Bowel Movements 0 1 0 0 Result Diagram: 09/11/16 0800 09/11/16 0800 Imaging Last Impressions Brain MRI 09/12/16 1820 Signed Impressions: Service Date/Time: Monday, September 12, 2016 16:03 - CONCLUSION: 1. There are areas of hemorrhagic bifrontal contusions. No abnormal enhancement is seen. 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 I believe the increased conspicuity is related to technical factors. However, current study does suggest the possibility of small acute parenchymal and subarachnoid hemorrhages in the same areas, especially on the left. If there are no contraindications, multiaxial MRI of the brain with and without contrast recommended. Fabio Hammond MD Objective Remarks GENERAL: Pt encountered laying a bed, awake, NAD SKIN: Warm and dry. Sloughing noted on back of both hands, left greater than right. Skin was otherwise intact. Gauze wrap noted on right forearm, surrounding IV site. HEAD: Normocephalic. EYES: No scleral icterus. No injection or drainage. NECK: Supple, trachea midline. No lymphadenopathy. CARDIOVASCULAR: Regular rate and rhythm without murmurs, gallops, or rubs. RESPIRATORY: Breath sounds equal bilaterally. No accessory muscle use. GASTROINTESTINAL: Abdomen soft, non-tender, nondistended. MUSCULOSKELETAL: No cyanosis, or edema. NEUROLOGICAL: Cranial nerves II-XII grossly intact, muscle strength 5/5 all extremities, fine tremor noted in upper extremities. PSYCHOLOGICAL: Alert and oriented to self, evidence of short term memory impairment, pleasant and cooperative. Not evidencing overt signs of depression; slightly anxious. Speech was clear and fluent. Medications and IVs Current Medications Medications (Trade) Dose Ordered Sig/Guillermo Route Start Time Stop Time Status Last Admin (Zofran Inj) 4 mg Q6H PRN IVP 09/10/16 18:15 (Narcan Inj) 0.4 mg UNSCH PRN IV 09/10/16 18:15 (Shannan-Colace) 1 tab BID PO 09/10/16 21:00 09/14/16 09:00 (Milk Of Magnesia Liq) 30 ml Q12H PRN PO 09/10/16 18:15 (Senokot) 17.2 mg Q12H PRN PO 09/10/16 18:15 (Dulcolax Supp) 10 mg DAILY PRN RECTAL 09/10/16 18:15 (Lactulose Liq) 30 ml DAILY PRN PO 09/10/16 18:15 (Vitamin B1) 100 mg DAILY PO 09/11/16 09:00 09/14/16 09:00 (Folate) 1 mg DAILY PO 09/11/16 09:00 09/14/16 09:00 (Vasotec Inj) 1.25 mg Q6H PRN IV PUSH 09/10/16 21:15 (NS Flush) 2 ml UNSCH PRN IV FLUSH 09/10/16 21:30 (NS Flush) 2 ml BID IV FLUSH 09/11/16 09:00 09/14/16 09:05 (Theragran M Tab) 1 tab DAILY PO 09/11/16 09:00 09/16/16 08:59 09/14/16 09:00 (Protonix) 40 mg DAILY PO 09/11/16 09:00 09/14/16 09:00 (Catapres) 0.1 mg Q6H PRN PO 09/10/16 21:30 09/12/16 06:25 (Romazicon Inj) 0.2 mg Q1M PRN IV PUSH 09/10/16 21:30 (Ativan) 1 mg Q4H PRN PO 09/10/16 21:30 09/14/16 05:30 (Ativan Inj) 1 mg Q4H PRN IV PUSH 09/10/16 21:30 (Ativan) 2 mg Q2H PRN PO 09/10/16 21:30 09/11/16 09:35 (Ativan Inj) 2 mg Q2H PRN IV PUSH 09/10/16 21:30 09/11/16 06:17 (Ativan Inj) 2 mg Q1H PRN IV PUSH 09/10/16 21:30 09/11/16 13:28 (Ativan Inj) 2 mg Q15M PRN IV PUSH 09/10/16 21:30 (Tylenol) 500 mg Q6H PRN PO 09/12/16 12:00 09/14/16 05:30 (Vistaril) 25 mg Q6H PRN PO 09/12/16 12:30 (Depakote Er) 500 mg DAILY PO 09/13/16 18:00 09/14/16 09:00 (Habitrol 21 Mg Patch.24 Hr) 1 patch DAILY T-DERMAL 09/14/16 10:00 09/14/16 12:36 Miscellaneous Information 1 HS T-DERMAL 09/14/16 21:00 Urinary Catheter: No Vascular Central Line Catheter: No A/P Problem List: (1) Uncooperative behavior ICD Code: F91.9 Status: Acute (2) ETOH abuse ICD Code: F10.10 Status: Acute (3) Acute delirium ICD Code: R41.0 Status: Acute (4) Tobacco abuse ICD Code: Z72.0 Status: Chronic Assessment and Plan 56 year old male admitted with intoxication, disruptive behavior, and possible small ICH. Acute Alcohol Intoxication Acute Delirium -IV Hydration -Supportive Care -Chemical or Physical restraints PRN to avoid patient harming himself or others -Follow for resolution of intoxication -Mental evaluation at that time -Consider psychology consult if mental status changes become suspected to be non-alcohol toxicity related -Risk for DTs -Monitor for DTs, over past 24 hours CIWA score has been as high as 9. -Psychiatry has seen pt, deemed him not requiring inpt services, advised pt seek services at [facility] for his alcohol abuse issues. Possible Small ICH -Follow with neurochecks for now -Avoid blood thinners -As noted above in MRI impressions.Bifrontal hemorrhagic contusions present. -Neurology consulted -PT/OT consulted -Pt ambulating to bathroom and with assistance during PT. Nicotine abuse - Nicotine patch 21 mg q 24 hrs DVT Prophylaxis -SCDs Discussed case with pt, pt RN (Jose Luis), and Dr. Michelle. Discharge Planning CM continues to evaluate and address pt's needs. Sunil Guo Jr. TIM Sep 14, 2016 09:54
[2016-09-14] MEDS ORDERED: REMOVE OLD PATCH T-DERMAL SCH (10:00)
[2016-09-14] MEDS: NICOTINE 21 MG/24 HR PATCH T-DERMAL SCH (12:36)
[2016-09-14 12:48] VITALS: BP 140/93; PULSE 85; RESP 18; TEMP 97.7; O2SAT 94
[2016-09-14 15:56] VITALS: BP 158/92; PULSE 81; RESP 18; TEMP 97.8; O2SAT 96
--- NOTE | 2016-09-14 17:13 | MG ---
cc: MAGDALENA PACHECO M.D. Lab No: [id number] Date: Age: 56 Sex: M Race: REFERRING: Jesse. ROOM: [facility]. Awake, drowsy study, asleep as well with photic stimulation only. MRI shows hemorrhagic bifrontal contusions. No abnormal enhancement. This is a 56-year-old man admitted with alcohol withdrawal toxic with an ethanol level of 300, history of seizures, substance abuse, ethanol use on Depakote, thiamine, folic acid, Protonix and Ativan given at 05:30 in the morning. DESCRIPTION OF RECORD: Background is significantly attenuated. Low amplitude EEG with a lot of artifact seen throughout most likely of a delta frequency. Some foot twitching does not correlate with any epileptic activity. Photic stimulation shows more artifact. There may be a mild driving response. Ongoing eye movement artifact. IMPRESSION: Abnormal EEG due to severely depressed background consistent with severe encephalopathy without any epileptiform features. MD THELMA Link/SHARONA /3:02 PM /5:12 PM
[2016-09-14 20:00] VITALS: BP 167/94; PULSE 74; RESP 20; TEMP 97.5; O2SAT 97
[2016-09-14] MEDS: REMOVE OLD PATCH T-DERMAL SCH (21:00)
[2016-09-15] VITALS: BP 165/99; PULSE 67; RESP 20; TEMP 97.7; O2SAT 96
[2016-09-15] MEDS: ENALAPRILAT 1.25 MG/ML VIAL IV PUSH PRN ×2 (01:00→17:07)
[2016-09-15 03:54] VITALS: BP 176/76; PULSE 71; RESP 16; TEMP 97.6; O2SAT 96
[2016-09-15 08:00] VITALS: BP 181/97; PULSE 63; RESP 18; TEMP 98.5; O2SAT 97
[2016-09-15] MEDS: DIVALPROEX SODIUM E.R. 500 MG TAB PO SCH (08:50)
[2016-09-15] MEDS: MULTIVITAMINS/MINERALS THERAPEUTIC TAB PO SCH (08:50)
[2016-09-15] MEDS: PANTOPRAZOLE SOD 40 MG DELAYED RELEASE TAB PO SCH (08:50)
[2016-09-15] MEDS: DOCUSATE SODIUM 50 MG/SENNA 8.6 MG TAB PO SCH ×2 (08:50→21:00)
[2016-09-15] MEDS: THIAMINE HCL 100 MG TAB PO SCH (08:51)
[2016-09-15] MEDS: SODIUM CHLORIDE 0.9% FLUSH 10 ML FLUSH IV FLUSH SCH (08:51)
[2016-09-15] MEDS: FOLIC ACID 1 MG TAB PO SCH (08:51)
[2016-09-15] MEDS: NICOTINE 21 MG/24 HR PATCH T-DERMAL SCH (08:53)
[2016-09-15] MEDS: cloNIDine HCL 0.1 MG TAB PO PRN (09:01)
[2016-09-15] MEDS: ACETAMINOPHEN 500 MG CPLT PO PRN ×2 (09:01→17:06)
[2016-09-15 12:36] VITALS: BP_SYST 133; BP_SYST 137; BP_DIAS 80; BP_DIAS 81; PULSE 71; PULSE 92; RESP 18; TEMP 96.9; TEMP 97.6; O2SAT 96; O2SAT 97
--- NOTE | 2016-09-15 15:06 | HHI.PR ---
Subjective Remarks Follow up for intoxication, disruptive behavior, and small ICH. Pt reported improved headache. Said it was worse this am but "I got an aspirin for it a while ago and its better." Pt spoke of his need to stop drinking alcohol as well as move away from friends who are "drinking." Pt stated he called [facility] to get information about their program and said "they are open 24 hours a day and they told me to come in anytime for an evaluation." Pt's RN (Jessica) reported no acute issues over night or on this shift. Objective Vitals Vital Signs Date Time Temp Pulse Resp B/P Pulse Ox O2 Delivery O2 Flow Rate FiO2 09/15/16 12:36 97.6 71 18 137/80 97 09/15/16 08:00 98.5 63 18 181/97 97 09/15/16 03:54 97.6 71 16 176/76 96 09/15/16 00:00 97.7 67 20 165/99 96 09/14/16 20:00 97.5 74 20 167/94 97 09/14/16 15:56 97.8 81 18 158/92 96 I/O 09/14/16 09/14/16 09/14/16 09/15/16 09/15/16 09/15/16 07:00 15:00 23:00 07:00 15:00 23:00 Intake Total 1000 ml 240 ml Output Total 900 ml 400 ml 200 ml Balance 100 ml -160 ml -200 ml Intake Oral 1000 ml 240 ml Output Urine Total 900 ml 400 ml 200 ml # Voids 1 # Bowel Movements 0 Result Diagram: 09/11/16 0800 09/11/16 0800 Imaging Last Impressions Brain MRI 09/12/16 1820 Signed Impressions: Service Date/Time: Monday, September 12, 2016 16:03 - CONCLUSION: 1. There are areas of hemorrhagic bifrontal contusions. No abnormal enhancement is seen. 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 I believe the increased conspicuity is related to technical factors. However, current study does suggest the possibility of small acute parenchymal and subarachnoid hemorrhages in the same areas, especially on the left. If there are no contraindications, multiaxial MRI of the brain with and without contrast recommended. Fabio Hammond MD Objective Remarks GENERAL: Pt encountered laying a bed, awake, NAD SKIN: Warm and dry. Sloughing noted on back of both hands, left greater than right. Skin was otherwise intact. Gauze wrap noted on right forearm, surrounding IV site. HEAD: Normocephalic. EYES: No scleral icterus. No injection or drainage. NECK: Supple, trachea midline. No lymphadenopathy. CARDIOVASCULAR: Regular rate and rhythm without murmurs, gallops, or rubs. RESPIRATORY: Breath sounds equal bilaterally. No accessory muscle use. GASTROINTESTINAL: Abdomen soft, non-tender, nondistended. MUSCULOSKELETAL: No cyanosis, or edema. NEUROLOGICAL: Cranial nerves II-XII grossly intact, muscle strength 5/5 all extremities, fine tremor noted in upper extremities. PSYCHOLOGICAL: Alert and oriented to self, pleasant and cooperative. Not evidencing overt signs of depression; slightly anxious. Speech was clear and fluent. Procedures None Medications and IVs Current Medications Medications (Trade) Dose Ordered Sig/Guillermo Route Start Time Stop Time Status Last Admin (Zofran Inj) 4 mg Q6H PRN IVP 09/10/16 18:15 (Narcan Inj) 0.4 mg UNSCH PRN IV 09/10/16 18:15 (Shannan-Colace) 1 tab BID PO 09/10/16 21:00 09/14/16 09:00 (Milk Of Magnesia Liq) 30 ml Q12H PRN PO 09/10/16 18:15 (Senokot) 17.2 mg Q12H PRN PO 09/10/16 18:15 (Dulcolax Supp) 10 mg DAILY PRN RECTAL 09/10/16 18:15 (Lactulose Liq) 30 ml DAILY PRN PO 09/10/16 18:15 (Vitamin B1) 100 mg DAILY PO 09/11/16 09:00 09/15/16 08:51 (Folate) 1 mg DAILY PO 09/11/16 09:00 09/15/16 08:51 (Vasotec Inj) 1.25 mg Q6H PRN IV PUSH 09/10/16 21:15 09/15/16 01:00 (NS Flush) 2 ml UNSCH PRN IV FLUSH 09/10/16 21:30 (NS Flush) 2 ml BID IV FLUSH 09/11/16 09:00 09/15/16 08:51 (Theragran M Tab) 1 tab DAILY PO 09/11/16 09:00 09/16/16 08:59 09/15/16 08:50 (Protonix) 40 mg DAILY PO 09/11/16 09:00 09/15/16 08:50 (Catapres) 0.1 mg Q6H PRN PO 09/10/16 21:30 09/15/16 09:01 (Romazicon Inj) 0.2 mg Q1M PRN IV PUSH 09/10/16 21:30 (Ativan) 1 mg Q4H PRN PO 09/10/16 21:30 09/14/16 05:30 (Ativan Inj) 1 mg Q4H PRN IV PUSH 09/10/16 21:30 (Ativan) 2 mg Q2H PRN PO 09/10/16 21:30 09/11/16 09:35 (Ativan Inj) 2 mg Q2H PRN IV PUSH 09/10/16 21:30 09/11/16 06:17 (Ativan Inj) 2 mg Q1H PRN IV PUSH 09/10/16 21:30 09/11/16 13:28 (Ativan Inj) 2 mg Q15M PRN IV PUSH 09/10/16 21:30 (Tylenol) 500 mg Q6H PRN PO 09/12/16 12:00 09/15/16 09:01 (Vistaril) 25 mg Q6H PRN PO 09/12/16 12:30 (Depakote Er) 500 mg DAILY PO 09/13/16 18:00 09/15/16 08:50 (Habitrol 21 Mg Patch.24 Hr) 1 patch DAILY T-DERMAL 09/14/16 10:00 09/15/16 08:53 Miscellaneous Information 1 HS T-DERMAL 09/14/16 21:00 Urinary Catheter: No Vascular Central Line Catheter: No A/P Problem List: (1) Uncooperative behavior ICD Code: F91.9 Status: Acute (2) ETOH abuse ICD Code: F10.10 Status: Acute (3) Acute delirium ICD Code: R41.0 Status: Acute (4) Tobacco abuse ICD Code: Z72.0 Status: Chronic Assessment and Plan 56 year old male admitted with intoxication, disruptive behavior, and possible small ICH. Acute Alcohol Intoxication Acute Delirium -IV Hydration -Supportive Care -Chemical or Physical restraints PRN to avoid patient harming himself or others -Follow for resolution of intoxication -Mental evaluation at that time -Consider psychology consult if mental status changes become suspected to be non-alcohol toxicity related -Risk for DTs -Monitor for DTs, CIWA improved from 9 to 5 over past 24 hours. -Psychiatry has seen pt, deemed him not requiring inpt services, advised pt seek services at [facility] for his alcohol abuse issues. -PRN Ativan discontinued. Possible Small ICH -Follow with neurochecks for now -Avoid blood thinners -As noted above in MRI impressions.Bifrontal hemorrhagic contusions present. -Neurology consulted -PT/OT consulted -Pt ambulating to bathroom and with assistance during PT. Pt noted to have ambulated 225 with assistance and 500 feet (with breaks to complete his walk). Nicotine abuse - Nicotine patch 21 mg q 24 hrs DVT Prophylaxis -SCDs Discussed case with pt, pt RN (Jessica), and Dr. Michelle. Discharge Planning CM continues to evaluate and address pt's needs. Sunil Guo Jr. TIM Sep 15, 2016 15:06
[2016-09-15 16:00] VITALS: BP 172/104; PULSE 66; RESP 20; TEMP 98.2; O2SAT 97
[2016-09-15 20:26] VITALS: BP 154/99; PULSE 86; RESP 18; TEMP 96.8; O2SAT 95
[2016-09-15] MEDS: REMOVE OLD PATCH T-DERMAL SCH (21:00)
[2016-09-16] VITALS: BP 148/94; PULSE 82; RESP 18; TEMP 97; O2SAT 95
[2016-09-16 04:29] VITALS: BP 185/94; PULSE 62; RESP 18; TEMP 97.8; O2SAT 100
[2016-09-16] MEDS: ACETAMINOPHEN 500 MG CPLT PO PRN (04:42)
[2016-09-16] MEDS ORDERED: LORazepam 1 MG TAB PO ONE (07:00)
[2016-09-16] MEDS: ENALAPRILAT 1.25 MG/ML VIAL IV PUSH PRN (07:06)
[2016-09-16 08:00] VITALS: BP 136/95; PULSE 68; RESP 17; TEMP 97.8; O2SAT 98
[2016-09-16] MEDS: NICOTINE 21 MG/24 HR PATCH T-DERMAL SCH (08:33)
[2016-09-16] MEDS: FOLIC ACID 1 MG TAB PO SCH (08:34)
[2016-09-16] MEDS: DOCUSATE SODIUM 50 MG/SENNA 8.6 MG TAB PO SCH (08:34)
[2016-09-16] MEDS: DIVALPROEX SODIUM E.R. 500 MG TAB PO SCH (08:34)
[2016-09-16] MEDS: THIAMINE HCL 100 MG TAB PO SCH (08:34)
--- NOTE | 2016-09-16 10:05 | HHI.DS ---
Discharge Summary Admission Date Sep 10, 2016 at 19:03 Discharge Date: Sep 16, 2016 Admitting Diagnosis alcohol intoxication, uncooperative behavior, questionable ICH (1) ICH (intracerebral hemorrhage) ICD Code: I61.9 Diagnosis: Principal (2) ETOH abuse ICD Code: F10.10 Diagnosis: Principal (3) Acute delirium ICD Code: R41.0 Diagnosis: Secondary (4) Tobacco abuse ICD Code: Z72.0 Diagnosis: Secondary (5) Uncooperative behavior ICD Code: F91.9 Diagnosis: Secondary Procedures EEG Brief History - From Admission Mr. Funk is a 56 year old male. He has a chronic problem with alcoholism and visits our ER frequently in different states of intoxication and metabolic disruption. Tonight he is brought in secondary to disruptive, uncooperative, and odd behavior. He is severely intoxicated, so that may be a cause. Metabolic disturbances are mild tonight. CT of the brain was obtained and there is some question on possible small ICH. No head trauma had been reported or known. When seen he has been sedated with Haldol for imaging. I am not able to acquire further information at the time of admit. Imaging Last Impressions Brain MRI 09/12/16 1820 Signed Impressions: Service Date/Time: Monday, September 12, 2016 16:03 - CONCLUSION: 1. There are areas of hemorrhagic bifrontal contusions. No abnormal enhancement is seen. 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 I believe the increased conspicuity is related to technical factors. However, current study does suggest the possibility of small acute parenchymal and subarachnoid hemorrhages in the same areas, especially on the left. If there are no contraindications, multiaxial MRI of the brain with and without contrast recommended. Fabio Hammond MD PE at Discharge GENERAL: Pt encountered laying a bed, awake, NAD SKIN: Warm and dry. Sloughing noted on back of both hands, left greater than right. Skin was otherwise intact. Gauze wrap noted on right forearm, surrounding IV site. HEAD: Normocephalic. EYES: No scleral icterus. No injection or drainage. NECK: Supple, trachea midline. No lymphadenopathy. CARDIOVASCULAR: Regular rate and rhythm without murmurs, gallops, or rubs. RESPIRATORY: Breath sounds equal bilaterally. No accessory muscle use. GASTROINTESTINAL: Abdomen soft, non-tender, nondistended. MUSCULOSKELETAL: No cyanosis, or edema. NEUROLOGICAL: Cranial nerves II-XII grossly intact, muscle strength 5/5 all extremities, fine tremor noted in upper extremities. PSYCHOLOGICAL: Alert and oriented to self. Irritable secondary to reported clothes not being found, money in pockets, and having bills to pay. Wanting to leave at this time. Speech was clear and fluent. Hospital Course Mr. Funk was admitted on 09/10/16 under Hospitalist care. Pt was placed in a general medical unit and evaluated for alcohol withdrawal. CIWA protocol score noted to be as high as 9 for a single reading. He evidenced a score of 0 on 09/15. Medically, his course was uneventful. Mr. Funk has voiced the need to stop drinking alcohol and stated he has called [facility] to be evaluated for their services. Mr. Funk has stated he needs to change his friends/ acquaintances in order to remain sober. He has voiced insight into how alcohol is effecting his physical health. Consults were placed to psychiatry (Dr. Zavala) who saw pt on 09/12. He advised pt be seen at [facility] for alcohol related issues. Pt was seen by neurology (Dr. Molina) on 09/13/16 following an MRI resulting in a finding of bilateral frontal intracerebral hemorrhage consistent with contusions. An EEG was ordered, with results final draft of report pending at time of discharge. Pt was advised to be seen for followup by neurology in 4-5 weeks. Pt received physical therapy and was noted to be able to walk 500 feet, maximally on . Mr. Funk is to follow up with Dr Adrianne Carrasquillo in [address] Molina in 3 weeks. Pt Condition on Discharge: Stable Discharge Disposition: Discharge Home Discharge Time: <= 30 minutes Discharge Instructions DIET: Follow Instructions for: As Tolerated, No Restrictions Activities you can perform: Regular-No Restrictions Sunil Guo Jr. Sep 16, 2016 10:05
== END 2016-09-16 10:46 | disposition home or self-care (01) | DRG 86 ==
LOC: NEPE 16:26 → NEDA 19:03 → N05A 21:11 → N05B 09-12 06:59
PROVIDERS: ADMIT Hospitalist; ATTEND Hospitalist
DX: S06.350A Traumatic hemorrhage of left cerebrum without loss of consciousness, initial encounter (principal); F10.121 Alcohol abuse with intoxication delirium; S06.340A Traumatic hemorrhage of right cerebrum without loss of consciousness, initial encounter; I10 Essential (primary) hypertension; F17.210 Nicotine dependence, cigarettes, uncomplicated; Z59.0 Homelessness; G43.909 Migraine, unspecified, not intractable, without status migrainosus; Y90.6 Blood alcohol level of 120-199 mg/100 ml; Z78.1 Physical restraint status; X58.XXXA Exposure to other specified factors, initial encounter
CPT/HCPCS: 70450; 70553; 80048; 80307; 85025; 93005; 95819; 96361; 96374; 96375; A9579; J1630; J2060; J7030

== ENCOUNTER 2016-09-23 16:35 | Emergency (ER) | payer SELFPAY ==
[~2016-09-23] VITALS: Ht 177.8 cm; Wt 85.0 kg
[2016-09-23 16:47] VITALS: BP 112/64; PULSE 93; RESP 20; TEMP 97.7; O2SAT 95
--- NOTE | 2016-09-23 16:57 | PD ---
HPI Chief Complaint: Alcohol/Drug Intoxication Time Seen by Provider: 16:57 Travel History International Travel<30 days: No Contact w/Intl Traveler<30days: No Traveled to known affect area: No History of Present Illness HPI 56 YO M presents to the ED via EMS for alcohol rehabilitation. The patient states that he has been "drinking for 2 long." He states that he drank "way too much." States last beer consumed at approximately 3 PM. He denies somatic complaints. PFSH Past Medical History Arthritis: No Asthma: No Autoimmune Disease: No Blood Disorders: No Anxiety: No Depression: No Heart Rhythm Problems: No Cancer: No Cardiac Catheterization: No Cardiovascular Problems: No High Cholesterol: No Chemotherapy: No Chest Pain: No Congestive Heart Failure: No COPD: No Cerebrovascular Accident: No Diabetes: No Diminished Hearing: No Endocrine: No Gastrointestinal Disorders: Yes GERD: No Genitourinary: No Headaches: No Hiatal Hernia: No Heparin Induced Thrombocytopen: No Hypertension: Yes (hypertensive periods in past) Immune Disorder: No Implanted Vascular Access Dvce: No Kidney Stones: No Musculoskeletal: No Neurologic: Yes (shaking probably from detox) Psychiatric: No Reproductive: No Respiratory: No Immunizations Current: Yes Migraines: No Radiation Therapy: No Renal Failure: No Seizures: Yes Sickle Cell Disease: No Sleep Apnea: No Thyroid Disease: No Ulcer: No Past Surgical History Abdominal Surgery: No AICD: No Arteriovenous Shunt: No Cardiac Surgery: No Coronary Artery Bypass Graft: No Ear Surgery: No Endocrine Surgery: No Eye Surgery: No Genitourinary Surgery: No Gynecologic Surgery: No Insulin Pump: No Joint Replacement: No Neurologic Surgery: No Oral Surgery: No Pacemaker: No Thoracic Surgery: No Other Surgery: Yes (HERNIA REPAIR) Social History Alcohol Use: Yes Tobacco Use: Yes Substance Use: Yes (various types) Allergies-Medications (Allergen,Severity, Reaction): Coded Allergies: Lisinopril (Verified Allergy, Severe, Wheezing, 09/01/16) Reported Meds & Prescriptions Reported Meds & Active Scripts Active Lopressor (Metoprolol Tartrate) 50 Mg Tab 75 Mg PO Q12HR Folic Acid 1 Mg Tablet 1 Mg PO DAILY Acidophilus/l-Sporogenes (Lactobacillus Acidophilus) 1 Tab Tab 1 Tab PO TID Vitamin B-1 (Thiamine HCl) 100 Mg Tab 100 Mg PO DAILY Aspirin EC (Aspirin) 81 Mg Tabdr 162 Mg PO DAILY Cardizem CD 24 HR (Diltiazem CD 24 HR) 120 Mg Caper 120 Mg PO DAILY Pantoprazole (Pantoprazole Sodium) 40 Mg Tab 40 Mg PO DAILY Thera M Plus (Multivitamins/Minerals Therapeutic) 1 Tab 1 Tab PO DAILY Review of Systems Except as stated in HPI: all other systems reviewed are Neg Physical Exam Exam Limitations: Intoxication Narrative GENERAL: Well-nourished, well-developed disheveled white male, smelling strongly of urine, in no acute distress. Alert and oriented 4. SKIN: Focused skin assessment warm/dry. Old blisters and peeling skin of the soles of bilateral feet. No signs of infection. HEAD: Normocephalic. Atraumatic. EYES: No scleral icterus. No injection or drainage. PERRLA. EOMI. NECK: Supple, trachea midline. No JVD or lymphadenopathy. CARDIOVASCULAR: Regular rate and rhythm without murmurs, gallops, or rubs. RESPIRATORY: Breath sounds equal bilaterally. End expiratory wheezes bilaterally. No accessory muscle use. GASTROINTESTINAL: Abdomen soft, non-tender, nondistended. Active bowel sounds. MUSCULOSKELETAL: No cyanosis, or edema. Moves extremities spontaneously. BACK: Nontender without obvious deformity. No CVA tenderness. Data Data Last Documented VS Vital Signs Date Time Temp Pulse Resp B/P Pulse Ox O2 Delivery O2 Flow Rate FiO2 09/23/16 17:04 94 21 112/64 95 Room Air 09/23/16 16:47 97.7 [facility] Medical Decision Making Medical Screen Exam Complete: Yes Emergency Medical Condition: Yes Differential Diagnosis acute alcohol intoxication versus chronic alcohol abuse versus malingering versus other Narrative Course 56 YO M presents to the ED via EMS for alcohol rehabilitation. The patient states that he has been "drinking for 2 long." He states that he drank "way too much." States last beer consumed at approximately 3 PM. He denies somatic complaints. Vitals reviewed. Patient is intoxicated and smells strongly of urine but the physical exam is otherwise unremarkable. The patient is alert and oriented 4. He is interactive and answers questions appropriately. He requests treatment at "[facility] The patient was observed to come into the hallway several times. He opted to sit in a chair in the hallway rather than wait in the exam room. He was informed that this is a violation of the other patient's privacy. He ultimately left AGAINST MEDICAL ADVICE. Diagnosis Primary Impression: Alcohol abuse Additional Impression: Left against medical advice Merari Coy Sep 23, 2016 16:57
[2016-09-23 17:04] VITALS: BP 112/64; PULSE 94; RESP 21; O2SAT 95
== END 2016-09-23 17:25 | disposition left against medical advice (07) ==
LOC: NEPD 16:35
DX: F10.10 Alcohol abuse, uncomplicated (principal); Z53.21 Procedure and treatment not carried out due to patient leaving prior to being seen by health care provider; Z79.899 Other long term (current) drug therapy; Z72.0 Tobacco use
CPT/HCPCS: 99281

== ENCOUNTER 2016-09-24 00:55 | Emergency (ER) | payer SELFPAY ==
[~2016-09-24] VITALS: Ht 180.3 cm; Wt 87.0 kg
[~2016-09-24 00:55] MED LIST changes: -METR-1 PO; -NICO21DI25 T-DERMAL
[2016-09-24 01:02] VITALS: BP 113/76; PULSE 96; TEMP 98.3; O2SAT 98
[2016-09-24] MEDS ORDERED: SODIUM CHLORIDE 0.9% FLUSH 10 ML FLUSH IVF PRN (01:30)
[2016-09-24 01:40] VITALS: O2SAT 97
[2016-09-24 01:46] LABS: AUTOMATED NEUTROPHIL # 3.6 TH/MM3 (1.8-7.7); BASOPHIL % 0.6 % (0.0-2.0); EOSINOPHIL % 0.4 % (0.0-4.0); HEMATOCRIT 36.2 % (39.0-51.0); HEMO FLAGS DIFF FINAL; LYMPH % 32.5 % (9.0-44.0); LYMPHOCYTE # 2.1 TH/MM3 (1.0-4.8); MEAN CELL VOLUME 95.9 FL (80.0-100.0); MEAN CORPUSCULAR HEMOGLOBIN 33.4 PG (27.0-34.0); MEAN CORPUSCULAR HGB CONC 34.8 % (32.0-36.0); MONO % 10.1 % (0.0-8.0); NEUT % 56.4 % (16.0-70.0); PLATELET COUNT 365 TH/MM3 (150-450); RED BLOOD COUNT 3.77 MIL/MM3 (4.50-5.90); RED CELL DISTRIBUTION WIDTH 19.6 % (11.6-17.2); WHITE BLOOD COUNT 6.3 TH/MM3 (4.0-11.0)
[2016-09-24 01:57] LABS: APTT (PATIENT) 27.4 SEC (24.3-30.1); INTERNATIONAL NORMALIZED RATIO 0.9 RATIO; PROTHROMBIN TIME - PATIENT 10.4 SEC (9.8-11.6)
[2016-09-24 02:03] LABS: ANION GAP 10 MEQ/L (5-15); BICARBONATE 32.2 MEQ/L (21.0-32.0); BLOOD UREA NITROGEN 8 MG/DL (7-18); CHLORIDE 99 MEQ/L (98-107); GLOMERULAR FILTRATION RATE 87 ML/MIN (>89); MAGNESIUM 1.5 MG/DL (1.5-2.5); POTASSIUM 3.4 MEQ/L (3.5-5.1); SODIUM (NA) 141 MEQ/L (136-145)
[2016-09-24 02:07] LABS: CREATINE KINASE 134 U/L (39-308)
--- NOTE | 2016-09-24 02:17 | RADRPT ---
EXAM DATE/TIME: 09/24/2016 01:55 [facility] COMPARISON: CHEST SINGLE AP, September 10, 2016, 13:48. INDICATIONS : Chest pain. MEDICAL HISTORY : None. SURGICAL HISTORY : None. ENCOUNTER: Initial ACUITY: 1 day PAIN SCORE: 1/10 LOCATION: Bilateral chest FINDINGS: A single view of the chest demonstrates the lungs to be symmetrically aerated without evidence of mas s, infiltrate or effusion. The cardiomediastinal contours are unremarkable. Osseous structures are intact. CONCLUSION: No acute disease. Ras Ortiz MD on September 24, 2016 at 2:15 Board Certified Radiologist. This report was verified electronically.
[2016-09-24 02:37] LABS: CKMB 1.8 NG/ML (0.5-3.6)
[2016-09-24] MEDS ORDERED: POTASSIUM CHLOR 10 MEQ PREMIX 100 ML IV ONE (02:45)
--- NOTE | 2016-09-24 02:52 | PD ---
HPI Chief Complaint: Alcohol/Drug Intoxication Time Seen by Provider: 01:26 Travel History International Travel<30 days: No Contact w/Intl Traveler<30days: No Traveled to known affect area: No History of Present Illness HPI 56-year-old male came to the emergency room brought by EMS after being found heavily intoxicated and complaining of chest pain. Patient is unable to give any significant history given his state of intoxication. He is urinary incontinence due to his intoxicated status. No friends or family to give any additional history. Patient is in extremely on hygiene neck condition. He probably is homeless. [facility] Past Medical History Narrative Medical List of his past medical, surgical, social and family history is reviewed from the nursing note. Arthritis: No Asthma: No Autoimmune Disease: No Blood Disorders: No Anxiety: No Depression: No Heart Rhythm Problems: No Cancer: No Cardiac Catheterization: No Cardiovascular Problems: No High Cholesterol: No Chemotherapy: No Chest Pain: Yes (BEEN HERE BEFORE FOR CP) Congestive Heart Failure: No COPD: No Cerebrovascular Accident: No Diabetes: No Diminished Hearing: No Endocrine: No Gastrointestinal Disorders: Yes GERD: No Genitourinary: No Headaches: No Hiatal Hernia: No Heparin Induced Thrombocytopen: No Hypertension: Yes (hypertensive periods in past) Immune Disorder: No Implanted Vascular Access Dvce: No Kidney Stones: No Musculoskeletal: No Neurologic: Yes (shaking probably from detox) Psychiatric: No Reproductive: No Respiratory: No Immunizations Current: Yes Migraines: No Radiation Therapy: No Renal Failure: No Seizures: Yes Sickle Cell Disease: No Sleep Apnea: No Thyroid Disease: No Ulcer: No Tetanus Vaccination: < 5 Years Influenza Vaccination: Yes Past Surgical History Abdominal Surgery: No AICD: No Arteriovenous Shunt: No Cardiac Surgery: No Coronary Artery Bypass Graft: No Ear Surgery: No Endocrine Surgery: No Eye Surgery: No Genitourinary Surgery: No Gynecologic Surgery: No Insulin Pump: No Joint Replacement: No Neurologic Surgery: No Oral Surgery: No Pacemaker: No Thoracic Surgery: No Other Surgery: Yes (HERNIA REPAIR) Social History Alcohol Use: Yes (SAYS BINGE DRINKER/BEERS AND LOCOS TODAY) Tobacco Use: Yes (1 PPD) Substance Use: Yes (various types) Allergies-Medications (Allergen,Severity, Reaction): Coded Allergies: Lisinopril (Verified Allergy, Severe, Wheezing, 09/01/16) Comments List of his allergies reviewed from the nursing note. Reported Meds & Prescriptions Reported Meds & Active Scripts Active Lopressor (Metoprolol Tartrate) 50 Mg Tab 75 Mg PO Q12HR Folic Acid 1 Mg Tablet 1 Mg PO DAILY Acidophilus/l-Sporogenes (Lactobacillus Acidophilus) 1 Tab Tab 1 Tab PO TID Vitamin B-1 (Thiamine HCl) 100 Mg Tab 100 Mg PO DAILY Aspirin EC (Aspirin) 81 Mg Tabdr 162 Mg PO DAILY Cardizem CD 24 HR (Diltiazem CD 24 HR) 120 Mg Caper 120 Mg PO DAILY Pantoprazole (Pantoprazole Sodium) 40 Mg Tab 40 Mg PO DAILY Thera M Plus (Multivitamins/Minerals Therapeutic) 1 Tab 1 Tab PO DAILY Narrative Medication List of his home medications reviewed from the nursing note. Review of Systems Except as stated in HPI: all other systems reviewed are Neg Physical Exam Narrative GENERAL: Intoxicated, slurred speech, no obvious distress, disheveled and foul odor SKIN: Focused skin assessment warm/dry. Very poor skin hygiene HEAD: Atraumatic. Normocephalic. EYES: Pupils equal and round. No scleral icterus. No injection or drainage. ENT: No nasal bleeding or discharge. Mucous membranes pink and moist. NECK: Trachea midline. No JVD. CARDIOVASCULAR: Regular rate and rhythm. No murmur appreciated. RESPIRATORY: No accessory muscle use. Clear to auscultation. Breath sounds equal bilaterally. GASTROINTESTINAL: Abdomen soft, non-tender, nondistended. Hepatic and splenic margins not palpable. MUSCULOSKELETAL: No obvious deformities. No clubbing. No cyanosis. No edema. NEUROLOGICAL: Intoxicated. No obvious cranial nerve deficits. Motor grossly within normal limits. Slurred speech. PSYCHIATRIC: Appropriate mood and affect; insight and judgment normal. Data Data Last Documented VS Vital Signs Date Time Temp Pulse Resp B/P Pulse Ox O2 Delivery O2 Flow Rate FiO2 09/24/16 09:23 104 18 145/78 99 Orders Electrocardiogram (09/24/16:26) Basic Metabolic Panel (Bmp) (09/24/16:) Ckmb (Isoenzyme) Profile (09/24/16:26) Complete Blood Count With Diff (09/24/16:) Magnesium (Mg) (09/24/16:) Prothrombin Time / Inr (Pt) (09/24/16:) Act Partial Throm Time (Ptt) (09/24/16 01:26) Troponin I (09/24/16 01:26) Chest, Single Ap (09/24/16 01:26) Ecg Monitoring (09/24/16 01:26) Bilateral Bp Monitoring (09/24/16 01:26) Iv Access Insert/Monitor (09/24/16 01:26) Oximetry (09/24/16 01:26) Oxygen Administration (09/24/16 01:26) Sodium Chloride 0.9% Flush (Ns Flush) (09/24/16 01:30) Alcohol (Ethanol) (09/24/16 01:26) CKMB (09/24/16 01:31) CKMB% (09/24/16 01:31) Potassium Chlor 10 Meq Premix (Kcl 10 Me (09/24/16 02:45) Troponin I (09/24/16 04:30) Labs Laboratory Tests Test 09/24/16 09/24/16 01:31 04:44 White Blood Count 6.3 TH/MM3 Red Blood Count 3.77 MIL/MM3 Hemoglobin 12.6 GM/DL Hematocrit 36.2 % Mean Corpuscular Volume 95.9 FL Mean Corpuscular Hemoglobin 33.4 PG Mean Corpuscular Hemoglobin 34.8 % Concent Red Cell Distribution Width 19.6 % Platelet Count 365 TH/MM3 Mean Platelet Volume 7.7 FL Neutrophils (%) (Auto) 56.4 % Lymphocytes (%) (Auto) 32.5 % Monocytes (%) (Auto) 10.1 % Eosinophils (%) (Auto) 0.4 % Basophils (%) (Auto) 0.6 % Neutrophils # (Auto) 3.6 TH/MM3 Lymphocytes # (Auto) 2.1 TH/MM3 Monocytes # (Auto) 0.6 TH/MM3 Eosinophils # (Auto) 0.0 TH/MM3 Basophils # (Auto) 0.0 TH/MM3 CBC Comment DIFF FINAL Differential Comment Prothrombin Time 10.4 SEC Prothromb Time International 0.9 RATIO Ratio Activated Partial 27.4 SEC Thromboplast Time Sodium Level 141 MEQ/L Potassium Level 3.4 MEQ/L Chloride Level 99 MEQ/L Carbon Dioxide Level 32.2 MEQ/L Anion Gap 10 MEQ/L Blood Urea Nitrogen 8 MG/DL Creatinine 0.91 MG/DL Estimat Glomerular Filtration 87 ML/MIN Rate Random Glucose 90 MG/DL Calcium Level 8.7 MG/DL Magnesium Level 1.5 MG/DL Total Creatine Kinase 134 U/L Creatine Kinase MB 1.8 NG/ML Troponin I LESS THAN 0.02 LESS THAN 0.02 NG/ML NG/ML Ethyl Alcohol Level 395 MG/DL [facility] Medical Decision Making Medical Screen Exam Complete: Yes Emergency Medical Condition: Yes Medical Record Reviewed: Yes Interpretation(s) Twelve-lead EKG was reviewed by me. Normal sinus rhythm, normal axis, nonspecific ST-T wave changes. Heart rate of 98 bpm. Differential Diagnosis ACS, non-STEMI, acute alcohol intoxication Narrative Course 2:50 AM blood test results of back and within acceptable limit. His alcohol level is almost 400. I have ordered a second troponin 3 hours apart which is due at 4:30 AM. Patient will be kept here till he is clinically sober and then discharged unless the second troponin is abnormal. 5:47 AM second troponin is negative. Patient is medically cleared at this point. He will sleep it off and discharged when he is sober. Procedures EKG Prior to Arrival: No Diagnosis Primary Impression: Acute alcohol intoxication Qualified Code: F10.929 - Acute alcohol intoxication, with unspecified complication Abran Hayden MD Sep 24, 2016 02:52 complication Abran Hayden MD Sep 24, 2016 02:52
[2016-09-24 06:19] VITALS: BP_SYST 135; BP_SYST 136; BP_DIAS 79; BP_DIAS 99; PULSE 92; O2SAT 97
[2016-09-24 09:23] VITALS: BP 145/78
--- NOTE | 2016-09-24 12:15 | EKG ---
Date Performed: 09/24/2016 Time Performed: 01:05:49 PTAGE: 56 years EKG: Sinus rhythm SEPTAL MYOCARDIAL INFARCTION Since previous tracing, no significant change noted ABNORMAL ECG PREVIOUS TRACING : 09/10/2016 16.58 DOCTOR: Tray Mitchell Interpretating Date/Time 09/24/2016 12:14:27
== END 2016-09-24 09:24 | disposition home or self-care (01) ==
LOC: NEPE 00:55
DX: F10.929 Alcohol use, unspecified with intoxication, unspecified (principal); I10 Essential (primary) hypertension; F17.200 Nicotine dependence, unspecified, uncomplicated; R94.31 Abnormal electrocardiogram [ECG] [EKG]; Y90.8 Blood alcohol level of 240 mg/100 ml or more; Z79.899 Other long term (current) drug therapy
CPT/HCPCS: 71010; 80048; 80307; 82550; 82552; 83735; 84484; 85025; 85610; 85730; 93005; 96360; 99285; J3480

== ENCOUNTER 2016-09-24 11:38 | Emergency (ER) | payer SELFPAY ==
[2016-09-24 11:43] VITALS: BP 132/77; PULSE 84; RESP 17; TEMP 97.8; O2SAT 97
== END 2016-09-24 12:10 | disposition left against medical advice (07) ==
LOC: NEDAMB 11:38
DX: I51.9 Heart disease, unspecified (principal)
CPT/HCPCS: 99281

== ENCOUNTER 2016-09-24 15:13 | Emergency (ER) | payer SELFPAY ==
[2016-09-24 15:21] VITALS: BP 98/60; PULSE 110; RESP 14; O2SAT 99
--- NOTE | 2016-09-24 16:23 | PD ---
HPI Chief Complaint: Cardiac Complaint Time Seen by Provider: 16:05 Travel History International Travel<30 days: No Contact w/Intl Traveler<30days: No Traveled to known affect area: No History of Present Illness HPI 56yo M with PMH of alcohol abuse presents to the ED for the third time today. Pt was discharged this morning and had complained of chest pain while intoxicated. Then he left without being seen. Now he is back complaining of chest pain. Pt admits to drinking again. States he needs help. Pain is very atypical, points to his entire chest. Pt requesting to sleep here through the night. Denies any fever, sob, n/v, abdominal pain, focal weakness or numbness. PFSH Past Medical History Arthritis: No Asthma: No Autoimmune Disease: No Blood Disorders: No Anxiety: No Depression: No Heart Rhythm Problems: No Cancer: No Cardiac Catheterization: No Cardiovascular Problems: No High Cholesterol: No Chemotherapy: No Chest Pain: Yes (BEEN HERE BEFORE FOR CP) Congestive Heart Failure: No COPD: No Cerebrovascular Accident: No Diabetes: No Diminished Hearing: No Endocrine: No Gastrointestinal Disorders: Yes GERD: No Genitourinary: No Headaches: No Hiatal Hernia: No Heparin Induced Thrombocytopen: No Hypertension: Yes (hypertensive periods in past) Immune Disorder: No Implanted Vascular Access Dvce: No Kidney Stones: No Musculoskeletal: No Neurologic: Yes (shaking probably from detox) Psychiatric: No Reproductive: No Respiratory: No Immunizations Current: Yes Migraines: No Radiation Therapy: No Renal Failure: No Seizures: Yes Sickle Cell Disease: No Sleep Apnea: No Thyroid Disease: No Ulcer: No Past Surgical History Abdominal Surgery: No AICD: No Arteriovenous Shunt: No Cardiac Surgery: No Coronary Artery Bypass Graft: No Ear Surgery: No Endocrine Surgery: No Eye Surgery: No Genitourinary Surgery: No Gynecologic Surgery: No Insulin Pump: No Joint Replacement: No Neurologic Surgery: No Oral Surgery: No Pacemaker: No Thoracic Surgery: No Other Surgery: Yes (HERNIA REPAIR) Social History Alcohol Use: Yes (SAYS BINGE DRINKER/BEERS AND LOCOS TODAY) Tobacco Use: Yes (1 PPD) Substance Use: Yes (various types) Allergies-Medications (Allergen,Severity, Reaction): Coded Allergies: Lisinopril (Verified Allergy, Severe, Wheezing, 09/01/16) Reported Meds & Prescriptions Reported Meds & Active Scripts Active Lopressor (Metoprolol Tartrate) 50 Mg Tab 75 Mg PO Q12HR Folic Acid 1 Mg Tablet 1 Mg PO DAILY Acidophilus/l-Sporogenes (Lactobacillus Acidophilus) 1 Tab Tab 1 Tab PO TID Vitamin B-1 (Thiamine HCl) 100 Mg Tab 100 Mg PO DAILY Aspirin EC (Aspirin) 81 Mg Tabdr 162 Mg PO DAILY Cardizem CD 24 HR (Diltiazem CD 24 HR) 120 Mg Caper 120 Mg PO DAILY Pantoprazole (Pantoprazole Sodium) 40 Mg Tab 40 Mg PO DAILY Thera M Plus (Multivitamins/Minerals Therapeutic) 1 Tab 1 Tab PO DAILY Review of Systems Except as stated in HPI: all other systems reviewed are Neg Physical Exam Narrative GENERAL: 56yo M not in distress. SKIN: Focused skin assessment warm/dry. HEAD: Atraumatic. Normocephalic. EYES: Pupils equal and round. No scleral icterus. No injection or drainage. ENT: No nasal bleeding or discharge. Mucous membranes pink and moist. NECK: Trachea midline. No JVD. CARDIOVASCULAR: Mild tachycardia. No murmur appreciated. RESPIRATORY: No accessory muscle use. Clear to auscultation. Breath sounds equal bilaterally. GASTROINTESTINAL: Abdomen soft, non-tender, nondistended. No rebound tenderness or guarding. MUSCULOSKELETAL: No obvious deformities. No clubbing. No cyanosis. No edema. NEUROLOGICAL: Awake and alert. +AOB. No obvious cranial nerve deficits. Motor grossly within normal limits. Normal speech. Data Data Last Documented VS Vital Signs Date Time Temp Pulse Resp B/P Pulse Ox O2 Delivery O2 Flow Rate FiO2 09/24/16 17:06 80 18 98 Room Air 09/24/16 15:21 98/60 Orders Electrocardiogram (09/24/16 ) Thiamine Inj (Thiamine Inj) (09/24/16 16:30) Sodium Chlor 0.9% 1000 Ml Inj (Ns 1000 M (09/24/16 16:30) Basic Metabolic Panel (Bmp) (09/24/16 16:17) Complete Blood Count With Diff (09/24/16 16:17) Troponin I (09/24/16 16:17) Lipase (09/24/16 16:17) Chest, Single Ap (09/24/16 16:17) Labs Laboratory Tests Test 09/24/16 16:30 White Blood Count 10.6 TH/MM3 Red Blood Count 3.57 MIL/MM3 Hemoglobin 12.0 GM/DL Hematocrit 34.2 % Mean Corpuscular Volume 95.6 FL Mean Corpuscular Hemoglobin 33.5 PG Mean Corpuscular Hemoglobin 35.0 % Concent Red Cell Distribution Width 19.7 % Platelet Count 317 TH/MM3 Mean Platelet Volume 7.5 FL Neutrophils (%) (Auto) 80.0 % Lymphocytes (%) (Auto) 13.2 % Monocytes (%) (Auto) 6.4 % Eosinophils (%) (Auto) 0.0 % Basophils (%) (Auto) 0.4 % Neutrophils # (Auto) 8.4 TH/MM3 Lymphocytes # (Auto) 1.4 TH/MM3 Monocytes # (Auto) 0.7 TH/MM3 Eosinophils # (Auto) 0.0 TH/MM3 Basophils # (Auto) 0.0 TH/MM3 CBC Comment DIFF FINAL Differential Comment Sodium Level 141 MEQ/L Potassium Level 3.7 MEQ/L Chloride Level 99 MEQ/L Carbon Dioxide Level 31.5 MEQ/L Anion Gap 11 MEQ/L Blood Urea Nitrogen 9 MG/DL Creatinine 0.85 MG/DL Estimat Glomerular Filtration 94 ML/MIN Rate Random Glucose 64 MG/DL Calcium Level 8.5 MG/DL Troponin I LESS THAN 0.02 NG/ML Lipase 109 U/L MDM Medical Decision Making Medical Screen Exam Complete: Yes Emergency Medical Condition: Yes Interpretation(s) EKG: Sinus tachycardia at 107bpm. Normal axis. Q wave V1, V2 unchanged from prior. Differential Diagnosis Malingering vs. homelessness vs. alcohol abuse vs. atypical chest pain Narrative Course 56yo M with atypical chest pain. Likely malingering. Labs reviewed, no leukocytosis. Troponin negative. CXR showed minimal pulmonary vascular congestion. Pt is now wanting to leave. Will have pt follow up with [facility] as outpatient. Pt given NS IVF and thiamine. HR has improved to 80bpm. Pt ambulating in the ED without assistance. He is clinically sober. Diagnosis Primary Impression: Alcohol abuse Patient Instructions: General Instructions Departure Forms: Tests/Procedures Additional Instructions: Please follow up with [facility] clinic. Return to the ED if symptoms worsen. Med/Other Pt SpecificInfo: No Change to Meds Disposition: 01 DISCHARGE HOME Condition: Stable Ethel Blakeisaac IRWIN Sep 24, 2016 16:23
[2016-09-24] MEDS ORDERED: SODIUM CHLOR 0.9% 1000 ML INJ 1,000 ML IV ONE (16:30)
[2016-09-24] MEDS ORDERED: THIAMINE INJ 100 MG in SODIUM CHLORIDE 0.9% INJ 100 ML IV ONE (16:30)
[2016-09-24 16:52] LABS: AUTOMATED NEUTROPHIL # 8.4 TH/MM3 (1.8-7.7); BASOPHIL % 0.4 % (0.0-2.0); HEMATOCRIT 34.2 % (39.0-51.0); HEMO FLAGS DIFF FINAL; LYMPH % 13.2 % (9.0-44.0); LYMPHOCYTE # 1.4 TH/MM3 (1.0-4.8); MEAN CELL VOLUME 95.6 FL (80.0-100.0); MEAN CORPUSCULAR HEMOGLOBIN 33.5 PG (27.0-34.0); MONO % 6.4 % (0.0-8.0); PLATELET COUNT 317 TH/MM3 (150-450); RED BLOOD COUNT 3.57 MIL/MM3 (4.50-5.90); RED CELL DISTRIBUTION WIDTH 19.7 % (11.6-17.2); WHITE BLOOD COUNT 10.6 TH/MM3 (4.0-11.0)
--- NOTE | 2016-09-24 16:59 | RADRPT ---
EXAM DATE/TIME: 09/24/2016 16:29 [facility] COMPARISON: CHEST SINGLE AP, September 24, 2016, 1:55. INDICATIONS : Chest pain. MEDICAL HISTORY : None. SURGICAL HISTORY : None. ENCOUNTER: Subsequent ACUITY: 1 day PAIN SCORE: 1/10 LOCATION: Bilateral chest FINDINGS: Minimal pulmonary vascular congestion is noted. The heart is stable. No focal alveolar consolidatio n is noted. CONCLUSION: 1. Minimal pulmonary vascular congestion. Clinical correlation is recommended. Moises Mcintyre MD on September 24, 2016 at 16:51 Board Certified Radiologist. This report was verified electronically.
[2016-09-24 17:15] LABS: ANION GAP 11 MEQ/L (5-15); BICARBONATE 31.5 MEQ/L (21.0-32.0); BLOOD UREA NITROGEN 9 MG/DL (7-18); CHLORIDE 99 MEQ/L (98-107); GLOMERULAR FILTRATION RATE 94 ML/MIN (>89); POTASSIUM 3.7 MEQ/L (3.5-5.1); SODIUM (NA) 141 MEQ/L (136-145)
--- NOTE | 2016-09-26 08:37 | EKG ---
Date Performed: 09/24/2016 Time Performed: 15:33:13 PTAGE: 56 years EKG: SINUS TACHYCARDIA WITH SHORT WI INTERVAL SEPTAL MYOCARDIAL INFARCTION ABNORMAL ECG PREVIOUS TRACING : 09/24/2016 01.05 DOCTOR: Ria Brown Interpretating Date/Time 09/26/2016 08:34:58
== END 2016-09-24 19:08 | disposition home or self-care (01) ==
LOC: NEPE 15:13
DX: F10.10 Alcohol abuse, uncomplicated (principal)
CPT/HCPCS: 71010; 80048; 83690; 84484; 85025; 93005; 96374; 99285; J3411; J7030

== ENCOUNTER 2016-09-28 11:42 | Emergency (ER) | payer SELFPAY ==
[~2016-09-28] VITALS: Ht 182.9 cm; Wt 80.0 kg
[2016-09-28 11:48] VITALS: BP 132/76; PULSE 82; RESP 16; TEMP 98; O2SAT 99
[2016-09-28 11:57] VITALS: BP 125/87; PULSE 105; RESP 18; O2SAT 96
[2016-09-28] MEDS ORDERED: RANI150C PO (12:09)
--- NOTE | 2016-09-28 12:09 | PD ---
HPI Chief Complaint: Medication Refill Request Time Seen by Provider: 12:06 Travel History International Travel<30 days: No Contact w/Intl Traveler<30days: No Traveled to known affect area: No History of Present Illness HPI 56-year-old man, presents to the emergency department PE back complaining of chest pain. Multiple recent visits for chest pain and intoxication. Patient states he's had chest pain for weeks, told the nurse months. He states it comes and goes, no clear precipitating factors, not clearly associated with exertion, not clearly associated with eating or drinking. Appears intoxicated. States he last checked a couple days ago. No other new complaints. History Past Medical History Narrative Medical Hypertension Tobacco use Tetanus Vaccination: < 5 Years Influenza Vaccination: No Social History Alcohol Use: Yes (SAYS BINGE DRINKER/BEERS AND LOCOS TODAY) Tobacco Use: Yes (1 PPD) Allergies-Medications (Allergen,Severity, Reaction): Coded Allergies: Lisinopril (Verified Allergy, Severe, Wheezing, 09/28/16) Reported Meds & Prescriptions Reported Meds & Active Scripts Active Lopressor (Metoprolol Tartrate) 50 Mg Tab 75 Mg PO Q12HR Folic Acid 1 Mg Tablet 1 Mg PO DAILY Acidophilus/l-Sporogenes (Lactobacillus Acidophilus) 1 Tab Tab 1 Tab PO TID Vitamin B-1 (Thiamine HCl) 100 Mg Tab 100 Mg PO DAILY Aspirin EC (Aspirin) 81 Mg Tabdr 162 Mg PO DAILY Cardizem CD 24 HR (Diltiazem CD 24 HR) 120 Mg Caper 120 Mg PO DAILY Pantoprazole (Pantoprazole Sodium) 40 Mg Tab 40 Mg PO DAILY Thera M Plus (Multivitamins/Minerals Therapeutic) 1 Tab 1 Tab PO DAILY Review of Systems Except as stated in HPI: all other systems reviewed are Neg Physical Exam Narrative GENERAL: Disheveled 56-year-old man, nontoxic. SKIN: Focused skin assessment warm/dry. HEAD: Atraumatic. Normocephalic. CARDIOVASCULAR: Regular rate and rhythm. No murmur appreciated. RESPIRATORY: No accessory muscle use. Clear to auscultation. Breath sounds equal bilaterally. GASTROINTESTINAL: Abdomen soft, non-tender, nondistended. Hepatic and splenic margins not palpable. MUSCULOSKELETAL: No obvious deformities. No clubbing. No cyanosis. No edema. NEUROLOGICAL: Awake and alert. No obvious cranial nerve deficits. Motor grossly within normal limits. Data Data Last Documented VS Vital Signs Date Time Temp Pulse Resp B/P Pulse Ox O2 Delivery O2 Flow Rate FiO2 09/28/16 11:57 105 18 125/87 96 Room Air 09/28/16 11:48 98.0 Orders Electrocardiogram (09/28/16 ) Famotidine (Pepcid) (09/28/16 12:15) MDM Medical Decision Making Medical Screen Exam Complete: Yes Emergency Medical Condition: Yes Differential Diagnosis Reflux esophagitis, GERD, ACS, pneumothorax, pneumonia, intoxication, other Narrative Course Is a 56-year-old man, frequent emergency department, complaining of chest pain. Recent thorough evaluation including serial cardiac enzymes, multiple chest x- ray, multiple labs. Statistically likely esophagitis or gastritis. We'll check EKG. Otherwise recommend alcohol cessation, ranitidine, outpatient follow -up. Diagnosis Primary Impression: Chest pain Additional Impression: Alcohol abuse Additional Instructions: Take ranitidine as prescribed. Follow-up with her primary doctor in the next 2-4 days. Return to the emergency department for any new or worsening symptoms. Med/Other Pt SpecificInfo: Prescription(s) given Scripts Ranitidine 150 Mg [id number] Mg PO BID #60 CAP Prov:Erich Sellers MD 09/28/16 Disposition: 01 DISCHARGE HOME Condition: Stable Erich Sellers MD Sep 28, 2016 12:09
[2016-09-28] MEDS ORDERED: FAMOTIDINE 20 MG TAB PO ONE (12:15)
--- NOTE | 2016-09-28 14:03 | EKG ---
Date Performed: 09/28/2016 Time Performed: 12:15:07 PTAGE: 56 years EKG: Sinus rhythm NORMAL ECG NO SIGNIFICANT CHANGE FROM PRIOR ELECTROCARDIOGRAM. PREVIOUS TRACING : 09/24/2016 15.33 DOCTOR: Real Leon Interpretating Date/Time 09/28/2016 14:01:31
== END 2016-09-28 12:35 | disposition home or self-care (01) ==
LOC: NEPD 11:42
DX: R07.9 Chest pain, unspecified (principal); F10.10 Alcohol abuse, uncomplicated; I10 Essential (primary) hypertension; F17.200 Nicotine dependence, unspecified, uncomplicated; Z79.82 Long term (current) use of aspirin; Z79.899 Other long term (current) drug therapy
CPT/HCPCS: 93005; 99283

== ENCOUNTER 2016-09-28 13:45 | Emergency (ER) | payer SELFPAY ==
[~2016-09-28] VITALS: Ht 180.3 cm; Wt 90.0 kg
[~2016-09-28 13:45] MED LIST changes: +RANI150C PO
[2016-09-28 13:48] VITALS: BP 134/96; PULSE 139; RESP 22; TEMP 98.4; O2SAT 94
[2016-09-28] MEDS ORDERED: ACETAMINOPHEN 325 MG TAB PO ONE (15:00)
--- NOTE | 2016-09-28 15:13 | PD ---
HPI Chief Complaint: Medical Clearance Time Seen by Provider: 14:58 Travel History International Travel<30 days: No Contact w/Intl Traveler<30days: No Traveled to known affect area: No History of Present Illness HPI 56-year-old man, was just discharged from the emergency department was sitting in the waiting room and apparently doesn't have a ride or anywhere to go. He then presents back in saying that he has uncontrolled chest pain. See my previous note. History Past Medical History Narrative Medical Hypertension Tobacco use Alcoholism Social History Alcohol Use: Yes (SAYS BINGE DRINKER/BEERS AND LOCOS TODAY) Tobacco Use: Yes (1 PPD) Allergies-Medications (Allergen,Severity, Reaction): Coded Allergies: Lisinopril (Verified Allergy, Severe, Wheezing, 09/28/16) Reported Meds & Prescriptions Reported Meds & Active Scripts Active Ranitidine (Ranitidine HCl) 150 Mg Cap 150 Mg PO BID Lopressor (Metoprolol Tartrate) 50 Mg Tab 75 Mg PO Q12HR Folic Acid 1 Mg Tablet 1 Mg PO DAILY Acidophilus/l-Sporogenes (Lactobacillus Acidophilus) 1 Tab Tab 1 Tab PO TID Vitamin B-1 (Thiamine HCl) 100 Mg Tab 100 Mg PO DAILY Aspirin EC (Aspirin) 81 Mg Tabdr 162 Mg PO DAILY Cardizem CD 24 HR (Diltiazem CD 24 HR) 120 Mg Caper 120 Mg PO DAILY Pantoprazole (Pantoprazole Sodium) 40 Mg Tab 40 Mg PO DAILY Thera M Plus (Multivitamins/Minerals Therapeutic) 1 Tab 1 Tab PO DAILY Review of Systems Except as stated in HPI: all other systems reviewed are Neg Physical Exam Narrative GENERAL: Disheveled 56-year-old man, nontoxic. SKIN: Focused skin assessment warm/dry. HEAD: Atraumatic. Normocephalic. CARDIOVASCULAR: Regular rate and rhythm. No murmur appreciated. RESPIRATORY: No accessory muscle use. Clear to auscultation. Breath sounds equal bilaterally. GASTROINTESTINAL: Abdomen soft, non-tender, nondistended. Hepatic and splenic margins not palpable. MUSCULOSKELETAL: No obvious deformities. No clubbing. No cyanosis. No edema. NEUROLOGICAL: Awake and alert. No obvious cranial nerve deficits. Motor grossly within normal limits. Data Data Last Documented VS Vital Signs Date Time Temp Pulse Resp B/P Pulse Ox O2 Delivery O2 Flow Rate FiO2 09/28/16 13:48 98.4 139 22 134/96 94 Room Air Orders Acetaminophen (Tylenol) (09/28/16 15:00) MDM Medical Decision Making Medical Screen Exam Complete: Yes Emergency Medical Condition: Yes Differential Diagnosis Malingering, chest pain, other Narrative Course 56-year-old man complaining of chest pain. He is malingering. He has no or else to go. I reviewed his records in detail again. He had a stress test earlier this year that was negative. He had an echo done before that. He's had numerable admissions proximal call intoxication and various somatic complaints including chest pain. I gave him a Tylenol for his pain and he is safe for discharge. Diagnosis Primary Impression: Malingering Med/Other Pt SpecificInfo: No Change to Meds Disposition: 01 DISCHARGE HOME Condition: Stable Erich Sellers MD Sep 28, 2016 15:13
== END 2016-09-28 15:00 | disposition home or self-care (01) ==
LOC: NEPD 13:45
DX: R07.9 Chest pain, unspecified (principal); Z76.5 Malingerer [conscious simulation]; I10 Essential (primary) hypertension; F17.200 Nicotine dependence, unspecified, uncomplicated; Z79.82 Long term (current) use of aspirin; Z79.899 Other long term (current) drug therapy
CPT/HCPCS: 99283

== ENCOUNTER 2016-10-15 14:37 | Emergency (ER) | payer SELFPAY ==
[~2016-10-15] VITALS: Ht 180.3 cm; Wt 80.0 kg
[2016-10-15 14:52] VITALS: BP 110/68; PULSE 96; RESP 18; TEMP 97.8; O2SAT 98
--- NOTE | 2016-10-15 16:30 | PD ---
HPI Chief Complaint: Alcohol/Drug Intoxication Time Seen by Provider: 15:05 Travel History International Travel<30 days: No Contact w/Intl Traveler<30days: No Traveled to known affect area: No History of Present Illness HPI 56-year-old male brought in by EMS [place] They report he appeared intoxicated and brought him into the emergency department for evaluation. Patient reports to drinking 6-8 beers this morning. According to the EMR patient has multiple visits for alcohol intoxication. The patient smells of alcohol his speech is slurred. He is alert he is moving all extremities. He has no physical signs of trauma. He denies any pain. PFSH Past Medical History Hx Anticoagulant Therapy: Yes (ASPIRIN 81 DAILY ) Arthritis: No Asthma: No Autoimmune Disease: No Blood Disorders: No Anxiety: No Depression: No Heart Rhythm Problems: No Cancer: No Cardiac Catheterization: No Cardiovascular Problems: Yes (AFIB) High Cholesterol: No Chemotherapy: No Chest Pain: Yes (angina) Congestive Heart Failure: No COPD: No Cerebrovascular Accident: No Diabetes: No Diminished Hearing: No Endocrine: No Gastrointestinal Disorders: No GERD: No Genitourinary: No Headaches: No Hiatal Hernia: No Heparin Induced Thrombocytopen: No Hypertension: Yes (hypertensive periods in past) Immune Disorder: No Implanted Vascular Access Dvce: No Kidney Stones: No Musculoskeletal: No Neurologic: Yes (shaking probably from detox) Psychiatric: No Reproductive: No Respiratory: No Immunizations Current: Yes Migraines: No Radiation Therapy: No Renal Failure: No Seizures: Yes Sickle Cell Disease: No Sleep Apnea: No Thyroid Disease: No Ulcer: No Past Surgical History Abdominal Surgery: No AICD: No Arteriovenous Shunt: No Cardiac Surgery: No Coronary Artery Bypass Graft: No Ear Surgery: No Endocrine Surgery: No Eye Surgery: No Genitourinary Surgery: No Gynecologic Surgery: No Insulin Pump: No Joint Replacement: No Neurologic Surgery: No Oral Surgery: No Pacemaker: No Thoracic Surgery: No Other Surgery: Yes (HERNIA REPAIR) Social History Alcohol Use: Yes (SAYS BINGE DRINKER/BEERS AND LOCOS TODAY) Tobacco Use: Yes (1 PPD) Substance Use: Yes (various types) Allergies-Medications (Allergen,Severity, Reaction): Coded Allergies: Lisinopril (Verified Allergy, Severe, Wheezing, 10/15/16) Reported Meds & Prescriptions Reported Meds & Active Scripts Active Ranitidine (Ranitidine HCl) 150 Mg Cap 150 Mg PO BID Lopressor (Metoprolol Tartrate) 50 Mg Tab 75 Mg PO Q12HR Folic Acid 1 Mg Tablet 1 Mg PO DAILY Acidophilus/l-Sporogenes (Lactobacillus Acidophilus) 1 Tab Tab 1 Tab PO TID Vitamin B-1 (Thiamine HCl) 100 Mg Tab 100 Mg PO DAILY Aspirin EC (Aspirin) 81 Mg Tabdr 162 Mg PO DAILY Cardizem CD 24 HR (Diltiazem CD 24 HR) 120 Mg Caper 120 Mg PO DAILY Pantoprazole (Pantoprazole Sodium) 40 Mg Tab 40 Mg PO DAILY Thera M Plus (Multivitamins/Minerals Therapeutic) 1 Tab 1 Tab PO DAILY Review of Systems Except as stated in HPI: all other systems reviewed are Neg Physical Exam Narrative GENERAL: Well-nourished, well-developed patient. Disheveled appearance SKIN: Focused skin assessment warm/dry. HEAD: Normocephalic. EYES: No scleral icterus. No injection or drainage. NECK: Supple, trachea midline. No JVD or lymphadenopathy. CARDIOVASCULAR: Regular rate and rhythm without murmurs, gallops, or rubs. RESPIRATORY: Breath sounds equal bilaterally. No accessory muscle use. GASTROINTESTINAL: Abdomen soft, non-tender, nondistended. MUSCULOSKELETAL: No cyanosis, or edema. BACK: Nontender without obvious deformity. No CVA tenderness. Data Data Last Documented VS Vital Signs Date Time Temp Pulse Resp B/P Pulse Ox O2 Delivery O2 Flow Rate FiO2 10/15/16 14:52 97.8 96 18 110/68 98 MDM Medical Decision Making Medical Screen Exam Complete: Yes Emergency Medical Condition: Yes Differential Diagnosis Alcohol intoxication, polysubstance abuse, Narrative Course 56-year-old male brought in by EMS after [place] the beach and appeared intoxicated. Patient admits to drinking 6-8 beers this morning. He denies any medical complaint. He smells of alcohol and his physical exam is consistent with alcohol intoxication. Patient will be held in the emergency department until he is sober enough to be discharged. Diagnosis Primary Impression: Acute alcohol intoxication Qualified Code: F10.920 - Acute alcohol intoxication, uncomplicated Referrals: [facility] Disposition: 01 DISCHARGE HOME Condition: Stable Tammy Maloney Oct 15, 2016 16:30
== END 2016-10-15 19:53 | disposition home or self-care (01) ==
LOC: NEPD 14:37
DX: F10.129 Alcohol abuse with intoxication, unspecified (principal); R56.9 Unspecified convulsions; I10 Essential (primary) hypertension; I48.91 Unspecified atrial fibrillation; F17.200 Nicotine dependence, unspecified, uncomplicated; Z79.82 Long term (current) use of aspirin; Z79.899 Other long term (current) drug therapy; Z88.8 Allergy status to other drugs, medicaments and biological substances
CPT/HCPCS: 99283

== ENCOUNTER 2016-10-15 20:19 | Emergency (ER) | payer SELFPAY ==
[~2016-10-15] VITALS: Ht 177.8 cm; Wt 70.0 kg
[2016-10-15 20:21] VITALS: BP 131/99; PULSE 133; RESP 16; TEMP 98.2; O2SAT 96
--- NOTE | 2016-10-15 20:50 | PD ---
HPI . Chest pain Chief Complaint: Chest Pain Time Seen by Provider: 20:36 Travel History International Travel<30 days: No Contact w/Intl Traveler<30days: No Traveled to known affect area: No History of Present Illness HPI This patient presents with a chief complaint of chest pain. The patient was just here for alcohol abuse. He was discharged to the waiting room. Apparently he had no ride home and checked back in complaining with chest pain. He also states that his "hernia is out." PFSH Past Medical History Hx Anticoagulant Therapy: Yes (ASPIRIN 81 DAILY ) Arthritis: No Asthma: No Autoimmune Disease: No Blood Disorders: No Anxiety: No Depression: No Heart Rhythm Problems: No Cancer: No Cardiac Catheterization: No Cardiovascular Problems: Yes (AFIB) High Cholesterol: No Chemotherapy: No Chest Pain: Yes (angina) Congestive Heart Failure: No COPD: No Cerebrovascular Accident: No Diabetes: No Diminished Hearing: No Endocrine: No Gastrointestinal Disorders: No GERD: No Genitourinary: No Headaches: No Hiatal Hernia: No Heparin Induced Thrombocytopen: No Hypertension: Yes (hypertensive periods in past) Immune Disorder: No Implanted Vascular Access Dvce: No Kidney Stones: No Musculoskeletal: No Neurologic: Yes (shaking probably from detox) Psychiatric: No Reproductive: No Respiratory: No Immunizations Current: Yes Migraines: No Radiation Therapy: No Renal Failure: No Seizures: Yes Sickle Cell Disease: No Sleep Apnea: No Thyroid Disease: No Ulcer: No Past Surgical History Abdominal Surgery: No AICD: No Arteriovenous Shunt: No Cardiac Surgery: No Coronary Artery Bypass Graft: No Ear Surgery: No Endocrine Surgery: No Eye Surgery: No Genitourinary Surgery: No Gynecologic Surgery: No Insulin Pump: No Joint Replacement: No Neurologic Surgery: No Oral Surgery: No Pacemaker: No Thoracic Surgery: No Other Surgery: Yes (HERNIA REPAIR) Social History Alcohol Use: Yes (SAYS BINGE DRINKER/BEERS AND LOCOS TODAY) Tobacco Use: Yes (1 PPD) Substance Use: Yes (various types) Allergies-Medications (Allergen,Severity, Reaction): Coded Allergies: Lisinopril (Verified Allergy, Severe, Wheezing, 10/15/16) Reported Meds & Prescriptions Reported Meds & Active Scripts Active Ranitidine (Ranitidine HCl) 150 Mg Cap 150 Mg PO BID Lopressor (Metoprolol Tartrate) 50 Mg Tab 75 Mg PO Q12HR Folic Acid 1 Mg Tablet 1 Mg PO DAILY Acidophilus/l-Sporogenes (Lactobacillus Acidophilus) 1 Tab Tab 1 Tab PO TID Vitamin B-1 (Thiamine HCl) 100 Mg Tab 100 Mg PO DAILY Aspirin EC (Aspirin) 81 Mg Tabdr 162 Mg PO DAILY Cardizem CD 24 HR (Diltiazem CD 24 HR) 120 Mg Caper 120 Mg PO DAILY Pantoprazole (Pantoprazole Sodium) 40 Mg Tab 40 Mg PO DAILY Thera M Plus (Multivitamins/Minerals Therapeutic) 1 Tab 1 Tab PO DAILY Review of Systems Except as stated in HPI: all other systems reviewed are Neg Cardiovascular: Positive: Chest Pain or Discomfort Respiratory: Positive: Shortness of Breath Genitourinary: Positive: Other (right inguinal hernia) Physical Exam Narrative GENERAL: Disheveled, argumentative patient who is in no distress. SKIN: Warm and dry. HEAD: Atraumatic. Normocephalic. EYES: Pupils equal and round. Extraocular movements are intact. ENT: No nasal bleeding or discharge. Mucous membranes pink and moist. NECK: Trachea midline. Neck is supple. CARDIOVASCULAR: Regular rate and rhythm. Heart sounds are normal. RESPIRATORY: No accessory muscle use. Lungs are clear with full air movement throughout. GASTROINTESTINAL: Abdomen soft, non-tender, nondistended. : Normal circumcised male. There is no incarcerated hernia. MUSCULOSKELETAL: No obvious deformities. No edema. NEUROLOGICAL: Awake and alert. No obvious cranial nerve deficits. Motor grossly within normal limits. Normal speech. PSYCHIATRIC: Appropriate mood and affect; insight and judgment normal. Data Data Last Documented VS Vital Signs Date Time Temp Pulse Resp B/P Pulse Ox O2 Delivery O2 Flow Rate FiO2 10/15/16 20:21 98.2 133 16 131/99 96 Room Air MDM Medical Decision Making Medical Screen Exam Complete: Yes Emergency Medical Condition: Yes Medical Record Reviewed: Yes (this patient has been seen here on many previous occasions with chest pain. He has been previously evaluated by a nuclear stress test which was negative. He has also had an echo normal. He has had numerous previous sets of cardiac enzymes, chest x-rays, EKGs. He has never been diagnosed with an acute cardiac or respiratory problem. That is his workups have always been negative.) Differential Diagnosis Differential diagnosis of chest pain includes but is not limited to musculoskeletal pain, pulmonary embolism, acute coronary syndrome, pneumonia, pleurisy Narrative Course This patient presents with chest pain. Interestingly, the patient was just discharged from here because of alcohol intoxication. He never left the building. He reported back to the triage desk stating that he did not have a ride home and that he was having chest pain. This patient has been evaluated in the past for chest pain and no etiology for chest pain has been discovered. Patient is felt to be malingering. Diagnosis Primary Impression: Chest pain Qualified Code: R07.9 - Chest pain, unspecified type Additional Impressions: Alcohol abuse Malingering Patient Instructions: General Instructions Departure Forms: Tests/Procedures Disposition: DISCHARGE HOME Condition: Stable Fadumo Hamomnd MD Oct 15, 2016 20:50
== END 2016-10-15 21:02 | disposition home or self-care (01) ==
LOC: NEPD 20:19
DX: R07.9 Chest pain, unspecified (principal); F10.10 Alcohol abuse, uncomplicated; I48.91 Unspecified atrial fibrillation; I10 Essential (primary) hypertension; F17.200 Nicotine dependence, unspecified, uncomplicated; Z79.82 Long term (current) use of aspirin; Z79.899 Other long term (current) drug therapy; Z76.5 Malingerer [conscious simulation]
CPT/HCPCS: 99281

== ENCOUNTER 2016-10-25 15:39 | Emergency (ER) | payer SELFPAY ==
[2016-10-25 16:54] VITALS: BP 148/96; PULSE 92; RESP 17; TEMP 98.1; O2SAT 93
[2016-10-25] MEDS ORDERED: SODIUM CHLOR 0.9% 1000 ML INJ 1,000 ML IV SCH ×3 (17:03→19:59)
--- NOTE | 2016-10-25 17:06 | PD ---
HPI Chief Complaint: Alcohol/Drug Intoxication Time Seen by Provider: 16:55 Travel History International Travel<30 days: No Contact w/Intl Traveler<30days: No Traveled to known affect area: No History of Present Illness HPI This is a 56-year-old male who presents via EMS for evaluation of alcohol intoxication. The circumstances surrounding this are unclear as the patient is currently intoxicated. His only complaint at this time is of cough and chest pain which has been going on for several days. The cough is productive with green and yellow sputum. He denies any fevers or chills, shortness of breath, nausea or vomiting, abdominal pain. Per chart review he has been seen here multiple times in the past while intoxicated with similar complaints. PFSH Past Medical History Hx Anticoagulant Therapy: Yes (ASPIRIN 81 DAILY ) Arthritis: No Asthma: No Autoimmune Disease: No Blood Disorders: No Anxiety: No Depression: No Heart Rhythm Problems: No Cancer: No Cardiac Catheterization: No Cardiovascular Problems: Yes (AFIB) High Cholesterol: No Chemotherapy: No Chest Pain: Yes (angina) Congestive Heart Failure: No COPD: No Cerebrovascular Accident: No Diabetes: No Diminished Hearing: No Endocrine: No Gastrointestinal Disorders: No GERD: No Genitourinary: No Headaches: No Hiatal Hernia: No Heparin Induced Thrombocytopen: No Hypertension: Yes (hypertensive periods in past) Immune Disorder: No Implanted Vascular Access Dvce: No Kidney Stones: No Musculoskeletal: No Neurologic: Yes (shaking probably from detox) Psychiatric: No Reproductive: No Respiratory: No Immunizations Current: Yes Migraines: No Radiation Therapy: No Renal Failure: No Seizures: Yes Sickle Cell Disease: No Sleep Apnea: No Thyroid Disease: No Ulcer: No Past Surgical History Abdominal Surgery: No AICD: No Arteriovenous Shunt: No Cardiac Surgery: No Coronary Artery Bypass Graft: No Ear Surgery: No Endocrine Surgery: No Eye Surgery: No Genitourinary Surgery: No Gynecologic Surgery: No Insulin Pump: No Joint Replacement: No Neurologic Surgery: No Oral Surgery: No Pacemaker: No Thoracic Surgery: No Other Surgery: Yes (HERNIA REPAIR) Social History Alcohol Use: Yes (SAYS BINGE DRINKER/BEERS AND LOCOS TODAY) Tobacco Use: Yes (1 PPD) Substance Use: Yes (various types) Allergies-Medications (Allergen,Severity, Reaction): Coded Allergies: Lisinopril (Verified Allergy, Severe, Wheezing, 10/15/16) Reported Meds & Prescriptions Reported Meds & Active Scripts Active Ranitidine (Ranitidine HCl) 150 Mg Cap 150 Mg PO BID Lopressor (Metoprolol Tartrate) 50 Mg Tab 75 Mg PO Q12HR Folic Acid 1 Mg Tablet 1 Mg PO DAILY Acidophilus/l-Sporogenes (Lactobacillus Acidophilus) 1 Tab Tab 1 Tab PO TID Vitamin B-1 (Thiamine HCl) 100 Mg Tab 100 Mg PO DAILY Aspirin EC (Aspirin) 81 Mg Tabdr 162 Mg PO DAILY Cardizem CD 24 HR (Diltiazem CD 24 HR) 120 Mg Caper 120 Mg PO DAILY Pantoprazole (Pantoprazole Sodium) 40 Mg Tab 40 Mg PO DAILY Thera M Plus (Multivitamins/Minerals Therapeutic) 1 Tab 1 Tab PO DAILY Review of Systems Except as stated in HPI: all other systems reviewed are Neg Physical Exam Narrative GENERAL: This is a disheveled-appearing male who is in no acute distress. He is intoxicated. SKIN: Warm and dry. HEAD: Atraumatic. Normocephalic. EYES: Pupils equal and round. No scleral icterus. No injection or drainage. ENT: No nasal bleeding or discharge. Mucous membranes pink and moist. NECK: Trachea midline. No JVD. CARDIOVASCULAR: Regular rate and rhythm. No murmur appreciated. RESPIRATORY: No accessory muscle use. Coarse breath sounds bilaterally, wheezing bilaterally. GASTROINTESTINAL: Abdomen soft, non-tender, nondistended. Hepatic and splenic margins not palpable. MUSCULOSKELETAL: No obvious deformities. There is no edema. NEUROLOGICAL: Awake and alert. No obvious cranial nerve deficits. Motor grossly within normal limits. Normal speech. PSYCHIATRIC: Appropriate mood and affect; insight and judgment normal. Data Data Last Documented VS Vital Signs Date Time Temp Pulse Resp B/P Pulse Ox O2 Delivery O2 Flow Rate FiO2 10/25/16 19:03 97.4 94 19 144/70 99 Room Air Orders Electrocardiogram (10/25/16 17:03) Ckmb (Isoenzyme) Profile (10/25/16 17:03) Complete Blood Count With Diff (10/25/16 17:03) Comprehensive Metabolic Panel (10/25/16 17:03) Troponin I (10/25/16 17:03) Chest, Single Ap (10/25/16 17:03) Alcohol (Ethanol) (10/25/16 17:03) Albuterol-Ipratropium Neb (Duoneb Neb) (10/25/16 17:15) Sodium Chlor 0.9% 1000 Ml Inj (Ns 1000 M (10/25/16 17:03) Thiamine Inj (Thiamine Inj) (10/25/16 17:15) Methylprednisolone So Succ Inj (Solumedr (10/25/16 17:15) CKMB (10/25/16 17:30) CKMB% (10/25/16 17:30) Sodium Chlor 0.9% 1000 Ml Inj (Ns 1000 M (10/25/16 18:52) Lactic Acid (10/25/16 18:52) Sodium Chlor 0.9% 1000 Ml Inj (Ns 1000 M (10/25/16 19:59) Lactic Acid (10/25/16 21:00) Labs Laboratory Tests Test 10/25/16 10/25/16 10/25/16 17:30 19:07 20:50 White Blood Count 6.0 TH/MM3 Red Blood Count 4.07 MIL/MM3 Hemoglobin 14.1 GM/DL Hematocrit 41.4 % Mean Corpuscular Volume 101.8 FL Mean Corpuscular Hemoglobin 34.7 PG Mean Corpuscular Hemoglobin 34.1 % Concent Red Cell Distribution Width 19.0 % Platelet Count 78 TH/MM3 Mean Platelet Volume 9.1 FL Neutrophils (%) (Auto) 71.1 % Lymphocytes (%) (Auto) 17.6 % Monocytes (%) (Auto) 10.7 % Eosinophils (%) (Auto) 0.2 % Basophils (%) (Auto) 0.4 % Neutrophils # (Auto) 4.2 TH/MM3 Lymphocytes # (Auto) 1.0 TH/MM3 Monocytes # (Auto) 0.6 TH/MM3 Eosinophils # (Auto) 0.0 TH/MM3 Basophils # (Auto) 0.0 TH/MM3 CBC Comment AUTO DIFF Differential Comment AUTO DIFF CONFIRMED Platelet Estimate LOW Platelet Morphology Comment ENLARGED Sodium Level 136 MEQ/L Potassium Level 4.3 MEQ/L Chloride Level 93 MEQ/L Carbon Dioxide Level 23.2 MEQ/L Anion Gap 20 MEQ/L Blood Urea Nitrogen 19 MG/DL Creatinine 0.82 MG/DL Estimat Glomerular Filtration 98 ML/MIN Rate Random Glucose 72 MG/DL Calcium Level 8.1 MG/DL Total Bilirubin 1.2 MG/DL Aspartate Amino Transf 209 U/L (AST/SGOT) Alanine Aminotransferase 83 U/L (ALT/SGPT) Alkaline Phosphatase 97 U/L Total Creatine Kinase 127 U/L Creatine Kinase MB 2.1 NG/ML Troponin I LESS THAN 0.02 NG/ML Total Protein 6.8 GM/DL Albumin 3.2 GM/DL Ethyl Alcohol Level 373 MG/DL Lactic Acid Level 3.8 mmol/L 3.3 mmol/L MDM Medical Decision Making Medical Screen Exam Complete: Yes Emergency Medical Condition: Yes Medical Record Reviewed: Yes Interpretation(s) EKG sinus rhythm CBC unremarkable CMP anion gap 20, BUN 19, AST 209, ALT 83, lactic acid 3.8, troponin and CK are negative Differential Diagnosis Alcohol intoxication, malingering, acute coronary syndrome, chest wall pain, pneumothorax, bronchitis, COPD exacerbation, pneumonia Narrative Course This is a 56-year-old male who is brought here for evaluation of alcohol intoxication. He is complaining of productive cough and chest pain for several days. On examination is grossly intoxicated. He has wheezing and coarse breath sounds. Plans for basic lab work, chest x-ray, EKG, ECG monitoring. He was given IV fluids and thiamine. His lab work is been reviewed and is notable for an alcohol level of 373 and a in a gap of 20 secondary to a lactic acidosis of 3.8. This is likely secondary to dehydration. Per chart review he has been seen here for evaluation of lactic acidosis secondary to dehydration in the past. The patient has been given IV fluids and his lactic acid is improving to 3.3. He has been tolerating oral hydration with no difficulty and I don't feel that there would be much to begin by hospitalizing this patient. We will continue to hydrate him orally. He will remain here until he is clinically sober and then he'll be discharged. Diagnosis Primary Impression: Acute alcohol intoxication Qualified Code: F10.920 - Acute alcohol intoxication, uncomplicated Additional Impression: Bronchitis [facility] Pt SpecificInfo: No Change to Meds Disposition: 01 DISCHARGE HOME Condition: Stable Michael Burden Oct 25, 2016 17:06
[2016-10-25] MEDS ORDERED: methylPREDNISolone SOD SUCC 125 MG/2 ML VIAL IV PUSH ONE (17:15)
[2016-10-25] MEDS ORDERED: THIAMINE INJ 100 MG in SODIUM CHLORIDE 0.9% INJ 100 ML IV ONE (17:15)
[2016-10-25 17:50] LABS: AUTOMATED NEUTROPHIL # 4.2 TH/MM3 (1.8-7.7); BASOPHIL % 0.4 % (0.0-2.0); EOSINOPHIL % 0.2 % (0.0-4.0); HEMATOCRIT 41.4 % (39.0-51.0); LYMPH % 17.6 % (9.0-44.0); MEAN CELL VOLUME 101.8 FL (80.0-100.0); MEAN CORPUSCULAR HEMOGLOBIN 34.7 PG (27.0-34.0); MEAN CORPUSCULAR HGB CONC 34.1 % (32.0-36.0); MONO % 10.7 % (0.0-8.0); NEUT % 71.1 % (16.0-70.0); PLATELET COUNT 78 TH/MM3 (150-450); RED BLOOD COUNT 4.07 MIL/MM3 (4.50-5.90)
[2016-10-25 18:01] LABS: HEMO FLAGS AUTO DIFF
[2016-10-25 18:03] LABS: ALT (GPT) 83 U/L (12-78); ANION GAP 20 MEQ/L (5-15); AST (GOT) 209 U/L (15-37); BICARBONATE 23.2 MEQ/L (21.0-32.0); BLOOD UREA NITROGEN 19 MG/DL (7-18); CHLORIDE 93 MEQ/L (98-107); GLOMERULAR FILTRATION RATE 98 ML/MIN (>89); POTASSIUM 4.3 MEQ/L (3.5-5.1); SODIUM (NA) 136 MEQ/L (136-145)
[2016-10-25 18:07] LABS: ALKALINE PHOSPHATASE 97 U/L (45-117); CREATINE KINASE 127 U/L (39-308); TOTAL BILIRUBIN ADULT 1.2 MG/DL (0.2-1.0)
[2016-10-25] MEDS: RESP: ALBUTEROL 2.5 MG/IPRATROPIUM 0.5 MG NEB (SCH) INH ×2 (18:08→18:09)
[2016-10-25 18:20] LABS: CKMB 2.1 NG/ML (0.5-3.6)
--- NOTE | 2016-10-25 18:24 | RADRPT ---
EXAM DATE/TIME: 10/25/2016 17:45 [facility] COMPARISON: CHEST SINGLE AP, September 24, 2016, 16:29. INDICATIONS : Cough and chest pain. MEDICAL HISTORY : Unobtainable. SURGICAL HISTORY : Unobtainable. ENCOUNTER: Initial ACUITY: 1 day PAIN SCORE: Non-responsive. LOCATION: chest FINDINGS: A single view of the chest demonstrates the lungs to be symmetrically aerated without evidence of mas s, infiltrate or effusion. The cardiomediastinal contours are unremarkable. Osseous structures are intact. CONCLUSION: No acute disease. Ras Ortiz MD on October 25, 2016 at 18:22 Board Certified Radiologist. This report was verified electronically.
[2016-10-25 18:53] LABS: PLATELET ESTIMATE SMEAR LOW (NORMAL); PLATELET MORPHOLOGY ENLARGED (NORMAL); SCAN/DIFF AUTO DIFF CONFIRMED
[2016-10-25 19:00] VITALS: BP 161/80; PULSE 92; RESP 16; TEMP 97.7; O2SAT 97
[2016-10-25 19:03] VITALS: BP 144/70; PULSE 94; RESP 19; TEMP 97.4; O2SAT 99
[2016-10-26 03:03] VITALS: BP 142/91; PULSE 97; RESP 18; O2SAT 98
[2016-10-26] MEDS ORDERED: ONDANSETRON ODT 4 MG TAB PO ONE (03:15)
[2016-10-26] MEDS ORDERED: chlordiazePOXIDE 25 MG CAP PO PRN (03:15)
[2016-10-26] MEDS ORDERED: LORazepam 2 MG/ML VIAL IV PUSH ONE (03:45)
--- NOTE | 2016-10-26 12:54 | EKG ---
Date Performed: 10/25/2016 Time Performed: 17:35:06 PTAGE: 56 years EKG: Sinus rhythm NORMAL ECG PREVIOUS TRACING : 09/28/2016 12.15 DOCTOR: Bear Mckeon Interpretating Date/Time 10/26/2016 12:50:25
== END 2016-10-26 06:27 | disposition home or self-care (01) ==
LOC: NEDAMB 15:39 → NEPD 10-26 06:27
DX: F10.920 Alcohol use, unspecified with intoxication, uncomplicated (principal); J40 Bronchitis, not specified as acute or chronic; E87.2 Acidosis; E86.0 Dehydration; I10 Essential (primary) hypertension; I48.91 Unspecified atrial fibrillation; R56.9 Unspecified convulsions; F17.200 Nicotine dependence, unspecified, uncomplicated; Z79.82 Long term (current) use of aspirin
CPT/HCPCS: 71010; 80053; 80307; 82550; 82552; 83605; 84484; 85025; 93005; 94664; 96361; 96365; 96366; 96375; 99285; J2060; J2930; J3411; J7030

== ENCOUNTER 2016-11-18 17:46 | Inpatient (IN) | payer SELFPAY ==
[~2016-11-18] VITALS: Ht 180.3 cm; Wt 81.6 kg
[2016-11-18] VITALS (8 sets, daily range): BP systolic 149–177; BP diastolic 94–135; PULSE 84–112; RESP 16–24; TEMP 98.6–98.7; O2SAT 82–98
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
[2016-11-18] MEDS ORDERED: SODIUM CHLOR 0.9% 1000 ML INJ 1,000 ML IV ONE (18:15)
[2016-11-18] MEDS ORDERED: chlordiazePOXIDE 25 MG CAP PO ONE (18:15)
[2016-11-18] MEDS ORDERED: methylPREDNISolone SOD SUCC 125 MG/2 ML VIAL IVP ONE (18:15)
[2016-11-18] MEDS ORDERED: LORazepam 2 MG/ML VIAL IV PUSH ONE ×2 (18:15→19:30)
[2016-11-18] MEDS ORDERED: SODIUM CHLORIDE 0.9% FLUSH 10 ML FLUSH IVF PRN (18:15)
--- NOTE | 2016-11-18 18:38 | RADRPT ---
EXAM DATE/TIME: 11/18/2016 18:17 [facility] COMPARISON: CHEST SINGLE AP, October 25, 2016, 17:45. INDICATIONS : Shortness of breath. MEDICAL HISTORY : None. SURGICAL HISTORY : None. ENCOUNTER: Initial ACUITY: 2 days PAIN SCORE: 0/10 LOCATION: chest FINDINGS: The lungs are clear without infiltrate, nodule, or mass. There is no appreciable pleural effusion fo r technique. Heart and mediastinum are unremarkable. CONCLUSION: No acute cardiopulmonary disease. Ariel Garland MD on November 18, 2016 at 18:36 Board Certified Radiologist. This report was verified electronically.
[2016-11-18] MEDS ORDERED: METO100T PO (18:50)
[2016-11-18 18:56] LABS: AUTOMATED NEUTROPHIL # 6.8 TH/MM3 (1.8-7.7); BASOPHIL % 0.6 % (0.0-2.0); EOSINOPHIL % 0.1 % (0.0-4.0); HEMO FLAGS DIFF FINAL; LYMPH % 5.4 % (9.0-44.0); LYMPHOCYTE # 0.4 TH/MM3 (1.0-4.8); MEAN CELL VOLUME 105.9 FL (80.0-100.0); MEAN CORPUSCULAR HEMOGLOBIN 35.8 PG (27.0-34.0); MEAN CORPUSCULAR HGB CONC 33.8 % (32.0-36.0); MONO % 9.6 % (0.0-8.0); NEUT % 84.3 % (16.0-70.0); PLATELET COUNT 226 TH/MM3 (150-450); RED BLOOD COUNT 3.11 MIL/MM3 (4.50-5.90); RED CELL DISTRIBUTION WIDTH 17.9 % (11.6-17.2); WHITE BLOOD COUNT 8.1 TH/MM3 (4.0-11.0)
[2016-11-18 18:59] LABS: ALT (GPT) 100 U/L (12-78); ANION GAP 8 MEQ/L (5-15); AST (GOT) 143 U/L (15-37); BICARBONATE 25.6 MEQ/L (21.0-32.0); BLOOD UREA NITROGEN 8 MG/DL (7-18); CHLORIDE 106 MEQ/L (98-107); GLOMERULAR FILTRATION RATE 166 ML/MIN (>89); MAGNESIUM 0.9 MG/DL (1.5-2.5); POTASSIUM 3.5 MEQ/L (3.5-5.1); SODIUM (NA) 140 MEQ/L (136-145)
[2016-11-18 19:03] LABS: ALKALINE PHOSPHATASE 119 U/L (45-117); CREATINE KINASE 104 U/L (39-308); TOTAL BILIRUBIN ADULT 0.7 MG/DL (0.2-1.0)
[2016-11-18 19:15] LABS: CKMB 3.8 NG/ML (0.5-3.6)
[2016-11-18 19:16] LABS: ALCOHOL LESS THAN 3 MG/DL (0-5)
[2016-11-18 19:19] LABS: APTT (PATIENT) 26.6 SEC (24.3-30.1); INTERNATIONAL NORMALIZED RATIO 1.1 RATIO; PROTHROMBIN TIME - PATIENT 12.1 SEC (9.8-11.6)
[2016-11-18] MEDS: RESP: ALBUTEROL 2.5 MG/IPRATROPIUM 0.5 MG NEB (SCH) INH ×3 (19:24→19:55)
[2016-11-18 19:28] LABS: BLOOD, URINE SMALL (NEG); COMMENT (UR) CULT NOT INDICATED; CULTURE IF INDICATED CULT NOT INDICATED; GLUCOSE,URINE TRACE mg/dL (NEG); KETONE, URINE TRACE mg/dL (NEG); MUCUS URINE FEW /lpf (OCC); NITRITE,URINE NEG (NEG); PH, URINE 5.5 (5.0-8.5); SQUAMOUS EPITHELIAL CELL URINE 1 /hpf (0-5); URINE COLOR YELLOW (YELLW/STRAW)
[2016-11-18] MEDS ORDERED: ASPIRIN 81 MG CHEW TAB CHEW ONE (19:30)
--- NOTE | 2016-11-18 20:26 | HHI.HP ---
[facility] Service [facility] Primary Care Physician No Primary Care Physician Admission Diagnosis elevated troponin/wheezing/ ETOH withdrawl Diagnoses: (1) Alcohol abuse (2) COPD (chronic obstructive pulmonary disease) Diagnosis: Principal (3) Elevated troponin Diagnosis: Principal (4) Hypocalcemia Diagnosis: Principal (5) Hypomagnesemia Diagnosis: Principal (6) HTN (hypertension) Diagnosis: Principal (7) Tobacco abuse Diagnosis: Principal Travel History International Travel<30 Days: No Contact w/Intl Traveler <30 Da: No Traveled to Known Affected Are: No History of Present Illness This is a 56 year old Homeless male w/ a PMH of HTN, Alcohol Abuse, Tobacco Abuse, COPD and Afib on ASA who presented to the ER w/ complaints of SOB and withdrawal type symptoms. States he drinks daily, but hasn't been able to because he doesn't have the money, only had 2 drinks today. Reports ongoing SOB in addition to nausea and tremors starting earlier today. On arrival, while in the ER, had an episode of hypoxia with O2 sat 82% on 3L NC, likely 93% on 6L NC. +wheezing on exam, s/p Solu-Medrol and DuoNeb w/ improvement. CBC at baseline. Chemistry singe unremarkable, elevated LFTs similar comparison to previous labs. Troponin 0.18, EKG with no acute ischemia. INR 1.1. D-dimer 4.22. UA negative. Alcohol less than 3. CXR with no acute findings. Review of Systems Except as stated in HPI: all other systems reviewed are Neg ROS: 14 point review of systems otherwise negative. Past Family Social History Past Medical History PMH: HTN, Alcohol Abuse, Tobacco Abuse, COPD and Afib on ASA Past Surgical History PAST SURGICAL HISTORY: Hernia Repair Allergies: Coded Allergies: lisinopril (Unverified Allergy, Severe, Wheezing, 11/18/16) Family History PAST FAMILY HISTORY: Reviewed. No h/o DM or CAD Social History PAST SOCIAL HISTORY: Positive for Alcohol Abuse. Smokes 1ppd. +h/o Substance Abuse. Physical Exam Vital Signs Vital Signs Date Time Temp Pulse Resp B/P Pulse Ox O2 Delivery O2 Flow Rate FiO2 8/19/17 20:22 93 Simple Mask 6 11/18/16 20:12 84 Nasal Cannula 4 11/18/16 20:05 103 24 168/108 82 Nasal Cannula 3 11/18/16 19:05 112 24 163/135 93 Nasal Cannula 3 11/18/16 18:48 96 Nasal Cannula 2 11/18/16 18:12 96 16 166/110 96 Nasal Cannula 2 11/18/16 18:08 98.6 98 19 166/110 93 Physical Exam PE: GENERAL: Middle age white male in no acute distress, mildly tremulous. HEENT: PERRLA, EOMI. No scleral icterus or conjunctival pallor. No lid lag or facial droop. CARDIOVASCULAR: Regular rate and rhythm. No obvious murmurs to auscultation. No chest tenderness to palpation. RESPIRATORY: No obvious rhonchi, occasional wheezing. Clear to auscultation. Breath sounds equal bilaterally. GASTROINTESTINAL: Abdomen soft, non-tender, nondistended. BS normal. MUSCULOSKELETAL: Extremities without clubbing, cyanosis, or edema. No obvious deformities. NEUROLOGICAL: Awake, alert and oriented x4. No focal neurologic deficits. Moving both upper and lower extremities spontaneously. Laboratory Laboratory Tests Test 11/18/16 11/18/16 18:20 18:50 White Blood Count 8.1 Red Blood Count 3.11 Hemoglobin 11.1 Hematocrit 33.0 Mean Corpuscular Volume 105.9 Mean Corpuscular Hemoglobin 35.8 Mean Corpuscular Hemoglobin 33.8 Concent Red Cell Distribution Width 17.9 Platelet Count 226 Mean Platelet Volume 8.8 Neutrophils (%) (Auto) 84.3 Lymphocytes (%) (Auto) 5.4 Monocytes (%) (Auto) 9.6 Eosinophils (%) (Auto) 0.1 Basophils (%) (Auto) 0.6 Neutrophils # (Auto) 6.8 Lymphocytes # (Auto) 0.4 Monocytes # (Auto) 0.8 Eosinophils # (Auto) 0.0 Basophils # (Auto) 0.0 CBC Comment DIFF FINAL Differential Comment Prothrombin Time 12.1 Prothromb Time International 1.1 Ratio Activated Partial 26.6 Thromboplast Time D-Dimer Quantitative (PE/DVT) 4.22 Sodium Level 140 Potassium Level 3.5 Chloride Level 106 Carbon Dioxide Level 25.6 Anion Gap 8 Blood Urea Nitrogen 8 Creatinine 0.52 Estimat Glomerular Filtration 166 Rate Random Glucose 117 Calcium Level 7.6 Magnesium Level 0.9 Total Bilirubin 0.7 Aspartate Amino Transf 143 (AST/SGOT) Alanine Aminotransferase 100 (ALT/SGPT) Alkaline Phosphatase 119 Total Creatine Kinase 104 Creatine Kinase MB 3.8 Troponin I 0.18 Total Protein 5.8 Albumin 2.7 Lipase 130 Ethyl Alcohol Level LESS THAN 3 Urine Color YELLOW Urine Turbidity CLEAR Urine pH 5.5 Urine Specific [place] 1.017 Urine Protein 30 Urine Glucose (UA) TRACE Urine Ketones TRACE Urine Occult Blood SMALL Urine Nitrite NEG Urine Bilirubin NEG Urine Urobilinogen LESS THAN 2.0 Urine Leukocyte Esterase TRACE Urine RBC 2 Urine WBC 2 Urine Squamous Epithelial 1 Cells Urine Mucus FEW Microscopic Urinalysis Comment CULT NOT INDICATED Result Diagram: 11/18/16181911/18/161819 Assessment and Plan Problem List: (1) Alcohol abuse ICD Code: F10.10 Status: Chronic (2) COPD (chronic obstructive pulmonary disease) ICD Code: J44.9 Status: Acute (3) Elevated troponin ICD Code: R74.8 Status: Acute (4) Hypocalcemia ICD Code: E83.51 Status: Acute (5) Hypomagnesemia ICD Code: E83.42 Status: Acute (6) HTN (hypertension) ICD Code: I10 Status: Chronic (7) Tobacco abuse ICD Code: Z72.0 Status: Chronic Assessment and Plan A/P: 1. Alcohol Abuse: w/ Acute Alcohol Withdrawal, decreased alcohol ingestion as unable to afford it, +tremulous on exam, s/p Ativan in ER. CIWA, Seizure Precautions, MVT/Thiamine/Folate replacement. 2. Elevated Trop: Trop 0.18, EKG w/ no acute ischemia, check serial cardiac enzymes for trend, resume home ASA and Metoprolol, start Statin. NTG/Morphine as needed, currently chest pain free. CXR w/ no acute findings, images reviewed by me. Consult Cardiology as needed. Pt poor candidate for intervention in light of heavy alcohol abuse and non-compliance. 3. COPD: Chronic Respiratory Failure w/ Acute Exacerbation, +wheezing on exam , +SOB, +Hypoxia in ER w/ O2 sat 82% on 3L NC. D-dimer elevated, however symptoms resolved after Solu-Medrol/DuoNeb, thought to be due to COPD Exacerbation rather than PE. Continue w/ Solu-Medrol, DuoNeb, Symbicort, Mucinex. Monitor O2. 4. Hypocalcemia: Ca 7.6, will replace and recheck in am. 5. Hypomagnesemia: Mg 0.9, will replace, recheck labs in am 6. HTN: BP 160's on arrival, likely compounded by acute alcohol withdrawal, resume home Metoprolol, monitor BP. 7. Tobacco Abuse: Pt counselled. Ativan prn. No NicoDerm to avoid vasoconstriction. 8. DVT Prophylaxis: SCD/Teds. 9. Social work for d/c planning as needed. 10. Case discussed w/ ER physician at length. Physician Certification 2 Midnight Certification Type: Admission for Inpatient Services Order for Inpatient Services The services are ordered in accordance with Medicare regulations or non- Medicare payer requirements, as applicable. In the case of services not specified as inpatient-only, they are appropriately provided as inpatient services in accordance with the 2-midnight benchmark. Estimated LOS (days): 2 days is the estimated time the patient will need to remain in the hospital, assuming treatment plan goals are met and no additional complications. Post-Hospital Plan: Not yet determined Isidra Palacio MD Nov 18, 2016 20:26
[2016-11-18] MEDS ORDERED: FLUMAZENIL 0.5 MG/5 ML VIAL IV PUSH PRN (20:30)
[2016-11-18] MEDS ORDERED: LACTULOSE SYRUP 20 GM/30 ML CUP PO PRN (20:30)
[2016-11-18] MEDS ORDERED: LORazepam 2 MG/ML VIAL IV PUSH PRN ×3 (20:30)
[2016-11-18] MEDS ORDERED: SODIUM CHLORIDE 0.9% FLUSH 10 ML FLUSH IV FLUSH PRN (20:30)
[2016-11-18] MEDS ORDERED: MAGNESIUM HYDROXIDE SUSP 30 ML CUP PO PRN (20:30)
[2016-11-18] MEDS ORDERED: MAGNESIUM SULFATE 1 GM PREMIX 100 ML IV ONE (20:30)
[2016-11-18] MEDS ORDERED: ONDANSETRON HCL 4 MG/2 ML VIAL IVP PRN (20:30)
[2016-11-18] MEDS ORDERED: HALOPERIDOL LACTATE 5 MG/ML AMP IM PRN (20:30)
[2016-11-18] MEDS ORDERED: RESP: ALBUTEROL 2.5 MG/IPRATROPIUM 0.5 MG NEB (SCH) NEB ONE (20:30)
[2016-11-18] MEDS ORDERED: BISACODYL 10 MG SUPP RECTAL PRN (20:30)
[2016-11-18] MEDS ORDERED: SENNOSIDES 8.6 MG TAB PO PRN (20:30)
[2016-11-18] MEDS ORDERED: ACETAMINOPHEN 325 MG TAB PO PRN (20:30)
[2016-11-18] MEDS ORDERED: LORazepam 2 MG TAB PO PRN (20:30)
[2016-11-18] MEDS ORDERED: CALCIUM GLUCONATE 10% 1 GM/10 ML VIAL IV PUSH ONE (20:30)
[2016-11-18] MEDS: SODIUM CHLOR 0.9% 1000 ML INJ 1,000 ML IV SCH (20:58)
[2016-11-18] MEDS: guaiFENesin E.R. 600 MG TAB PO SCH (21:00)
[2016-11-18] MEDS: SODIUM CHLORIDE 0.9% FLUSH 10 ML FLUSH IV FLUSH SCH (21:00)
[2016-11-18] MEDS: DOCUSATE SODIUM 50 MG/SENNA 8.6 MG TAB PO SCH (21:00)
[2016-11-18] MEDS ORDERED: cloNIDine HCL 0.2 MG TAB PO ONE (21:30)
[2016-11-19] VITALS (26 sets, daily range): BP systolic 132–165; BP diastolic 86–114; PULSE 62–137; RESP 19–22; TEMP 97.4–99; O2SAT 92–96
[2016-11-19 02:58] LABS: AUTOMATED NEUTROPHIL # 4.6 TH/MM3 (1.8-7.7); HEMO FLAGS DIFF FINAL; LYMPH % 1.6 % (9.0-44.0); LYMPHOCYTE # 0.1 TH/MM3 (1.0-4.8); MEAN CELL VOLUME 105.3 FL (80.0-100.0); MEAN CORPUSCULAR HGB CONC 34.2 % (32.0-36.0); MONO % 1.5 % (0.0-8.0); NEUT % 96.9 % (16.0-70.0); PLATELET COUNT 190 TH/MM3 (150-450); RED BLOOD COUNT 2.95 MIL/MM3 (4.50-5.90); RED CELL DISTRIBUTION WIDTH 18.1 % (11.6-17.2); WHITE BLOOD COUNT 4.7 TH/MM3 (4.0-11.0)
[2016-11-19 03:17] LABS: ALT (GPT) 122 U/L (12-78); ANION GAP 7 MEQ/L (5-15); AST (GOT) 173 U/L (15-37); BICARBONATE 27.6 MEQ/L (21.0-32.0); BLOOD UREA NITROGEN 8 MG/DL (7-18); CHLORIDE 104 MEQ/L (98-107); GLOMERULAR FILTRATION RATE 149 ML/MIN (>89); POTASSIUM 3.9 MEQ/L (3.5-5.1); SODIUM (NA) 139 MEQ/L (136-145)
[2016-11-19 03:20] LABS: ALKALINE PHOSPHATASE 118 U/L (45-117); TOTAL BILIRUBIN ADULT 0.8 MG/DL (0.2-1.0)
[2016-11-19] MEDS: methylPREDNISolone SOD SUCC 40 MG/1 ML VIAL IV PUSH SCH ×3 (06:00→12:00)
[2016-11-19] MEDS: RESP: ALBUTEROL 2.5 MG/IPRATROPIUM 0.5 MG NEB (SCH) NEB ×4 (07:46→20:00)
[2016-11-19] MEDS ORDERED: PRAVASTATIN SOD 40 MG TAB PO SCH (09:00)
[2016-11-19] MEDS: SODIUM CHLORIDE 0.9% FLUSH 10 ML FLUSH IV FLUSH SCH ×2 (09:00→20:45)
[2016-11-19] MEDS: THIAMINE HCL 100 MG TAB PO SCH (09:15)
[2016-11-19] MEDS: guaiFENesin E.R. 600 MG TAB PO SCH ×2 (09:15→20:43)
[2016-11-19] MEDS: LORazepam 1 MG TAB PO PRN (09:15)
[2016-11-19] MEDS: METOPROLOL TARTRATE 100 MG TAB PO SCH (09:15)
[2016-11-19] MEDS: DOCUSATE SODIUM 50 MG/SENNA 8.6 MG TAB PO SCH ×2 (09:15→20:43)
[2016-11-19] MEDS: ASPIRIN EC 81 MG TABEC PO SCH (09:15)
[2016-11-19] MEDS: FOLIC ACID 1 MG TAB PO SCH (09:15)
[2016-11-19] MEDS: MULTIVITAMINS/MINERALS THERAPEUTIC TAB PO SCH (09:15)
[2016-11-19] MEDS: SODIUM CHLOR 0.9% 1000 ML INJ 1,000 ML IV SCH ×3 (09:30→21:31)
[2016-11-19] MEDS: BUDESONIDE-FORMOTEROL 160/4.5 MCG INHALER INH SCH ×2 (10:00→21:00)
[2016-11-19] MEDS ORDERED: methylPREDNISolone SOD SUCC 125 MG/2 ML VIAL ONE (10:00)
--- NOTE | 2016-11-19 12:58 | HHI.PR ---
Subjective Remarks Patient says his shortness of breath still persists but is slightly improved since admission, says he is unable to take a deep breath, when asked about his chest pain, he says it comes and goes and it is not reproducible at least in my examination on tenderness to palpation of the chest wall, he says he also has some diarrhea that is straight watery and does report being on antibiotics in the last 3 months Objective Vital Signs Date Time Temp Pulse Resp B/P (MAP) Pulse Ox O2 Delivery O2 Flow Rate FiO2 11/19/16 07:30 79 11/19/16 07:15 92 Nasal Cannula 3.00 11/19/16 07:00 97.8 84 21 159/110 (126) 92 11/19/16 05:04 95 11/19/16 04:00 110 11/19/16 04:00 99.0 70 20 140/89 (106) 96 11/19/16 03:00 74 11/19/16 02:00 82 11/19/16 01:00 76 11/19/16 00:09 94 Nasal Cannula 4.00 11/19/16 00:00 98.5 93 22 142/86 (104) 96 11/19/16 00:00 98 11/18/16 23:00 84 11/18/16 22:17 90 11/18/16 22:17 98.7 90 24 149/98 (115) 96 11/18/16 22:07 100 22 175/94 (121) 100 11/18/16 20:59 106 22 177/120 (139) 98 Simple Mask 6 11/18/16 20:26 112 24 93 Simple Mask 6 11/18/16 20:22 93 Simple Mask 6 11/18/16 20:12 84 Nasal Cannula 4 11/18/16 20:05 103 24 168/108 (128) 82 Nasal Cannula 3 11/18/16 19:05 112 24 163/135 (144) 93 Nasal Cannula 3 11/18/16 18:48 96 Nasal Cannula 2 11/18/16 18:12 96 16 166/110 (128) 96 Nasal Cannula 2 11/18/16 18:08 98.6 98 19 166/110 (128) 93 I/O 11/18/16 11/18/16 11/18/16 11/19/16 11/19/16 11/19/16 07:00 15:00 23:00 07:00 15:00 23:00 Intake Total 1020 ml Balance 1020 ml Intake Oral 420 ml IV Total 600 ml # Voids 2 # Bowel Movements 1 Result Diagram: 11/19/16 0240 11/19/16 0240 Imaging Last 24 hours Impressions Chest X-Ray 11/18/16 1809 Signed Impressions: Service Date/Time: Friday, November 18, 2016 18:17 - CONCLUSION: No acute cardiopulmonary disease. Ariel Garland MD Objective Remarks GENERAL: A little anxious, otherwise lying comfortably in bed CARDIOVASCULAR: Regular rate and rhythm without murmurs, gallops, or rubs. No lower extremity edema RESPIRATORY: Decreased breath sounds bilaterally with expiratory crackles musCULOSKELETAL: No cyanosis, or edema. No chest wall tenderness to palpation where the patient had pain A/P Assessment and Plan 56-year-old white male admitted for shortness of breath and hypoxia 1. SOB 2/2 COPD exacerbation and possible angina : tx as below 2. COPD: Chronic Respiratory Failure w/ Acute Exacerbation - we'll increase steroids to 125 Solu-Medrol every 8 hours , supplemental O2, symbicort and duonebs 3. hypoxia: given 3 L of O2 and decreased breath sounds along with mildly increased troponin and d-dimer, will obtain CT pulmonary angiogram to rule out pulmonary embolus 4. Chest pain - will perform nuclear stress test if CT angiogram is negative, continue aspirin and metoprolol and statin. Obtaining echo. 5. transaminitis : 2/2 ETOH usage; CIWA protocol; will consider starting scheduled low dose librium given elevated LFTs 5. Hypomagnesemia: replace as necessary 6. HTN: metoprolol, monitor 7. Tobacco Abuse: Pt counselled. No NicoDerm to avoid vasoconstriction. 8. DVT Prophylaxis: SCD/Teds. Mariano Alarcon MD Nov 19, 2016 12:58
[2016-11-19] MEDS ORDERED: ENOXAPARIN SODIUM 30 MG/0.3 ML SYRINGE SQ SCH (14:00)
--- NOTE | 2016-11-19 16:08 | EKG ---
Date Performed: 11/18/2016 Time Performed: 18:35:16 PTAGE: 56 years EKG: Sinus rhythm WITH SINUS ARRHYTHMIA Atrial abnormality T-wave changes anterolaterally compatible with ischemia or possible nontransmural myocardial infarction. Compared to previous tracing, the ST-T changes with T-w ave inversions anterolaterally and some slight J-point elevation in V1 and V4 are new findings. Clini urszula correlations and follow up tracing strongly recommended. ABNORMAL ECG PREVIOUS TRACING : 10/25/2016 17.35 DOCTOR: Alverto Wiggins Interpretating Date/Time 11/19/2016 16:07:02
[2016-11-19] MEDS ORDERED: IOHEXOL 350 MG/ML 10 ML VIAL (for RAD DIAG) IVCONTRAST ONE (16:38)
--- NOTE | 2016-11-19 16:51 | RADRPT ---
EXAM DATE/TIME: 11/19/2016 16:24 [place] COMPARISON: No previous studies available for comparison. INDICATIONS : Shortness of breath and elevated D-dimer. IV CONTRAST: 72 cc Omnipaque 350 (iohexol) IV RADIATION DOSE: 27.47 CTDIvol (mGy) MEDICAL HISTORY : Hypertension. Cardiovascular disease Seizures. SURGICAL HISTORY : hernia repair ENCOUNTER: Initial ACUITY: 1 day PAIN SCALE: 0/10 LOCATION: Bilateral chest TECHNIQUE: Volumetric scanning of the chest was performed using a pulmonary embolism protocol MIP images were re constructed. Using automated exposure control and adjustment of the mA and/or kV according to patien t size, radiation dose was kept as low as reasonably achievable to obtain optimal diagnostic quality images. DICOM format image data is available electronically for review and comparison. Follow-up recommendations for detected pulmonary nodules are based at a minimum on nodule size and pa tient risk factors according to Fleischner Society Guidelines. FINDINGS: There is pulmonary embolus within the right main pulmonary artery and one of the right lower lob e branches. Small bilateral pleural effusions are present with slight infiltrate right upper lobe in addition to left lung base consolidation. Coronary artery calcifications are seen typically seen with CAD and need to be evaluated clinically. There are old healed rib fractures in the left chest. CONCLUSION: 1. Pulmonary embolus in right main pulmonary artery and lower lobe branches. 2. Bilateral pleural effusions, left lung base consolidation right lung infiltrate. Ariel Garland MD on November 19, 2016 at 16:46 Board Certified Radiologist. This report was verified electronically.
[2016-11-19] MEDS: methylPREDNISolone SOD SUCC 125 MG/2 ML VIAL IV PUSH SCH (17:33)
[2016-11-19 18:59] LABS: C. DIFF EPI 027 PRESUMPTIVE NEGATIVE (NEGATIVE)
[2016-11-19] MEDS: ENOXAPARIN SODIUM 80 MG/0.8 ML SYRINGE SQ SCH (20:43)
[2016-11-19] MEDS: LORazepam 2 MG/ML VIAL IV PUSH PRN (22:25)
[2016-11-19] MEDS ORDERED: chlordiazePOXIDE 25 MG CAP PO ONE (22:45)
[2016-11-19] MEDS ORDERED: METOPROLOL TARTRATE 5 MG/5 ML VIAL IV PUSH ONE (22:45)
[2016-11-20] VITALS (28 sets, daily range): BP systolic 129–165; BP diastolic 88–112; PULSE 60–121; RESP 18–20; TEMP 97.3–98.1; O2SAT 90–97
[2016-11-20] MEDS: LORazepam 2 MG/ML VIAL IV PUSH PRN (00:09)
[2016-11-20] MEDS ORDERED: METOPROLOL TARTRATE 5 MG/5 ML VIAL IV PUSH ONE (00:45)
[2016-11-20] MEDS ORDERED: FUROSEMIDE 20 MG/2 ML VIAL IV PUSH ONE (00:45)
[2016-11-20] MEDS: LORazepam 1 MG TAB PO PRN ×2 (01:02→05:04)
[2016-11-20] MEDS: methylPREDNISolone SOD SUCC 125 MG/2 ML VIAL IV PUSH SCH ×3 (02:16→18:00)
[2016-11-20] MEDS ORDERED: DILTIAZEM HCL 25 MG/5 ML VIAL IV ONE (03:00)
[2016-11-20] MEDS ORDERED: DILTIAZEM 125 MG/NS 100 ML IV PRN ×2 (04:15)
[2016-11-20 07:12] LABS: ALKALINE PHOSPHATASE 111 U/L (45-117); ALT (GPT) 180 U/L (12-78); ANION GAP 7 MEQ/L (5-15); AST (GOT) 249 U/L (15-37); BICARBONATE 24.8 MEQ/L (21.0-32.0); BLOOD UREA NITROGEN 20 MG/DL (7-18); CHLORIDE 103 MEQ/L (98-107); GLOMERULAR FILTRATION RATE 112 ML/MIN (>89); POTASSIUM 4.5 MEQ/L (3.5-5.1); SODIUM (NA) 135 MEQ/L (136-145); TOTAL BILIRUBIN ADULT 0.6 MG/DL (0.2-1.0)
[2016-11-20] MEDS: RESP: ALBUTEROL 2.5 MG/IPRATROPIUM 0.5 MG NEB (SCH) NEB ×4 (07:49→19:27)
[2016-11-20] MEDS: BUDESONIDE-FORMOTEROL 160/4.5 MCG INHALER INH SCH ×2 (08:24→21:16)
[2016-11-20] MEDS: guaiFENesin E.R. 600 MG TAB PO SCH ×2 (08:26→21:15)
[2016-11-20] MEDS: MULTIVITAMINS/MINERALS THERAPEUTIC TAB PO SCH (08:26)
[2016-11-20] MEDS: THIAMINE HCL 100 MG TAB PO SCH (08:26)
[2016-11-20] MEDS: METOPROLOL TARTRATE 100 MG TAB PO SCH ×3 (08:27→21:16)
[2016-11-20] MEDS: FOLIC ACID 1 MG TAB PO SCH (08:27)
[2016-11-20] MEDS: ASPIRIN EC 81 MG TABEC PO SCH (08:27)
[2016-11-20] MEDS: DOCUSATE SODIUM 50 MG/SENNA 8.6 MG TAB PO SCH ×2 (08:28→21:00)
[2016-11-20] MEDS: SODIUM CHLORIDE 0.9% FLUSH 10 ML FLUSH IV FLUSH SCH ×2 (08:28→21:16)
[2016-11-20] MEDS: ENOXAPARIN SODIUM 80 MG/0.8 ML SYRINGE SQ SCH ×2 (08:35→21:15)
[2016-11-20 10:08] LABS: AUTOMATED NEUTROPHIL # 6.3 TH/MM3 (1.8-7.7); BASOPHIL % 0.1 % (0.0-2.0); HEMATOCRIT 32.8 % (39.0-51.0); HEMO FLAGS DIFF FINAL; LYMPH % 2.8 % (9.0-44.0); LYMPHOCYTE # 0.2 TH/MM3 (1.0-4.8); MEAN CORPUSCULAR HEMOGLOBIN 35.4 PG (27.0-34.0); MEAN CORPUSCULAR HGB CONC 33.4 % (32.0-36.0); MONO % 3.4 % (0.0-8.0); NEUT % 93.7 % (16.0-70.0); PLATELET COUNT 235 TH/MM3 (150-450); RED BLOOD COUNT 3.09 MIL/MM3 (4.50-5.90); RED CELL DISTRIBUTION WIDTH 17.8 % (11.6-17.2); WHITE BLOOD COUNT 6.7 TH/MM3 (4.0-11.0)
[2016-11-20 10:16] LABS: PROTHROMBIN TIME - PATIENT 11.4 SEC (9.8-11.6)
[2016-11-20] MEDS: metroNIDAZOLE 500 MG TAB PO SCH ×3 (11:22→21:15)
--- NOTE | 2016-11-20 11:31 | HHI.PR ---
Subjective Remarks Patient reports that his shortness of breath is minimally changed, no chest pain recurrence. Reports mild abdominal pain, says he hasn't had any diarrhea today. Many changes overnight: C. difficile came back positive, CT angiogram came back positive for pulmonary embolism, Lab results show worsening LFTs, Was apparently started on diltiazem drip last night due to tachycardia, no repeat EKG was done. Objective Vital Signs Date Time Temp Pulse Resp B/P (MAP) Pulse Ox O2 Delivery O2 Flow Rate FiO2 11/20/16 10:00 70 11/20/16 09:00 86 11/20/16 08:00 101 11/20/16 07:52 97 Nasal Cannula 3.00 11/20/16 07:00 93 11/20/16 07:00 94 Nasal Cannula 3.00 11/20/16 07:00 97.7 96 20 143/101 (115) 94 11/20/16 06:03 113 11/20/16 05:17 108 11/20/16 05:00 121 156/106 (123) 11/20/16 04:00 114 11/20/16 03:45 98.0 108 18 154/106 (122) 95 11/20/16 03:00 108 11/20/16 02:00 116 11/20/16 01:00 73 11/20/16 00:00 73 11/19/16 23:40 97.7 120 19 159/114 (129) 94 11/19/16 23:00 137 11/19/16 22:00 125 11/19/16 21:58 92 11/19/16 19:45 73 11/19/16 19:45 93 Nasal Cannula 3.00 11/19/16 19:45 97.4 137 20 165/113 (130) 93 11/19/16 18:00 103 11/19/16 17:30 20 11/19/16 17:00 86 11/19/16 16:00 74 11/19/16 15:00 80 11/19/16 15:00 97.7 81 20 133/95 (108) 96 11/19/16 14:05 67 11/19/16 13:00 66 11/19/16 12:00 62 I/O 11/19/16 11/19/16 11/19/16 11/20/16 11/20/16 11/20/16 07:00 15:00 23:00 07:00 15:00 23:00 Intake Total 1020 ml 3540 ml 1065 ml Output Total 555 ml Balance 1020 ml 3540 ml 510 ml Intake Oral 420 ml 2640 ml 360 ml IV Total 600 ml 900 ml 705 ml Output Urine Total 555 ml # Voids 2 4 3 # Bowel Movements 1 Result Diagram: 11/20/16 0954 11/20/16 0616 Objective Remarks GENERAL: Appears slightly sedated, asleep but easily awoken, no acute distress CARDIOVASCULAR: Regular rate and rhythm without murmurs, gallops, or rubs. No lower extremity edema RESPIRATORY: Unlabored breathing, slightly decreased breath sounds bilaterally with expiratory wheezing Gastrointestinal: Soft, nondistended, mildly tender with no rebound diffusely musCULOSKELETAL: No cyanosis, or edema. A/P Assessment and Plan 56-year-old white male admitted for shortness of breath and hypoxia 1. hypoxia - secondary to pulmonary embolism and COPD exacerbation, , treated as below 2. Chest pain - likely 2/2 PE, unable to r/o stable angina at this time given flipped T waves upon admission with bumped troponins (although troponin elevation is likely from pulmonary embolism). Awaiting echocardiogram. continue aspirin, will hold statin given elevating LFTs 3. Pulmonary embolism - continue Lovenox weight-based dosing, discussed with GI that it is unlikely causing the patient's worsening hepatotoxicity/LFTs, we' ll hold off on bridging onto warfarin at this time given other comorbidities that may warrant possible procedures 4. COPD: Acute Exacerbation - we'll decrease steroids to 62.5 Solu-Medrol every 8 hours , supplemental O2, Symbicort and duonebs 5. transaminitis : Worsening since yesterday, suspect secondary etiology on top of chronic alcohol use given acute worsening (unsure of low dose Librium would worsen this but stopped anyway), GGT is elevated, ordering hepatic workup with ceruloplasmin, smooth muscle antibodies, chondral antibodies, hepatitis panel, alpha antitrypsin 6. tachycardia - PE vs ETOH w/d --> heart rate significantly improved in response to diltiazem drip, ordering stat EKG, wean off as tolerated, wonder if there is heart strain from pulmonary embolism - we'll change echo to stat. 7. Hypomagnesemia: replace as necessary 8. HTN: metoprolol, severely elevated, prn vasotec, adding on scheduled losartan, , continue diltiazem by mouth 9. Tobacco Abuse: Pt counselled. No NicoDerm to avoid vasoconstriction. 8. DVT Prophylaxis: Mariano Alarcon MD Nov 20, 2016 11:31
[2016-11-20] MEDS: LOSARTAN 25 MG TAB PO SCH (12:58)
--- NOTE | 2016-11-20 13:47 | EKG ---
Date Performed: 11/20/2016 Time Performed: 09:03:14 PTAGE: 56 years EKG: Atrial fibrillation Prolonged QT interval Extensive ST-T changes may be due to ischemia Abn ormal ECG NO PREVIOUS TRACING DOCTOR: Rommel Rangel Interpretating Date/Time 11/20/2016 13:46:35
--- NOTE | 2016-11-20 15:37 | ECHRPT ---
Indication: cp CONCLUSIONS The left ventricular systolic function is reduced with an estimated ejection fraction in the range o f 40-45%. Mild concentric left ventricular hypertrophy. Normal left ventricular size. The right ventricle is mildly dilated. The right ventricular systoilc function is moderately decreased. The right atrial size is mildly dilated. Mild mitral valve regurgitation. There is mild tricuspid valve regurgitation. The pulmonary valve is not well visualized. BP: 156 / 106 HR: 121 Rhythm: MEASUREMENTS (Male / Female) Normal Values Technical Quality:Good 2D ECHO LV Diastolic Diameter PLAX 4.8 cm 4.2 - 5.9 / 3.9 - 5.3 cm LV Systolic Diameter PLAX 4.1 cm IVS Diastolic Thickness 1.3 cm 0.6 - 1.0 / 0.6 - 0.9 cm LVPW Diastolic Thickness 1.1 cm 0.6 - 1.0 / 0.6 - 0.9 cm LV Relative Wall Thickness 0.5 RV Internal Dim ED PLAX 4.1 cm M-MODE Aortic Root Diameter MM 4.2 cm LA Systolic Diameter MM 4.0 cm LA Ao Ratio MM 1.0 AV Cusp Separation MM 2.5 cm DOPPLER LV E' Lateral Velocity 8.6 cm/s LV E' Septal Velocity 6.4 cm/s TR Peak Velocity 272.5 cm/s TR Peak Gradient 29.7 mmHg FINDINGS LEFT VENTRICLE The left ventricular systolic function is severely reduced with an estimated ejection fraction in th e range of 30-35%. Mild concentric left ventricular hypertrophy. Normal left ventricular size. RIGHT VENTRICLE The right ventricle is mildly dilated. The right ventricular systoilc function is moderately decreased. LEFT ATRIUM The left atrial size is normal. RIGHT ATRIUM The right atrial size is mildly dilated. ATRIAL SEPTUM Normal atrial septal thickness without atrial level shunting by limited color doppler interrogation. AORTA The aortic root and proximal ascending aorta are normal in size on limited imaging. MITRAL VALVE Structurally normal mitral valve. Mild mitral valve regurgitation. AORTIC VALVE Cannot rule out a bicuspid aortic valve or trileaflet valve with partially fused commissure. TRICUSPID VALVE Structurally normal tricuspid valve. There is mild tricuspid valve regurgitation. PULMONARY VALVE The pulmonary valve is not well visualized. VESSELS The inferior vena cava is normal in size. PERICARDIUM No pericardial effusion. Bear Mckeon MD (Electronically Signed) Final Date:20 November 2016 15:36
--- NOTE | 2016-11-20 16:03 | PD.CONS ---
HPI Consult Requested By Primary Care Physician No Primary Care Physician History of Present Illness 56 year old M w/ a PMH of HTN, Alcohol Abuse, Tobacco Abuse, COPD and Afib on ASA admitted with complaints of SOB and alcohol withdrawal symptoms. States he drinks daily, but hasn't been able to because he doesn't have the money, only had 2 drinks today. On arrival, he was found to be hypoxic with saturations of 82% on 3L NC. CT of chest showed evidence of PE. Troponin 0.18. Cardiology consulted for evaluation. Review of Systems ROS Limitations: Poor Historian Consitutional: DENIES: Fatigue, Fever, Chills, Weight gain, Weight loss Eyes: DENIES: Amaurosis Fugax, Change in vision HEENT: DENIES: Lightheadedness, Change in hearing Respiratory: COMPLAINS OF: Shortness of breath Cardiovascular: DENIES: See HPI, Chest pain, Palpitations, Syncope, Tachycardia Gastrointestinal: DENIES: Nausea, Vomiting, Change in bowel habits, Reflux, Bloody stools, Melena Genitourinary: DENIES: Urinary incontinence, Difficulty voiding Integumentary: DENIES: Rash Neurologic: DENIES: Tingling or numbness, Memory problems, Poor Balance, Stroke symptoms Musculoskeletal: DENIES: Joint pain, Muscle pain, Limited range of motion, Back pain Psychiatric: DENIES: Anxiety, Depression, Sleep disturbances Hematologic: DENIES: Bruising tendencies, Bleeding tendencies Endocrine: DENIES: Weight gain, Weight loss, Thyroid disease Past Family Social History Allergies: Coded Allergies: lisinopril (Unverified Allergy, Severe, Wheezing, 11/18/16) Past Medical History HTN, Alcohol Abuse, Tobacco Abuse, COPD and Afib on ASA Past Surgical History Hernia Repair Reported Medications Reported Meds & Active Scripts Active Folic Acid 1 Mg Tablet 1 Mg PO DAILY Vitamin B-1 (Thiamine HCl) 100 Mg Tab 100 Mg PO DAILY Aspirin EC (Aspirin) 81 Mg Tabdr 162 Mg PO DAILY Reported Metoprolol Tartrate 100 Mg Tab 100 Mg PO DAILY Active Ordered Medications Current Medications Medications (Trade) Dose Ordered Sig/Guillermo Route Start Time Stop Time Status Last Admin (NS Flush) 2 ml UNSCH PRN IVF 11/18/16 18:15 (Folate) 1 mg DAILY PO 11/19/16 09:00 11/24/16 08:59 11/20/16 08:27 (Vitamin B1) 100 mg DAILY PO 11/19/16 09:00 11/20/16 08:26 (Theragran M Tab) 1 tab DAILY PO 11/19/16 09:00 11/24/16 08:59 11/20/16 08:26 (Romazicon Inj) 0.2 mg Q1M PRN IV PUSH 11/18/16 20:30 (Ativan) 1 mg Q4H PRN PO 11/18/16 20:30 11/20/16 05:04 (Ativan Inj) 1 mg Q4H PRN IV PUSH 11/18/16 20:30 (Ativan) 2 mg Q2H PRN PO 11/18/16 20:30 (Ativan Inj) 2 mg Q2H PRN IV PUSH 11/18/16 20:30 (Ativan Inj) 2 mg Q1H PRN IV PUSH 11/18/16 20:30 11/20/16 00:09 (Ativan Inj) 2 mg Q15M PRN IV PUSH 11/18/16 20:30 (Duoneb Neb) 1 ampule Q4HR WHILE AWAKE NEB NEB 11/19/16 08:00 11/20/16 07:49 (Duoneb Neb) 1 ampule Q2HR NEB PRN NEB 11/18/16 20:30 (Symbicort 160-4.5 Inh) 2 puff Q12HR INH 11/18/16 21:00 11/20/16 08:24 (Mucinex Er) 600 mg BID PO 11/18/16 21:00 11/20/16 08:26 (NS Flush) 2 ml UNSCH PRN IV FLUSH 11/18/16 20:30 (NS Flush) 2 ml BID IV FLUSH 11/18/16 21:00 11/20/16 08:28 (Zofran Inj) 4 mg Q6H PRN IVP 11/18/16 20:30 (Roxicodone) 10 mg Q4H PRN PO 11/18/16 20:30 11/20/16 12:38 (Shannan-Colace) 1 tab BID PO 11/18/16 21:00 (Milk Of Magnesia Liq) 30 ml Q12H PRN PO 11/18/16 20:30 (Senokot) 17.2 mg Q12H PRN PO 11/18/16 20:30 (Dulcolax Supp) 10 mg DAILY PRN RECTAL 11/18/16 20:30 (Lactulose Liq) 30 ml DAILY PRN PO 11/18/16 20:30 (Ecotrin Ec) 162 mg DAILY PO 11/19/16 09:00 11/20/16 08:27 (SoluMEDROL INJ) 125 mg Q8H IV PUSH 11/19/16 18:00 11/20/16 08:26 (Lovenox Inj) 80 mg Q12HR SQ 11/19/16 21:00 Future hold 11/20/16 08:35 Diltiazem HCl 125 mg/Sodium Chloride 125 ml @ 5 mls/hr TITRATE PRN IV 11/20/16 04:15 11/20/16 04:35 (Apresoline Inj) 20 mg Q4H PRN IV PUSH 11/20/16 08:15 (Flagyl) 500 mg Q8HR PO 11/20/16 10:15 12/04/16 10:14 11/20/16 12:58 (Lopressor) 100 mg Q12HR PO 11/20/16 12:45 11/20/16 12:59 (Cozaar) 25 mg DAILY PO 11/20/16 13:00 11/20/16 12:58 Social History +Alcohol Physical Exam Vital Signs Vital Signs Date Time Temp Pulse Resp B/P (MAP) Pulse Ox O2 Delivery O2 Flow Rate FiO2 11/20/16 15:00 97.6 90 20 158/107 (124) 95 11/20/16 15:00 93 11/20/16 14:00 80 11/20/16 13:00 64 11/20/16 12:00 60 11/20/16 11:00 75 11/20/16 11:00 97.3 72 20 129/88 (102) 93 11/20/16 10:00 70 11/20/16 09:00 86 11/20/16 08:00 101 11/20/16 07:52 97 Nasal Cannula 3.00 11/20/16 07:00 93 11/20/16 07:00 94 Nasal Cannula 3.00 11/20/16 07:00 97.7 96 20 143/101 (115) 94 11/20/16 06:03 113 11/20/16 05:17 108 11/20/16 05:00 121 156/106 (123) 11/20/16 04:00 114 11/20/16 03:45 98.0 108 18 154/106 (122) 95 11/20/16 03:00 108 11/20/16 02:00 116 11/20/16 01:00 73 11/20/16 00:00 73 11/19/16 23:40 97.7 120 19 159/114 (129) 94 11/19/16 23:00 137 11/19/16 22:00 125 11/19/16 21:58 92 11/19/16 19:45 73 11/19/16 19:45 93 Nasal Cannula 3.00 11/19/16 19:45 97.4 137 20 165/113 (130) 93 11/19/16 18:00 103 11/19/16 17:30 20 11/19/16 17:00 86 11/19/16 16:00 74 Physical Exam GENERAL: Alert, awake and oriented x3 SKIN: Warm and dry. HEAD: Normocephalic. EYES: No scleral icterus. No injection or drainage. NECK: Supple, trachea midline. No JVD or lymphadenopathy. CARDIOVASCULAR: Regular rate and rhythm without murmurs, gallops, or rubs. RESPIRATORY: Breath sounds equal bilaterally. No accessory muscle use. GASTROINTESTINAL: Abdomen soft, non-tender, nondistended. EXTREMITIES: No cyanosis, or +edema. Laboratory Laboratory Tests Test 11/20/16 06:16 11/20/16 09:54 11/20/16 14:09 Blood Urea Nitrogen 20 Creatinine 0.73 Random Glucose 170 Total Protein 5.7 Albumin 2.7 Calcium Level 8.1 Alkaline Phosphatase 111 Aspartate Amino Transf (AST/SGOT) 249 Alanine Aminotransferase (ALT/SGPT) 180 Total Bilirubin 0.6 Sodium Level 135 Potassium Level 4.5 Chloride Level 103 Carbon Dioxide Level 24.8 Anion Gap 7 Estimat Glomerular Filtration Rate 112 White Blood Count 6.7 Red Blood Count 3.09 Hemoglobin 10.9 Hematocrit 32.8 Mean Corpuscular Volume 106.0 Mean Corpuscular Hemoglobin 35.4 Mean Corpuscular Hemoglobin Concent 33.4 Red Cell Distribution Width 17.8 Platelet Count 235 Mean Platelet Volume 8.7 Neutrophils (%) (Auto) 93.7 Lymphocytes (%) (Auto) 2.8 Monocytes (%) (Auto) 3.4 Eosinophils (%) (Auto) 0.0 Basophils (%) (Auto) 0.1 Neutrophils # (Auto) 6.3 Lymphocytes # (Auto) 0.2 Monocytes # (Auto) 0.2 Eosinophils # (Auto) 0.0 Basophils # (Auto) 0.0 CBC Comment DIFF FINAL Differential Comment Prothrombin Time 11.4 Prothromb Time International Ratio 1.0 Gamma Glutamyl Transpeptidase 462 Date/Time Source Procedure Growth Status 11/19/16 11:10 Stool Stool Stool Occult Blood (EMERITA) - Final HEMOCCULT NEGATIVE Complete Result Diagram: 11/20/16 0954 11/20/16 0616 Imaging Last Impressions Chest X-Ray 11/18/16 1809 Signed Impressions: Service Date/Time: Sunday, November 18, 2016 18:17 - CONCLUSION: No acute cardiopulmonary disease. Ariel Garland MD Assessment and Plan Problem List: (1) Pulmonary emboli ICD Codes: I26.99 - Other pulmonary embolism without acute cor pulmonale Plan: 56 y/o M with hypoxia, SOB, ? alcohol withdrawal diagnosed with PE on CTA. He remains afebrile, hemodynamically stable, chest pain free. He still complaint of SOB. Mildly elevated troponin as well as EKG changes secondary to PE. No signs of hemodynamic compromise. ECHO results reviewed. No need for invasive cardiac work up at this time. Recommendations - Medical management - Consider ICU consult - Supportive care per primary team Thank for the opportunity to participate in the care of this patient Will b available on a PRN basis for any questions or concerns (2) Hypertension ICD Codes: I10 - Essential (primary) hypertension Status: Acute (3) Alcohol withdrawal ICD Codes: F10.239 - Alcohol dependence with withdrawal, unspecified Status: Acute (4) Atrial fibrillation with RVR ICD Codes: I48.91 - Unspecified atrial fibrillation Status: Acute (5) COPD (chronic obstructive pulmonary disease) ICD Codes: J44.9 - Chronic obstructive pulmonary disease, unspecified Status: Acute (6) Alcohol abuse ICD Codes: F10.10 - Alcohol abuse, uncomplicated Status: Chronic (7) Tobacco abuse ICD Codes: Z72.0 - Tobacco use Status: Chronic Jacobs-Bear Gutiérrez MD Nov 20, 2016 16:03
--- NOTE | 2016-11-20 16:44 | PD.CONS ---
HPI History of Present Illness This is a 56 year old male patient with a history of alcohol abuse, who presented to the emergency room for evaluation for right shoulder pain,diarrhea , and shortness of breath. He reports that he has been having diarrhea for the past 3 weeks, with up to 5 loose stools per day. He states that he has associated lower abdominal cramping prior to the bowel movements, but denies any nausea or vomiting. He does reports that a few times, he noted a very small amount bright red blood on the tissue when he wiped himself. He was admitted for hypoxia secondary to pulmonary embolism and COPD exacerbation and was also noted to be CDifficile PCR (+), EPID 027 negative. He was also noted to have elevated LFTs and therefore GI has been consulted for this and CDifficile. The patient denies any history of liver disease, but does report a history of pancreatitis in the past. He has a significant ETOH abuse history, but is very vague with the amount and states that he does not drink daily, but binge drinks. He is not able to quantify the amount or how often, but states that he usually goes through "a bottle and a 2-3 6pack of beers a month." EGD ( 03/27/16)---> esophagus was normal, mucosa of the stomach appeared normal, normal duodenal mucosa in the bulb and second portion of the duodenum. Pathology revealed gastric type mucosal biopsies with mild- moderate active chronic gastritis negative for intestinal metaplasia and dysplasia, song stain positive for numerous bacteria consistent with helicobacter. It is unclear if he was treated for this. (Maryam Leyva) PFSH Past Medical History H. Pylori Gastritis HTN Alcohol Abuse Pancreatitis COPD Afib on ASA Past Surgical History Right groin hernia repair EGD (Maryam Leyva) Coded Allergies: lisinopril (Unverified Allergy, Severe, Wheezing, 11/18/16) Medications Allergies Coded Allergies Type Severity Reaction Last Updated Verified lisinopril Allergy Severe Wheezing 11/18/16 No Active Scripts Medications Dose Route/Sig Max Daily Dose Days Date Category Metoprolol Tartrate 100 Mg Tab 100 Mg PO DAILY 11/18/16 Reported Folic Acid 1 Mg Tablet 1 Mg PO DAILY 09/06/16 Rx Vitamin B-1 (Thiamine HCl) 100 Mg Tab 100 Mg PO DAILY 09/06/16 Rx Aspirin EC (Aspirin) 81 Mg Tabdr 162 Mg PO DAILY 09/06/16 Rx Family History Mother from multiple sclerosis and lung cancer Social History Positive for Alcohol Abuse- unable to quantify amount Smokes 1ppd + marijuana (Maryam Leyva) Review of Systems Constitutional: COMPLAINS OF: Fatigue, DENIES: Fever, Weight loss, Chills, Change in appetite Respiratory: COMPLAINS OF: Cough, Shortness of breath Gastrointestinal: COMPLAINS OF: Abdominal pain, Bloody stools (bright red blood n tissue), Diarrhea, Heartburn, DENIES: Nausea, Vomiting, Hematemesis Musculoskeletal: COMPLAINS OF: Joint pain Integumentary: DENIES: Rash, Jaundice Hematologic/lymphatic: DENIES: Bruising Psychiatric: DENIES: Confusion (Maryam Leyva) GI Exam Vitals I&O Vital Signs Date Time Temp Pulse Resp B/P (MAP) Pulse Ox O2 Delivery O2 Flow Rate FiO2 11/20/16 15:00 97.6 90 20 158/107 (124) 95 11/20/16 15:00 93 11/20/16 14:00 80 11/20/16 13:00 64 11/20/16 12:00 60 11/20/16 11:00 75 11/20/16 11:00 97.3 72 20 129/88 (102) 93 11/20/16 10:00 70 11/20/16 09:00 86 11/20/16 08:00 101 11/20/16 07:52 97 Nasal Cannula 3.00 11/20/16 07:00 93 11/20/16 07:00 94 Nasal Cannula 3.00 11/20/16 07:00 97.7 96 20 143/101 (115) 94 11/20/16 06:03 113 11/20/16 05:17 108 11/20/16 05:00 121 156/106 (123) 11/20/16 04:00 114 11/20/16 03:45 98.0 108 18 154/106 (122) 95 11/20/16 03:00 108 11/20/16 02:00 116 11/20/16 01:00 73 11/20/16 00:00 73 11/19/16 23:40 97.7 120 19 159/114 (129) 94 11/19/16 23:00 137 11/19/16 22:00 125 11/19/16 21:58 92 11/19/16 19:45 73 11/19/16 19:45 93 Nasal Cannula 3.00 11/19/16 19:45 97.4 137 20 165/113 (130) 93 11/19/16 18:00 103 11/19/16 17:30 20 11/19/16 17:00 86 I/O 11/19/16 11/19/16 11/19/16 11/20/16 11/20/16 11/20/16 07:00 15:00 23:00 07:00 15:00 23:00 Intake Total 1020 ml 3540 ml 1065 ml Output Total 555 ml Balance 1020 ml 3540 ml 510 ml Intake Oral 420 ml 2640 ml 360 ml IV Total 600 ml 900 ml 705 ml Output Urine Total 555 ml # Voids 2 4 3 # Bowel Movements 1 Imaging Last Impressions Chest X-Ray 11/18/16 180 Signed Impressions: Service Date/Time: Friday, November 18, 2016 18:17 - CONCLUSION: No acute cardiopulmonary disease. Ariel Garland MD Laboratory Test 11/20/16 06:16 11/20/16 09:54 11/20/16 14:09 Blood Urea Nitrogen 20 MG/DL Creatinine 0.73 MG/DL Random Glucose 170 MG/DL Total Protein 5.7 GM/DL Albumin 2.7 GM/DL Calcium Level 8.1 MG/DL Alkaline Phosphatase 111 U/L Aspartate Amino Transf (AST/SGOT) 249 U/L Alanine Aminotransferase (ALT/SGPT) 180 U/L Total Bilirubin 0.6 MG/DL Sodium Level 135 MEQ/L Potassium Level 4.5 MEQ/L Chloride Level 103 MEQ/L Carbon Dioxide Level 24.8 MEQ/L Anion Gap 7 MEQ/L Estimat Glomerular Filtration Rate 112 ML/MIN White Blood Count 6.7 TH/MM3 Red Blood Count 3.09 MIL/MM3 Hemoglobin 10.9 GM/DL Hematocrit 32.8 % Mean Corpuscular Volume 106.0 FL Mean Corpuscular Hemoglobin 35.4 PG Mean Corpuscular Hemoglobin Concent 33.4 % Red Cell Distribution Width 17.8 % Platelet Count 235 TH/MM3 Mean Platelet Volume 8.7 FL Neutrophils (%) (Auto) 93.7 % Lymphocytes (%) (Auto) 2.8 % Monocytes (%) (Auto) 3.4 % Eosinophils (%) (Auto) 0.0 % Basophils (%) (Auto) 0.1 % Neutrophils # (Auto) 6.3 TH/MM3 Lymphocytes # (Auto) 0.2 TH/MM3 Monocytes # (Auto) 0.2 TH/MM3 Eosinophils # (Auto) 0.0 TH/MM3 Basophils # (Auto) 0.0 TH/MM3 CBC Comment DIFF FINAL Differential Comment Prothrombin Time 11.4 SEC Prothromb Time International Ratio 1.0 RATIO Gamma Glutamyl Transpeptidase 462 U/L Date/Time Source Procedure Growth Status 11/19/16 11:10 Stool Stool Stool Occult Blood (EMERITA) - Final HEMOCCULT NEGATIVE Complete Physical Examination HEENT: Normocephalic; atraumatic; no jaundice. CHEST: CTA CARDIAC: RRR ABDOMEN: Soft, nondistended, nontender; no hepatosplenomegaly; bowel sounds are present in all four quadrants. EXTREMITIES: No clubbing, cyanosis, or edema. SKIN: Normal; no rash; no jaundice. PARTNER CCO: No focal deficits; alert and oriented times three. (Maryam Leyva) Assessment and Plan Plan ASSESSMENT: - Elevated LFTs. Hx etoh abuse- unclear the amount. Denies any known history of hepatitis or liver disease, but does have a history of pancreatitis. T. Bili 0.6, AST 249, ALT 180, Alk Phosph 111. Had CTA thorax yesterday. Will get RUQ US. Hepatitis panel pending, AMA pending, DEISY pending, ASMA pending, Alpha 1 Antitrypsin pending, Will get AFP and Iron studies. Monitor LFTs. Of note, platelets, and INR okay. Albumin mildly low. Of note, he also has mild mitral valve regurgitation with the right ventricle mildly dilated. Likely multifactorial- etoh abuse, possible hepatic congestion - CDifficile, EPID 027 (-). 1st episode. Flagyl. Has been having 5 stools per day x 3 weeks. It is unclear if he has been on abx prior to the diarrhea, he says yes, but it sounds more for the diarrhea. WBC 6.7. - Pulmonary embolism. Lovenox. per attending. - COPD exacerbation. Steroids, Nebs. - HTN, Hx Afib (on ASA). Per attending. PLAN: - BOOGIE for now - RUQ US - AFP level - Ferritin level - Iron Saturation - Await hepatitis - Await DEISY, AMA, ASMA - Await Ceruloplasmin, Alpha 1 antitrypsin - Monitor LFTs - Cont. Flagyl - DT precautions per attending - Pt seen and examined by Dr. Osborn and myself and this note is written on his behalf (Maryam Leyva) Physician Comments Seen and examined, plan as above, will follow up with you. (Aminah Osborn MD) Maryam Leyva Nov 20, 2016 16:44 Aminah Osborn MD Nov 21, 2016 09:05
[2016-11-20 18:34] LABS: TRANSFERRIN IRON PROFILE 202 MG/DL (200-360)
[2016-11-20 18:37] LABS: FERRITIN 267 NG/ML (26-388)
[2016-11-20] MEDS: hydrALAZINE HCL 20 MG/ML VIAL IV PUSH PRN (23:47)
[2016-11-21] VITALS (28 sets, daily range): BP systolic 120–165; BP diastolic 80–110; PULSE 62–89; RESP 16–20; TEMP 97.4–98.6; O2SAT 91–96
[2016-11-21] MEDS: methylPREDNISolone SOD SUCC 125 MG/2 ML VIAL IV PUSH SCH ×2 (03:32→16:31)
[2016-11-21] MEDS: hydrALAZINE HCL 20 MG/ML VIAL IV PUSH PRN (03:35)
[2016-11-21] MEDS: metroNIDAZOLE 500 MG TAB PO SCH ×3 (05:16→21:34)
[2016-11-21] MEDS: ENOXAPARIN SODIUM 80 MG/0.8 ML SYRINGE SQ SCH ×2 (07:49→21:35)
[2016-11-21] MEDS: BUDESONIDE-FORMOTEROL 160/4.5 MCG INHALER INH SCH ×2 (07:49→21:00)
[2016-11-21] MEDS: FOLIC ACID 1 MG TAB PO SCH (07:50)
[2016-11-21] MEDS: LOSARTAN 25 MG TAB PO SCH (07:50)
[2016-11-21] MEDS: ASPIRIN EC 81 MG TABEC PO SCH (07:50)
[2016-11-21] MEDS: MULTIVITAMINS/MINERALS THERAPEUTIC TAB PO SCH (07:50)
[2016-11-21] MEDS: METOPROLOL TARTRATE 100 MG TAB PO SCH ×2 (07:50→21:34)
[2016-11-21] MEDS: guaiFENesin E.R. 600 MG TAB PO SCH ×2 (07:50→21:34)
[2016-11-21] MEDS: THIAMINE HCL 100 MG TAB PO SCH (07:50)
[2016-11-21] MEDS: SODIUM CHLORIDE 0.9% FLUSH 10 ML FLUSH IV FLUSH SCH ×2 (07:51→21:35)
[2016-11-21] MEDS: DOCUSATE SODIUM 50 MG/SENNA 8.6 MG TAB PO SCH ×2 (07:51→21:00)
[2016-11-21] MEDS ORDERED: LORazepam 2 MG/ML VIAL IV PUSH PRN (08:45)
--- NOTE | 2016-11-21 09:38 | RADRPT ---
EXAM DATE/TIME: 11/21/2016 08:05 [facility] COMPARISON: CT PULMONARY ANGIOGRAM, November 19, 2016, 16:24. US ABDOMEN - LIVER, September 05, 2016, 11:13. INDICATIONS : Increased lab values. MEDICAL HISTORY : Hypercholesterolemia. Chronic obstructive pulmonary disease. Hypothyroidism. Diabetes. SURGICAL HISTORY : Tonsillectomy. ENCOUNTER: Initial ACUITY: 1 day PAIN SCORE: 3/10 LOCATION: Bilateral upper quadrant MEASUREMENTS: LIVER: 20.3 cm length COMMON DUCT: 3 mm RIGHT KIDNEY: 11.5 x 5.5 x 6.5 cm SPLEEN: 8.8 cm length FINDINGS: LIVER: Diffusely increased echogenicity with hepatomegaly. No significant focal mass or intrahepatic ductal dilatation. Trace perihepatic ascites. Small right pleural effusion. COMMON DUCT: No intraluminal mass or stone visualized. GALLBLADDER: Marked diffuse irregular gallbladder wall thickening with trace pericholecystic fluid. There are smal l gallstones in the gallbladder as well. PANCREAS: The visualized portions are within normal limits. RIGHT KIDNEY: Small cyst measuring 3.3 x 2.4 x 3.1 cm in the mid right kidney. No hydronephrosis, stone or mass. SPLEEN: March the obscured by overlying bowel gas. CONCLUSION: 1. Hepatomegaly with diffuse increased echogenicity consistent with marked hepatic steatosis. Trace p erihepatic ascites. 2. Markedly abnormal gallbladder with significant gallbladder wall thickening, trace pericholecystic fluid and stones. Although these findings may be seen in the setting of chronic liver disease, the de gree and extent of abnormality is more pronounced than expected. Recommend correlation for cholecysti tis. May consider HIDA scan if there is continued clinical uncertainty. 3. Small right pleural effusion. 1. Ilir Bowers MD on November 21, 2016 at 9:26 Board Certified Radiologist. This report was verified electronically.
[2016-11-21] MEDS: cloNIDine HCL 0.2 MG TAB PO SCH ×3 (09:47→21:34)
--- NOTE | 2016-11-21 10:34 | HHI.PR ---
Subjective Remarks Patient reports that his chest pain is better and shortness of breath is better , still is getting winded moving around. He was weaned down to room air yesterday evening. Says he hasn't had any loose bowel movements since yesterday , minimal abdominal pain. Objective Vital Signs Date Time Temp Pulse Resp B/P (MAP) Pulse Ox O2 Delivery O2 Flow Rate FiO2 11/21/16 10:00 79 11/21/16 09:00 70 11/21/16 08:00 79 11/21/16 07:00 97.4 85 16 159/109 (126) 93 11/21/16 07:00 79 11/21/16 07:00 93 Room Air 11/21/16 06:00 83 11/21/16 05:00 67 11/21/16 04:28 129/99 (109) 11/21/16 04:00 71 11/21/16 03:00 62 11/21/16 03:00 97.8 79 18 165/109 (127) 91 11/21/16 02:00 85 11/21/16 01:00 87 11/21/16 00:55 120/85 (97) 11/21/16 00:00 89 11/20/16 23:00 97.5 87 18 165/112 (129) 90 11/20/16 23:00 79 11/20/16 22:00 69 11/20/16 21:00 76 11/20/16 20:00 98 11/20/16 19:15 98.1 100 18 143/110 (121) 94 11/20/16 19:15 94 Room Air 11/20/16 19:00 82 11/20/16 18:39 97 11/20/16 17:00 99 11/20/16 16:20 83 11/20/16 15:00 97.6 90 20 158/107 (124) 95 11/20/16 15:00 93 11/20/16 14:00 80 11/20/16 13:00 64 11/20/16 12:00 60 11/20/16 11:00 75 11/20/16 11:00 97.3 72 20 129/88 (102) 93 I/O 11/20/16 11/20/16 11/20/16 11/21/16 11/21/16 11/21/16 07:00 15:00 23:00 07:00 15:00 23:00 Intake Total 1065 ml 1180 ml 240 ml Output Total 555 ml Balance 510 ml 1180 ml 240 ml Intake Oral 360 ml 1180 ml 240 ml IV Total 705 ml Output Urine Total 555 ml # Voids 3 5 3 # Bowel Movements 2 Result Diagram: 11/20/16 0954 11/20/16 0616 Objective Remarks GENERAL: Sitting up in chair, awake, eating CARDIOVASCULAR: Regular rate and rhythm without murmurs, gallops, or rubs. No lower extremity edema RESPIRATORY: Unlabored breathing, slightly decreased breath sounds bilaterally with moderate expiratory wheezing Gastrointestinal: Soft, nondistended, mildly tender with no rebound diffusely musCULOSKELETAL: No cyanosis, or edema. A/P Assessment and Plan 56-year-old white male admitted for shortness of breath and hypoxia 1. hypoxia - secondary to pulmonary embolism and COPD exacerbation, , treated as below 2. Chest pain - improved - likely 2/2 PE, cardiology consult, feel that his chest pain is more so from PE not ACS. Continue treatment as below. STAT echo showing systolic dysfunction at EF 35-35%. 3. Pulmonary embolism - continue Lovenox weight-based dosing, discussed with GI that it is unlikely causing the patient's worsening hepatotoxicity/LFTs, we' ll hold off on bridging onto warfarin at this time given other comorbidities that may warrant possible procedures. We'll need to ultimately decide between warfarin or novel anticoagulant therapy as long-term choice for discharge. 4. COPD: Acute Exacerbation - we'll decrease steroids to 62.5 Solu-Medrol every 8 hours , supplemental O2, Symbicort and duonebs 5. transaminitis : Worsening since yesterday, GI consulted, hepatic labs ordered , repeating CMP today 6. tachycardia - suspect this is more so due to withdrawal now at this point, we 'll additionally give Ativan when necessary tachycardia and severe HTN 8. Labile HTN: Suspect this is more so due to withdrawal therefore will give Ativan when necessary severe hypertension, , continue metoprolol clonidine losartan, will switch from diltiazem to low dose amlodipine given systolic dysfunction and hepatic impairment 9. Tobacco Abuse: Pt counselled. No NicoDerm to avoid vasoconstriction. 8. DVT Prophylaxis: lovenox Mariano Paredes MD Nov 21, 2016 10:34
[2016-11-21] MEDS: RESP: ALBUTEROL 2.5 MG/IPRATROPIUM 0.5 MG NEB (SCH) NEB ×3 (12:00→21:49)
--- NOTE | 2016-11-21 12:17 | HHI.GIFU ---
Subjective Remarks Resting in bed. No n/v. Bloated after eating, but no pain. Has not had a bowel movement yet. (Maryam Leyva) Objective Vitals I&O Vital Signs Date Time Temp Pulse Resp B/P (MAP) Pulse Ox O2 Delivery O2 Flow Rate FiO2 11/21/16 11:00 98.6 72 18 136/95 (109) 95 11/21/16 11:00 76 11/21/16 10:00 79 11/21/16 09:00 70 11/21/16 08:00 79 11/21/16 07:00 97.4 85 16 159/109 (126) 93 11/21/16 07:00 79 11/21/16 07:00 93 Room Air 11/21/16 06:00 83 11/21/16 05:00 67 11/21/16 04:28 129/99 (109) 11/21/16 04:00 71 11/21/16 03:00 62 11/21/16 03:00 97.8 79 18 165/109 (127) 91 11/21/16 02:00 85 11/21/16 01:00 87 11/21/16 00:55 120/85 (97) 11/21/16 00:00 89 11/20/16 23:00 97.5 87 18 165/112 (129) 90 11/20/16 23:00 79 11/20/16 22:00 69 11/20/16 21:00 76 11/20/16 20:00 98 11/20/16 19:15 98.1 100 18 143/110 (121) 94 11/20/16 19:15 94 Room Air 11/20/16 19:00 82 11/20/16 18:39 97 11/20/16 17:00 99 11/20/16 16:20 83 11/20/16 15:00 97.6 90 20 158/107 (124) 95 11/20/16 15:00 93 11/20/16 14:00 80 11/20/16 13:00 64 I/O 11/20/16 11/20/16 11/20/16 11/21/16 11/21/16 11/21/16 07:00 15:00 23:00 07:00 15:00 23:00 Intake Total 1065 ml 1180 ml 240 ml Output Total 555 ml Balance 510 ml 1180 ml 240 ml Intake Oral 360 ml 1180 ml 240 ml IV Total 705 ml Output Urine Total 555 ml # Voids 3 5 3 # Bowel Movements 2 Laboratory Laboratory Tests Test 11/20/16 14:09 Hepatitis A IgM Antibody NEGATIVE Hepatitis B Surface Antigen NEGATIVE Hepatitis B Core IgM Antibody NEGATIVE Hepatitis C Antibody NEGATIVE Date/Time Source Procedure Growth Status 11/19/16 11:10 Stool Stool Stool Occult Blood (EMERITA) - Final HEMOCCULT NEGATIVE Complete Imaging Last Impressions CT Angiography 11/19/16 0942 Signed Impressions: Service Date/Time: Saturday, November 19, 2016 16:24 - CONCLUSION: 1. Pulmonary embolus in right main pulmonary artery and lower lobe branches. 2. Bilateral pleural effusions, left lung base consolidation right lung infiltrate. Ariel Garland MD Chest X-Ray 11/18/16 180 Signed Impressions: Service Date/Time: Friday, November 18, 2016 18:17 - CONCLUSION: No acute cardiopulmonary disease. Ariel Garland MD Physical Exam EENT: Normocephalic; atraumatic; no jaundice. CHEST: CTA CARDIAC: RRR ABDOMEN: Soft, nondistended, nontender; no hepatosplenomegaly; bowel sounds are present in all four quadrants. EXTREMITIES: No clubbing, cyanosis, or edema. SKIN: Normal; no rash; no jaundice. ACCOUNTING MANAGER CONTROLLER: No focal deficits; alert and oriented times three. (Maryam eLyva) Assessment and Plan Plan ASSESSMENT: - Elevated LFTs. Hx etoh abuse- unclear the amount. Denies any known history of hepatitis or liver disease, but does have a history of pancreatitis. US (11/21/16)---> hepatomegaly with diffuse increased echogenicity consistent with marked hepatic steatosis. Trace perihepatic ascites. Markedly abnormal gallbladder with significant gallbladder wall thickening, trace pericholecystic fluid and stones. Although these findings may be seen in the setting of chronic liver disease, the degree and extent of abnormality is more pronounced than expected. Recommend correlation for cholecystitis. May consider HIDA scan if there is continued clinical uncertainty, small right pleural effusion Hepatitis panel neg, AMA pending, DEISY pending, ASMA pending, Alpha 1 Antitrypsin pending, AFP pending. Iron sat 13.8% and ferritin 267. No LFTs today. Likely multifactorial- etoh abuse, possible hepatic congestion, possible gallbladder disease. Will get HIDA Scan, if (+ ) then would likely need cholecystomy tube given his PE/COPD exac. Today's LFTs pending. - CDifficile, EPID 027 (-). 1st episode. Flagyl. Improving. - Pulmonary embolism. Lovenox. per attending. - COPD exacerbation. Steroids, Nebs. - HTN, Hx Afib (on ASA). Per attending. PLAN: - BOOGIE - HIDA scan - AFP level - Await DEISY, AMA, ASMA - Await Ceruloplasmin, Alpha 1 antitrypsin - Monitor LFTs - Cont. Flagyl - DT precautions per attending - If HIDA (+), consider cholecystomy tube given his PE/CoPD exacerbation - Pt seen and examined by Dr. Osborn and myself and this note is written on his behalf (Maryam Leyva) Physician Comments Seen with Maryam, plan as above. Will follow up with you. further recommendations to follow. (Aminah Osborn MD) Maryam Leyva Nov 21, 2016 12:17 Aminah Osborn MD Nov 21, 2016 14:00
[2016-11-21 13:21] LABS: BICARBONATE 26.3 MEQ/L (21.0-32.0); POTASSIUM 4.5 MEQ/L (3.5-5.1)
[2016-11-21 13:21] LABS: ALKALINE PHOSPHATASE 102 U/L (45-117); ALT (GPT) 214 U/L (12-78); ANION GAP 6 MEQ/L (5-15); AST (GOT) 146 U/L (15-37); BICARBONATE 26.5 MEQ/L (21.0-32.0); BLOOD UREA NITROGEN 28 MG/DL (7-18); CHLORIDE 104 MEQ/L (98-107); GLOMERULAR FILTRATION RATE 104 ML/MIN (>89); POTASSIUM 4.5 MEQ/L (3.5-5.1); SODIUM (NA) 136 MEQ/L (136-145); TOTAL BILIRUBIN ADULT 0.4 MG/DL (0.2-1.0)
[2016-11-21 13:28] LABS: INDIRECT BILIRUBIN 0.2 MG/DL (0.0-0.8); TOTAL BILIRUBIN ADULT 0.4 MG/DL (0.2-1.0)
[2016-11-21] MEDS ORDERED: methylPREDNISolone SOD SUCC 125 MG/2 ML VIAL IV PUSH SCH (15:00)
[2016-11-22] VITALS (31 sets, daily range): BP systolic 109–164; BP diastolic 57–108; PULSE 55–82; RESP 18–20; TEMP 97.3–98.4; O2SAT 94–99
[2016-11-22] MEDS: methylPREDNISolone SOD SUCC 125 MG/2 ML VIAL IV PUSH SCH ×2 (00:14→08:58)
[2016-11-22] MEDS: metroNIDAZOLE 500 MG TAB PO SCH ×3 (06:24→22:59)
[2016-11-22] MEDS: cloNIDine HCL 0.2 MG TAB PO SCH ×3 (06:24→23:00)
[2016-11-22 07:00] LABS: BICARBONATE 25.1 MEQ/L (21.0-32.0); POTASSIUM 4.7 MEQ/L (3.5-5.1)
[2016-11-22 07:03] LABS: INDIRECT BILIRUBIN 0.2 MG/DL (0.0-0.8); TOTAL BILIRUBIN ADULT 0.4 MG/DL (0.2-1.0)
[2016-11-22] MEDS: MULTIVITAMINS/MINERALS THERAPEUTIC TAB PO SCH (08:57)
[2016-11-22] MEDS: LOSARTAN 25 MG TAB PO SCH (08:57)
[2016-11-22] MEDS: ASPIRIN EC 81 MG TABEC PO SCH (08:57)
[2016-11-22] MEDS: THIAMINE HCL 100 MG TAB PO SCH (08:57)
[2016-11-22] MEDS: hydrALAZINE HCL 20 MG/ML VIAL IV PUSH PRN (08:57)
[2016-11-22] MEDS: METOPROLOL TARTRATE 100 MG TAB PO SCH ×2 (08:57→22:59)
[2016-11-22] MEDS: FOLIC ACID 1 MG TAB PO SCH (08:57)
[2016-11-22] MEDS: guaiFENesin E.R. 600 MG TAB PO SCH ×2 (08:57→22:58)
[2016-11-22] MEDS: DOCUSATE SODIUM 50 MG/SENNA 8.6 MG TAB PO SCH ×3 (08:57→21:00)
[2016-11-22] MEDS: SODIUM CHLORIDE 0.9% FLUSH 10 ML FLUSH IV FLUSH SCH ×2 (09:00→22:59)
[2016-11-22] MEDS: ENOXAPARIN SODIUM 80 MG/0.8 ML SYRINGE SQ SCH ×2 (09:00→22:59)
[2016-11-22] MEDS: RESP: ALBUTEROL 2.5 MG/IPRATROPIUM 0.5 MG NEB (SCH) NEB ×3 (09:37→21:25)
[2016-11-22] MEDS ORDERED: ATROPINE SULFATE 1 MG/10 ML SYRINGE ONE (10:15)
[2016-11-22] MEDS ORDERED: EPINEPHrine HCL (1:10,000) 1 MG/10 ML SYRINGE ONE (10:16)
--- NOTE | 2016-11-22 13:01 | RADRPT ---
EXAM DATE/TIME: 11/22/2016 10:29 [facility] COMPARISON: No previous studies available for comparison. INDICATIONS : Diarrhea with lower abdominal cramping prior to bowel movements. DOSE: 4.2 mCi Tc99m Mebrofenin IV MEDICAL HISTORY : Chronic obstructive pulmonary disease. Hypertension. Alcohol abuse. Smoker. SURGICAL HISTORY : Inguinal hernia repair. ENCOUNTER: Initial ACUITY: 3 weeks PAIN SCALE: 1/10 LOCATION: Bilateral lower quadrant TECHNIQUE: Following the intravenous administration of radiotracer, dynamic sequential images were performed wit h continuous acquisition. FINDINGS: HEPATIC KINETICS: There is prompt uptake of radiotracer in the liver. No focal defects are seen. There is normal rate of washout from the hepatic parenchyma. BILIARY CLEARANCE: Activity is first seen in the extrahepatic biliary system at 5 minutes. There is normal excretion in to the small bowel. GALLBLADDER: Activity is first seen in the gallbladder at 5 minutes. Common bile duct kinetics are normal and the re is no evidence of biliary obstruction. BILIARY ENTRIC REFLUX: None observed. CONCLUSION: 1. Activity is noted in the gallbladder confirming patency of the cystic duct. This makes possibility of acute cholecystitis highly unlikely. 2. No evidence for biliary ductal obstruction with normal bowel transit time. Ilir Bowers MD on November 22, 2016 at 12:55 Board Certified Radiologist. This report was verified electronically.
[2016-11-22 13:11] LABS: ANA SCREEN NEG (NEG)
[2016-11-22] MEDS: BUDESONIDE-FORMOTEROL 160/4.5 MCG INHALER INH SCH ×2 (13:50→23:01)
--- NOTE | 2016-11-22 15:04 | HHI.PR ---
Subjective Remarks Patient reports that he is short of breath and gets winded easily moving around and going to the bathroom, also says he feels weak, says it's much better than the day of admission. His memory is somewhat mixed up since he is confusing my discussion with him regarding his pulmonary embolism for a coronary artery thrombus. Says he has not had any true diarrhea which is good news. Just came back from HIDA scan which is essentially negative, LFTs from today are trending downward which is also good. Nursing states no other reports, intermittently had high blood pressure which did respond nicely to hydralazine. Objective Vital Signs Date Time Temp Pulse Resp B/P (MAP) Pulse Ox O2 Delivery O2 Flow Rate FiO2 11/22/16 13:49 63 20 124/78 (93) 96 11/22/16 10:00 62 11/22/16 09:46 96 11/22/16 09:00 56 11/22/16 08:54 55 20 164/108 (126) 99 11/22/16 08:30 Room Air 11/22/16 08:00 56 11/22/16 07:00 55 11/22/16 06:00 56 11/22/16 05:00 56 11/22/16 04:44 98.4 66 20 158/94 (115) 96 11/22/16 04:00 60 11/22/16 03:00 60 11/22/16 02:00 60 11/22/16 01:00 60 11/22/16 00:02 98.4 62 20 122/72 (89) 96 11/22/16 00:00 74 11/21/16 23:41 94 Room Air 11/21/16 23:00 80 11/21/16 22:00 64 11/21/16 21:49 95 21 11/21/16 21:00 82 11/21/16 20:20 98.4 66 20 162/110 (127) 96 11/21/16 20:00 74 11/21/16 19:00 80 11/21/16 18:00 63 11/21/16 17:00 62 11/21/16 16:00 77 11/21/16 15:00 66 11/21/16 15:00 98.1 64 20 143/80 (101) 96 I/O 8/22/17 8/11/21/16 11/22/16 11/22/16 11/22/16 07:00 15:00 23:00 07:00 15:00 23:00 Intake Total 240 ml 1700 ml 720 ml Balance 240 ml 1700 ml 720 ml Intake Oral 240 ml 1600 ml 720 ml IV Total 100 ml # Voids 3 6 3 # Bowel Movements 1 Result Diagram: 11/20/16 0954 11/22/16 0615 Imaging Last 24 hours Impressions Hepatobiliary Scan Nuclear Medicine 11/22/16 0000 Signed Impressions: Service Date/Time: Sunday, November 22, 2016 10:29 - CONCLUSION: 1. Activity is noted in the gallbladder confirming patency of the cystic duct. This makes possibility of acute cholecystitis highly unlikely. 2. No evidence for biliary ductal obstruction with normal bowel transit time. Ilir Bowers MD Objective Remarks GENERAL: Lying in bed, awake CARDIOVASCULAR: Regular rate and rhythm without murmurs, gallops, or rubs. No lower extremity edema RESPIRATORY: Unlabored breathing, slightly decreased breath sounds bilaterally with moderate expiratory wheezing Gastrointestinal: Soft, minimal distention with no tenderness A/P Assessment and Plan 56-year-old white male admitted for shortness of breath and hypoxia 1. hypoxia - resolved, treated as below 2. Chest pain w/ elevated troponins - nearly resolved - likely 2/2 PE, cardiology felt that his chest pain is more so from PE not ACS. systolic dysfunction at EF 35-35%. 3. Pulmonary embolism - continue Lovenox weight-based dosing, discussed with GI that it is unlikely causing the patient's worsening hepatotoxicity/LFTs, we' ll hold off on bridging onto warfarin at this time given other comorbidities that may warrant possible procedures. We'll need to ultimately decide between warfarin or novel anticoagulant therapy as long-term choice for discharge. 4. COPD: Acute Exacerbation -he will transition to high-dose oral steroids, I am very hesitant freezing antibiotics for this current COPD exacerbation despite his shortness of breath because the patient currently has C. difficile for which she's being treated for with Flagyl. 5. Exertional dyspnea - likely secondary to COPD and deconditioning.- Ordering PT OT, I suspect the patient will need rehabilitation placement 6. transaminitis : stable, GI following, waiting for the labs come back, HIDA scan came back negative 6. tachycardia - intermittent, secondary to withdrawal, when necessary Ativan 8. Labile HTN: Suspect this is more so due to withdrawal on top of chronic hypertension, getting when necessary Ativan and hydralazine, continue metoprolol and amlodipine 9. Tobacco Abuse: Pt counselled. No NicoDerm to avoid vasoconstriction. 8. DVT Prophylaxis: Mariano Alarcon MD Nov 22, 2016 15:04
[2016-11-23] VITALS (31 sets, daily range): BP systolic 106–152; BP diastolic 62–99; PULSE 50–72; RESP 16–18; TEMP 96–98.6; O2SAT 94–97
[2016-11-23] MEDS: cloNIDine HCL 0.2 MG TAB PO SCH ×3 (06:06→21:21)
[2016-11-23] MEDS: metroNIDAZOLE 500 MG TAB PO SCH ×3 (06:06→21:21)
[2016-11-23 06:11] LABS: AUTOMATED NEUTROPHIL # 5.6 TH/MM3 (1.8-7.7); BASOPHIL % 0.1 % (0.0-2.0); EOSINOPHIL % 0.2 % (0.0-4.0); HEMO FLAGS DIFF FINAL; LYMPH % 14.9 % (9.0-44.0); LYMPHOCYTE # 1.1 TH/MM3 (1.0-4.8); MEAN CELL VOLUME 107.4 FL (80.0-100.0); MEAN CORPUSCULAR HEMOGLOBIN 36.2 PG (27.0-34.0); MEAN CORPUSCULAR HGB CONC 33.7 % (32.0-36.0); MONO % 12.4 % (0.0-8.0); NEUT % 72.4 % (16.0-70.0); PLATELET COUNT 158 TH/MM3 (150-450); RED BLOOD COUNT 2.89 MIL/MM3 (4.50-5.90); RED CELL DISTRIBUTION WIDTH 17.7 % (11.6-17.2); WHITE BLOOD COUNT 7.7 TH/MM3 (4.0-11.0)
[2016-11-23 06:42] LABS: ANION GAP 6 MEQ/L (5-15); AST (GOT) 79 U/L (15-37); BICARBONATE 26.2 MEQ/L (21.0-32.0); BLOOD UREA NITROGEN 24 MG/DL (7-18); CHLORIDE 105 MEQ/L (98-107); GLOMERULAR FILTRATION RATE 105 ML/MIN (>89); POTASSIUM 4.4 MEQ/L (3.5-5.1); SODIUM (NA) 137 MEQ/L (136-145)
[2016-11-23 06:43] LABS: ALT (GPT) 162 U/L (12-78)
[2016-11-23 06:45] LABS: ALKALINE PHOSPHATASE 72 U/L (45-117); TOTAL BILIRUBIN ADULT 0.3 MG/DL (0.2-1.0)
[2016-11-23] MEDS: RESP: ALBUTEROL 2.5 MG/IPRATROPIUM 0.5 MG NEB (PRN) NEB (08:27)
[2016-11-23] MEDS: BUDESONIDE-FORMOTEROL 160/4.5 MCG INHALER INH SCH ×2 (08:49→21:21)
[2016-11-23] MEDS: METOPROLOL TARTRATE 100 MG TAB PO SCH ×2 (08:50→21:19)
[2016-11-23] MEDS: guaiFENesin E.R. 600 MG TAB PO SCH ×2 (08:50→21:19)
[2016-11-23] MEDS: ASPIRIN EC 81 MG TABEC PO SCH (08:50)
[2016-11-23] MEDS: FOLIC ACID 1 MG TAB PO SCH (08:50)
[2016-11-23] MEDS: THIAMINE HCL 100 MG TAB PO SCH (08:50)
[2016-11-23] MEDS: MULTIVITAMINS/MINERALS THERAPEUTIC TAB PO SCH (08:50)
[2016-11-23] MEDS: LOSARTAN 25 MG TAB PO SCH (08:51)
[2016-11-23] MEDS: ENOXAPARIN SODIUM 80 MG/0.8 ML SYRINGE SQ SCH ×2 (08:52→21:21)
[2016-11-23] MEDS: DOCUSATE SODIUM 50 MG/SENNA 8.6 MG TAB PO SCH ×2 (08:52→21:00)
[2016-11-23] MEDS: predniSONE 50 MG TAB PO SCH (09:03)
[2016-11-23] MEDS: SODIUM CHLORIDE 0.9% FLUSH 10 ML FLUSH IV FLUSH SCH ×2 (09:03→21:20)
--- NOTE | 2016-11-23 14:01 | HHI.PR ---
Subjective Remarks Follow up sob and elevated LFTs. Patient laying in bed resting. He states he is tired and wants to sleep. States his breathing is improved but he still gets intermittent sob. Diarrhea is completely gone. He denies any chest pain. Objective Vitals Vital Signs Date Time Temp Pulse Resp B/P (MAP) Pulse Ox O2 Delivery O2 Flow Rate FiO2 11/23/16 11:57 98.1 60 18 106/62 (77) 94 11/23/16 08:27 96 21 11/23/16 08:00 60 11/23/16 07:50 96.0 60 18 152/96 (114) 97 11/23/16 07:00 52 11/23/16 06:09 143/96 (112) 11/23/16 06:00 53 11/23/16 05:00 56 11/23/16 04:00 54 11/23/16 03:45 97.6 60 16 107/69 (82) 95 11/23/16 03:00 52 11/23/16 02:00 57 11/23/16 01:00 64 11/23/16 00:00 97.9 63 16 140/88 (105) 95 11/23/16 00:00 64 11/22/16 23:00 68 11/22/16 22:30 98.3 73 18 133/83 (100) 94 11/22/16 22:30 94 Room Air 11/22/16 22:00 74 11/22/16 21:26 96 11/22/16 21:00 82 11/22/16 20:00 70 11/22/16 19:00 66 11/22/16 18:06 68 11/22/16 17:00 72 11/22/16 16:00 64 11/22/16 15:50 97.3 71 18 109/57 (74) 95 11/22/16 15:00 61 11/22/16 14:00 62 11/22/16 13:49 63 20 124/78 (93) 96 I/O 11/22/16 11/22/16 11/22/16 11/23/16 11/23/16 11/23/16 06:59 14:59 22:59 06:59 14:59 22:59 Intake Total 720 ml 600 ml 480 ml Balance 720 ml 600 ml 480 ml Intake Oral 720 ml 600 ml 480 ml IV Total 0 ml # Voids 3 4 5 # Bowel Movements 2 Result Diagram: 11/23/16 0538 11/23/16 0538 Imaging Last Impressions Hepatobiliary Scan Nuclear Medicine 11/22/16 0000 Signed Impressions: Service Date/Time: Tuesday, November 22, 2016 10:29 - CONCLUSION: 1. Activity is noted in the gallbladder confirming patency of the cystic duct. This makes possibility of acute cholecystitis highly unlikely. 2. No evidence for biliary ductal obstruction with normal bowel transit time. Ilir Bowers MD Liver Ultrasound 11/21/16 0000 Signed Impressions: Service Date/Time: Monday, November 21, 2016 08:05 - CONCLUSION: 1. Hepatomegaly with diffuse increased echogenicity consistent with marked hepatic steatosis. Trace perihepatic ascites. 2. Markedly abnormal gallbladder with significant gallbladder wall thickening, trace pericholecystic fluid and stones. Although these findings may be seen in the setting of chronic liver disease, the degree and extent of abnormality is more pronounced than expected. Recommend correlation for cholecystitis. May consider HIDA scan if there is continued clinical uncertainty. 3. Small right pleural effusion. 1. Ilir Bowers MD CT Angiography 11/19/16 0942 Signed Impressions: Service Date/Time: Saturday, November 19, 2016 16:24 - CONCLUSION: 1. Pulmonary embolus in right main pulmonary artery and lower lobe branches. 2. Bilateral pleural effusions, left lung base consolidation right lung infiltrate. Ariel Garland MD Chest X-Ray 11/18/16 1809 Signed Impressions: Service Date/Time: Friday, November 18, 2016 18:17 - CONCLUSION: No acute cardiopulmonary disease. Ariel Garland MD Objective Remarks GENERAL: Awake, laying in bed, in NAD SKIN: Warm and dry. NECK: Trachea midline. No JVD. CARDIOVASCULAR: Regular rate and rhythm. RESPIRATORY: No accessory muscle use. Diminished Breath sounds equal bilaterally with scattered rhonchi. No wheezes. GASTROINTESTINAL: Abdomen soft, non-tender, nondistended. BSx 4 MUSCULOSKELETAL: Extremities without clubbing, cyanosis, or edema. No obvious deformities. NEUROLOGICAL: Awake and alert. No obvious cranial nerve deficits. Motor grossly within normal limits. Normal speech. A/P Problem List: (1) Alcohol abuse ICD Code: F10.10 - Alcohol abuse, uncomplicated Status: Chronic (2) COPD (chronic obstructive pulmonary disease) ICD Code: J44.9 - Chronic obstructive pulmonary disease, unspecified Status: Acute (3) Elevated troponin ICD Code: R74.8 - Abnormal levels of other serum enzymes Status: Acute (4) Hypocalcemia ICD Code: E83.51 - Hypocalcemia Status: Acute (5) Hypomagnesemia ICD Code: E83.42 - Hypomagnesemia Status: Acute (6) HTN (hypertension) ICD Code: I10 - Essential (primary) hypertension Status: Chronic (7) Tobacco abuse ICD Code: Z72.0 - Tobacco use Status: Chronic Assessment and Plan 56-year-old white male admitted for shortness of breath and hypoxia Hypoxia - resolved, treated as below Chest pain w/ elevated troponins - resolved - likely 2/2 PE, cardiology felt that his chest pain is more so from PE not ACS. systolic dysfunction at EF 35- 35%. -Cardiology was consulted and recommends medical management Pulmonary embolism - continue Lovenox weight-based dosing, discussed with GI that it is unlikely causing the patient's worsening hepatotoxicity/LFTs, we'll hold off on bridging onto warfarin at this time given other comorbidities that may warrant possible procedures. -We'll need to ultimately decide between warfarin or novel anticoagulant therapy as long-term choice for discharge. COPD: Acute Exacerbation, patient still has intermittent sob -Cont Prednisone Daily -Cont duonebs Exertional dyspnea - likely secondary to COPD and deconditioning. -PT eval pending Transaminitis : fluctuating, HIDA scan came back negative AST 79, ALT 162 -GI following -DEISY and ASM negative, mitochondria pending, Hepatitis negative Tachycardia - resolved Labile HTN: Suspect this is more so due to withdrawal on top of chronic hypertension -continue metoprolol and amlodipine -PRN hydralazine Tobacco Abuse, chronic -Pt counselled. -No NicoDerm to avoid vasoconstriction. DVT Prophylaxis: lovenox Discharge Planning Discussed with Patient and Sparkle Cheema Nov 23, 2016 14:01 Margoth Saldana MD Nov 23, 2016 16:55
[2016-11-23] MEDS: RESP: ALBUTEROL 2.5 MG/IPRATROPIUM 0.5 MG NEB (SCH) NEB ×2 (16:15→20:00)
--- NOTE | 2016-11-23 16:25 | HHI.GIFU ---
Subjective Remarks Pt resting in bed. EAting ok. No complaints. (Liset Diallo) Objective Vitals I&O Vital Signs Date Time Temp Pulse Resp B/P (MAP) Pulse Ox O2 Delivery O2 Flow Rate FiO2 11/23/16 15:03 98.6 60 18 129/82 (98) 96 11/23/16 15:00 62 11/23/16 14:00 62 11/23/16 13:00 60 11/23/16 12:00 56 11/23/16 11:57 98.1 60 18 106/62 (77) 94 11/23/16 11:00 52 11/23/16 10:00 50 11/23/16 09:00 54 11/23/16 08:27 96 21 11/23/16 08:00 60 11/23/16 07:50 96.0 60 18 152/96 (114) 97 11/23/16 07:00 52 11/23/16 06:09 143/96 (112) 11/23/16 06:00 53 11/23/16 05:00 56 11/23/16 04:00 54 11/23/16 03:45 97.6 60 16 107/69 (82) 95 11/23/16 03:00 52 11/23/16 02:00 57 11/23/16 01:00 64 11/23/16 00:00 97.9 63 16 140/88 (105) 95 11/23/16 00:00 64 11/22/16 23:00 68 11/22/16 22:30 98.3 73 18 133/83 (100) 94 11/22/16 22:30 94 Room Air 11/22/16 22:00 74 11/22/16 21:26 96 11/22/16 21:00 82 11/22/16 20:00 70 11/22/16 19:00 66 11/22/16 18:06 68 11/22/16 17:00 72 I/O 11/22/16 11/22/16 11/22/16 11/23/16 11/23/16 11/23/16 07:00 15:00 23:00 07:00 15:00 23:00 Intake Total 720 ml 600 ml 480 ml Balance 720 ml 600 ml 480 ml Intake Oral 720 ml 600 ml 480 ml IV Total 0 ml # Voids 3 4 5 # Bowel Movements 2 Laboratory Laboratory Tests Test 11/23/16 05:38 White Blood Count 7.7 Red Blood Count 2.89 Hemoglobin 10.4 Hematocrit 31.0 Mean Corpuscular Volume 107.4 Mean Corpuscular Hemoglobin 36.2 Mean Corpuscular Hemoglobin Concent 33.7 Red Cell Distribution Width 17.7 Platelet Count 158 Mean Platelet Volume 10.1 Neutrophils (%) (Auto) 72.4 Lymphocytes (%) (Auto) 14.9 Monocytes (%) (Auto) 12.4 Eosinophils (%) (Auto) 0.2 Basophils (%) (Auto) 0.1 Neutrophils # (Auto) 5.6 Lymphocytes # (Auto) 1.1 Monocytes # (Auto) 1.0 Eosinophils # (Auto) 0.0 Basophils # (Auto) 0.0 CBC Comment DIFF FINAL Differential Comment Blood Urea Nitrogen 24 Creatinine 0.77 Random Glucose 109 Total Protein 4.9 Albumin 2.2 Calcium Level 7.8 Alkaline Phosphatase 72 Aspartate Amino Transf (AST/SGOT) 79 Alanine Aminotransferase (ALT/SGPT) 162 Total Bilirubin 0.3 Sodium Level 137 Potassium Level 4.4 Chloride Level 105 Carbon Dioxide Level 26.2 Anion Gap 6 Estimat Glomerular Filtration Rate 105 Date/Time Source Procedure Growth Status 11/19/16 11:10 Stool Stool Stool Occult Blood (EMERITA) - Final HEMOCCULT NEGATIVE Complete Physical Exam EENT: Normocephalic; atraumatic; no jaundice. CHEST: CTA CARDIAC: RRR ABDOMEN: Soft, nondistended, nontender; no hepatosplenomegaly; bowel sounds are present in all four quadrants. EXTREMITIES: No clubbing, cyanosis, or edema. SKIN: Normal; no rash; no jaundice. 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 (Liset Diallo [facility]) Assessment and Plan Plan ASSESSMENT: - Elevated LFTs. Hx etoh abuse- unclear the amount. Denies any known history of hepatitis or liver disease, but does have a history of pancreatitis. US (11/21/16)---> hepatomegaly with diffuse increased echogenicity consistent with marked hepatic steatosis. Trace perihepatic ascites. Markedly abnormal gallbladder with significant gallbladder wall thickening, trace pericholecystic fluid and stones. Although these findings may be seen in the setting of chronic liver disease, the degree and extent of abnormality is more pronounced than expected. Recommend correlation for cholecystitis. May consider HIDA scan if there is continued clinical uncertainty, small right pleural effusion Hepatitis panel neg, AMA pending, DEISY neg, ASMA neg, Alpha 1 Antitrypsin 200, AFP 5.6. Iron sat 13.8% and ferritin 267. Likely multifactorial- etoh abuse, possible hepatic congestion, possible gallbladder disease. HIDA neg then would likely need cholecystomy tube given his PE/COPD exac. Today's LFTs pending. - CDifficile, EPID 027 (-). 1st episode. Flagyl. Improving. - Pulmonary embolism. Lovenox. per attending. - COPD exacerbation. Steroids, Nebs. - HTN, Hx Afib (on ASA). Per attending. PLAN: - BOOGIE - await AMA, ceruloplasmin - Monitor LFTs - Cont. Flagyl - DT precautions per attending - Pt seen and examined by Dr. Osborn and myself and this note is written on his behalf (Liset Diallo) Physician Comments Agree with the assessment and plan, will follow up with you. (Aminah Osborn MD) Liset Diallo Nov 23, 2016 16:24 Aminah Osborn MD Nov 24, 2016 06:30
[2016-11-24] VITALS (30 sets, daily range): BP systolic 116–152; BP diastolic 70–93; PULSE 52–87; RESP 18–20; TEMP 97.7–98.7; O2SAT 93–97
[2016-11-24] MEDS: cloNIDine HCL 0.2 MG TAB PO SCH ×3 (06:09→21:20)
[2016-11-24] MEDS: metroNIDAZOLE 500 MG TAB PO SCH ×3 (06:09→21:20)
[2016-11-24 06:56] LABS: EOSINOPHIL # 0.1 TH/MM3 (0-0.4); HEMATOCRIT 31.1 % (39.0-51.0); HEMO FLAGS DIFF FINAL; LYMPHOCYTE # 1.3 TH/MM3 (1.0-4.8); MEAN CELL VOLUME 107.7 FL (80.0-100.0); MEAN CORPUSCULAR HEMOGLOBIN 34.9 PG (27.0-34.0); MEAN CORPUSCULAR HGB CONC 32.4 % (32.0-36.0); MONO % 14.3 % (0.0-8.0); NEUT % 64.7 % (16.0-70.0); PLATELET COUNT 171 TH/MM3 (150-450); RED BLOOD COUNT 2.89 MIL/MM3 (4.50-5.90); RED CELL DISTRIBUTION WIDTH 17.5 % (11.6-17.2); WHITE BLOOD COUNT 6.2 TH/MM3 (4.0-11.0)
[2016-11-24 07:13] LABS: ALT (GPT) 153 U/L (12-78); ANION GAP 7 MEQ/L (5-15); AST (GOT) 59 U/L (15-37); BICARBONATE 29.5 MEQ/L (21.0-32.0); BLOOD UREA NITROGEN 18 MG/DL (7-18); CHLORIDE 102 MEQ/L (98-107); GLOMERULAR FILTRATION RATE 146 ML/MIN (>89); POTASSIUM 4.9 MEQ/L (3.5-5.1); SODIUM (NA) 138 MEQ/L (136-145)
[2016-11-24 07:16] LABS: ALKALINE PHOSPHATASE 62 U/L (45-117); TOTAL BILIRUBIN ADULT 0.2 MG/DL (0.2-1.0)
[2016-11-24] MEDS: RESP: ALBUTEROL 2.5 MG/IPRATROPIUM 0.5 MG NEB (SCH) NEB ×3 (08:00→21:48)
[2016-11-24] MEDS: predniSONE 50 MG TAB PO SCH (09:32)
[2016-11-24] MEDS: ENOXAPARIN SODIUM 80 MG/0.8 ML SYRINGE SQ SCH ×2 (09:32→21:16)
[2016-11-24] MEDS: guaiFENesin E.R. 600 MG TAB PO SCH ×2 (09:33→21:16)
[2016-11-24] MEDS: ASPIRIN EC 81 MG TABEC PO SCH (09:33)
[2016-11-24] MEDS: THIAMINE HCL 100 MG TAB PO SCH (09:33)
[2016-11-24] MEDS: SODIUM CHLORIDE 0.9% FLUSH 10 ML FLUSH IV FLUSH SCH ×2 (09:33→21:16)
[2016-11-24] MEDS: BUDESONIDE-FORMOTEROL 160/4.5 MCG INHALER INH SCH ×2 (09:33→21:00)
[2016-11-24] MEDS: METOPROLOL TARTRATE 100 MG TAB PO SCH (09:33)
[2016-11-24] MEDS: LOSARTAN 25 MG TAB PO SCH (09:33)
[2016-11-24] MEDS: DOCUSATE SODIUM 50 MG/SENNA 8.6 MG TAB PO SCH ×2 (09:33→21:00)
--- NOTE | 2016-11-24 15:33 | HHI.PR ---
Subjective Remarks Reports that he still having some shallow breathing and some shortness of breath. He has not had much abdominal pain is tolerating his diet. He states that he did not drink alcohol since the last discharge and has not drank for 4 months. Objective Vitals Vital Signs Date Time Temp Pulse Resp B/P (MAP) Pulse Ox O2 Delivery O2 Flow Rate FiO2 11/24/16 13:01 58 11/24/16 12:00 58 11/24/16 11:45 98.6 63 18 136/83 (100) 95 11/24/16 11:00 59 11/24/16 10:00 70 11/24/16 09:00 78 11/24/16 08:45 98.6 70 18 149/93 (111) 93 11/24/16 08:00 76 11/24/16 07:01 55 11/24/16 06:00 56 11/24/16 05:00 52 11/24/16 04:00 52 11/24/16 03:50 97.7 55 18 137/89 (105) 97 11/24/16 03:00 57 11/24/16 02:00 55 11/24/16 01:00 53 11/24/16 00:00 63 11/23/16 23:45 97.8 66 18 133/78 (96) 96 11/23/16 23:00 69 11/23/16 22:00 66 11/23/16 21:00 98.1 72 18 151/99 (116) 94 11/23/16 21:00 72 11/23/16 20:00 66 11/23/16 19:00 71 11/23/16 18:07 72 11/23/16 17:00 58 11/23/16 16:00 60 I/O 11/23/16 11/23/16 11/23/16 11/24/16 11/24/16 11/24/16 07:00 15:00 23:00 07:00 15:00 23:00 Intake Total 480 ml 640 ml 480 ml Balance 480 ml 640 ml 480 ml Intake Oral 480 ml 640 ml 480 ml IV Total 0 ml 0 ml # Voids 5 4 3 # Bowel Movements 2 2 Result Diagram: 11/24/1662411/24/16624 Other Results Item Value Date Time Aspartate Amino Transf (AST/SGOT) 59 U/L H 11/24/16 0625 Alanine Aminotransferase (ALT/SGPT) 153 U/L H 11/24/16 0625 Alkaline Phosphatase 62 U/L 11/24/16 0625 Total Protein 4.9 GM/DL L 11/24/16 0625 Albumin 2.2 GM/DL L 11/24/16 0625 Objective Remarks GENERAL: This is a well-nourished, well-developed patient, in no apparent distress. CARDIOVASCULAR: Regular rate and rhythm RESPIRATORY: Clear to auscultation. Breath sounds equal bilaterally. No wheezes , rales, or rhonchi. GASTROINTESTINAL: Abdomen soft, non-tender, mild distension. Normal active bowel sounds MUSCULOSKELETAL: Extremities without clubbing, cyanosis, or edema. NEURO: Alert & Oriented x4 to person, place, time, situation. Moves all ext x4 A/P Problem List: (1) Alcohol abuse ICD Code: F10.10 - Alcohol abuse, uncomplicated Status: Chronic (2) COPD (chronic obstructive pulmonary disease) ICD Code: J44.9 - Chronic obstructive pulmonary disease, unspecified Status: Acute (3) Elevated troponin ICD Code: R74.8 - Abnormal levels of other serum enzymes Status: Acute (4) Hypocalcemia ICD Code: E83.51 - Hypocalcemia Status: Acute (5) Hypomagnesemia ICD Code: E83.42 - Hypomagnesemia Status: Acute (6) HTN (hypertension) ICD Code: I10 - Essential (primary) hypertension Status: Chronic (7) Tobacco abuse ICD Code: Z72.0 - Tobacco use Status: Chronic Assessment and Plan 56-year-old white male admitted for shortness of breath and hypoxia Hypoxia due to pulmonary embolism and acute COPD exacerbation- resolved, treated as below- currently off of oxygen. Chest pain w/ elevated troponins - resolved - likely 2/2 PE, cardiology felt that his chest pain is more so from PE not ACS. systolic dysfunction at EF 35- 35%. Currently on are pursued allergy to lisinopril. -Cardiology was consulted and recommends medical management Pulmonary embolism - continue Lovenox weight-based dosing, discussed with GI that it is unlikely causing the patient's worsening hepatotoxicity/LFTs, at this point will proceed with restarting warfarin as liver transaminases has stabilized and not worsening. Due to history of alcohol abuse, one from a be a safer choice than novel anti-coagulation. COPD: Acute Exacerbation, - patient is complaining of still mild shortness rib may be due to the PE. Will continue with prednisone and DuoNeb's. Exertional dyspnea - likely secondary to COPD and deconditioning. -PT eval pending Transaminitis : fluctuating, HIDA scan came back negative AST 79, ALT 162 -GI following -DEISY and ASM negative, mitochondria pending, Hepatitis negative, hepatic function tests stabilizing. We'll continue to monitor. Tachycardia - resolved, this likely was due to pulmonary embolism Labile HTN: Suspect this is more so due to withdrawal on top of chronic hypertension -continue metoprolol and amlodipine -PRN hydralazine Tobacco Abuse, chronic -Pt counselled. -No NicoDerm to avoid vasoconstriction. Discharge Planning Discharge planning when clear by GI and outpatient anticoagulation is able to be arranged. Margoth Saldana MD Nov 24, 2016 15:33
[2016-11-24] MEDS ORDERED: INFO FOR PHARMACY/READ COMMENT ONE (15:45)
[2016-11-24] MEDS: WARFARIN SOD 5 MG TAB PO SCH (16:50)
--- NOTE | 2016-11-24 18:01 | HHI.GIFU ---
Subjective Remarks Pt resting in bed. Says he ate a big breakfast and had some abd cramping later relieved in bathroom after having BM. (Liset Diallo) Objective Vitals I&O Vital Signs Date Time Temp Pulse Resp B/P (MAP) Pulse Ox O2 Delivery O2 Flow Rate FiO2 11/24/16 17:01 68 11/24/16 16:00 66 11/24/16 15:01 98.3 62 18 116/70 (85) 95 11/24/16 15:00 66 11/24/16 14:00 70 11/24/16 13:01 58 11/24/16 12:00 58 11/24/16 11:45 98.6 63 18 136/83 (100) 95 11/24/16 11:00 59 11/24/16 10:00 70 11/24/16 09:00 78 11/24/16 08:45 98.6 70 18 149/93 (111) 93 11/24/16 08:00 76 11/24/16 07:01 55 11/24/16 06:00 56 11/24/16 05:00 52 11/24/16 04:00 52 11/24/16 03:50 97.7 55 18 137/89 (105) 97 11/24/16 03:00 57 11/24/16 02:00 55 11/24/16 01:00 53 11/24/16 00:00 63 11/23/16 23:45 97.8 66 18 133/78 (96) 96 11/23/16 23:00 69 11/23/16 22:00 66 11/23/16 21:00 98.1 72 18 151/99 (116) 94 11/23/16 21:00 72 11/23/16 20:00 66 11/23/16 19:00 71 11/23/16 18:07 72 I/O 11/23/16 11/23/16 11/23/16 11/24/16 11/24/16 11/24/16 06:59 14:59 22:59 06:59 14:59 22:59 Intake Total 480 ml 640 ml 480 ml 900 ml Output Total 1200 ml Balance 480 ml 640 ml 480 ml -300 ml Intake Oral 480 ml 640 ml 480 ml 900 ml IV Total 0 ml 0 ml Output Urine Total 1200 ml # Voids 5 4 3 6 # Bowel Movements 2 2 3 Laboratory Laboratory Tests Test 11/24/16 06:25 White Blood Count 6.2 Red Blood Count 2.89 Hemoglobin 10.1 Hematocrit 31.1 Mean Corpuscular Volume 107.7 Mean Corpuscular Hemoglobin 34.9 Mean Corpuscular Hemoglobin Concent 32.4 Red Cell Distribution Width 17.5 Platelet Count 171 Mean Platelet Volume 9.2 Neutrophils (%) (Auto) 64.7 Lymphocytes (%) (Auto) 20.0 Monocytes (%) (Auto) 14.3 Eosinophils (%) (Auto) 1.0 Basophils (%) (Auto) 0.0 Neutrophils # (Auto) 4.0 Lymphocytes # (Auto) 1.3 Monocytes # (Auto) 0.9 Eosinophils # (Auto) 0.1 Basophils # (Auto) 0.0 CBC Comment DIFF FINAL Differential Comment Blood Urea Nitrogen 18 Creatinine 0.58 Random Glucose 99 Total Protein 4.9 Albumin 2.2 Calcium Level 7.8 Alkaline Phosphatase 62 Aspartate Amino Transf (AST/SGOT) 59 Alanine Aminotransferase (ALT/SGPT) 153 Total Bilirubin 0.2 Sodium Level 138 Potassium Level 4.9 Chloride Level 102 Carbon Dioxide Level 29.5 Anion Gap 7 Estimat Glomerular Filtration Rate 146 Date/Time Source Procedure Growth Status 11/19/16 11:10 Stool Stool Stool Occult Blood (EMERITA) - Final HEMOCCULT NEGATIVE Complete Physical Exam EENT: Normocephalic; atraumatic; no jaundice. CHEST: wheezes CARDIAC: RRR ABDOMEN: Soft, nondistended, nontender; no hepatosplenomegaly; bowel sounds are present in all four quadrants. EXTREMITIES: No clubbing, cyanosis, or edema. SKIN: Normal; no rash; no jaundice. [employer]: No focal deficits; alert and oriented times three. (Liset Diallo [facility]) Assessment and Plan Plan ASSESSMENT: - Elevated LFTs. Hx etoh abuse- unclear the amount. Denies any known history of hepatitis or liver disease, but does have a history of pancreatitis. US (11/21/16)---> hepatomegaly with diffuse increased echogenicity consistent with marked hepatic steatosis. Trace perihepatic ascites. Markedly abnormal gallbladder with significant gallbladder wall thickening, trace pericholecystic fluid and stones. Although these findings may be seen in the setting of chronic liver disease, the degree and extent of abnormality is more pronounced than expected. Recommend correlation for cholecystitis. May consider HIDA scan if there is continued clinical uncertainty, small right pleural effusion Hepatitis panel neg, AMA pending, DEISY neg, ASMA neg, Alpha 1 Antitrypsin 200, AFP 5.6. Iron sat 13.8% and ferritin 267. Likely multifactorial- etoh abuse, possible hepatic congestion, possible gallbladder disease. HIDA neg LFTs continue trending downward - CDifficile, EPID 027 (-). 1st episode. Flagyl. Improving. - Pulmonary embolism. Lovenox. per attending. - COPD exacerbation. Steroids, Nebs. - HTN, Hx Afib (on ASA). Per attending. PLAN: - BOOGIE - await AMA, ceruloplasmin - Monitor LFTs - Cont. Flagyl - DT precautions per attending - Pt seen and examined by Dr. Osborn and myself and this note is written on his behalf (Liset Diallo) Physician Comments Seen and examined, plan as above, will follow up with you. (Aminah Osborn MD) Liset Diallo Nov 24, 2016 18:01 Aminah Osborn MD Nov 24, 2016 19:16
[2016-11-25] VITALS (26 sets, daily range): BP systolic 128–149; BP diastolic 79–90; PULSE 56–102; RESP 18–20; TEMP 97.4–99; O2SAT 93–98
[2016-11-25] MEDS: metroNIDAZOLE 500 MG TAB PO SCH ×3 (05:30→21:49)
[2016-11-25] MEDS: cloNIDine HCL 0.2 MG TAB PO SCH ×3 (05:30→21:48)
[2016-11-25 06:19] LABS: PROTHROMBIN TIME - PATIENT 11.1 SEC (9.8-11.6)
[2016-11-25 07:12] LABS: INDIRECT BILIRUBIN 0.2 MG/DL (0.0-0.8); TOTAL BILIRUBIN ADULT 0.3 MG/DL (0.2-1.0)
[2016-11-25] MEDS: predniSONE 50 MG TAB PO SCH (08:36)
[2016-11-25] MEDS: LOSARTAN 25 MG TAB PO SCH (08:36)
[2016-11-25] MEDS: BUDESONIDE-FORMOTEROL 160/4.5 MCG INHALER INH SCH ×2 (08:36→21:49)
[2016-11-25] MEDS: METOPROLOL TARTRATE 50 MG TAB PO SCH (08:36)
[2016-11-25] MEDS: ENOXAPARIN SODIUM 80 MG/0.8 ML SYRINGE SQ SCH ×2 (08:36→21:48)
[2016-11-25] MEDS: guaiFENesin E.R. 600 MG TAB PO SCH ×2 (08:36→21:48)
[2016-11-25] MEDS: SODIUM CHLORIDE 0.9% FLUSH 10 ML FLUSH IV FLUSH SCH ×2 (08:37→21:48)
[2016-11-25] MEDS: ASPIRIN EC 81 MG TABEC PO SCH (08:37)
[2016-11-25] MEDS: THIAMINE HCL 100 MG TAB PO SCH (08:37)
[2016-11-25] MEDS: DOCUSATE SODIUM 50 MG/SENNA 8.6 MG TAB PO SCH ×2 (08:37→21:00)
[2016-11-25] MEDS: RESP: ALBUTEROL 2.5 MG/IPRATROPIUM 0.5 MG NEB (SCH) NEB ×3 (09:43→21:43)
--- NOTE | 2016-11-25 10:45 | HHI.PR ---
Subjective Remarks Follow-up for respiratory failure secondary to pulmonary embolism Patient found in bed with no oxygen. He stated that he doesn't need oxygen while he is getting nebulizer. Continues to complain of shortness of breathing. Denies any cough. Otherwise he has no complaints. Objective Vitals Vital Signs Date Time Temp Pulse Resp B/P (MAP) Pulse Ox O2 Delivery O2 Flow Rate FiO2 11/25/16 10:00 67 11/25/16 09:46 95 11/25/16 09:00 102 11/25/16 08:00 62 11/25/16 07:00 60 11/25/16 07:00 97.4 95 20 136/87 (103) 97 11/25/16 06:23 65 11/25/16 05:28 98.1 65 18 149/84 (105) 98 11/25/16 05:09 60 11/25/16 04:02 60 11/25/16 03:00 56 11/25/16 02:15 67 11/25/16 01:01 67 11/25/16 00:34 66 11/24/16 23:08 62 11/24/16 23:07 98.5 62 20 137/79 (98) 95 11/24/16 22:47 74 11/24/16 21:50 96 Nasal Cannula 2.00 11/24/16 21:00 67 11/24/16 20:00 64 11/24/16 19:58 98.7 62 18 145/89 (107) 94 11/24/16 18:01 80 11/24/16 17:01 68 11/24/16 16:00 66 11/24/16 15:01 98.3 62 18 116/70 (85) 95 11/24/16 15:00 66 11/24/16 14:00 70 11/24/16 13:01 58 11/24/16 12:00 58 11/24/16 11:45 98.6 63 18 136/83 (100) 95 11/24/16 11:00 59 I/O 11/24/16 11/24/16 11/24/16 11/25/16 11/25/16 11/25/16 07:00 15:00 23:00 07:00 15:00 23:00 Intake Total 480 ml 900 ml 480 ml Output Total 1200 ml Balance 480 ml -300 ml 480 ml Intake Oral 480 ml 900 ml 480 ml IV Total 0 ml Output Urine Total 1200 ml # Voids 3 6 2 # Bowel Movements 2 3 5 Result Diagram: 11/24/1662411/24/16624 Objective Remarks GENERAL: In no acute distress. Sitting very comfortably in bed. SKIN: Warm and dry. HEAD: Normocephalic. EYES: No scleral icterus. No injection or drainage. NECK: Supple, trachea midline. No JVD or lymphadenopathy. CARDIOVASCULAR: Regular rate and rhythm without murmurs, gallops, or rubs. RESPIRATORY: Breath sounds equal bilaterally. No accessory muscle use. no cough noted during examination. GASTROINTESTINAL: Abdomen soft, non-tender, nondistended. MUSCULOSKELETAL: No cyanosis, or edema. BACK: Nontender without obvious deformity. No CVA tenderness. Medications and IVs Current Medications Sodium Chloride (NS Flush) 2 ml UNSCH PRN IVF FLUSH AFTER USING IV ACCESS; Start 11/18/16 at 18:15 Methylprednisolone Sodium Succinate (SoluMEDROL INJ) 125 mg ONCE ONCE IVP Last administered on 11/18/16 18:51; Start 11/18/16 at 18:15; Stop 11/18/16 at 18:16; Status DC Albuterol/ Ipratropium (Duoneb Neb) 1 ampule Q15M INH Last administered on 11/18 19:55; Start 11/18/16 at 18:15; Stop 11/18/16 at 18:46; Status DC Lorazepam (Ativan Inj) 1 mg ONCE ONCE IV PUSH Last administered on 11/18/16 18:32; Start 11/18/16 at 18:15; Stop 11/18/16 at 18:16; Status DC Chlordiazepoxide (Librium) 25 mg ONCE ONCE PO Last administered on 11/18/16 18:32; Start 11/18/16 at 18:15; Stop 11/18/16 at 18:16; Status DC Sodium Chloride 1,000 ml @ 999 mls/hr BOLUS ONCE IV Last administered on 11/18 18:51; Start 11/18/16 at 18:15; Stop 11/18/16 at 19:15; Status DC Lorazepam (Ativan Inj) 1 mg ONCE ONCE IV PUSH Last administered on 11/18/16 19:25; Start 11/18/16 at 19:30; Stop 11/18/16 at 19:31; Status DC Aspirin (Aspirin Chew) 81 mg ONCE ONCE CHEW Last administered on 11/18/16 19: 31; Start 11/18/16 at 19:30; Stop 11/18/16 at 19:31; Status DC Albuterol/ Ipratropium (Duoneb Neb) 1 ampule ONCE ONCE NEB Last administered on 11/18/16 20:29; Start 11/18/16 at 20:30; Stop 11/18/16 at 20:31; Status DC Folic Acid (Folate) 1 mg DAILY PO Last administered on 11/23/16 08:50; Start 11/19/16 at 09:00; Stop 11/24/16 at 08:59; Status DC Thiamine HCl (Vitamin B1) 100 mg DAILY PO Last administered on 11/25/16 08:37 ; Start 11/19/16 at 09:00 Multivitamins/ Minerals Therapeutic (Theragran M Tab) 1 tab DAILY PO Last administered on 11/23/16 08:50; Start 11/19/16 at 09:00; Stop 11/24/16 at 08:59 ; Status DC Flumazenil (Romazicon Inj) 0.2 mg Q1M PRN IV PUSH SEE LABEL COMMENTS; Start at 20:30 Lorazepam (Ativan) 1 mg Q4H PRN PO CIWA 8 - 10 Last administered on 11/20/16 05:04; Start 11/18/16 at 20:30 Lorazepam (Ativan Inj) 1 mg Q4H PRN IV PUSH CIWA 8 - 10; Start 11/18/16 at 20: 30 Lorazepam (Ativan) 2 mg Q2H PRN PO CIWA 11-14; Start 11/18/16 at 20:30 Lorazepam (Ativan Inj) 2 mg Q2H PRN IV PUSH CIWA 11-14; Start 11/18/16 at 20:30 Lorazepam (Ativan Inj) 2 mg Q1H PRN IV PUSH CIWA 15-20 Last administered on 00:09; Start 11/18/16 at 20:30 Lorazepam (Ativan Inj) 2 mg Q15M PRN IV PUSH CIWA > 20; Start 11/18/16 at 20:30 Haloperidol Lactate (Haldol Inj) 2 mg Q15M PRN IM SEE LABEL COMMENTS; Start at 20:30; Stop 11/20/16 at 08:09; Status DC Methylprednisolone Sodium Succinate (SoluMEDROL INJ) 40 mg Q6HR IV PUSH Last administered on 11/19/16 06:00; Start 11/19/16 at 00:00; Stop 11/19/16 at 14:10 ; Status DC Albuterol/ Ipratropium (Duoneb Neb) 1 ampule Q4HR WHILE AWAKE NEB NEB Last administered on 11/22/16 21:25; Start 11/19/16 at 08:00; Stop 11/23/16 at 08:00 ; Status DC Albuterol/ Ipratropium (Duoneb Neb) 1 ampule Q2HR NEB PRN NEB SOB/WHEEZING Last administered on 11/23/16 08:27; Start 11/18/16 at 20:30 Budesonide/ Formoterol Fumarate (Symbicort 160-4.5 Inh) 2 puff Q12HR INH Last administered on 11/25/16 08:36; Start 11/18/16 at 21:00 Guaifenesin (Mucinex Er) 600 mg BID PO Last administered on 11/25/16 08:36; Start 11/18/16 at 21:00 Sodium Chloride 1,000 ml @ 100 mls/hr Q10H IV Last administered on 11/19/16 21:31; Start 11/18/16 at 20:23; Stop 11/20/16 at 00:39; Status DC Sodium Chloride (NS Flush) 2 ml UNSCH PRN IV FLUSH FLUSH AFTER USING IV ACCESS ; Start 11/18/16 at 20:30 Sodium Chloride (NS Flush) 2 ml BID IV FLUSH Last administered on 11/25/16 08: 37; Start 11/18/16 at 21:00 Ondansetron HCl (Zofran Inj) 4 mg Q6H PRN IVP NAUSEA OR VOMITING; Start at 20:30 Acetaminophen (Tylenol) 650 mg Q6H PRN PO FEVER/PAIN SCALE 1 TO 2; Start at 20:30; Stop 11/20/16 at 08:09; Status DC Oxycodone HCl (Roxicodone) 10 mg Q4H PRN PO PAIN SCALE 6 TO 10 Last administered on 11/24/16 21:20; Start 11/18/16 at 20:30 Oxycodone HCl (Roxicodone) 5 mg Q4H PRN PO PAIN SCALE 3 TO 5 Last administered on 11/19/16 14:47; Start 11/18/16 at 20:30; Stop 11/20/16 at 08:09; Status DC Senna/Docusate Sodium (Shannan-Colace) 1 tab BID PO Last administered on 09:33; Start 11/18/16 at 21:00 Magnesium Hydroxide (Milk Of Magnesia Liq) 30 ml Q12H PRN PO MILD - MODERATE CONSTIPATION; Start 11/18/16 at 20:30 Sennosides (Senokot) 17.2 mg Q12H PRN PO MODERATE - SEVERE CONSTIPATION; Start 11/18/16 at 20:30 Bisacodyl (Dulcolax Supp) 10 mg DAILY PRN RECTAL SEVERE CONSITIPATION; Start at 20:30 Lactulose (Lactulose Liq) 30 ml DAILY PRN PO SEVERE CONSITIPATION; Start at 20:30 Calcium Gluconate (Calcium Gluconate Inj) 1 gm ONCE ONCE IV PUSH Last administered on 11/18/16 20:59; Start 11/18/16 at 20:30; Stop 11/18/16 at 20:31 ; Status DC Magnesium Sulfate/ Dextrose 100 ml @ 100 mls/hr ONCE ONCE IV Last administered on 11/18/16 20:59; Start 11/18/16 at 20:30; Stop 11/18/16 at 21:29 ; Status DC Aspirin (Ecotrin Ec) 162 mg DAILY PO Last administered on 11/25/16 08:37; Start 11/19/16 at 09:00 Metoprolol Tartrate (Lopressor) 100 mg DAILY PO Last administered on 11/20/16 08:27; Start 11/19/16 at 09:00; Stop 11/20/16 at 12:46; Status DC Pravastatin Sodium (Pravachol) 40 mg DAILY PO Last administered on 11/19/16 09 :15; Start 11/19/16 at 09:00; Stop 11/20/16 at 08:05; Status DC Clonidine (Catapres) 0.2 mg ONCE ONCE PO Last administered on 11/18/16 21:28 ; Start 11/18/16 at 21:30; Stop 11/18/16 at 21:31; Status DC Methylprednisolone Sodium Succinate (SoluMEDROL INJ) 125 mg STK-MED ONCE .ROUTE Last administered on 11/19/16 10:00; Start 11/19/16 at 10:00; Stop 11/19/16 at 12:10; Status DC Enoxaparin Sodium (Lovenox Inj) 30 mg Q24H SQ Last administered on 11/19/16 14 :47; Start 11/19/16 at 14:00; Stop 11/19/16 at 17:16; Status DC Methylprednisolone Sodium Succinate (SoluMEDROL INJ) 125 mg Q8H IV PUSH Last administered on 11/21/16 03:32; Start 11/19/16 at 18:00; Stop 11/21/16 at 08:45 ; Status DC Iohexol (Omnipaque 350 Inj) 72 ml STK-MED ONCE IVCONTRAST Last administered on 11/19/16 16:38; Start 11/19/16 at 16:38; Stop 11/19/16 at 16:39; Status DC Enoxaparin Sodium (Lovenox Inj) 80 mg Q12HR SQ Last administered on 11/25/16 08:36; Start 11/19/16 at 21:00; Status Future hold Metoprolol Tartrate (Lopressor Inj) 5 mg ONCE ONCE IV PUSH Last administered on 11/19/16 23:10; Start 11/19/16 at 22:45; Stop 11/19/16 at 22:46; Status DC Chlordiazepoxide (Librium) 25 mg ONCE ONCE PO Last administered on 11/19/16 23:09; Start 11/19/16 at 22:45; Stop 11/19/16 at 22:46; Status DC Metoprolol Tartrate (Lopressor Inj) 5 mg ONCE ONCE IV PUSH Last administered on 11/20/16 00:51; Start 11/20/16 at 00:45; Stop 11/20/16 at 00:48; Status DC Furosemide (Lasix Inj) 20 mg ONCE ONCE IV PUSH Last administered on 11/20/16 00:52; Start 11/20/16 at 00:45; Stop 11/20/16 at 00:48; Status DC Diltiazem HCl (Cardizem Inj) 10 mg ONCE ONCE IV Last administered on 03:01; Start 11/20/16 at 03:00; Stop 11/20/16 at 03:01; Status DC Diltiazem HCl 125 mg/Sodium Chloride 125 ml @ 5 mls/hr TITRATE PRN IV Tachycardia Last administered on 11/20/16 04:35; Start 11/20/16 at 04:15; Stop 11/21/16 at 08:38; Status DC Hydralazine HCl (Apresoline Inj) 20 mg Q4H PRN IV PUSH SBP>160, DBP>90 Last administered on 11/22/16 08:57; Start 11/20/16 at 08:15 Metronidazole (Flagyl) 500 mg Q8HR PO Last administered on 11/25/16 05:30; Start 11/20/16 at 10:15; Stop 12/04/16 at 10:14 Metoprolol Tartrate (Lopressor) 100 mg Q12HR PO Last administered on 11/24/16 09:33; Start 11/20/16 at 12:45; Stop 11/24/16 at 15:37; Status DC Losartan Potassium (Cozaar) 25 mg DAILY PO Last administered on 11/25/16 08:36 ; Start 11/20/16 at 13:00 Methylprednisolone Sodium Succinate (SoluMEDROL INJ) 62.5 mg Q12H IV PUSH ; Start 11/21/16 at 15:00; Stop 11/21/16 at 15:00; Status DC Clonidine (Catapres) 0.2 mg Q8HR PO Last administered on 11/24/16 14:51; Start 11/21/16 at 08:45; Stop 11/24/16 at 15:39; Status DC Lorazepam (Ativan Inj) 1 mg Q6H PRN IV PUSH SBP>160, DBP>90 Last administered on 11/21/16 21:35; Start 11/21/16 at 08:45 Methylprednisolone Sodium Succinate (SoluMEDROL INJ) 62.5 mg Q8HR NEB IV PUSH Last administered on 11/22/16 08:58; Start 11/21/16 at 16:00; Stop 11/22/16 at 15:22; Status DC Atropine Sulfate (Atropine Inj) 1 mg STK-MED ONCE .ROUTE ; Start 11/22/16 at 10: 15; Stop 11/22/16 at 10:16; Status DC Epinephrine HCl (EPINEPHrine (1:10,000) INJ) 1 mg STK-MED ONCE .ROUTE ; Start at 10:16; Stop 11/22/16 at 10:17; Status DC Prednisone (Deltasone) 50 mg DAILY PO Last administered on 11/25/16 08:36; Start 11/23/16 at 09:00 Albuterol/ Ipratropium (Duoneb Neb) 1 ampule Q6HR WHILE AWAKE NEB NEB Last administered on 11/25/16 09:43; Start 11/23/16 at 14:00 Info 1 ONCE ONCE .XX Last administered on 11/24/16 15:45; Start 11/24/16 at 15:45; Stop 11/24/16 at 15:52; Status DC Patient Medication Teaching (Coumadin Booklet) 1 ONCE ONCE XX ; Start 11/24/16 at 15:45; Stop 11/24/16 at 15:54; Status DC Warfarin Sodium (Coumadin) 5 mg DAILY@1600 PO Last administered on 11/24/16 16 :50; Start 11/24/16 at 16:00 Metoprolol Tartrate (Lopressor) 50 mg DAILY PO Last administered on 11/25/16 08:36; Start 11/25/16 at 09:00 Clonidine (Catapres) 0.1 mg Q8HR PO Last administered on 11/25/16 05:30; Start 11/24/16 at 22:00 A/P Problem List: (1) Alcohol abuse ICD Code: F10.10 - Alcohol abuse, uncomplicated Status: Chronic (2) COPD (chronic obstructive pulmonary disease) ICD Code: J44.9 - Chronic obstructive pulmonary disease, unspecified Status: Acute (3) Elevated troponin ICD Code: R74.8 - Abnormal levels of other serum enzymes Status: Acute (4) Hypocalcemia ICD Code: E83.51 - Hypocalcemia Status: Acute (5) Hypomagnesemia ICD Code: E83.42 - Hypomagnesemia Status: Acute (6) HTN (hypertension) ICD Code: I10 - Essential (primary) hypertension Status: Chronic (7) Tobacco abuse ICD Code: Z72.0 - Tobacco use Status: Chronic Assessment and Plan 56-year-old white male admitted for shortness of breath and hypoxia Hypoxia due to pulmonary embolism and acute COPD exacerbation - resolved, treated as below - currently off of oxygen. Chest pain w/ elevated troponins - resolved - likely 2/2 PE, cardiology felt that his chest pain is more so from PE not ACS. systolic dysfunction at EF 35-35%. Currently on are pursued allergy to lisinopril. -Cardiology was consulted and recommends medical management Pulmonary embolism - continue Lovenox weight-based dosing, discussed with GI that it is unlikely causing the patient's worsening hepatotoxicity/LFTs. - Due to history of alcohol abuse, one from a be a safer choice than novel anti- coagulation. -Coumadin was started yesterday. Will continue with Lovenox with bridging to Coumadin. Pharmacist artery consulted. INR today is 1. COPD: Acute Exacerbation, - Improved. -Continue with current regimen. Transaminitis - : fluctuating, HIDA scan came back negative AST 79, ALT 162 -GI following -DEISY and ASM negative, mitochondria pending, Hepatitis negative, hepatic function tests stabilizing. We'll continue to monitor. Tachycardia - resolved, this likely was due to pulmonary embolism Labile HTN: Suspect this is more so due to withdrawal on top of chronic hypertension -continue metoprolol and amlodipine -PRN hydralazine Tobacco Abuse, chronic -Pt counselled. -No NicoDerm to avoid vasoconstriction. Discharge Planning Once cleared by GI and once patient has good follow-up in regards to his INR he can be discharged from hospital.' At the moment we will need to wait until he therapeutic. Pat Weber MD Nov 25, 2016 10:45
[2016-11-25] MEDS: WARFARIN SOD 5 MG TAB PO SCH (16:37)
[2016-11-25] MEDS ORDERED: IBUPROFEN 400 MG TAB PO PRN (22:45)
[2016-11-25] MEDS: MELATONIN 5 MG TAB PO PRN (23:06)
[2016-11-26] VITALS (29 sets, daily range): BP systolic 116–156; BP diastolic 68–96; PULSE 58–96; RESP 18; TEMP 97.5–98.6; O2SAT 93–97
[2016-11-26 03:51] LABS: MITOCHONDRIAL ABS LESS THAN 20.0 U (<=20.0)
[2016-11-26] MEDS: metroNIDAZOLE 500 MG TAB PO SCH ×3 (05:57→21:30)
[2016-11-26] MEDS: cloNIDine HCL 0.2 MG TAB PO SCH ×3 (05:57→21:30)
[2016-11-26 07:35] LABS: PROTHROMBIN TIME - PATIENT 11.3 SEC (9.8-11.6)
[2016-11-26] MEDS: RESP: ALBUTEROL 2.5 MG/IPRATROPIUM 0.5 MG NEB (SCH) NEB ×3 (07:38→15:52)
[2016-11-26] MEDS: predniSONE 50 MG TAB PO SCH (08:50)
[2016-11-26] MEDS: THIAMINE HCL 100 MG TAB PO SCH (08:50)
[2016-11-26] MEDS: LOSARTAN 25 MG TAB PO SCH (08:50)
[2016-11-26] MEDS: METOPROLOL TARTRATE 50 MG TAB PO SCH (08:51)
[2016-11-26] MEDS: ASPIRIN EC 81 MG TABEC PO SCH (08:51)
[2016-11-26] MEDS: guaiFENesin E.R. 600 MG TAB PO SCH ×2 (08:51→21:30)
[2016-11-26] MEDS: DOCUSATE SODIUM 50 MG/SENNA 8.6 MG TAB PO SCH ×2 (08:51→21:00)
[2016-11-26] MEDS: SODIUM CHLORIDE 0.9% FLUSH 10 ML FLUSH IV FLUSH SCH ×2 (08:52→21:31)
[2016-11-26] MEDS: ENOXAPARIN SODIUM 80 MG/0.8 ML SYRINGE SQ SCH ×2 (08:52→21:30)
[2016-11-26] MEDS: BUDESONIDE-FORMOTEROL 160/4.5 MCG INHALER INH SCH ×2 (08:52→21:31)
--- NOTE | 2016-11-26 10:07 | HHI.PR ---
Subjective Remarks Follow-up for PE Deny any diarrhea or abdominal pain. Stated that shortness of breathing has improved. He has no other complaints. Dealt with his nurse. Objective Vitals Vital Signs Date Time Temp Pulse Resp B/P (MAP) Pulse Ox O2 Delivery O2 Flow Rate FiO2 11/26/16 10:00 70 11/26/16 09:00 96 11/26/16 08:00 65 11/26/16 07:00 97.5 64 18 156/96 (116) 93 11/26/16 07:00 58 11/26/16 06:00 80 11/26/16 05:00 69 11/26/16 04:00 62 11/26/16 03:40 98.6 73 18 145/87 (106) 95 11/26/16 03:00 75 11/26/16 02:00 66 11/26/16 01:00 73 11/26/16 00:00 80 11/25/16 23:00 98.9 90 18 145/90 (108) 93 11/25/16 23:00 75 11/25/16 22:00 86 11/25/16 21:00 98.7 83 18 136/79 (98) 93 11/25/16 21:00 76 11/25/16 20:00 68 11/25/16 19:00 93 11/25/16 18:00 72 11/25/16 17:00 74 11/25/16 16:00 68 11/25/16 15:00 99.0 73 20 139/79 (99) 98 11/25/16 15:00 70 11/25/16 14:00 70 11/25/16 13:00 80 11/25/16 12:00 73 11/25/16 11:00 67 11/25/16 11:00 97.9 95 20 128/80 (96) 95 I/O 11/25/16 11/25/16 11/25/16 11/26/16 11/26/16 11/26/16 07:00 15:00 23:00 07:00 15:00 23:00 Intake Total 480 ml 1920 ml 480 ml Balance 480 ml 1920 ml 480 ml Intake Oral 480 ml 1920 ml 480 ml # Voids 2 10 4 # Bowel Movements 5 2 1 Result Diagram: 11/24/1662411/24/16624 Objective Remarks GENERAL: In no acute distress. Sitting very comfortably in bed. SKIN: Warm and dry. HEAD: Normocephalic. EYES: No scleral icterus. No injection or drainage. NECK: Supple, trachea midline. No JVD or lymphadenopathy. CARDIOVASCULAR: Regular rate and rhythm without murmurs, gallops, or rubs. RESPIRATORY: Breath sounds equal bilaterally. No accessory muscle use. no cough noted during examination. GASTROINTESTINAL: Abdomen soft, non-tender, nondistended. MUSCULOSKELETAL: No cyanosis, or edema. BACK: Nontender without obvious deformity. No CVA tenderness. Medications and IVs Current Medications Sodium Chloride (NS Flush) 2 ml UNSCH PRN IVF FLUSH AFTER USING IV ACCESS; Start 11/18/16 at 18:15 Methylprednisolone Sodium Succinate (SoluMEDROL INJ) 125 mg ONCE ONCE IVP Last administered on 11/18/16 18:51; Start 11/18/16 at 18:15; Stop 11/18/16 at 18:16; Status DC Albuterol/ Ipratropium (Duoneb Neb) 1 ampule Q15M INH Last administered on 11/18 19:55; Start 11/18/16 at 18:15; Stop 11/18/16 at 18:46; Status DC Lorazepam (Ativan Inj) 1 mg ONCE ONCE IV PUSH Last administered on 11/18/16 18:32; Start 11/18/16 at 18:15; Stop 11/18/16 at 18:16; Status DC Chlordiazepoxide (Librium) 25 mg ONCE ONCE PO Last administered on 11/18/16 18:32; Start 11/18/16 at 18:15; Stop 11/18/16 at 18:16; Status DC Sodium Chloride 1,000 ml @ 999 mls/hr BOLUS ONCE IV Last administered on 11/18 18:51; Start 11/18/16 at 18:15; Stop 11/18/16 at 19:15; Status DC Lorazepam (Ativan Inj) 1 mg ONCE ONCE IV PUSH Last administered on 11/18/16 19:25; Start 11/18/16 at 19:30; Stop 11/18/16 at 19:31; Status DC Aspirin (Aspirin Chew) 81 mg ONCE ONCE CHEW Last administered on 11/18/16 19: 31; Start 11/18/16 at 19:30; Stop 11/18/16 at 19:31; Status DC Albuterol/ Ipratropium (Duoneb Neb) 1 ampule ONCE ONCE NEB Last administered on 11/18/16 20:29; Start 11/18/16 at 20:30; Stop 11/18/16 at 20:31; Status DC Folic Acid (Folate) 1 mg DAILY PO Last administered on 11/23/16 08:50; Start 11/19/16 at 09:00; Stop 11/24/16 at 08:59; Status DC Thiamine HCl (Vitamin B1) 100 mg DAILY PO Last administered on 11/26/16 08:50 ; Start 11/19/16 at 09:00 Multivitamins/ Minerals Therapeutic (Theragran M Tab) 1 tab DAILY PO Last administered on 11/23/16 08:50; Start 11/19/16 at 09:00; Stop 11/24/16 at 08:59 ; Status DC Flumazenil (Romazicon Inj) 0.2 mg Q1M PRN IV PUSH SEE LABEL COMMENTS; Start at 20:30 Lorazepam (Ativan) 1 mg Q4H PRN PO CIWA 8 - 10 Last administered on 11/20/16 05:04; Start 11/18/16 at 20:30 Lorazepam (Ativan Inj) 1 mg Q4H PRN IV PUSH CIWA 8 - 10; Start 11/18/16 at 20: 30 Lorazepam (Ativan) 2 mg Q2H PRN PO CIWA 11-14; Start 11/18/16 at 20:30 Lorazepam (Ativan Inj) 2 mg Q2H PRN IV PUSH CIWA 11-14; Start 11/18/16 at 20:30 Lorazepam (Ativan Inj) 2 mg Q1H PRN IV PUSH CIWA 15-20 Last administered on 00:09; Start 11/18/16 at 20:30 Lorazepam (Ativan Inj) 2 mg Q15M PRN IV PUSH CIWA > 20; Start 11/18/16 at 20:30 Haloperidol Lactate (Haldol Inj) 2 mg Q15M PRN IM SEE LABEL COMMENTS; Start at 20:30; Stop 11/20/16 at 08:09; Status DC Methylprednisolone Sodium Succinate (SoluMEDROL INJ) 40 mg Q6HR IV PUSH Last administered on 11/19/16 06:00; Start 11/19/16 at 00:00; Stop 11/19/16 at 14:10 ; Status DC Albuterol/ Ipratropium (Duoneb Neb) 1 ampule Q4HR WHILE AWAKE NEB NEB Last administered on 11/22/16 21:25; Start 11/19/16 at 08:00; Stop 11/23/16 at 08:00 ; Status DC Albuterol/ Ipratropium (Duoneb Neb) 1 ampule Q2HR NEB PRN NEB SOB/WHEEZING Last administered on 11/23/16 08:27; Start 11/18/16 at 20:30 Budesonide/ Formoterol Fumarate (Symbicort 160-4.5 Inh) 2 puff Q12HR INH Last administered on 11/26/16 08:52; Start 11/18/16 at 21:00 Guaifenesin (Mucinex Er) 600 mg BID PO Last administered on 11/26/16 08:51; Start 11/18/16 at 21:00 Sodium Chloride 1,000 ml @ 100 mls/hr Q10H IV Last administered on 11/19/16 21:31; Start 11/18/16 at 20:23; Stop 11/20/16 at 00:39; Status DC Sodium Chloride (NS Flush) 2 ml UNSCH PRN IV FLUSH FLUSH AFTER USING IV ACCESS ; Start 11/18/16 at 20:30 Sodium Chloride (NS Flush) 2 ml BID IV FLUSH Last administered on 11/26/16 08: 52; Start 11/18/16 at 21:00 Ondansetron HCl (Zofran Inj) 4 mg Q6H PRN IVP NAUSEA OR VOMITING; Start at 20:30 Acetaminophen (Tylenol) 650 mg Q6H PRN PO FEVER/PAIN SCALE 1 TO 2; Start at 20:30; Stop 11/20/16 at 08:09; Status DC Oxycodone HCl (Roxicodone) 10 mg Q4H PRN PO PAIN SCALE 6 TO 10 Last administered on 11/24/16 21:20; Start 11/18/16 at 20:30; Stop 11/25/16 at 10:46 ; Status DC Oxycodone HCl (Roxicodone) 5 mg Q4H PRN PO PAIN SCALE 3 TO 5 Last administered on 11/19/16 14:47; Start 11/18/16 at 20:30; Stop 11/20/16 at 08:09; Status DC Senna/Docusate Sodium (Shannan-Colace) 1 tab BID PO Last administered on 09:33; Start 11/18/16 at 21:00 Magnesium Hydroxide (Milk Of Magnesia Liq) 30 ml Q12H PRN PO MILD - MODERATE CONSTIPATION; Start 11/18/16 at 20:30 Sennosides (Senokot) 17.2 mg Q12H PRN PO MODERATE - SEVERE CONSTIPATION; Start 11/18/16 at 20:30 Bisacodyl (Dulcolax Supp) 10 mg DAILY PRN RECTAL SEVERE CONSITIPATION; Start at 20:30 Lactulose (Lactulose Liq) 30 ml DAILY PRN PO SEVERE CONSITIPATION; Start at 20:30 Calcium Gluconate (Calcium Gluconate Inj) 1 gm ONCE ONCE IV PUSH Last administered on 11/18/16 20:59; Start 11/18/16 at 20:30; Stop 11/18/16 at 20:31 ; Status DC Magnesium Sulfate/ Dextrose 100 ml @ 100 mls/hr ONCE ONCE IV Last administered on 11/18/16 20:59; Start 11/18/16 at 20:30; Stop 11/18/16 at 21:29 ; Status DC Aspirin (Ecotrin Ec) 162 mg DAILY PO Last administered on 11/26/16 08:51; Start 11/19/16 at 09:00 Metoprolol Tartrate (Lopressor) 100 mg DAILY PO Last administered on 11/20/16 08:27; Start 11/19/16 at 09:00; Stop 11/20/16 at 12:46; Status DC Pravastatin Sodium (Pravachol) 40 mg DAILY PO Last administered on 11/19/16 09 :15; Start 11/19/16 at 09:00; Stop 11/20/16 at 08:05; Status DC Clonidine (Catapres) 0.2 mg ONCE ONCE PO Last administered on 11/18/16 21:28 ; Start 11/18/16 at 21:30; Stop 11/18/16 at 21:31; Status DC Methylprednisolone Sodium Succinate (SoluMEDROL INJ) 125 mg STK-MED ONCE .ROUTE Last administered on 11/19/16 10:00; Start 11/19/16 at 10:00; Stop 11/19/16 at 12:10; Status DC Enoxaparin Sodium (Lovenox Inj) 30 mg Q24H SQ Last administered on 11/19/16 14 :47; Start 11/19/16 at 14:00; Stop 11/19/16 at 17:16; Status DC Methylprednisolone Sodium Succinate (SoluMEDROL INJ) 125 mg Q8H IV PUSH Last administered on 11/21/16 03:32; Start 11/19/16 at 18:00; Stop 11/21/16 at 08:45 ; Status DC Iohexol (Omnipaque 350 Inj) 72 ml STK-MED ONCE IVCONTRAST Last administered on 11/19/16 16:38; Start 11/19/16 at 16:38; Stop 11/19/16 at 16:39; Status DC Enoxaparin Sodium (Lovenox Inj) 80 mg Q12HR SQ Last administered on 11/26/16 08:52; Start 11/19/16 at 21:00; Status Future hold Metoprolol Tartrate (Lopressor Inj) 5 mg ONCE ONCE IV PUSH Last administered on 11/19/16 23:10; Start 11/19/16 at 22:45; Stop 11/19/16 at 22:46; Status DC Chlordiazepoxide (Librium) 25 mg ONCE ONCE PO Last administered on 11/19/16 23:09; Start 11/19/16 at 22:45; Stop 11/19/16 at 22:46; Status DC Metoprolol Tartrate (Lopressor Inj) 5 mg ONCE ONCE IV PUSH Last administered on 11/20/16 00:51; Start 11/20/16 at 00:45; Stop 11/20/16 at 00:48; Status DC Furosemide (Lasix Inj) 20 mg ONCE ONCE IV PUSH Last administered on 11/20/16 00:52; Start 11/20/16 at 00:45; Stop 11/20/16 at 00:48; Status DC Diltiazem HCl (Cardizem Inj) 10 mg ONCE ONCE IV Last administered on 03:01; Start 11/20/16 at 03:00; Stop 11/20/16 at 03:01; Status DC Diltiazem HCl 125 mg/Sodium Chloride 125 ml @ 5 mls/hr TITRATE PRN IV Tachycardia Last administered on 11/20/16 04:35; Start 11/20/16 at 04:15; Stop 11/21/16 at 08:38; Status DC Hydralazine HCl (Apresoline Inj) 20 mg Q4H PRN IV PUSH SBP>160, DBP>90 Last administered on 11/22/16 08:57; Start 11/20/16 at 08:15 Metronidazole (Flagyl) 500 mg Q8HR PO Last administered on 11/26/16 05:57; Start 11/20/16 at 10:15; Stop 12/04/16 at 10:14 Metoprolol Tartrate (Lopressor) 100 mg Q12HR PO Last administered on 11/24/16 09:33; Start 11/20/16 at 12:45; Stop 11/24/16 at 15:37; Status DC Losartan Potassium (Cozaar) 25 mg DAILY PO Last administered on 11/26/16 08:50 ; Start 11/20/16 at 13:00 Methylprednisolone Sodium Succinate (SoluMEDROL INJ) 62.5 mg Q12H IV PUSH ; Start 11/21/16 at 15:00; Stop 11/21/16 at 15:00; Status DC Clonidine (Catapres) 0.2 mg Q8HR PO Last administered on 11/24/16 14:51; Start 11/21/16 at 08:45; Stop 11/24/16 at 15:39; Status DC Lorazepam (Ativan Inj) 1 mg Q6H PRN IV PUSH SBP>160, DBP>90 Last administered on 11/21/16 21:35; Start 11/21/16 at 08:45 Methylprednisolone Sodium Succinate (SoluMEDROL INJ) 62.5 mg Q8HR NEB IV PUSH Last administered on 11/22/16 08:58; Start 11/21/16 at 16:00; Stop 11/22/16 at 15:22; Status DC Atropine Sulfate (Atropine Inj) 1 mg STK-MED ONCE .ROUTE ; Start 11/22/16 at 10: 15; Stop 11/22/16 at 10:16; Status DC Epinephrine HCl (EPINEPHrine (1:10,000) INJ) 1 mg STK-MED ONCE .ROUTE ; Start at 10:16; Stop 11/22/16 at 10:17; Status DC Prednisone (Deltasone) 50 mg DAILY PO Last administered on 11/26/16 08:50; Start 11/23/16 at 09:00 Albuterol/ Ipratropium (Duoneb Neb) 1 ampule Q6HR WHILE AWAKE NEB NEB Last administered on 11/26/16 07:38; Start 11/23/16 at 14:00 Info 1 ONCE ONCE .XX Last administered on 11/24/16 15:45; Start 11/24/16 at 15:45; Stop 11/24/16 at 15:52; Status DC Patient Medication Teaching (Coumadin Booklet) 1 ONCE ONCE XX Last administered on 11/26/16 05:57; Start 11/24/16 at 15:45; Stop 11/24/16 at 15:54 ; Status DC Warfarin Sodium (Coumadin) 5 mg DAILY@1600 PO Last administered on 11/25/16 16 :37; Start 11/24/16 at 16:00 Metoprolol Tartrate (Lopressor) 50 mg DAILY PO Last administered on 11/26/16 08:51; Start 11/25/16 at 09:00 Clonidine (Catapres) 0.1 mg Q8HR PO Last administered on 11/26/16 05:57; Start 11/24/16 at 22:00 Melatonin (Melatonin) 5 mg HS PRN PO INSOMNIA Last administered on 11/25/16 23 :06; Start 11/25/16 at 22:45 Ibuprofen (Motrin) 400 mg ONCE PRN PO backpain Last administered on 11/25/16 23:06; Start 11/25/16 at 22:45; Stop 11/26/16 at 22:44 Patient Medication Teaching (Coumadin Booklet) 1 STK-MED ONCE .ROUTE ; Start at 02:48; Stop 11/26/16 at 02:49; Status DC Warfarin Sodium (Coumadin) 5 mg ONCE ONCE PO ; Start 11/26/16 at 16:00; Stop at 16:01 A/P Problem List: (1) Alcohol abuse ICD Code: F10.10 - Alcohol abuse, uncomplicated Status: Chronic (2) COPD (chronic obstructive pulmonary disease) ICD Code: J44.9 - Chronic obstructive pulmonary disease, unspecified Status: Acute (3) Elevated troponin ICD Code: R74.8 - Abnormal levels of other serum enzymes Status: Acute (4) Hypocalcemia ICD Code: E83.51 - Hypocalcemia Status: Acute (5) Hypomagnesemia ICD Code: E83.42 - Hypomagnesemia Status: Acute (6) HTN (hypertension) ICD Code: I10 - Essential (primary) hypertension Status: Chronic (7) Tobacco abuse ICD Code: Z72.0 - Tobacco use Status: Chronic Assessment and Plan 56-year-old white male admitted for shortness of breath and hypoxia Hypoxia due to pulmonary embolism and acute COPD exacerbation - resolved, treated as below - currently off of oxygen. Chest pain w/ elevated troponins - resolved - likely 2/2 PE, cardiology felt that his chest pain is more so from PE not ACS. systolic dysfunction at EF 35-35%. Currently on are pursued allergy to lisinopril. -Cardiology was consulted and recommends medical management Pulmonary embolism - continue Lovenox weight-based dosing, discussed with GI that it is unlikely causing the patient's worsening hepatotoxicity/LFTs. - Due to history of alcohol abuse, one from a be a safer choice than novel anti- coagulation. -continue with Lovenox with bridging to Coumadin. Pharmacist managing. INR today is 1. Will give an extra 5 mg of Coumadin today since patient continues to be at an INR of 1. COPD: Acute Exacerbation, - Improved. -Continue with current regimen. Transaminitis - : fluctuating, HIDA scan came back negative AST 79, ALT 162 -GI following -DEISY and ASM negative, mitochondria pending, Hepatitis negative, hepatic function tests stabilizing. We'll continue to monitor. Tachycardia - resolved, this likely was due to pulmonary embolism Labile HTN: Suspect this is more so due to withdrawal on top of chronic hypertension -continue metoprolol and amlodipine -PRN hydralazine C. difficile colitis -Improving. Tobacco Abuse, chronic -Pt counselled. -No NicoDerm to avoid vasoconstriction. Discharge Planning Once cleared by GI and once patient has good follow-up in regards to his INR he can be discharged from hospital.' At the moment we will need to wait until he therapeutic. Pat Weber MD Nov 26, 2016 10:07
--- NOTE | 2016-11-26 11:13 | HHI.GIFU ---
Subjective Remarks Pt napping in bed. No abd pain, nausea, eating ok, feels fine. (Liset Diallo) Objective Vitals I&O Vital Signs Date Time Temp Pulse Resp B/P (MAP) Pulse Ox O2 Delivery O2 Flow Rate FiO2 11/26/16 11:00 97.7 70 18 120/68 (85) 95 11/26/16 11:00 69 11/26/16 10:00 70 11/26/16 09:00 96 11/26/16 08:00 65 11/26/16 07:50 97 11/26/16 07:00 97.5 64 18 156/96 (116) 93 11/26/16 07:00 58 11/26/16 06:00 80 11/26/16 05:00 69 11/26/16 04:00 62 11/26/16 03:40 98.6 73 18 145/87 (106) 95 11/26/16 03:00 75 11/26/16 02:00 66 11/26/16 01:00 73 11/26/16 00:00 80 11/25/16 23:00 98.9 90 18 145/90 (108) 93 11/25/16 23:00 75 11/25/16 22:00 86 11/25/16 21:00 98.7 83 18 136/79 (98) 93 11/25/16 21:00 76 11/25/16 20:00 68 11/25/16 19:00 93 11/25/16 18:00 72 11/25/16 17:00 74 11/25/16 16:00 68 11/25/16 15:00 99.0 73 20 139/79 (99) 98 11/25/16 15:00 70 11/25/16 14:00 70 11/25/16 13:00 80 11/25/16 12:00 73 I/O 11/25/16 11/25/16 11/25/16 11/26/16 11/26/16 11/26/16 07:00 15:00 23:00 07:00 15:00 23:00 Intake Total 480 ml 1920 ml 480 ml Balance 480 ml 1920 ml 480 ml Intake Oral 480 ml 1920 ml 480 ml # Voids 2 10 4 # Bowel Movements 5 2 1 Laboratory Laboratory Tests Test 11/26/16 06:41 Prothrombin Time 11.3 Prothromb Time International Ratio 1.0 Date/Time Source Procedure Growth Status 11/19/16 11:10 Stool Stool Stool Occult Blood (EMERITA) - Final HEMOCCULT NEGATIVE Complete Imaging Last Impressions Hepatobiliary Scan Nuclear Medicine 11/22/16 0000 Signed Impressions: Service Date/Time: Tuesday, November 22, 2016 10:29 - CONCLUSION: 1. Activity is noted in the gallbladder confirming patency of the cystic duct. This makes possibility of acute cholecystitis highly unlikely. 2. No evidence for biliary ductal obstruction with normal bowel transit time. Ilir Bowers MD Liver Ultrasound 11/21/16 0000 Signed Impressions: Service Date/Time: Monday, November 21, 2016 08:05 - CONCLUSION: 1. Hepatomegaly with diffuse increased echogenicity consistent with marked hepatic steatosis. Trace perihepatic ascites. 2. Markedly abnormal gallbladder with significant gallbladder wall thickening, trace pericholecystic fluid and stones. Although these findings may be seen in the setting of chronic liver disease, the degree and extent of abnormality is more pronounced than expected. Recommend correlation for cholecystitis. May consider HIDA scan if there is continued clinical uncertainty. 3. Small right pleural effusion. 1. Ilir Bowers MD CT Angiography 11/19/16 0942 Signed Impressions: Service Date/Time: Saturday, November 19, 2016 16:24 - CONCLUSION: 1. Pulmonary embolus in right main pulmonary artery and lower lobe branches. 2. Bilateral pleural effusions, left lung base consolidation right lung infiltrate. Ariel Garland MD Chest X-Ray 11/18/16 1809 Signed Impressions: Service Date/Time: Friday, November 18, 2016 18:17 - CONCLUSION: No acute cardiopulmonary disease. Ariel Garland MD Physical Exam EENT: Normocephalic; atraumatic; no jaundice. CHEST: wheezes CARDIAC: RRR ABDOMEN: Soft, nondistended, nontender; no hepatosplenomegaly; bowel sounds are present in all four quadrants. EXTREMITIES: No clubbing, cyanosis, or edema. SKIN: Normal; no rash; no jaundice. DECAL APPLIER: No focal deficits; alert and oriented times three. (Liset Diallo) Assessment and Plan Plan ASSESSMENT: - Elevated LFTs. Hx etoh abuse- unclear the amount. Denies any known history of hepatitis or liver disease, but does have a history of pancreatitis. US (11/21/16)---> hepatomegaly with diffuse increased echogenicity consistent with marked hepatic steatosis. Trace perihepatic ascites. Markedly abnormal gallbladder with significant gallbladder wall thickening, trace pericholecystic fluid and stones. Although these findings may be seen in the setting of chronic liver disease, the degree and extent of abnormality is more pronounced than expected. Recommend correlation for cholecystitis. May consider HIDA scan if there is continued clinical uncertainty, small right pleural effusion Hepatitis panel neg, AMA neg, DEISY neg, ASMA neg, Alpha 1 Antitrypsin 200, AFP 5.6. Iron sat 13.8% and ferritin 267. Likely multifactorial- etoh abuse, possible hepatic congestion, possible gallbladder disease. HIDA neg LFTs continue trending downward, liver w/u unremarkable - CDifficile, EPID 027 (-). 1st episode. Flagyl. Improving. - Pulmonary embolism. Lovenox. per attending. - COPD exacerbation. Steroids, Nebs. - HTN, Hx Afib (on ASA). Per attending. PLAN: - BOOGIE - f/u with GI as outpatient in 1wk - rck LFT before GI fu - ok to d/c from GI standpoint - Pt seen and examined by Dr. Osborn and myself and this note is written on his behalf (Liset Diallo) Physician Comments Seen and examined, agree with above, stable from GI point of view. (Aminah Osborn MD) Liset Diallo Nov 26, 2016 11:13 Aminah Osborn MD Nov 26, 2016 12:31
[2016-11-26] MEDS ORDERED: WARFARIN SOD 5 MG TAB PO ONE (16:00)
[2016-11-26] MEDS: WARFARIN SOD 5 MG TAB PO SCH (16:18)
[2016-11-26] MEDS: MELATONIN 5 MG TAB PO PRN (21:31)
[2016-11-27] VITALS (30 sets, daily range): BP systolic 114–146; BP diastolic 68–99; PULSE 61–98; RESP 16–18; TEMP 97.9–99; O2SAT 93–98
[2016-11-27] MEDS: metroNIDAZOLE 500 MG TAB PO SCH ×3 (05:44→20:58)
[2016-11-27] MEDS: cloNIDine HCL 0.2 MG TAB PO SCH ×3 (05:44→20:58)
[2016-11-27] MEDS: RESP: ALBUTEROL 2.5 MG/IPRATROPIUM 0.5 MG NEB (SCH) NEB ×2 (07:51→13:37)
[2016-11-27] MEDS: BUDESONIDE-FORMOTEROL 160/4.5 MCG INHALER INH SCH ×2 (08:57→20:59)
[2016-11-27] MEDS: THIAMINE HCL 100 MG TAB PO SCH (08:58)
[2016-11-27] MEDS: SODIUM CHLORIDE 0.9% FLUSH 10 ML FLUSH IV FLUSH SCH ×2 (08:58→20:59)
[2016-11-27] MEDS: LOSARTAN 25 MG TAB PO SCH (08:59)
[2016-11-27] MEDS: DOCUSATE SODIUM 50 MG/SENNA 8.6 MG TAB PO SCH ×2 (08:59→20:58)
[2016-11-27] MEDS: ENOXAPARIN SODIUM 80 MG/0.8 ML SYRINGE SQ SCH ×2 (08:59→20:58)
[2016-11-27] MEDS: guaiFENesin E.R. 600 MG TAB PO SCH ×2 (09:00→20:58)
[2016-11-27] MEDS: predniSONE 50 MG TAB PO SCH (09:00)
[2016-11-27] MEDS: ASPIRIN EC 81 MG TABEC PO SCH (09:00)
[2016-11-27] MEDS: METOPROLOL TARTRATE 50 MG TAB PO SCH (09:00)
--- NOTE | 2016-11-27 09:50 | HHI.PR ---
Subjective Remarks Follow-up for PE Patient denies any shortness of breathing or cough. He stated he is doing well. No acute events overnight. No diarrhea. When I told patient that there is possibility that he can be discharged home today if were able to set up close follow-up for INR with his primary care physician he then complained that he had blood in stool this morning. When asked from for more information ee stated that it was a smear on the toilet paper. Objective Vitals Vital Signs Date Time Temp Pulse Resp B/P (MAP) Pulse Ox O2 Delivery O2 Flow Rate FiO2 11/27/16 09:00 98 11/27/16 08:30 99.0 82 16 127/80 (96) 98 11/27/16 08:00 97 11/27/16 07:54 95 21 11/27/16 07:01 76 11/27/16 06:00 68 11/27/16 05:00 62 11/27/16 04:00 98.1 61 18 146/90 (108) 94 11/27/16 04:00 64 11/27/16 03:00 64 11/27/16 02:00 64 11/27/16 01:00 66 11/27/16 00:00 70 11/26/16 23:20 98.3 72 18 116/71 (86) 94 11/26/16 23:00 73 11/26/16 22:00 72 11/26/16 21:00 74 11/26/16 20:30 98.4 79 18 135/86 (102) 94 11/26/16 20:00 68 11/26/16 19:00 70 11/26/16 18:00 75 11/26/16 17:00 82 11/26/16 16:00 66 11/26/16 15:55 95 21 11/26/16 15:00 98.1 72 18 126/71 (89) 95 11/26/16 15:00 69 11/26/16 14:00 62 11/26/16 13:00 87 11/26/16 12:00 82 11/26/16 11:00 97.7 70 18 120/68 (85) 95 11/26/16 11:00 69 11/26/16 10:00 70 I/O 11/26/16 11/26/16 11/26/16 11/27/16 11/27/1611/27/17 06:59 14:59 22:59 06:59 14:59 22:59 Intake Total 480 ml 2160 ml 480 ml Output Total 2 ml Balance 480 ml 2158 ml 480 ml Intake Oral 480 ml 2160 ml 480 ml Stool Total 2 ml # Voids 4 11 4 # Bowel Movements 1 1 Result Diagram: 11/24/1662411/24/16624 Objective Remarks GENERAL: In no acute distress. Sitting very comfortably in bed and initially found to have a conversation with lymphomatous for an. SKIN: Warm and dry. HEAD: Normocephalic. EYES: No scleral icterus. No injection or drainage. NECK: Supple, trachea midline. No JVD or lymphadenopathy. CARDIOVASCULAR: Regular rate and rhythm without murmurs, gallops, or rubs. RESPIRATORY: Breath sounds equal bilaterally. No accessory muscle use. no cough noted during examination. GASTROINTESTINAL: Abdomen soft, non-tender, nondistended. MUSCULOSKELETAL: No cyanosis, or edema. BACK: Nontender without obvious deformity. No CVA tenderness. Medications and IVs Current Medications Sodium Chloride (NS Flush) 2 ml UNSCH PRN IVF FLUSH AFTER USING IV ACCESS; Start 11/18/16 at 18:15 Methylprednisolone Sodium Succinate (SoluMEDROL INJ) 125 mg ONCE ONCE IVP Last administered on 11/18/16 18:51; Start 11/18/16 at 18:15; Stop 11/18/16 at 18:16; Status DC Albuterol/ Ipratropium (Duoneb Neb) 1 ampule Q15M INH Last administered on 11/18 19:55; Start 11/18/16 at 18:15; Stop 11/18/16 at 18:46; Status DC Lorazepam (Ativan Inj) 1 mg ONCE ONCE IV PUSH Last administered on 11/18/16 18:32; Start 11/18/16 at 18:15; Stop 11/18/16 at 18:16; Status DC Chlordiazepoxide (Librium) 25 mg ONCE ONCE PO Last administered on 11/18/16 18:32; Start 11/18/16 at 18:15; Stop 11/18/16 at 18:16; Status DC Sodium Chloride 1,000 ml @ 999 mls/hr BOLUS ONCE IV Last administered on 11/18 18:51; Start 11/18/16 at 18:15; Stop 11/18/16 at 19:15; Status DC Lorazepam (Ativan Inj) 1 mg ONCE ONCE IV PUSH Last administered on 11/18/16 19:25; Start 11/18/16 at 19:30; Stop 11/18/16 at 19:31; Status DC Aspirin (Aspirin Chew) 81 mg ONCE ONCE CHEW Last administered on 11/18/16 19: 31; Start 11/18/16 at 19:30; Stop 11/18/16 at 19:31; Status DC Albuterol/ Ipratropium (Duoneb Neb) 1 ampule ONCE ONCE NEB Last administered on 11/18/16 20:29; Start 11/18/16 at 20:30; Stop 11/18/16 at 20:31; Status DC Folic Acid (Folate) 1 mg DAILY PO Last administered on 11/23/16 08:50; Start 11/19/16 at 09:00; Stop 11/24/16 at 08:59; Status DC Thiamine HCl (Vitamin B1) 100 mg DAILY PO Last administered on 11/27/16 08:58 ; Start 11/19/16 at 09:00 Multivitamins/ Minerals Therapeutic (Theragran M Tab) 1 tab DAILY PO Last administered on 11/23/16 08:50; Start 11/19/16 at 09:00; Stop 11/24/16 at 08:59 ; Status DC Flumazenil (Romazicon Inj) 0.2 mg Q1M PRN IV PUSH SEE LABEL COMMENTS; Start at 20:30 Lorazepam (Ativan) 1 mg Q4H PRN PO CIWA 8 - 10 Last administered on 11/20/16 05:04; Start 11/18/16 at 20:30 Lorazepam (Ativan Inj) 1 mg Q4H PRN IV PUSH CIWA 8 - 10; Start 11/18/16 at 20: 30 Lorazepam (Ativan) 2 mg Q2H PRN PO CIWA 11-14; Start 11/18/16 at 20:30 Lorazepam (Ativan Inj) 2 mg Q2H PRN IV PUSH CIWA 11-14; Start 11/18/16 at 20:30 Lorazepam (Ativan Inj) 2 mg Q1H PRN IV PUSH CIWA 15-20 Last administered on 00:09; Start 11/18/16 at 20:30 Lorazepam (Ativan Inj) 2 mg Q15M PRN IV PUSH CIWA > 20; Start 11/18/16 at 20:30 Haloperidol Lactate (Haldol Inj) 2 mg Q15M PRN IM SEE LABEL COMMENTS; Start at 20:30; Stop 11/20/16 at 08:09; Status DC Methylprednisolone Sodium Succinate (SoluMEDROL INJ) 40 mg Q6HR IV PUSH Last administered on 11/19/16 06:00; Start 11/19/16 at 00:00; Stop 11/19/16 at 14:10 ; Status DC Albuterol/ Ipratropium (Duoneb Neb) 1 ampule Q4HR WHILE AWAKE NEB NEB Last administered on 11/22/16 21:25; Start 11/19/16 at 08:00; Stop 11/23/16 at 08:00 ; Status DC Albuterol/ Ipratropium (Duoneb Neb) 1 ampule Q2HR NEB PRN NEB SOB/WHEEZING Last administered on 11/23/16 08:27; Start 11/18/16 at 20:30 Budesonide/ Formoterol Fumarate (Symbicort 160-4.5 Inh) 2 puff Q12HR INH Last administered on 11/26/16 21:31; Start 11/18/16 at 21:00 Guaifenesin (Mucinex Er) 600 mg BID PO Last administered on 11/27/16 09:00; Start 11/18/16 at 21:00 Sodium Chloride 1,000 ml @ 100 mls/hr Q10H IV Last administered on 11/19/16 21:31; Start 11/18/16 at 20:23; Stop 11/20/16 at 00:39; Status DC Sodium Chloride (NS Flush) 2 ml UNSCH PRN IV FLUSH FLUSH AFTER USING IV ACCESS ; Start 11/18/16 at 20:30 Sodium Chloride (NS Flush) 2 ml BID IV FLUSH Last administered on 11/27/16 08: 58; Start 11/18/16 at 21:00 Ondansetron HCl (Zofran Inj) 4 mg Q6H PRN IVP NAUSEA OR VOMITING; Start at 20:30 Acetaminophen (Tylenol) 650 mg Q6H PRN PO FEVER/PAIN SCALE 1 TO 2; Start at 20:30; Stop 11/20/16 at 08:09; Status DC Oxycodone HCl (Roxicodone) 10 mg Q4H PRN PO PAIN SCALE 6 TO 10 Last administered on 11/24/16 21:20; Start 11/18/16 at 20:30; Stop 11/25/16 at 10:46 ; Status DC Oxycodone HCl (Roxicodone) 5 mg Q4H PRN PO PAIN SCALE 3 TO 5 Last administered on 11/19/16 14:47; Start 11/18/16 at 20:30; Stop 11/20/16 at 08:09; Status DC Senna/Docusate Sodium (Shannan-Colace) 1 tab BID PO Last administered on 09:33; Start 11/18/16 at 21:00 Magnesium Hydroxide (Milk Of Magnesia Liq) 30 ml Q12H PRN PO MILD - MODERATE CONSTIPATION; Start 11/18/16 at 20:30 Sennosides (Senokot) 17.2 mg Q12H PRN PO MODERATE - SEVERE CONSTIPATION; Start 11/18/16 at 20:30 Bisacodyl (Dulcolax Supp) 10 mg DAILY PRN RECTAL SEVERE CONSITIPATION; Start at 20:30 Lactulose (Lactulose Liq) 30 ml DAILY PRN PO SEVERE CONSITIPATION; Start at 20:30 Calcium Gluconate (Calcium Gluconate Inj) 1 gm ONCE ONCE IV PUSH Last administered on 11/18/16 20:59; Start 11/18/16 at 20:30; Stop 11/18/16 at 20:31 ; Status DC Magnesium Sulfate/ Dextrose 100 ml @ 100 mls/hr ONCE ONCE IV Last administered on 11/18/16 20:59; Start 11/18/16 at 20:30; Stop 11/18/16 at 21:29 ; Status DC Aspirin (Ecotrin Ec) 162 mg DAILY PO Last administered on 11/27/16 09:00; Start 11/19/16 at 09:00 Metoprolol Tartrate (Lopressor) 100 mg DAILY PO Last administered on 11/20/16 08:27; Start 11/19/16 at 09:00; Stop 11/20/16 at 12:46; Status DC Pravastatin Sodium (Pravachol) 40 mg DAILY PO Last administered on 11/19/16 09 :15; Start 11/19/16 at 09:00; Stop 11/20/16 at 08:05; Status DC Clonidine (Catapres) 0.2 mg ONCE ONCE PO Last administered on 11/18/16 21:28 ; Start 11/18/16 at 21:30; Stop 11/18/16 at 21:31; Status DC Methylprednisolone Sodium Succinate (SoluMEDROL INJ) 125 mg STK-MED ONCE .ROUTE Last administered on 11/19/16 10:00; Start 11/19/16 at 10:00; Stop 11/19/16 at 12:10; Status DC Enoxaparin Sodium (Lovenox Inj) 30 mg Q24H SQ Last administered on 11/19/16 14 :47; Start 11/19/16 at 14:00; Stop 11/19/16 at 17:16; Status DC Methylprednisolone Sodium Succinate (SoluMEDROL INJ) 125 mg Q8H IV PUSH Last administered on 11/21/16 03:32; Start 11/19/16 at 18:00; Stop 11/21/16 at 08:45 ; Status DC Iohexol (Omnipaque 350 Inj) 72 ml STK-MED ONCE IVCONTRAST Last administered on 11/19/16 16:38; Start 11/19/16 at 16:38; Stop 11/19/16 at 16:39; Status DC Enoxaparin Sodium (Lovenox Inj) 80 mg Q12HR SQ Last administered on 11/27/16 08:59; Start 11/19/16 at 21:00; Status Future hold Metoprolol Tartrate (Lopressor Inj) 5 mg ONCE ONCE IV PUSH Last administered on 11/19/16 23:10; Start 11/19/16 at 22:45; Stop 11/19/16 at 22:46; Status DC Chlordiazepoxide (Librium) 25 mg ONCE ONCE PO Last administered on 11/19/16 23:09; Start 11/19/16 at 22:45; Stop 11/19/16 at 22:46; Status DC Metoprolol Tartrate (Lopressor Inj) 5 mg ONCE ONCE IV PUSH Last administered on 11/20/16 00:51; Start 11/20/16 at 00:45; Stop 11/20/16 at 00:48; Status DC Furosemide (Lasix Inj) 20 mg ONCE ONCE IV PUSH Last administered on 11/20/16 00:52; Start 11/20/16 at 00:45; Stop 11/20/16 at 00:48; Status DC Diltiazem HCl (Cardizem Inj) 10 mg ONCE ONCE IV Last administered on 03:01; Start 11/20/16 at 03:00; Stop 11/20/16 at 03:01; Status DC Diltiazem HCl 125 mg/Sodium Chloride 125 ml @ 5 mls/hr TITRATE PRN IV Tachycardia Last administered on 11/20/16 04:35; Start 11/20/16 at 04:15; Stop 11/21/16 at 08:38; Status DC Hydralazine HCl (Apresoline Inj) 20 mg Q4H PRN IV PUSH SBP>160, DBP>90 Last administered on 11/22/16 08:57; Start 11/20/16 at 08:15 Metronidazole (Flagyl) 500 mg Q8HR PO Last administered on 11/27/16 05:44; Start 11/20/16 at 10:15; Stop 12/04/16 at 10:14 Metoprolol Tartrate (Lopressor) 100 mg Q12HR PO Last administered on 11/24/16 09:33; Start 11/20/16 at 12:45; Stop 11/24/16 at 15:37; Status DC Losartan Potassium (Cozaar) 25 mg DAILY PO Last administered on 11/27/16 08:59 ; Start 11/20/16 at 13:00 Methylprednisolone Sodium Succinate (SoluMEDROL INJ) 62.5 mg Q12H IV PUSH ; Start 11/21/16 at 15:00; Stop 11/21/16 at 15:00; Status DC Clonidine (Catapres) 0.2 mg Q8HR PO Last administered on 11/24/16 14:51; Start 11/21/16 at 08:45; Stop 11/24/16 at 15:39; Status DC Lorazepam (Ativan Inj) 1 mg Q6H PRN IV PUSH SBP>160, DBP>90 Last administered on 11/21/16 21:35; Start 11/21/16 at 08:45 Methylprednisolone Sodium Succinate (SoluMEDROL INJ) 62.5 mg Q8HR NEB IV PUSH Last administered on 11/22/16 08:58; Start 11/21/16 at 16:00; Stop 11/22/16 at 15:22; Status DC Atropine Sulfate (Atropine Inj) 1 mg STK-MED ONCE .ROUTE ; Start 11/22/16 at 10: 15; Stop 11/22/16 at 10:16; Status DC Epinephrine HCl (EPINEPHrine (1:10,000) INJ) 1 mg STK-MED ONCE .ROUTE ; Start at 10:16; Stop 11/22/16 at 10:17; Status DC Prednisone (Deltasone) 50 mg DAILY PO Last administered on 11/27/16 09:00; Start 11/23/16 at 09:00 Albuterol/ Ipratropium (Duoneb Neb) 1 ampule Q6HR WHILE AWAKE NEB NEB Last administered on 11/27/16 07:51; Start 11/23/16 at 14:00 Info 1 ONCE ONCE .XX Last administered on 11/24/16 15:45; Start 11/24/16 at 15:45; Stop 11/24/16 at 15:52; Status DC Patient Medication Teaching (Coumadin Booklet) 1 ONCE ONCE XX Last administered on 11/26/16 05:57; Start 11/24/16 at 15:45; Stop 11/24/16 at 15:54 ; Status DC Warfarin Sodium (Coumadin) 5 mg DAILY@1600 PO Last administered on 11/26/16 16 :18; Start 11/24/16 at 16:00 Metoprolol Tartrate (Lopressor) 50 mg DAILY PO Last administered on 11/27/16 09:00; Start 11/25/16 at 09:00 Clonidine (Catapres) 0.1 mg Q8HR PO Last administered on 11/27/16 05:44; Start 11/24/16 at 22:00 Melatonin (Melatonin) 5 mg HS PRN PO INSOMNIA Last administered on 11/26/16 21 :31; Start 11/25/16 at 22:45 Ibuprofen (Motrin) 400 mg ONCE PRN PO backpain Last administered on 11/25/16 23:06; Start 11/25/16 at 22:45; Stop 11/26/16 at 22:44; Status DC Patient Medication Teaching (Coumadin Booklet) 1 STK-MED ONCE .ROUTE ; Start at 02:48; Stop 11/26/16 at 02:49; Status DC Warfarin Sodium (Coumadin) 5 mg ONCE ONCE PO Last administered on 11/26/16 16 :18; Start 11/26/16 at 16:00; Stop 11/26/16 at 16:01; Status DC A/P Problem List: (1) Alcohol abuse ICD Code: F10.10 - Alcohol abuse, uncomplicated Status: Chronic (2) COPD (chronic obstructive pulmonary disease) ICD Code: J44.9 - Chronic obstructive pulmonary disease, unspecified Status: Acute (3) Elevated troponin ICD Code: R74.8 - Abnormal levels of other serum enzymes Status: Acute (4) Hypocalcemia ICD Code: E83.51 - Hypocalcemia Status: Acute (5) Hypomagnesemia ICD Code: E83.42 - Hypomagnesemia Status: Acute (6) HTN (hypertension) ICD Code: I10 - Essential (primary) hypertension Status: Chronic (7) Tobacco abuse ICD Code: Z72.0 - Tobacco use Status: Chronic Assessment and Plan 56-year-old white male admitted for shortness of breath and hypoxia Hypoxia due to pulmonary embolism and acute COPD exacerbation - resolved, treated as below - currently off of oxygen. Minimal blood per rectum on toilet paper -Most likely secondary to hemorrhoids versus colitis. Very minimal. blood Patient hemodynamically stable. This can be follow-up as outpatient. Chest pain w/ elevated troponins - resolved - likely 2/2 PE, cardiology felt that his chest pain is more so from PE not ACS. systolic dysfunction at EF 35-35%. Currently on are pursued allergy to lisinopril. -Cardiology was consulted and recommends medical management Pulmonary embolism - continue Lovenox weight-based dosing, discussed with GI that it is unlikely causing the patient's worsening hepatotoxicity/LFTs. - Due to history of alcohol abuse, one from a be a safer choice than novel anti- coagulation. -continue with Lovenox with bridging to Coumadin. Pharmacist managing. Pending INR from today. COPD: Acute Exacerbation, - Improved. -Continue with current regimen. Transaminitis - : fluctuating, HIDA scan came back negative AST 79, ALT 162 -GI following -DEISY and ASM negative, mitochondria pending, Hepatitis negative, hepatic function tests stabilizing. We'll continue to monitor. Tachycardia - resolved, this likely was due to pulmonary embolism Labile HTN: Suspect this is more so due to withdrawal on top of chronic hypertension -continue metoprolol and amlodipine -PRN hydralazine C. difficile colitis -Improving. Tobacco Abuse, chronic -Pt counselled. -No NicoDerm to avoid vasoconstriction. Discharge Planning Dealt with patient's nurse in regards to management. Told nurse to teach patient how to administer Lovenox to himself. Dealt with case management regards to obtaining Lovenox and close follow-up in regards to his INR so that patient so that this can be managed as outpatient. Patient does have a PCP. Pat Weber MD Nov 27, 2016 09:50
[2016-11-27] MEDS: WARFARIN SOD 5 MG TAB PO SCH (15:20)
[2016-11-27 17:30] LABS: INTERNATIONAL NORMALIZED RATIO 1.1 RATIO; PROTHROMBIN TIME - PATIENT 12.5 SEC (9.8-11.6)
[2016-11-27] MEDS: RESP: ALBUTEROL 2.5 MG/IPRATROPIUM 0.5 MG NEB (PRN) NEB (19:47)
[2016-11-27] MEDS: MELATONIN 5 MG TAB PO PRN (20:58)
[2016-11-28] VITALS (13 sets, daily range): BP systolic 119–130; BP diastolic 67–85; PULSE 62–89; RESP 16; TEMP 97.3–98; O2SAT 94–97
[2016-11-28] MEDS: metroNIDAZOLE 500 MG TAB PO SCH ×2 (05:12→13:01)
[2016-11-28] MEDS: cloNIDine HCL 0.2 MG TAB PO SCH ×2 (05:12→13:01)
[2016-11-28 07:03] LABS: INTERNATIONAL NORMALIZED RATIO 1.2 RATIO; PROTHROMBIN TIME - PATIENT 12.8 SEC (9.8-11.6)
[2016-11-28] MEDS: ENOXAPARIN SODIUM 80 MG/0.8 ML SYRINGE SQ SCH (08:10)
[2016-11-28] MEDS: guaiFENesin E.R. 600 MG TAB PO SCH (08:11)
[2016-11-28] MEDS: predniSONE 50 MG TAB PO SCH (08:11)
[2016-11-28] MEDS: ASPIRIN EC 81 MG TABEC PO SCH (08:11)
[2016-11-28] MEDS: METOPROLOL TARTRATE 50 MG TAB PO SCH (08:11)
[2016-11-28] MEDS: LOSARTAN 25 MG TAB PO SCH (08:11)
[2016-11-28] MEDS: DOCUSATE SODIUM 50 MG/SENNA 8.6 MG TAB PO SCH (08:11)
[2016-11-28] MEDS: BUDESONIDE-FORMOTEROL 160/4.5 MCG INHALER INH SCH (08:11)
[2016-11-28] MEDS: SODIUM CHLORIDE 0.9% FLUSH 10 ML FLUSH IV FLUSH SCH (08:11)
[2016-11-28] MEDS: THIAMINE HCL 100 MG TAB PO SCH (08:11)
[2016-11-28] MEDS ORDERED: METR-1 PO (10:55)
[2016-11-28] MEDS ORDERED: SYMB160A INH (10:55)
[2016-11-28] MEDS ORDERED: COZA25TA PO (10:55)
[2016-11-28] MEDS ORDERED: CLON.2 PO (10:55)
[2016-11-28] MEDS ORDERED: WARF-21 PO ×2 (10:55→11:02)
[2016-11-28] MEDS ORDERED: ENOX80P SQ (10:55)
[2016-11-28] MEDS ORDERED: METO-309 PO (10:55)
[2016-11-28] MEDS ORDERED: WARFARIN SOD 5 MG TAB PO ONE (11:00)
--- NOTE | 2016-11-28 11:00 | HHI.DCPOC ---
Discharge Care Plan Diagnosis: (1) Pulmonary emboli (2) Elevated liver enzymes (3) C. difficile diarrhea (4) Atrial fibrillation with RVR (5) Hypertension Goals to Promote Your Health * To prevent worsening of your condition and complications * To maintain your health at the optimal level Directions to Meet Your Goals Take your medications as prescribed Follow your dietary instruction Follow activity as directed Keep your appointments as scheduled Take your immunizations and boosters as scheduled If your symptoms worsen call your PCP, if no PCP go to Urgent Care Center or Emergency Room Smoking is Dangerous to Your Health. Avoid second hand smoke Call the 24-hour hour crisis hotline for domestic abuse at Pat Weber MD Nov 28, 2016 11:00
--- NOTE | 2016-11-28 11:00 | HHI.DS ---
Discharge Summary Admission Date Nov 18, 2016 at 19:57 Discharge Date: Nov 28, 2016 Admitting Diagnosis elevated troponin/wheezing/ ETOH withdrawl (1) Acute respiratory failure with hypoxia ICD Code: J96.01 - Acute respiratory failure with hypoxia Diagnosis: Principal (2) Pulmonary emboli ICD Code: I26.99 - Other pulmonary embolism without acute cor pulmonale Diagnosis: Principal (3) C. difficile diarrhea ICD Code: A04.7 - Enterocolitis due to Clostridium difficile Diagnosis: Principal Status: Resolved (4) Elevated troponin ICD Code: R74.8 - Abnormal levels of other serum enzymes Diagnosis: Principal Status: Acute (5) Hypocalcemia ICD Code: E83.51 - Hypocalcemia Diagnosis: Secondary Status: Acute (6) Hypomagnesemia ICD Code: E83.42 - Hypomagnesemia Diagnosis: Secondary Status: Acute (7) HTN (hypertension) ICD Code: I10 - Essential (primary) hypertension Diagnosis: Secondary Status: Chronic (8) Tobacco abuse ICD Code: Z72.0 - Tobacco use Diagnosis: Secondary Status: Chronic (9) Alcohol abuse ICD Code: F10.10 - Alcohol abuse, uncomplicated Diagnosis: Secondary Status: Chronic (10) Elevated liver enzymes ICD Code: R74.8 - Abnormal levels of other serum enzymes Diagnosis: Secondary (11) COPD (chronic obstructive pulmonary disease) ICD Code: J44.9 - Chronic obstructive pulmonary disease, unspecified Diagnosis: Secondary Status: Acute Procedures See hospital course Brief History - From Admission This is a 56 year old Homeless male w/ a PMH of HTN, Alcohol Abuse, Tobacco Abuse, COPD and Afib on ASA who presented to the ER w/ complaints of SOB and withdrawal type symptoms. States he drinks daily, but hasn't been able to because he doesn't have the money, only had 2 drinks today. Reports ongoing SOB in addition to nausea and tremors starting earlier today. On arrival, while in the ER, had an episode of hypoxia with O2 sat 82% on 3L NC, likely 93% on 6L NC. +wheezing on exam, s/p Solu-Medrol and DuoNeb w/ improvement. CBC at baseline. Chemistry singe unremarkable, elevated LFTs similar comparison to previous labs. Troponin 0.18, EKG with no acute ischemia. INR 1.1. D-dimer 4.22. UA negative. Alcohol less than 3. CXR with no acute findings. CBC/BMP: 11/24/16 0625 11/24/16 0625 Significant Findings Laboratory Tests Test 11/26/16 06:41 11/27/16 16:12 11/28/16 06:45 Prothrombin Time 12.5 SEC (9.8-11.6) 12.8 SEC (9.8-11.6) Imaging Last Impressions Hepatobiliary Scan Nuclear Medicine 11/22/16 0000 Signed Impressions: Service Date/Time: Tuesday, November 22, 2016 10:29 - CONCLUSION: 1. Activity is noted in the gallbladder confirming patency of the cystic duct. This makes possibility of acute cholecystitis highly unlikely. 2. No evidence for biliary ductal obstruction with normal bowel transit time. Ilir Bowers MD Liver Ultrasound 11/21/16 0000 Signed Impressions: Service Date/Time: Monday, November 21, 2016 08:05 - CONCLUSION: 1. Hepatomegaly with diffuse increased echogenicity consistent with marked hepatic steatosis. Trace perihepatic ascites. 2. Markedly abnormal gallbladder with significant gallbladder wall thickening, trace pericholecystic fluid and stones. Although these findings may be seen in the setting of chronic liver disease, the degree and extent of abnormality is more pronounced than expected. Recommend correlation for cholecystitis. May consider HIDA scan if there is continued clinical uncertainty. 3. Small right pleural effusion. 1. Ilir Bowers MD CT Angiography 11/19/16 0942 Signed Impressions: Service Date/Time: Saturday, November 19, 2016 16:24 - CONCLUSION: 1. Pulmonary embolus in right main pulmonary artery and lower lobe branches. 2. Bilateral pleural effusions, left lung base consolidation right lung infiltrate. Ariel Garland MD Chest X-Ray 11/18/16 1807 Signed Impressions: Service Date/Time: Friday, November 18, 2016 18:17 - CONCLUSION: No acute cardiopulmonary disease. Ariel Garland MD PE at Discharge GENERAL: In no acute distress. Sitting very comfortably in bed and initially found to have a conversation with lymphomatous for an. SKIN: Warm and dry. HEAD: Normocephalic. EYES: No scleral icterus. No injection or drainage. NECK: Supple, trachea midline. No JVD or lymphadenopathy. CARDIOVASCULAR: Regular rate and rhythm without murmurs, gallops, or rubs. RESPIRATORY: Breath sounds equal bilaterally. No accessory muscle use. no cough noted during examination. GASTROINTESTINAL: Abdomen soft, non-tender, nondistended. MUSCULOSKELETAL: No cyanosis, or edema. BACK: Nontender without obvious deformity. No CVA tenderness. Pt update on day of discharge Follow-up for PE Patient has no complaints. Denied any GI bleed. Denies any shortness of breathing, chest pain, or cough. Patient stated he is doing well. Dealt with patient's nurse and case management. Patient able to get Lovenox for free. He also has a follow-up appointment with Dr. Carrasquillo on in regards to INR. Hospital Course 56-year-old white male admitted for shortness of breath and hypoxia Acute respiratory failure with Hypoxia due to pulmonary embolism -Improved with treatment pulmonary embolism. - resolved, treated as below -He was weaned off of oxygen while hospitalized. Minimal blood per rectum on toilet paper -Most likely secondary to hemorrhoids versus colitis. Very minimal. blood Patient hemodynamically stable. This can be follow-up as outpatient. He'll have one episode. -Per GI follow up as outpatient in one week. Chest pain w/ elevated troponins - resolved - likely 2/2 PE, cardiology felt that his chest pain is more so from PE not ACS. systolic dysfunction at EF 35-35%. Currently on are pursued allergy to lisinopril. -Cardiology was consulted and recommends medical management Pulmonary embolism - Patient was put on Lovenox weight-based dosing, discussed with GI that it is unlikely causing the patient's worsening hepatotoxicity/LFTs. - Due to history of alcohol abuse, one from a be a safer choice than novel anti- coagulation. Patient was educated extensively on the risks and benefits and side effects of anticoagulation including Lovenox and Coumadin. He stated that he will be compliant and wants to medication. Patient also educated to abstain from alcohol since this can increase his risk for falls which can increase risk of bleeds and affect his treatment. He stated he understood. -continue with Lovenox with bridging to Coumadin. Lovenox was obtained for patient. He received Lovenox teaching from his nurse. Patient also had close follow-up with Dr. Carrasquillo in regards to his INR. Extensive education was given to patient on treatment. Patient stated that he understood the importance of compliance and that he will follow up closely with Dr. Carrasquillo and take medication as directed. INR today discharge was 1.2. Patient was given Coumadin 7.5 mg by mouth daily to be adjusted by Dr. Carrasquillo on on his INR. COPD: Acute Exacerbation, - Improved quickly. -Patient was initially put on Solu-Medrol and weaned off quickly. He was going given a burst of steroids. completed treatment hospital. Transaminitis - fluctuating, HIDA scan came back negative AST 79, ALT 162 -Encourage patient to not drink alcohol. -DEISY and ASM negative, mitochondria pending, Hepatitis negative, hepatic function tests stabilizing. -GI was consulted and they stated that patient cleared for discharge and follow- up with them in 1 week. Tachycardia - resolved quickly, this likely was due to pulmonary embolism Labile HTN: Suspect this is more so due to withdrawal on top of chronic hypertension -continue metoprolol and amlodipine -PRN hydralazine C. difficile colitis -GI was consulted and patient was put on Flagyl. He improved with treatment of Flagyl. Tobacco Abuse, chronic -Pt counselled. -No NicoDerm to avoid vasoconstriction. Pt Condition on Discharge: Good Discharge Disposition: Discharge Home Discharge Time: > 30 minutes Discharge Instructions DIET: Follow Instructions for: Heart Healthy Diet, Coumadin (Warfarin) Diet Activities you can perform: Regular-No Restrictions Follow up Referrals: Gastroenterology - 1 Week with Aminah Osborn MD PCP Follow-up - 11/30/16 with Adrianne Carrasquillo MD New Medications: Warfarin (Warfarin) 7.5 Mg Tab 7.5 MG PO DAILY for Blood Clot Prevention, #14 TAB 0 Refills please start medication on 11/29. Budesonide-Formoterol Inh (Symbicort Inh) 160-4.5 Mcg/Act Aero 2 PUFF INH Q12HR for COPD, #1 INHALER 0 Refills Clonidine (Catapres) 0.2 Mg Tab 0.1 MG PO Q8HR for hypertension, #90 TAB 0 Refills Enoxaparin Inj (Lovenox Inj) 80 mg/0.8 ML Syr 80 MG SQ Q12HR for Pilmonary Embolsim for 7 Days, INJECTION 0 Refills Losartan (Cozaar) 25 Mg Tab 25 MG PO DAILY for hypertension, #30 TAB 0 Refills Metoprolol Tartrate (Lopressor) 50 Mg Tab 50 MG PO DAILY for heart disease, #30 TAB 0 Refills Metronidazole (Flagyl) 500 Mg Tab 500 MG PO Q8HR for c difficile colitis for 6 Days, TAB 0 Refills Continued Medications: Aspirin DR (Aspirin EC) 81 Mg Tabdr 162 MG PO DAILY for antiplatelet, #31 TAB 0 Refills Folic Acid (Folic Acid) 1 Mg Tablet 1 MG PO DAILY for Alcohol Detox, #31 TAB Thiamine (Vitamin B-1) 100 Mg Tab 100 MG PO DAILY for Nutritional Supplement, #31 TAB 0 Refills Pat Weber MD Nov 28, 2016 11:00
== END 2016-11-28 13:15 | disposition home or self-care (01) | DRG 190 ==
LOC: NEPD 17:46 → NEDA 19:57 → HCIS 22:17
PROVIDERS: ADMIT Family Medicine; ATTEND Family Medicine
DX: J44.1 Chronic obstructive pulmonary disease with (acute) exacerbation (principal); I26.99 Other pulmonary embolism without acute cor pulmonale; J96.21 Acute and chronic respiratory failure with hypoxia; A04.7 Enterocolitis due to Clostridium difficile; F10.230 Alcohol dependence with withdrawal, uncomplicated; E83.42 Hypomagnesemia; E83.51 Hypocalcemia; D64.9 Anemia, unspecified; I10 Essential (primary) hypertension; I34.0 Nonrheumatic mitral (valve) insufficiency; I48.91 Unspecified atrial fibrillation; K29.50 Unspecified chronic gastritis without bleeding; Z59.0 Homelessness; F17.200 Nicotine dependence, unspecified, uncomplicated; Z79.01 Long term (current) use of anticoagulants; Z79.82 Long term (current) use of aspirin
CPT/HCPCS: 71010; 71275; 76705; 76937; 78226; 80048; 80053; 80074; 80076; 80307; 81001; 82103; 82105; 82248; 82272; 82390; 82550; 82552; 82728; 82977; 83520; 83540; 83550; 83690; 83735; 84484; 85025; 85379; 85610; 85730; 86038; 86255; 87338; 87493; 93005; 93306; 94620; 94640; 94664; 96374; 96375; 96376; A9537; J0171; J0360; J0461; J0610; J1650; J1940; J2060; J2920; J2930; J3475; J7030; J7512; Q9967

== ENCOUNTER 2016-12-06 18:55 | Emergency (ER) | payer SELFPAY ==
[~2016-12-06] VITALS: Ht 180.3 cm; Wt 82.0 kg
[~2016-12-06 18:55] MED LIST changes: -CARD120C4 PO; +CLON.2 PO; +COZA25TA PO; +ENOX80P SQ; -LACT PO; +METO100T PO; +METR-1 PO; -PANT40TA3 PO; -RANI150C PO; +SYMB160A INH; -THERM PO; +WARF-21 PO
[2016-12-06 19:05] VITALS: BP 139/91; PULSE 102; RESP 15; RESP 18; TEMP 98; O2SAT 100; O2SAT 95
[2016-12-06] MEDS ORDERED: ASPIRIN 81 MG CHEW TAB PO ONE (19:30)
[2016-12-06] MEDS ORDERED: SODIUM CHLORIDE 0.9% FLUSH 10 ML FLUSH IVF PRN (19:30)
[2016-12-06] MEDS ORDERED: SODIUM CHLOR 0.9% 1000 ML INJ 1,000 ML IV SCH (19:33)
[2016-12-06] MEDS ORDERED: LIDOCAINE VISCOUS 2% SOLN 15 ML UDC PO ONE (19:45)
[2016-12-06] MEDS ORDERED: ALUMINUM/MAGNESIUM/SIMETH 30 ML CUP PO ONE (19:45)
[2016-12-06] MEDS ORDERED: SODIUM CHLORIDE 0.9% FLUSH 10 ML FLUSH IV FLUSH PRN (19:45)
[2016-12-06] MEDS ORDERED: ONDANSETRON HCL 4 MG/2 ML VIAL IVP ONE (19:45)
[2016-12-06] MEDS ORDERED: FAMOTIDINE 20 MG/2 ML VIAL IV PUSH ONE (19:45)
--- NOTE | 2016-12-06 19:47 | PD ---
HPI Chief Complaint: Chest Pain Time Seen by Provider: 19:24 Travel History International Travel<30 days: No Contact w/Intl Traveler<30days: No Traveled to known affect area: No History of Present Illness HPI 56-year-old male brought in by EMS with complaints of sudden onset chest pain and shortness of breath. Patient is well-known to us for recurrent visits for EtOH intoxication complaints of chest pain and belly pain in the past. Patient states he is supposed to be taking his blood pressure medicine but has not been. He states he developed sudden onset chest pain approximately an hour and a half ago and called 911. EKG was performed showing no acute changes from previous EKG of 11/20/2016. Patient is complaining of lower abdominal pain and discomfort, but denies nausea, vomiting, or diarrhea. Patient states he only drank one beer this morning. He states his chest pain is currently 7 out of 10. He is allergic to lisinopril. PFSH Past Medical History Hx Anticoagulant Therapy: Yes (ASPIRIN 81 DAILY ) Arthritis: No Asthma: No Atrial Fibrillation: Yes Autoimmune Disease: No Blood Disorders: No Anxiety: Yes Depression: No Heart Rhythm Problems: Yes Cancer: No Cardiac Catheterization: No Cardiovascular Problems: Yes (AFIB) High Cholesterol: No Chemotherapy: No Chest Pain: Yes Congestive Heart Failure: No COPD: No Cerebrovascular Accident: No Diabetes: No Diminished Hearing: No Endocrine: No Gastrointestinal Disorders: No GERD: No Genitourinary: No Headaches: No Hiatal Hernia: No Heparin Induced Thrombocytopen: No Hypertension: Yes (hypertensive periods in past) Immune Disorder: No Inguinal Hernia: Yes Implanted Vascular Access Dvce: No Kidney Stones: No Musculoskeletal: No Neurologic: Yes (shaking probably from detox) Psychiatric: No Reproductive: No Respiratory: No Immunizations Current: Yes Migraines: No Radiation Therapy: No Renal Failure: No Seizures: Yes Sickle Cell Disease: No Sleep Apnea: No Thyroid Disease: No Ulcer: No Past Surgical History Abdominal Surgery: Yes (HERNIA REPAIR) AICD: No Arteriovenous Shunt: No Cardiac Surgery: No Coronary Artery Bypass Graft: No Ear Surgery: No Endocrine Surgery: No Eye Surgery: No Genitourinary Surgery: No Gynecologic Surgery: No Insulin Pump: No Joint Replacement: No Neurologic Surgery: No Oral Surgery: No Pacemaker: No Thoracic Surgery: No Other Surgery: Yes (HERNIA REPAIR) Social History Alcohol Use: Yes (1 beer today) Tobacco Use: Yes (1 PPD) Substance Use: No (FORMERLY MARIJUANA) Allergies-Medications (Allergen,Severity, Reaction): Coded Allergies: lisinopril (Unverified Allergy, Severe, Wheezing, 11/18/16) Reported Meds & Prescriptions Reported Meds & Active Scripts Active Warfarin 7.5 Mg Tab 7.5 Mg PO DAILY please start medication on 11/29. Symbicort Inh (Budesonide/Formoterol Fumarate) 160-4.5 Mcg/Act Aero 2 Puff INH Q12HR Cozaar (Losartan Potassium) 25 Mg Tab 25 Mg PO DAILY Lopressor (Metoprolol Tartrate) 50 Mg Tab 50 Mg PO DAILY Catapres (Clonidine) 0.2 Mg Tab 0.1 Mg PO Q8HR Lovenox Inj (Enoxaparin Sodium) 80 mg/0.8 ML Syr 80 Mg SQ Q12HR 7 Days Flagyl (Metronidazole) 500 Mg Tab 500 Mg PO Q8HR 6 Days Folic Acid 1 Mg Tablet 1 Mg PO DAILY Vitamin B-1 (Thiamine HCl) 100 Mg Tab 100 Mg PO DAILY Aspirin EC (Aspirin) 81 Mg Tabdr 162 Mg PO DAILY Reported Metoprolol Tartrate 100 Mg Tab 100 Mg PO DAILY Review of Systems Except as stated in HPI: all other systems reviewed are Neg General / Constitutional: No: Fever Eyes: No: Visual changes HENT: No: Headaches Cardiovascular: Positive: Chest Pain or Discomfort, No: Palpitations, Irregular Rhythm, Tachycardia, Diaphoresis, Syncope, Dyspnea on exertion, Edema Respiratory: No: Shortness of Breath Gastrointestinal: Positive: Abdominal Pain (lower abdominal), No: Nausea, Vomiting, Diarrhea Genitourinary: No: Dysuria Musculoskeletal: No: Pain Skin: No Rash Neurologic: No: Weakness Psychiatric: No: Depression Endocrine: No: Polydipsia Hematologic/Lymphatic: No: Easy Bruising Physical Exam Narrative GENERAL: Patient appears in no acute distress. He appears intoxicated. SKIN: Warm and dry. Normal color. Normal turgor. No diaphoresis. HEAD: Atraumatic. Normocephalic. EYES: Pupils equal and round. No scleral icterus. No injection or drainage. ENT: No nasal bleeding or discharge. Mucous membranes pink and moist. Pharynx is clear. Airway is patent. NECK: Trachea midline. Supple and nontender. CARDIOVASCULAR: Regular rate and rhythm. No murmurs gallops or rubs. RESPIRATORY: No accessory muscle use. Clear to auscultation. Breath sounds equal bilaterally. GASTROINTESTINAL: Abdomen soft, mild suprapubic tenderness, nondistended. No CVA tenderness. Bowel sounds are present in all quadrants. Hepatic and splenic margins not palpable. MUSCULOSKELETAL: Extremities without clubbing, cyanosis, or edema. No obvious deformities. NEUROLOGICAL: Awake and alert. No obvious cranial nerve deficits. Motor grossly within normal limits. Five out of 5 muscle strength in the arms and legs. Normal speech. PSYCHIATRIC: Appropriate mood and affect; insight and judgment normal. Data Data Last Documented VS Vital Signs Date Time Temp Pulse Resp B/P (MAP) Pulse Ox O2 Delivery O2 Flow Rate FiO2 12/06/16 19:05 100 Nasal Cannula 2.00 12/06/16 19:05 15 12/06/16 19:05 98.0 102 139/91 (107) Orders Orders Electrocardiogram (12/06/16 19:29) Basic Metabolic Panel (Bmp) (12/06/16 19:29) Ckmb (Isoenzyme) Profile (12/06/16 19:29) Complete Blood Count With Diff (12/06/16 19:29) Magnesium (Mg) (12/06/16 19:29) Prothrombin Time / Inr (Pt) (12/06/16 19:29) Act Partial Throm Time (Ptt) (12/06/16 19:29) Troponin I (12/06/16 19:29) Chest, Single Ap (12/06/16 19:29) Ecg Monitoring (12/06/16 19:29) Bilateral Bp Monitoring (12/06/16 19:29) Iv Access Insert/Monitor (12/06/16 19:29) Oximetry (12/06/16 19:29) Oxygen Administration (12/06/16 19:29) Aspirin Chew (Aspirin Chew) (12/06/16 19:30) Sodium Chloride 0.9% Flush (Ns Flush) (12/06/16 19:30) Urinalysis - C+S If Indicated (12/06/16 19:33) Ondansetron Inj (Zofran Inj) (12/06/16 19:45) Sodium Chlor 0.9% 1000 Ml Inj (Ns 1000 M (12/06/16 19:33) Sodium Chloride 0.9% Flush (Ns Flush) (12/06/16 19:45) Famotidine Inj (Pepcid Inj) (12/06/16 19:45) Al-Mag Hy-Si 40-40-4 Mg/Ml Liq (Mag-Al P (12/06/16 19:45) Lidocaine 2% Viscous (Xylocaine 2% Visco (12/06/16 19:45) CKMB (12/06/16 19:30) CKMB% (12/06/16 19:30) Magnesium Sulfate 1 Gm Premix (Magnesium (12/06/16 20:45) Labs Laboratory Tests Test 12/06/16 19:29 12/06/16 19:30 12/06/16 20:00 Prothrombin Time 14.9 SEC Prothromb Time International Ratio 1.3 RATIO Activated Partial Thromboplast Time 28.7 SEC White Blood Count 5.2 TH/MM3 Red Blood Count 3.52 MIL/MM3 Hemoglobin 12.1 GM/DL Hematocrit 36.0 % Mean Corpuscular Volume 102.1 FL Mean Corpuscular Hemoglobin 34.2 PG Mean Corpuscular Hemoglobin Concent 33.5 % Red Cell Distribution Width 17.0 % Platelet Count 247 TH/MM3 Mean Platelet Volume 7.5 FL Neutrophils (%) (Auto) 59.6 % Lymphocytes (%) (Auto) 28.6 % Monocytes (%) (Auto) 9.1 % Eosinophils (%) (Auto) 1.6 % Basophils (%) (Auto) 1.1 % Neutrophils # (Auto) 3.1 TH/MM3 Lymphocytes # (Auto) 1.5 TH/MM3 Monocytes # (Auto) 0.5 TH/MM3 Eosinophils # (Auto) 0.1 TH/MM3 Basophils # (Auto) 0.1 TH/MM3 CBC Comment DIFF FINAL Differential Comment Blood Urea Nitrogen 9 MG/DL Creatinine 0.77 MG/DL Random Glucose 86 MG/DL Calcium Level 8.6 MG/DL Magnesium Level 1.4 MG/DL Sodium Level 140 MEQ/L Potassium Level 4.0 MEQ/L Chloride Level 101 MEQ/L Carbon Dioxide Level 24.4 MEQ/L Anion Gap 15 MEQ/L Estimat Glomerular Filtration Rate 105 ML/MIN Total Creatine Kinase 106 U/L Creatine Kinase MB 1.4 NG/ML Troponin I 0.02 NG/ML Urine Color YELLOW Urine Turbidity HAZY Urine pH 6.0 Urine Specific [place] 1.014 Urine Protein 30 mg/dL Urine Glucose (UA) NEG mg/dL Urine Ketones NEG mg/dL Urine Occult Blood MOD Urine Nitrite NEG Urine Bilirubin NEG Urine Urobilinogen 2.0 MG/DL Urine Leukocyte Esterase NEG Urine RBC 5 /hpf Urine WBC 2 /hpf Urine Squamous Epithelial Cells <1 /hpf Urine Hyaline Casts 17 /lpf Microscopic Urinalysis Comment CULT NOT INDICATED MDM Medical Decision Making Medical Screen Exam Complete: Yes Emergency Medical Condition: Yes Differential Diagnosis Atypical chest pain. Esophagitis. Gastritis. Possible UTI. Cardiac syndrome. Malingering. Narrative Course Patient appears medically stable at time of exam. EKG is performed showing sinus rhythm with marked T-wave abnormality which is similar to previous visit on 11/26/16. There is no acute changes noted. Labs ordered including CBC, CMP, cardiac panel, and urinalysis. IV access is obtained, and patient is given 4 mg Zofran IV, 20 mg Pepcid IV, and a GI cocktail. Patient is given 1000 mL normal saline bolus. Labs show continued chronic mild anemia with a hemoglobin of 12.1, hematocrit 36.0. This is actually typical for the patient somewhat better than normal. CMP is unremarkable except for a magnesium of 1.4. Troponin is 0.02. Urinalysis is normal. Patient is given 1 g magnesium IV over 1 hour. Patient is otherwise felt to be medically stable for discharge. Patient will be continued on ranitidine 150 mg twice a day. Recommend avoiding alcohol as I feel this is causing his abdominal discomfort and chest pain. Patient should follow-up with [facility]. Patient also recommended to follow up with [facility] for alcohol abuse. Diagnosis Primary Impression: Atypical chest pain Additional Impressions: Gastritis Qualified Codes: K29.00 - Acute gastritis without bleeding Alcohol abuse Referrals: [facility] (Out patient) [facility] Patient Instructions: Abuse of Alcohol (ED), Diet for Stomach Ulcers and Gastritis (ED), General Instructions Additional Instructions: Patient will be continued on ranitidine 150 mg twice a day. Recommend avoiding alcohol as I feel this is causing his abdominal discomfort and chest pain. Patient should follow-up with [facility]. Patient also recommended to follow up with [facility] for alcohol abuse. Med/Other Pt SpecificInfo: Prescription(s) given Disposition: 01 DISCHARGE HOME Condition: Stable Dionte Pratt F. PA Dec 06, 2016 19:47
[2016-12-06 19:57] LABS: AUTOMATED NEUTROPHIL # 3.1 TH/MM3 (1.8-7.7); BASOPHIL # 0.1 TH/MM3 (0-0.2); BASOPHIL % 1.1 % (0.0-2.0); EOSINOPHIL # 0.1 TH/MM3 (0-0.4); EOSINOPHIL % 1.6 % (0.0-4.0); HEMO FLAGS DIFF FINAL; LYMPH % 28.6 % (9.0-44.0); LYMPHOCYTE # 1.5 TH/MM3 (1.0-4.8); MEAN CELL VOLUME 102.1 FL (80.0-100.0); MEAN CORPUSCULAR HEMOGLOBIN 34.2 PG (27.0-34.0); MEAN CORPUSCULAR HGB CONC 33.5 % (32.0-36.0); MONO % 9.1 % (0.0-8.0); NEUT % 59.6 % (16.0-70.0); PLATELET COUNT 247 TH/MM3 (150-450); RED BLOOD COUNT 3.52 MIL/MM3 (4.50-5.90); WHITE BLOOD COUNT 5.2 TH/MM3 (4.0-11.0)
[2016-12-06 20:21] LABS: BLOOD, URINE MOD (NEG); COMMENT (UR) CULT NOT INDICATED; CULTURE IF INDICATED CULT NOT INDICATED; GLUCOSE,URINE NEG (NEG); HYALINE CAST, URINE 17 /lpf (RARE); KETONE, URINE NEG (NEG); NITRITE,URINE NEG (NEG); SQUAMOUS EPITHELIAL CELL URINE <1 /hpf (0-5); URINE COLOR YELLOW (YELLW/STRAW)
--- NOTE | 2016-12-06 20:21 | RADRPT ---
EXAM DATE/TIME: 12/06/2016 19:52 [facility] COMPARISON: CHEST SINGLE AP, November 18, 2016, 18:17. INDICATIONS : Chest pain and shortness of breath. MEDICAL HISTORY : Hypertension. AFIB. SURGICAL HISTORY : None. ENCOUNTER: Initial ACUITY: 3 days PAIN SCORE: 9/10 LOCATION: Bilateral chest FINDINGS: A single view of the chest demonstrates the lungs to be symmetrically aerated without evidence of mas s, infiltrate or effusion. The cardiomediastinal contours are unremarkable. Osseous structures are intact. CONCLUSION: 1. No acute findings. Cheng Jacobs MD on December 06, 2016 at 20:18 Board Certified Radiologist. This report was verified electronically.
[2016-12-06 20:26] LABS: ANION GAP 15 MEQ/L (5-15); BICARBONATE 24.4 MEQ/L (21.0-32.0); BLOOD UREA NITROGEN 9 MG/DL (7-18); CHLORIDE 101 MEQ/L (98-107); GLOMERULAR FILTRATION RATE 105 ML/MIN (>89); MAGNESIUM 1.4 MG/DL (1.5-2.5); SODIUM (NA) 140 MEQ/L (136-145)
[2016-12-06 20:31] LABS: CREATINE KINASE 106 U/L (39-308)
[2016-12-06 20:34] LABS: APTT (PATIENT) 28.7 SEC (24.3-30.1); INTERNATIONAL NORMALIZED RATIO 1.3 RATIO; PROTHROMBIN TIME - PATIENT 14.9 SEC (9.8-11.6)
[2016-12-06 20:43] LABS: CKMB 1.4 NG/ML (0.5-3.6)
[2016-12-06] MEDS ORDERED: MAGNESIUM SULFATE 1 GM PREMIX 100 ML IV ONE (20:45)
[2016-12-06] MEDS ORDERED: RANI150T PO (21:26)
--- NOTE | 2016-12-07 12:52 | EKG ---
Date Performed: 12/06/2016 Time Performed: 19:16:29 PTAGE: 56 years EKG: Sinus rhythm POSSIBLE LEFT ATRIAL ENLARGEMENT MARKED T-WAVE ABNORMALITY, CONSIDER ANTEROLATERAL ISCHEMIA ABNORMAL ECG PREVIOUS TRACING : 11/20/2016 09.03 DOCTOR: Bear Mckeon Interpretating Date/Time 12/07/2016 12:47:20
== END 2016-12-06 23:15 | disposition home or self-care (01) ==
LOC: NEPC 18:55
DX: R07.89 Other chest pain (principal); K29.70 Gastritis, unspecified, without bleeding; F10.10 Alcohol abuse, uncomplicated; D64.9 Anemia, unspecified; R06.02 Shortness of breath; I48.91 Unspecified atrial fibrillation; F41.9 Anxiety disorder, unspecified; I10 Essential (primary) hypertension; R94.31 Abnormal electrocardiogram [ECG] [EKG]
CPT/HCPCS: 71010; 80048; 81001; 82550; 82552; 83735; 84484; 85025; 85610; 85730; 93005; 96361; 96365; 96366; 96375; 99285; J2405; J3475; J7030